=== PATIENT | male | born 1955 | race Caucasian/White ===

== ENCOUNTER 2020-12-01 10:51 | Outpatient (CLI) | payer MEDICARE, SELFPAY ==
--- NOTE | ~2020-12-01 | US_ITS ---
EXAMINATION: US soft tissue abdomen DATE: 12/01/2020 11:14 INDICATION: Ventral hernia without obstruction or gangrene TECHNIQUE: Multiple grayscale and Doppler ultrasound images of the abdominal wall were obtained. COMPARISON: None FINDINGS: Fat-containing 5.5 x 3.2 x 3.0 cm umbilical hernia extending through a 3.0 x 2.4 cm mouth. No evident herniated bowel. IMPRESSION: 1. 5.5 x 3.2 x 3.0 cm fat-containing umbilical hernia. Reviewed, dictated and finalized at location A.
== END 2020-12-01 10:52 | disposition home or self-care (01) ==
PROVIDERS: PCP Family Medicine; Visit Provider Family Medicine
DX: K43.9 Ventral hernia without obstruction or gangrene (principal); K42.9 Umbilical hernia without obstruction or gangrene
CPT/HCPCS: 76705

== ENCOUNTER 2021-01-04 09:18 | Outpatient (CLI) | payer MEDICARE, SELFPAY ==
--- NOTE | 2021-01-04 09:30 | ECG_ITS ---
Measurements Intervals [place] Rate: 80 P: 31 MS: 193 QRS: -40 QRSD: 136 T: 40 QT: 393 QTc: 454 Interpretive Statements SINUS RHYTHM LEFT AXIS DEVIATION INTRAVENTRICULAR CONDUCTION DELAY POOR R WAVE PROGRESSION, ANTERIOR LEADS BASELINE ARTIFACT- II, III, AVF BORDERLINE ECG Electronically Signed On 01-04-2021 9:44:46 CDT by Melvin Valdovinos D.O.
[2021-01-04 09:59] LABS: Anion Gap 10 mmol/L (8-16); Blood Urea Nitrogen 24 mg/dL (9-20); Calcium 9.3 mg/dL (8.4-10.2); Carbon Dioxide 24 mmol/L (22-30); Chloride 104 mmol/L (98-107); Estimated Glomerular Filt Rate > 60; Glucose 134 mg/dL (65-110); Potassium 3.8 mmol/L (3.4-5.0); Sodium 138 mmol/L (137-145)
== END 2021-01-04 09:19 | disposition home or self-care (01) ==
LOC: ANHSURGERY 09:22
PROVIDERS: Anesthesiology; PCP Family Medicine; Visit Provider Surgery
DX: K42.0 Umbilical hernia with obstruction, without gangrene (principal); I10 Essential (primary) hypertension; Z01.818 Encounter for other preprocedural examination; I45.9 Conduction disorder, unspecified
CPT/HCPCS: 36415; 80048; 86850; 86900; 86901; 93005

== ENCOUNTER 2021-01-09 02:12 | Day surgery (SDC) | payer MEDICARE, SELFPAY ==
[2021-01-03 11:13] VITALS: BMI 41.4
[2021-01-09] VITALS (11 sets, daily range): BP systolic 98–153; BP diastolic 49–77; PULSE 61–94; RESP 15–20; TEMP 36.1–36.6; O2SAT 94–97
[2021-01-09] MEDS: ACETAMINOPHEN 500 MG TABLET 1000 MG PO (06:25)
[2021-01-09] MEDS: LACTATED RINGERS 1,000 ML 30 ML IV CONT ×2 (06:28→09:07)
[2021-01-09] MEDS: KETOROLAC 15 MG/ML VIAL (*BKC) IV PUSH (06:31)
--- NOTE | 2021-01-09 06:40 | WPDANESEPPF ---
Anes - Initial Pre Proc Eval Procedure: Operation Date: 01/09/21 07:30 Proposed Procedures p Robotic Assisted Incarcerated Umbilical Hernia Repair with Mesh - Brielle Tobar MD Date/Time: 01/09/21 06:40 Surgeon: Brielle Tobar MD Pre Op Diagnosis: incarcerated umbilical hernia Patient Data Age: 65 Gender: M Height: 1.8 m Weight: 134.72 kg Allergies Allergy/AdvReac Type Severity Reaction Status Date / Time No Known Allergies Allergy Mild Verified 01/09/21 06:41 Home Medications Medication Instructions Recorded Confirmed Type losartan 100 mg tablet 100 mg PO DAILY #90 tablet 01/19/20 01/03/21 Rx rosuvastatin 20 mg tablet 20 mg PO DAILY #90 tablet 01/19/20 01/03/21 Rx chlorthalidone 25 mg tablet 25 mg PO DAILY #90 tablet 09/25/20 01/03/21 Rx aspirin 81 mg chewable tablet 81 mg PO DAILY 12/09/20 01/03/21 History glucosamine HCl 500 mg tablet 500 mg PO DAILY 12/09/20 01/03/21 History multivitamin 1 tablet PO DAILY 12/09/20 01/03/21 History tumeric 100 mg-yoni 150 mg-olive 1 cap PO DAILY 12/09/20 01/03/21 History 50 mg-oreg 150 mg-caprylate capsule allopurinol 300 mg tablet 300 mg PO DAILY #90 tablet 12/20/20 01/03/21 Rx amlodipine 10 mg tablet 10 mg PO DAILY #90 tablet 12/20/20 01/03/21 Rx levothyroxine 112 mcg tablet 112 mcg PO DAILY #112 tablet 01/04/21 Rx Patient hx anesthesia problems: none Family hx anesthesia problems: none PMFSH Past Medical History Medical History Benign reactive hypertension Gout Hypothyroidism (acquired) Mixed hyperlipidemia Obesity (BMI 30-39.9) Surgical History Surgical History H/O knee surgery Family History Family History Father Family history of lung cancer Family history of primary malignant neoplasm of liver Patient's father is Mother Family history of malignant neoplasm of breast in first degree relative Patient's mother is in good health Sibling Patient's sister is in good health Patient's brother is in good health Social History Social History Social History: Smoking status: Never smoker Second hand tobacco smoke exposure: No Alcohol intake: never Substance use: never Substance use type: does not use Living arrangements: with family Gender identity (if verbalized by the patient): Male Spiritual care concerns: No Anes - Eval Final PreProcedure Day of Procedure 01/09/21 06:40 Patient weight: morbidly obese Heart: regular rate and rhythm Lungs: clear to auscultation and normal air movement Airway: Mallampati scale class II Neurological: alert and oriented Last oral intake: >/= 8 hours ASA classification: III Emergent: no Anesthetic plan: proceed Anesthesia type and monitoring: general ETT and standard monitoring Informed Consent: The patient's anesthetic plan and its attendant risks and benefits were discussed with the patient/family/POA. Questions were solicited and answers provided to the satisfaction of the patient/family/POA.
--- NOTE | 2021-01-09 07:23 | WPDHPUPDATE1 ---
History and Physical Update Update Date/Time: 01/09/21 07:23 History and Physical has been reviewed, including an updated exam of the patient. There are NO changes in the patient's condition. Risks, benefits, and alternatives have been discussed and questions answered. Patient agrees to proceed with procedure.
--- NOTE | 2021-01-09 07:24 | WPDHPUPDATE1 ---
History and Physical Update Update Date/Time: 01/09/21 07:24 History and Physical has been reviewed, including an updated exam of the patient. There are NO changes in the patient's condition. Risks, benefits, and alternatives have been discussed and questions answered. Patient agrees to proceed with procedure.
[2021-01-09] MEDS: ceFAZolin 3 GM/D5W 100 ML 100 ML IVPB (07:29)
[2021-01-09] MEDS: BUPIVACAINE/EPINEPHRINE 0.5% 30 ML VIAL INFILTRATE (08:15)
--- NOTE | 2021-01-09 08:57 | W.PM.PROC2 ---
Procedure Note - Detailed Date of Procedure 01/09/21 Pre-op Diagnosis incarcerated umbilical hernia Post-op Diagnosis same Procedure Performed robotic assisted repair incarcerated umbilical hernia with mesh Surgeon Brielle Tobar MD Anesthesia general Indications 65 y/o F c incarcerated umbilical hernia Description of Procedure The patient was taken the operating room placed in the supine position. After adequate induction of general anesthesia, the patient was prepped and draped in normal sterile fashion. A time-out was then done to verify the patient's identity as well as the procedure being performed. I began by making a 5 mm incision in the left upper quadrant. Through this, a Veress needle was placed into the peritoneal cavity and CO2 gas was insufflated. After adequate pneumoperitoneum was achieved, a 5 mm trocar was placed through this incision. I then placed the laparoscope through this trocar site and under direct visualization I placed a 8 mm port in the left mid abdomen as well as an additional 8 mm port in the left lower abdomen. I then moved the camera to the lower port and replaced the 5 mm port with a 12 mm airport. The robot was then docked to the 3 port sites. I then went to the robotic console. I began by identifying the hernia. A moderate-sized incarcerated hernia was noted in the periumbilical region. Using graspers, I was able to reduce this hernia. The hernia was noted to contain a large amount of preperitoneal fat and omentum. Once reduced, I also reduced and dissected out the hernia sac. I then closed the approximately 2 cm defect with 0 strata fix suture. I then placed a 15 x 10 cm symbotex mesh into the abdominal cavity. The Vicryl stitch was placed in the middle of the mesh and brought up centering the mesh over the defect. Once this was done, I used 2 0 V lock suture x 2 to circumferentially suture the mesh to the abdominal. Once the mesh was completely sutured in, I was happy with our tension-free repair. The mesh was noted to have good overlap of the defect. At this point, the robot was undocked and all ports were removed. I then closed the 12 mm port site with an 0 Vicryl [id number] suture at the fascial level. All port sites were then closed with 4 O Monocryl subcuticular suture. The patient tolerated the procedure well, is extubated in the operating room postoperative, OB transferred to the recovery room in stable condition. Implants 15x10 cm Symbotex mesh Estimated Blood Loss 10 Drains No Packing No Pathology none sent Complications No immediate complications Condition stable Disposition PACU
--- NOTE | 2021-01-09 11:33 | SUR.PHASEII ---
Patient meets Anesthesia requirements for discharge. Patient is dressed, in chair, waiting for ride.
== END 2021-01-09 11:45 | disposition home or self-care (01) ==
PROVIDERS: PCP Family Medicine; Visit Provider Surgery
PROC: (CPT 49653; principal; 2021-01-09 07:30)
DX: K42.0 Umbilical hernia with obstruction, without gangrene (principal); E78.2 Mixed hyperlipidemia; E03.9 Hypothyroidism, unspecified; I10 Essential (primary) hypertension; M10.9 Gout, unspecified; E66.01 Morbid (severe) obesity due to excess calories; Z68.41 Body mass index [BMI] 40.0-44.9, adult
CPT/HCPCS: 49653; S2900; 36415; 80048; 86850; 86900; 86901; 93005; A9270; C1781; J0690; J1885; J2250; J2270; J2405; J2704; J7030; J7120

== ENCOUNTER 2022-03-15 09:22 | Outpatient (CLI) | payer MEDICARE, SELFPAY ==
--- NOTE | 2022-03-15 09:30 | ECG_ITS ---
Measurements Intervals [place] Rate: 98 P: 56 OR: 191 QRS: -42 QRSD: 140 T: 63 QT: 372 QTc: 476 Interpretive Statements SINUS RHYTHM FREQUENT VENTRICULAR PREMATURE COMPLEXES LEFT AXIS DEVIATION POOR R WAVE PROGRESSION, ANTERIOR LEADS ABNORMAL ECG COMPARED TO ECG 01/04/2021 09:37:35 FREQUENT VENTRICULAR PREMATURE COMPLEXES NOW PRESENT Electronically Signed On 03-15-2022 10:15:38 CDT by Melvin Valdovinos D.O.
== END 2022-03-15 09:23 | disposition home or self-care (01) ==
PROVIDERS: PCP Family Medicine; Visit Provider Surgery
DX: K40.90 Unilateral inguinal hernia, without obstruction or gangrene, not specified as recurrent (principal); I10 Essential (primary) hypertension; Z01.818 Encounter for other preprocedural examination; R94.31 Abnormal electrocardiogram [ECG] [EKG]
CPT/HCPCS: 36415; 86850; 86900; 86901; 93005

== ENCOUNTER 2022-03-19 02:35 | Day surgery (SDC) | payer MEDICARE, SELFPAY ==
[2022-03-14 10:02] VITALS: BMI 40.8
--- NOTE | 2022-03-14 10:15 | PC.NURSE ---
Pre Radiology instructions Report to the Outpatient Waiting Room, entrance under the green pavilion located off [facility], at time on date . Procedure Time: . YOU MAY BE MONITORED AT HOSPITAL FOR UP TO 4 HOURS AFTER YOUR PROCEDURE. One visitor will be allowed to accompany the patient into the hospital. The visitor will be instructed to remain with patient at all times or leave the building due to restrictions. We will allow the visitor to come back to the postoperative area when patient is ready. NO children visitors allowed at this time. You and your visitor will be asked to self-screen and do not enter if you have any COVID symptoms. A mask is required within the hospital. Patients are to have no food or drink 6 hours prior to procedure time Driving will be restricted after the procedure, you must have a person to drive you home. Labs will be drawn in preop area and once reviewed, you will be taken to radiology area for procedure. When the procedure is completed, you will be taken to outpatient where you will be monitored for several hours. You may have one visitor in this area. Other than holding anti-coagulants, patient may take other medication(s) as scheduled. Prior to your appointment date patients are instructed to hold anti-coagulants after discussing with ordering provider to stop. If unable to discontinue anti-coagulants please notify radiologist. No aspirin or warfarin (Coumadin) for 7 days prior to the procedure. No clopidogrel (Plavix), ticagrelor (Brilinta), prasugrel (Effient) or dabigatran (Pradaxa) for 5 days prior to the procedure. No rivaroxaban (Xarelto), apixaban (Eliquis), dipyridamole (Aggrenox or Persantine) or cilostazol (Pletal) for 2 days prior to the procedure. Medications to discontinue per physician: Date to take last dose: Please leave all valuables, including medications, at home the day of procedure. The hospital will not accept responsibility for valuables. Wear comfortable, loose fitting clothing. Follow any additional instructions given to you from ordering provider. Telephone instructions given to and asked if any additional questions and then verbalized understanding. Patient advised to call scheduling provider office or registration scheduling [phone] if any additional questions.
--- NOTE | 2022-03-14 10:15 | PC.NURSE ---
PRE-OP INSTRUCTIONS, PLEASE READ CAREFULLY Report to the Outpatient Waiting Room, entrance under the green pavilion located off [facility], at time _1000_ on date _03/19/22_. OR Time: _1200_. Time changes happen often and if your time is changed the preop area will call you the afternoon before. - You and your visitor will be asked to self-screen and do not enter if you have any COVID symptoms. - Only one visitor and NO children visitors are allowed at this time. - The patient visitor is requested to leave or wait in car when not with patient due to restrictions. - A mask is required within the hospital. Patients may have clear liquids (water, carbonated beverages, clear teas, apple juice) until 3 hours prior to surgery (0900 AM) with a maximum of 20 ounces. - No food from midnight until time of surgery Take the following medications with a SIP of water the morning of surgery: _NONE_ Medications to discontinue per ANESTHESIA - _MULTIVITAMIN, CANDICIDAL 3 DAYS PRIOR TO SURGERY, Date to take last dose 03/15/22_ Please no deodorant, or body powder the day of surgery. No jewelry (including any body piercings) or valuables the day of surgery, leave them at home. Please take a shower or bath the night before, or the morning of, surgery with an antibacterial soap. Wear comfortable, loose fitting clothing. - Jewelry must be removed prior to entering the operating room. Rings and piercings that are not removed may be cut off. - The hospital will not accept responsibility for valuables. - Please leave all valuables, including medications, at home the day of surgery. If you are going home after surgery, a licensed tour bus driver must drive you home. - NO public transportation without another adult. - We recommend that an adult stay with you for 24 hours following discharge. - We also recommend that you do not drive, make important decision, drink alcoholic beverages, or take any drugs that were not prescribed by your health care provider for at least 24 hours after your discharge time. Follow any additional instructions given to you from your surgeon. HIBICLENS SHOWER AM OF SURGERY If you or anyone in your household have experienced Covid symptoms in the past week, please notify your surgeon or the nurse liaison at the phone number below for possible testing. Telephone instructions given to PT and asked if any additional questions and then verbalized understanding. Patient advised to call surgeon office or pre surgery nurse liaison [phone] if any additional questions.
--- NOTE | 2022-03-16 15:16 | WPDANESEPPF ---
Anes - Initial Pre Proc Eval Procedure: Operation Date: 03/19/22 12:00 Proposed Procedures p Robotic Assisted Left Inguinal Hernia Repair with Mesh - Brielle Tobar MD Date/Time: 03/16/22 15:16 Surgeon: Brielle Tobar MD Pre Op Diagnosis: Lt Ing Hernia Patient Data Age: 66 Gender: M Height: 1.82 m Weight: 135.45 kg Allergies Allergy/AdvReac Type Severity Reaction Status Date / Time No Known Allergies Allergy Mild Verified 03/14/22 09:58 Home Medications Medication Instructions Recorded Confirmed Type glucosamine HCl 500 mg tablet 500 mg PO DAILY 12/09/20 03/14/22 History multivitamin 1 tablet PO DAILY 12/09/20 03/14/22 History tumeric 100 mg-yoni 150 mg-olive 1 cap PO DAILY 12/09/20 03/14/22 History 50 mg-oreg 150 mg-caprylate capsule (Candicidal) amlodipine 10 mg tablet 10 mg PO DAILY #90 tabs 06/22/21 03/14/22 Rx aspirin 81 mg chewable tablet 81 mg PO DAILY #90 tabs 06/22/21 03/14/22 Rx levothyroxine 112 mcg tablet 112 mcg PO DAILY #112 tabs 06/22/21 03/14/22 Rx losartan 50 mg tablet 100 mg PO DAILY #180 tabs 10/06/21 03/14/22 Rx allopurinol 300 mg tablet See Rx Instructions .Route 12/19/21 03/14/22 Rx .COMPLEX #90 tabs rosuvastatin 20 mg tablet See Rx Instructions .Route 01/09/22 03/14/22 Rx .COMPLEX #90 tabs metformin 500 mg tablet See Rx Instructions .Route 01/30/22 03/14/22 Rx .COMPLEX #60 tabs chlorthalidone 25 mg tablet See Rx Instructions .Route 03/02/22 03/14/22 Rx .COMPLEX #90 tabs ECG: Date of Service: 03/15/22 Procedure(s): CA 12 lead EKG Accession Number(s): [id number] cc: ~ ? Measurements Intervals? [place]? Rate: ? 98 ? P:? 56 IA: ? 191? QRS:? -42 QRSD: ? 140? T:? 63 QT: ? 372? QTc:? 476? Interpretive Statements SINUS RHYTHM FREQUENT VENTRICULAR PREMATURE COMPLEXES LEFT AXIS DEVIATION POOR R WAVE PROGRESSION, ANTERIOR LEADS ABNORMAL ECG COMPARED TO ECG 01/04/2021 09:37:35 FREQUENT VENTRICULAR PREMATURE COMPLEXES NOW PRESENT Electronically Signed On 03-15-2022 10:15:38 CDT by Melvin Valdovinos D.O. Patient hx anesthesia problems: none Family hx anesthesia problems: none Results Review: All pre-operative results and documents have been reviewed as part of the pre-operative evaluation. [facility] Past Medical History Medical History (Updated 03/16/22 @ 15:17 by Israel Raines MD) Benign reactive hypertension Diabetes Gout Hypothyroidism (acquired) Mixed hyperlipidemia Obesity (BMI 30-39.9) Severe obesity (BMI >= 40) Surgical History Surgical History H/O knee surgery H/O umbilical hernia repair 01/09/21 Family History Family History Father Family history of lung cancer Family history of primary malignant neoplasm of liver Patient's father is Mother Family history of malignant neoplasm of breast in first degree relative Patient's mother is in good health Sibling Patient's sister is in good health Patient's brother is in good health Social History Social History Social History: Smoking status: Never smoker Second hand tobacco smoke exposure: No Alcohol intake: never Substance use: never Substance use type: does not use Living arrangements: with family Gender identity (if verbalized by the patient): Male Sexual Orientation (if Verbalized by the Patient): Straight or Heterosexual Spiritual care concerns: No Anes - Eval Final PreProcedure Day of Procedure 03/16/22 15:16 Patient weight: morbidly obese Heart: regular rate and rhythm Lungs: tenzin
[2022-03-19] VITALS (7 sets, daily range): BP systolic 132–165; BP diastolic 66–91; PULSE 44–91; RESP 16–22; TEMP 36.6–36.8; O2SAT 91–97
[2022-03-19] MEDS: ACETAMINOPHEN 500 MG TABLET 1000 MG PO (11:08)
[2022-03-19] MEDS: LACTATED RINGERS 1,000 ML 30 ML IV CONT ×2 (11:20→15:31)
[2022-03-19] MEDS: KETOROLAC 15 MG/ML VIAL (*BKC) IV PUSH (11:20)
[2022-03-19 11:22] LABS: Glucose Point of Care 137 mg/dl (65-105)
--- NOTE | 2022-03-19 11:39 | PM.IMHP ---
H&P: HPI History of Present Illness Date/Time: 03/19/22 11:39 Pt here for evaluation of L groin pain. Patient states about 2 months ago he started noticing tightness/discomfort in his left groin. He denies any bulge. He is eating normally and having normal BM's. Patient does have a history of robotic assisted repair incarcerated umbilical hernia with mesh on 01/09/21. Chief Complaint: Left groin pain Review of Systems Review of Systems: All systems reviewed & are unremarkable except as noted in HPI and below PMFSH Past Medical History Medical History Benign reactive hypertension Diabetes Gout Hypothyroidism (acquired) Mixed hyperlipidemia Obesity (BMI 30-39.9) Severe obesity (BMI >= 40) Surgical History Surgical History H/O knee surgery H/O umbilical hernia repair 01/09/21 Family History Family History Father Family history of lung cancer Family history of primary malignant neoplasm of liver Patient's father is Mother Family history of malignant neoplasm of breast in first degree relative Patient's mother is in good health Sibling Patient's sister is in good health Patient's brother is in good health Social History Social History Social History: Smoking status: Never smoker Second hand tobacco smoke exposure: No Alcohol intake: never Substance use: never Substance use type: does not use Living arrangements: with family Gender identity (if verbalized by the patient): Male Sexual Orientation (if Verbalized by the Patient): Straight or Heterosexual Spiritual care concerns: No Meds Home Medications and Allergies Home Medications Medication Instructions Recorded Confirmed Type glucosamine HCl 500 mg tablet 500 mg PO DAILY 12/09/20 03/19/22 History multivitamin 1 tablet PO DAILY 12/09/20 03/19/22 History tumeric 100 mg-yoni 150 mg-olive 1 cap PO DAILY 12/09/20 03/19/22 History 50 mg-oreg 150 mg-caprylate capsule (Candicidal) amlodipine 10 mg tablet 10 mg PO DAILY #90 tabs 06/22/21 03/19/22 Rx aspirin 81 mg chewable tablet 81 mg PO DAILY #90 tabs 06/22/21 03/19/22 Rx levothyroxine 112 mcg tablet 112 mcg PO DAILY #112 tabs 06/22/21 03/19/22 Rx losartan 50 mg tablet 100 mg PO DAILY #180 tabs 10/06/21 03/19/22 Rx allopurinol 300 mg tablet See Rx Instructions .Route 12/19/21 03/19/22 Rx .COMPLEX #90 tabs rosuvastatin 20 mg tablet See Rx Instructions .Route 01/09/22 03/19/22 Rx .COMPLEX #90 tabs metformin 500 mg tablet See Rx Instructions .Route 01/30/22 03/19/22 Rx .COMPLEX #60 tabs chlorthalidone 25 mg tablet See Rx Instructions .Route 03/02/22 03/19/22 Rx .COMPLEX #90 tabs Allergies Allergy/AdvReac Type Severity Reaction Status Date / Time No Known Allergies Allergy Mild Verified 03/19/22 11:03 Vital Signs Vital Signs - 24 hr 03/19/22 10:20 Temperature 36.8 C Pulse Rate 52 L Respiratory Rate 16 Blood Pressure 165/91 H Pulse Oximetry 97 Oxygen Delivery Room Air Exam Const: General: cooperative, comfortable, no acute distress and obese Resp: Auscultation: clear to auscultation bilaterally Cardio: Rate: regular rate Rhythm: regular rhythm GI: Inspection: normal to inspection and non-distended GI Palp: Yes abdominal tenderness, Yes Soft to palpation, Yes Tenderness to palpation present (GI), No Guarding due to palpation present (GI), No Rigid due to palpation and Yes Hernia present Assessment and Plan Assessment and plan (1) Left inguinal hernia: Code(s): K40.90 - Unilateral inguinal hernia, without obstruction or gangrene, not specified as recurrent Status: Acute Assessment and Plan: will setup for robotic assisted repair c mesh
--- NOTE | 2022-03-19 11:42 | WPDHPUPDATE1 ---
History and Physical Update Update Date/Time: 03/19/22 11:42 History and Physical has been reviewed, including an updated exam of the patient. There are NO changes in the patient's condition. Risks, benefits, and alternatives have been discussed and questions answered. Patient agrees to proceed with procedure.
[2022-03-19] MEDS: ceFAZolin 3 GM/D5W 100 ML 100 ML IVPB (13:47)
[2022-03-19] MEDS: BUPIVACAINE/EPINEPHRINE 0.25% 50 ML VIAL 30 ML INFILTRATE (14:21)
--- NOTE | 2022-03-19 15:33 | W.PM.PROC2 ---
Procedure Note - Detailed Date of Procedure 03/19/22 Pre-op Diagnosis Left inguinal hernia Post-op Diagnosis Same Procedure Performed robotic assisted left inguinal hernia repair with mesh, lysis of adhesions of approximately 30 minutes Surgeon Brielle Tobar MD Anesthesia General Indications 66 y/o M c LIH and worsening groin pain over last few months Findings indirect left inguinal hernia, extensive periumbilical adhesions to previous mesh Description of Procedure Patient was brought into the operating room and placed in the supine position. After adequate induction of general anesthesia, the patient was prepped and draped in normal sterile fashion. A time-out was then done to verify the patient's identity, as well as the procedure being performed. I began by making a 8 mm incision in the left mid abdominal region, given his previous periumbilical hernia repair. A Veress needle was then placed into the peritoneal cavity. CO2 gas was then insufflated and after adequate pneumoperitoneum was achieved, the Veress needle was removed. I then placed an 8 mm trocar through this incision. I then placed the endoscope through this trocar site. A dense amount of adhesions was noted in the periumbilical area to the previously placed mesh. Given this, I placed a 5 mm RLQ port in a clear area under direct visualization. I then used sharp dissection with cautery to take down these adhesions. This lysis of adhesions took approximately 30 minutes. Once these adhesions were taken down, went ahead and placed 2 further 8 mm ports in the midline supraumbilical region and the right mid abdomen. The [employer] robot was then docked to the 3 trocar sites. I then scrubbed out and went to the robotic console. Upon examining the pelvis, it was noted that the patient had a moderate left inguinal hernia. The right side was examined and no hernia defect was noted. I began by making a preperitoneal flap approximately 6 cm superior to the defect. This flap was carried medially past the umbilical ligaments and laterally to the transversalis. It then began dissection of my medial compartment taking this down to the pubic tubercle. I then began the lateral dissection taking this down to the transversalis fascia. Once these compartments were achieved, I began dissection around the cord structures. A moderate sized indirect hernia was noted at this point. Using careful dissection, was able to reduce indirect hernia sac off the cord structures. I also reduced a sizable lipoma of the cord. Once this was adequately done, I went ahead and placed a large piece of 3D Max mesh into the abdominal cavity. The mesh was carefully positioned, centering the center of the mesh over the indirect defect. Once this was done, was very satisfied with our repair. Using 3-0 Vicryl sutures, I tacked the mesh medially to Miguel's ligament. Two lateral sutures were placed from the mesh to the transversalis fascia. I then closed the peritoneal flap with a running 2.0 V Lock suture. The abdomen was then desufflated, and all ports were removed. All incisions were then closed with the 4.0 monocryl suture. Dermabond was placed on each wound. The patient tolerated the procedure well, was extubated in the operating room postoperatively, and will now be transferred to the recovery room in stable condition. Implants large 3DMax mesh Estimated Blood Loss 10 Drains No Packing No Pathology None sent Complications No immediate complications Condition Stable Disposition PACU [facility] Billing Surgery - Charge Forward: Surgery Billing
[2022-03-19 15:44] LABS: Glucose Point of Care 159 mg/dl (65-105)
== END 2022-03-19 17:25 | disposition home or self-care (01) ==
PROVIDERS: PCP Family Medicine; Visit Provider Surgery
PROC: 8E0Y4CZ Robotic Assisted Procedure of Lower Extremity, Percutaneous Endoscopic Approach (ICD-10-PCS; CPT 49650; principal; 2022-03-19 12:00)
DX: K40.90 Unilateral inguinal hernia, without obstruction or gangrene, not specified as recurrent (principal); K66.0 Peritoneal adhesions (postprocedural) (postinfection); I10 Essential (primary) hypertension; E11.9 Type 2 diabetes mellitus without complications; E78.2 Mixed hyperlipidemia; E03.9 Hypothyroidism, unspecified; M10.9 Gout, unspecified; E66.01 Morbid (severe) obesity due to excess calories; Z68.41 Body mass index [BMI] 40.0-44.9, adult; Z79.84 Long term (current) use of oral hypoglycemic drugs; Z79.82 Long term (current) use of aspirin
CPT/HCPCS: 49650; S2900; 36415; 82948; 86850; 86900; 86901; 93005; A9270; C1781; J0330; J0690; J1100; J1885; J2250; J2405; J2704; J2710; J3010; J7030; J7120

== ENCOUNTER 2022-10-18 08:13 | Outpatient (CLI) | payer MEDICARE, SELFPAY ==
--- NOTE | ~2022-10-18 | XR_ITS ---
Clinical Indication: Cough PA and lateral views of the chest: Comparison: None Findings: The lungs are clear, without evidence of focal consolidation or pleural effusion. Cardiome diastinal silhouette is within normal limits. Bones and soft tissues are unremarkable. Impression: Normal chest. Reviewed, dictated and finalized at location . Impression: Normal chest.
== END 2022-10-18 08:14 | disposition home or self-care (01) ==
PROVIDERS: PCP Family Medicine; Visit Provider Family Medicine
DX: R05.9 Cough, unspecified (principal)
CPT/HCPCS: 71046

== ENCOUNTER 2023-03-19 12:39 | Outpatient (RCR) | payer MEDICARE, SELFPAY ==
--- NOTE | 2023-03-19 14:39 | OPREHPOC ---
Outpatient Therapy Plan of Care This is a Multidisciplinary Plan of Care that may contain components documented by all disciplines (PT, OT, and ST.) ST Problem 1 ST Problem #[address] Goal 1 Goal Patient will participate in education and home exercise program to improve vocal hygiene, breath support, and efficiency of vocal folds during phonation. Target Visit [address] Problem #[address] Goal 1 Goal Patient will complete vocal function exercises ( sustained phonation, pitch glides, etc.) as trained at least twice daily, 5 days a week per self-report to improve voice quality. Target Visit 4 ST Goal 2 Goal Patient will complete sustained phonation tasks ( SOVT, sustained /a/ phoneme, etc) for at least 15 seconds while maintaining perceptually good quality and volume in 8/10 attempts to improve muscular endurance required for sustained phonation. Target Visit [address] Problem #[address] Goal 1 Goal Patient will use diaphragmatic breathing and prolong phonation of a vowel sound for 15 seconds to improve breath support required for sustained phonation. Target Visit 4
--- NOTE | 2023-03-19 14:43 | STOPEVAL1 ---
Assessment and note entered by Soumya Guerrero TENDER COORDINATOR Evaluation Information Assessment Status Evaluation Diagnosis Dysphonia; vocal nodules Onset July 2022 Subjective Information Patient reports ongoing cough since approximately July 2022. ENT discovered the start of unilateral vocal nodule, per patient report. Reported Pain Level Pain Score 0: Self Report Assessment ST Clinical Summary Kamron Patel is a 67 year old male with a past medical history significant for acute bronchitis and chronic cough. Kamron was referred to complete a voice evaluation with a speech language pathologist due to consistent dysphonia since July of 2022. Kamron reports that his ENT found the beginning of a unilateral vocal nodule and inflammation of his vocal folds. He reports that he has always been a loud and boisterous person, especially while entertaining his grandchildren. It was noted that Kamron uses mostly clavicular breathing and frequently runs out of breath in the middle of sentences. He demonstrates audible breathing and also reports frequent wheezing. Kamron frequently coughed and cleared his throat throughout the session and said he has been getting over bronchitis with an antibiotic and steroid inhaler. Kamron's prolonged vowel lasted 5.13 seconds and time counting on one breath lasted 7.93 seconds, indicating decreased breath support required for proper phonation. Kamron's /s/ to /z/ ratio was 1.32, indicating difficulty producing easy motion of the vocal folds. The Voice Handicap Index was completed with a score of 37, placing him in the moderate severity rating often seen in patients with vocal nodules. Throughout reading passage, Kamron was unable to naturally end exhalation with ends of sentences, frequently having to take breaths skilled nursing through the sentence. However, Kamron's loudness and pitch remained within normal limits. Kamron was provided education on vocal abuse to avoid and was recommended to continue exploring possible GERD as a contributor to dysphonia. Kamron was also provided the start of a home exercise program
--- NOTE | 2023-04-30 11:54 | STOPDC ---
Assessment and note entered by Soumya Guerrero, LAYDOWN MACHINE OPERATOR Evaluation Information Assessment Status Discharge - Pt Not Present Assessment ST Clinical Summary Kamron Patel received a ST evaluation on 03/19/23 to address chronic dysphonia. During the evaluation, Kamron received education to decrease vocal fold abuse as well as a home exercise program to improve breath support required for phonation and vocal fold strength. Kamron will d/c from skilled services because he was unable to attend follow up ST treatment sessions. Thank you for this referral. Plan of Care ST Services Indicated No
== END 2023-04-30 14:50 | disposition home or self-care (01) ==
LOC: ANHST 12:39
PROVIDERS: PCP Family Medicine; Visit Provider Family Medicine
DX: J38.2 Nodules of vocal cords (principal); J38.3 Other diseases of vocal cords
CPT/HCPCS: 92507; 92524

== ENCOUNTER 2023-03-21 14:29 | Inpatient (IN) | payer MEDICARE, SELFPAY ==
[2023-03-21] VITALS (39 sets, daily range): BP systolic 101–137; BP diastolic 78–106; PULSE 87–107; RESP 14–26; TEMP 36.1–36.8; O2SAT 92–100
--- NOTE | ~2023-03-21 | XR_ITS ---
EXAMINATION: XR chest 2V DATE: 03/21/2023 15:29 INDICATION: Cough and dyspnea TECHNIQUE: PA and lateral views of the chest were obtained. COMPARISON: Chest radiograph dated 10/18/2022 FINDINGS: The lungs remain clear with no focal airspace opacities, pulmonary edema, pleural effusion or pneumot horax. Cardiomegaly. Mild thoracic spondylosis. IMPRESSION: 1. Cardiomegaly. No other acute cardiopulmonary disease. Reviewed, dictated and finalized at location A.
--- NOTE | ~2023-03-21 | CT_ITS ---
EXAMINATION: CTA chest PE protocol DATE: 03/21/2023 20:29 INDICATION: Shortness of breath. TECHNIQUE: Computed tomography angiography (CTA) of the chest was performed with 100 mL Omnipaque-350 intravenous contrast timed to evaluate the pulmonary arteries. Coronal maximum intensity projection 3D-reconstructions were created by the technologist. Automated exposure control and iterative reconst ruction technique were employed. The dose-length product was 930.45 mGy-cm. COMPARISON: Chest 2 views 03/21/2023 FINDINGS: The lungs demonstrate mild atelectasis. There is smooth septal thickening bilaterally, cons istent mild pulmonary edema. No pleural effusion. Cardiomegaly is noted. No pericardial effusion. The re is no pulmonary embolus. There is mild mediastinal lymphadenopathy, likely reactive. There is mild thoracic spondylosis. IMPRESSION: 1. No pulmonary embolus. 2. Mild pulmonary edema. 3. Cardiomegaly. Reviewed, dictated and finalized at location E.
--- NOTE | 2023-03-21 14:31 | ECG_ITS ---
Measurements Intervals [place] Rate: 102 P: [place]: 0 QRS: -52 QRSD: 141 T: 89 QT: 395 QTc: 516 Interpretive Statements ATRIAL FIBRILLATION LEFT AXIS DEVIATION [QRS AXIS < -30] LEFT BUNDLE BRANCH BLOCK [120+ ms QRS DURATION, 80+ ms Q/S IN V1/V2, 85+ ms R IN I/aVL/V5/V6] COMPARED TO ECG 03/15/2022 09:58:41 ATRIAL FIBRILLATION NOW PRESENT Electronically Signed On 03-22-2023 14:09:58 CDT by Angelina Escobar M.D.
[2023-03-21 14:50] LABS: Basophils Absolute Auto 0.1 K/mm3 (0.0-0.1); Basophils Percent Auto 0.6 % (0.2-1.2); Eosinophils Absolute Auto 0.1 K/mm3 (0-0.3); Eosinophils Percent Auto 0.9 % (0-4.4); Hematocrit 41.7 % (42.0-52.0); Hemoglobin 13.8 g/dL (14.0-18.0); Immature Granulocyte Absolute 0.04 K/mm3 (0.00-0.031); Immature Granulocyte Percent A 0.4 % (0-0.5); Lymphocytes Absolute Auto 2.14 K/mm3 (0.9-3.2); Lymphocytes Percent Auto 22.4 % (18.3-44.2); Mean Corpuscular HGB Conc 33.1 g/dl (32-36); Mean Corpuscular Hemoglobin 30.3 pg (26-34); Mean Corpuscular Volume 91.6 fl (80-100); Mean Platelet Volume 10.7 fl (7.4-10.4); Monocytes Absolute Auto 0.7 K/mm3 (0.1-0.6); Monocytes Percent Auto 7.3 % (2.6-8.5); Neutrophils Absolute Auto 6.5 K/mm3 (1.3-6.7); Neutrophils Percent Auto 68.4 % (45.5-73.1); Platelet Count Result 278 k/mm3 (150-375); Red Blood Count 4.55 M/mm3 (4.6-6.20); Red Cell Distribution Width 15.5 % (11.5-14.5); White Blood Count 9.6 K/mm3 (4.5-10.0)
[2023-03-21 15:00] LABS: Alanine Aminotransferase 58 U/L (6-50); Albumin Level 4.4 g/dL (3.5-5.1); Alkaline Phosphatase 42 U/L (38-126); Anion Gap 12 mmol/L (8-16); Aspartate Amino Transferase 59 U/L (17-59); Blood Urea Nitrogen 22 mg/dL (9-20); Calcium 8.8 mg/dL (8.4-10.2); Carbon Dioxide 20 mmol/L (22-30); Chloride 95 mmol/L (98-107); Estimated CRCL calculation 74 ml/min; Estimated Glomerular Filt Rate 60; Glucose 143 mg/dL (65-110); Potassium 3.6 mmol/L (3.4-5.0); Sodium 127 mmol/L (137-145)
[2023-03-21 15:01] LABS: INR 1.2; Prothrombin Time 15.7 Seconds (11.1-14.7)
[2023-03-21 15:02] LABS: Partial Thromboplastin Time 27.3 SECONDS (22.3-36.8)
[2023-03-21 15:12] LABS: NT Pro B Type Natriuretic Pept 11000 pg/mL (19.9-100); Troponin I 0.034 ng/mL (0.000-0.034)
[2023-03-21 15:27] LABS: Influenza A QL RT-PCR Negative (Negative); Influenza B QL RT-PCR Negative (Negative); SARS-CoV-2 RNA PCR Negative (Negative)
--- NOTE | 2023-03-21 18:59 | ED.SOB ---
HPI - SOB/Dyspnea General Chief Complaint: Shortness of Breath/Dyspnea <Ann Hoover PA-C - Last Filed: 03/22/23 00:45> Stated Complaint: SOB <EVERTON Arango Last Filed: 03/22/23 00:45> Time Seen by Provider: 03/21/23 18:37 <EVERTON Arango Last Filed: 03/22/23 00:45> Source: patient <EVERTON Arango Last Filed: 03/22/23 00:45> Mode of arrival: ambulatory <EVERTON Arango Last Filed: 03/22/23 00:45> Limitations: no limitations <EVERTON Arango Last Filed: 03/22/23 00:45> History of Present Illness HPI Narrative: This is a 67 year old male that presents to the ER for progressive dyspnea over the last week. Reports worse with lying flat. Reports he has had a chronic productive cough since the beginning of this year. He has seen multiple specialists for this without certain cause found. Reports lower extremity edema. Denies fever or chest pain. <Ann Hoover PA-C - Last Filed: 03/22/23 00:45> Related Data Home Medications: Home Medications Medication Instructions Recorded Confirmed glucosamine HCl 500 mg tablet 500 mg PO DAILY 12/09/20 03/22/23 multivitamin 1 tablet PO DAILY 12/09/20 03/22/23 omega 5-wpn-sfc-fish oil 60 mg-90 1 cap PO DAILY 10/29/22 03/22/23 mg-500 mg capsule (Fish Oil) allopurinol 300 mg tablet 1 mg PO DAILY 03/22/23 03/21/23 amlodipine 10 mg tablet 1 mg HS 03/22/23 03/22/23 bisacodyl 5 mg tablet,delayed 15 mg PO HS 03/22/23 03/22/23 release (Dulcolax (bisacodyl)) chlorthalidone 25 mg tablet 1 mg HS 03/22/23 03/22/23 losartan 50 mg tablet 2 mg PO DAILY 03/22/23 03/22/23 metformin 500 mg tablet 1 mg BIDAC 03/22/23 03/22/23 omeprazole 40 mg capsule,delayed 40 mg PO HS 03/22/23 03/22/23 release rosuvastatin 20 mg tablet 1 mg PO HS 03/22/23 03/22/23 <EVERTON Arango Last Filed: 03/22/23 00:45> Allergies/Adverse Reactions: Allergies Allergy/AdvReac Type Severity Reaction Status Date / Time No Known Allergies Allergy Mild Verified 03/21/23 14:29 <Ann Hoover PA-C - Last Filed: 03/22/23 00:45> Review of Systems Review of Systems: CONSTITUTIONAL: Denies fever CARDIOVASCULAR: Reports edema. Denies chest pain RESPIRATORY: Reports cough and dyspnea. <EVERTON Arango Last Filed: 03/22/23 00:45> All systems reviewed & are unremarkable except as noted in HPI and below <EVERTON Arango Last Filed: 03/22/23 00:45> [facility] Past Medical History Medical History: Medical History Acute bronchitis Acute non-recurrent maxillary sinusitis Arthritis of knee Benign reactive hypertension BMI 40.0-44.9, adult Body mass index [BMI] 37.0-37.9, adult (01/11/17) Cellulitis of perianal area Colon cancer screening Diabetes Dietary counseling and surveillance (04/07/19) Dyslipidemia Elevated fasting blood sugar Essential hypertension Gout Hyperglycemia Hypothyroidism (acquired) Lichen planus follicularis Mixed hyperlipidemia Mixed hyperlipidemia New onset type 2 diabetes mellitus New onset type 2 diabetes mellitus Obesity (BMI 30-39.9) Obesity hypoventilation syndrome Other obesity due to excess calories Pain in left knee Patella, chondromalacia Perianal irritation Prediabetes Ringworm Screening PSA (prostate specific antigen) Severe obesity (BMI >= 40) Weight gain Wheezing <EVERTON Arango Last Filed: 03/22/23 00:45> Surgical History Surgical History: Surgical History H/O knee surgery H/O umbilical hernia repair 01/09/21 History of inguinal hernia repair 03/19/2022 - robotic assisted left inguinal hernia repair with mesh, lysis of adhesions <EVERTON Arango Last Filed: 03/22/23 00:45> Family History Family History: Family History Father Family history of lung cancer Fam
[2023-03-21 19:21] LABS: D Dimer 4.58 ug/mL (<0.48)
[2023-03-21] MEDS: FUROSEMIDE INJ 40 MG/4 ML VIAL IV PUSH (20:55)
--- NOTE | 2023-03-21 23:22 | ADMGEN ---
This patient, Kamron Patel, was admitted to [facility] Surg Room 313-01. Patient/family oriented to hospital policies and general routines including ID bracelet, bed and alarms, visiting hours, pain management, procedures, bathroom and other care routines, personal items, smoking policy, room service/diet, and visiting hours. Information on how to activate the Rapid Response Team has been discussed. Patient/Family are encouraged to report perceived risks to care and to ask questions if they do not understand what they are told or what they should do.
[2023-03-21 23:34] LABS: Troponin I 0.043 ng/mL (0.000-0.034)
[2023-03-22] VITALS (9 sets, daily range): BP systolic 106–117; BP diastolic 72–80; PULSE 78–111; RESP 13–22; TEMP 36.1–36.7; O2SAT 90–99
--- NOTE | 2023-03-22 | ECHO_ITS ---
Patient Info Name: Kamron Patel Age: 67 years : 1955 Gender: Male Ht: 71 in Wt: 290 lbs BSA: 2.62 m2 HR: 82 bpm BP: 106 / 77 mmHg Heart Rhythm: Sinus Rhythm Technical Quality: Fair Exam Date: 03/22/2023 10:22 AM Exam Location: [facility] Pulmonary Patient Status: Outpatient Admit Date: 03/21/2023 Staff Ordering Physician: Abdulaziz Ramos APRN Cytotechnologist Supervisor: Willow Castillo RDCS Attending Provider: Kia Anthony DO Referring Physician: Richard DOYLE; Exam Type: CA echo dop color flow w con Study Info Indications - NEW ONSET CHF Complete two-dimensional, color flow and Doppler transthoracic echocardiogram is performed with contrast to opacify the left ventricle and to improve the deliniation of the left ventricle endocardial borders. Contrast/Agitated Saline Contrast/Ag. Saline: Definity Amount: 3.00 ml Administered By: Willow Castillo RDCS Existing IV Access: Yes IV Access Condition: patent with no signs of infiltration Summary 1. Left ventricular chamber dimension is moderately enlarged. 2. Left ventricular systolic function is severely reduced, estimated at 15-20%. 3. Left ventricular septal wall motion is abnormal with septal motion related to bundle branch block. 4. Right ventricular systolic function is normal. 5. Left atrial chamber dimension is moderately enlarged. 6. Right atrial chamber dimension is moderately enlarged. 7. There is mild to moderate mitral valve regurgitation. 8. There is mild tricuspid valve regurgitation. Left Ventricle Left ventricular chamber dimension is moderately enlarged. Left ventricular systolic function is severely reduced, estimated at 15-20%. Left ventricular septal wall motion is abnormal with septal motion related to bundle branch block. The left ventricular diastolic function is indeterminate. Right Ventricle Right ventricular chamber dimension is normal. Right ventricular systolic function is normal. Left Atria Left atrial chamber dimension is moderately enlarged. Right Atria Right atrial chamber dimension is moderately enlarged. Atrial Septum Intact interatrial septum visualized by color flow imaging. Aortic Valve The aortic valve is probable trileaflet. There is no aortic valve stenosis. There is no aortic valve regurgitation. Pulmonic Valve The pulmonic valve is not well visualized. Mitral Valve There is mild to moderate mitral valve regurgitation. Tricuspid Valve There is mild tricuspid valve regurgitation. Pericardium/Pleural The pericardium appears epicardial fat pad. There is no pericardial effusion. Inferior Vena Cava Inferior vena cava is not well visualized. Aorta The aortic root size at the sinus of Valsalva is normal. Left Ventricular Outflow Tract Name Value Normal LVOT 2D LVOT Diameter 2.20 cm LVOT Doppler LVOT Peak Gradient 1 mmHg LVOT Mean Gradient 1 mmHg LVOT VTI 9.51 cm LVOT VTI/AV VTI Ratio 0.52 LVOT Stroke Volume 36.19 ml LVOT CO 3.05 l/min LVOT
[2023-03-22 03:52] LABS: Troponin I 0.042 ng/mL (0.000-0.034)
[2023-03-22 07:47] LABS: Glucose Point of Care 97 mg/dl (65-105)
[2023-03-22] MEDS: FUROSEMIDE INJ 40 MG/4 ML VIAL IV PUSH (08:19)
[2023-03-22] MEDS: LEVOTHYROXINE SODIUM 112 MCG TABLET PO (08:20)
--- NOTE | 2023-03-22 08:33 | PM.IMHP ---
H&P: HPI History of Present Illness Date/Time: 03/22/23 08:33 Chief Complaint: Dyspnea, worse with exertion Narrative: This is a 67-year-old male patient with past history of hypertension, hypothyroidism, type 2 diabetes with good glycemic control, elevated cholesterol and gout who is admitted to the hospital for progressive dyspnea on exertion. Patient reports that he has been dealing with a chronic cough for about 7 months and has seen ENT and pulmonology as well as other providers regarding this cough. About 4 weeks ago patient started to have dyspnea on exertion that has progressed to now where he is unable to do simple activity without becoming severely out of breath. Prior to 4 weeks ago he had no difficulty breathing only the chronic cough. Now he has rust colored sputum and essentially no activity tolerance. Patient has not been able to sleep because of the dyspnea. Patient denies any chest pain denies any cardiac history. Patient is a nonsmoker. No history of drug or alcohol abuse. He has not undergone sleep study. Patient notes some chronic mild edema around his ankles and he is noted to be on amlodipine for blood pressure. He reports that he has been taking Trulicity for weight loss as well as diabetes control. He has intentionally lost weight the last several months but noted that for the last couple of days he has gained weight despite poor appetite. [facility] Past Medical History Medical History (Updated 03/22/23 @ 12:07 by Abdulaziz Ramos APRN) Acute bronchitis Acute non-recurrent maxillary sinusitis Arthritis of knee Benign reactive hypertension BMI 40.0-44.9, adult Body mass index [BMI] 37.0-37.9, adult (01/11/17) Cellulitis of perianal area Colon cancer screening Diabetes Dietary counseling and surveillance (04/07/19) Dyslipidemia Elevated fasting blood sugar Essential hypertension Gout Hyperglycemia Hypothyroidism (acquired) Lichen planus follicularis Mixed hyperlipidemia Mixed hyperlipidemia New onset type 2 diabetes mellitus New onset type 2 diabetes mellitus Obesity (BMI 30-39.9) Obesity hypoventilation syndrome Other obesity due to excess calories Pain in left knee Patella, chondromalacia Perianal irritation Prediabetes Ringworm Screening PSA (prostate specific antigen) Severe obesity (BMI >= 40) Weight gain Wheezing Surgical History Surgical History H/O knee surgery H/O umbilical hernia repair 01/09/21 History of inguinal hernia repair 03/19/2022 - robotic assisted left inguinal hernia repair with mesh, lysis of adhesions Family History Family History Father Family history of lung cancer Family history of primary malignant neoplasm of liver Patient's father is Mother Family history of malignant neoplasm of breast in first degree relative Patient's mother is in good health Sibling Patient's sister is in good health Patient's brother is in good health Social History Social History Social History: Smoking status: Never smoker Second hand tobacco smoke exposure: No Alcohol intake: never Substance use: never Substance use type: does not use Lack of Transportation: No Lack of Food: Never True Current Housing: I Have Housing Concerned About Future Housing: No Difficulty Paying Gas/Electric Bills: No Difficulty Paying for Meds: No Currently Unemployed: No Education: Bachelor's Degree Difficulty w/ Childcare or Family Care: No Living arrangements: with family Additional living arrangements comments: Occupation/Education: retired Gender identity (if verbalized by the patient): Male Sexual Orientation (if Verbalized by the Patient): Straight or Heterosexual Spiritual care concerns: No Meds Home Medications and Allergies Home Medications
--- NOTE | 2023-03-22 10:25 | PM.CNCAR ---
Assessment and Plan Assessment and plan (1) Heart failure: Qualifiers: Heart failure chronicity: acute Heart failure type: unspecified Qualified Code(s): I50.9 - Heart failure, unspecified Code(s): I50.9 - Heart failure, unspecified Status: Acute Assessment and Plan: Presents with progressive shortness of breath, dyspnea with exertion, edema, and weight gain. Improved with IV furosemide Continue with furosemide 40mg IV push daily for now, monitoring sodium closely. Since he is hyponatremic so would not resume his home chlorthalidone Echo is pending Daily weights Strict I&O CHF counseling Further recommendations to follow review of echo (2) Prolonged QT interval: Code(s): R94.31 - Abnormal electrocardiogram [ECG] [EKG] Status: Acute Assessment and Plan: QTc 516ms, when corrected for left bundle branch block, QTc ~455, which is acceptable. (3) Elevated troponin: Code(s): R79.89 - Other specified abnormal findings of blood chemistry Status: Acute Assessment and Plan: Mildly elevated and flat, not consistent with ACS/plaque rupture. No further workup recommended at this point. History of Present Illness History of Present Illness Consult date/time: 03/22/23 10:25 Requesting physician: Abdulaziz Ramos APRN Consult reason: congestive heart failure Reason For Visit: CHF Exacerbation Narrative: Kamron Patel is a 67 year old male with a medical history of hypertension, diabetes mellitus type 2, and dyslipidemia. He comes to the hospital with a chief complaint of shortness of breath. He has had a persistent cough for about 9 months, and more recently noticed shortness of breath. He has also been experiencing lower extremity edema, abdominal distension, dyspnea with exertion, and orthopnea. He became significantly short of breath yesterday after ascending the stairs in his home, so he came to the emergency department for evaluation. He is feeling better after being given IV lasix. He denies any chest pain, palpitations, syncope, pre-syncope. He is lying comfortably in bed with no complaints during my visit with him. Review of Systems Review of Systems: All systems reviewed & are unremarkable except as noted in HPI and below PMFSH Past Medical History Medical History (Updated 03/22/23 @ 12:34 by Hodan Norwood, [employer]) Acute bronchitis Acute non-recurrent maxillary sinusitis Arthritis of knee Benign reactive hypertension BMI 40.0-44.9, adult Body mass index [BMI] 37.0-37.9, adult (01/11/17) Cellulitis of perianal area Colon cancer screening Diabetes Dietary counseling and surveillance (04/07/19) Dyslipidemia Elevated fasting blood sugar Essential hypertension Gout Hyperglycemia Hypothyroidism (acquired) Lichen planus follicularis Mixed hyperlipidemia Mixed hyperlipidemia New onset type 2 diabetes mellitus New onset type 2 diabetes mellitus Obesity (BMI 30-39.9) Obesity hypoventilation syndrome Other obesity due to excess calories Pain in left knee Patella, chondromalacia Perianal irritation Prediabetes Ringworm Screening PSA (prostate specific antigen) Severe obesity (BMI >= 40) Weight gain Wheezing Surgical History Surgical History H/O knee surgery H/O umbilical hernia repair 01/09/21 History of inguinal hernia repair 03/19/2022 - robotic assisted left inguinal hernia repair with mesh, lysis of adhesions Family History Family History Father Family history of lung cancer Family history of primary malignant neoplasm of liver Patient's father is Mother Family history of malignant neoplasm of breast in first degree relative Patient's mother is in good health Sibling Patient's sister is in good health Patient's brother is in good health Social History Social History (Reviewed 03/22/23 @ 13:38 by Mo
[2023-03-22] MEDS: PERFLUTREN LIPID MICROSPHERES 1.5 ML VIAL DILUTED TO 10 ML TOTAL VOLUME IV PUSH (11:15)
[2023-03-22 11:25] LABS: Glucose Point of Care 142 mg/dl (65-105)
--- NOTE | 2023-03-22 12:36 | ECG_ITS ---
Measurements Intervals [place] Rate: 111 P: 241 [place]: 180 QRS: -45 QRSD: 143 T: 94 QT: 374 QTc: 509 Interpretive Statements ATRIAL FIBRILLATION MARKED LEFT AXIS DEVIATION [QRS AXIS < -30] LEFT BUNDLE BRANCH BLOCK [120+ ms QRS DURATION, 80+ ms Q/S IN V1/V2, 85+ ms R IN I/aVL/V5/V6] COMPARED TO ECG 03/21/2023 14:49:12 NO SIGNIFICANT CHANGES Electronically Signed On 03-22-2023 14:36:05 CDT by Angelina Escobar M.D.
--- NOTE | 2023-03-22 13:11 | IVDEFINITY ---
Prior to administration of IV Definity the patient was educated on the risks and benefits of the imaging enhancing agent including potential adverse side effects. The patient verbalized understanding. Allergies were verified. No exclusion criteria were identified and at least one of the following inclusion criteria were met: 1) physician request, 2) patient technically difficult to image (per the [place] [employer] guidelines of two or more segments not discernable within the apical view), or 3) questionable left ventricular function. ?
[2023-03-22 13:32] LABS: Anion Gap 10 mmol/L (8-16); Blood Urea Nitrogen 22 mg/dL (9-20); Calcium 8.8 mg/dL (8.4-10.2); Carbon Dioxide 28 mmol/L (22-30); Chloride 91 mmol/L (98-107); Estimated CRCL calculation 74 ml/min; Estimated Glomerular Filt Rate 60; Glucose 149 mg/dL (65-110); Potassium 3.1 mmol/L (3.4-5.0); Sodium 129 mmol/L (137-145)
[2023-03-22 16:17] LABS: Glucose Point of Care 170 mg/dl (65-105)
[2023-03-22] MEDS: metFORMIN HCL 500 MG TABLET PO (17:22)
[2023-03-22] MEDS: PANTOPRAZOLE 40 MG TABLET PO (17:22)
[2023-03-22 20:21] LABS: Glucose Point of Care 108 mg/dl (65-105)
[2023-03-22] MEDS: ASPIRIN 81 MG CHEWABLE TABLET PO (22:01)
[2023-03-22] MEDS: ROSUVASTATIN 10 MG TABLET 20 MG PO (22:02)
[2023-03-22] MEDS: SACUBITRIL/VALSARTAN 24-26 MG TABLET 1 TAB PO (22:02)
[2023-03-22] MEDS: BISACODYL 5 MG TABLET EC PO (22:02)
[2023-03-22] MEDS: MULTIVITAMINS THERAPEUTIC TAB (*BKC) 1 TABLET PO (22:03)
[2023-03-23] VITALS (10 sets, daily range): BP systolic 103–117; BP diastolic 68–80; PULSE 79–102; RESP 12–20; TEMP 36.4–36.7; O2SAT 94–100
[2023-03-23 06:52] LABS: Glucose Point of Care 98 mg/dl (65-105)
[2023-03-23] MEDS: LEVOTHYROXINE SODIUM 112 MCG TABLET 224 MCG PO (06:55)
[2023-03-23] MEDS: metFORMIN HCL 500 MG TABLET PO (06:56)
[2023-03-23 07:28] LABS: Hematocrit 41.1 % (42.0-52.0); Hemoglobin 13.7 g/dL (14.0-18.0); Mean Corpuscular HGB Conc 33.3 g/dl (32-36); Mean Corpuscular Hemoglobin 30.9 pg (26-34); Mean Corpuscular Volume 92.8 fl (80-100); Mean Platelet Volume 10.7 fl (7.4-10.4); Platelet Count Result 252 k/mm3 (150-375); Red Blood Count 4.43 M/mm3 (4.6-6.20); Red Cell Distribution Width 15.2 % (11.5-14.5); White Blood Count 7.5 K/mm3 (4.5-10.0)
[2023-03-23 07:38] LABS: Alanine Aminotransferase 95 U/L (6-50); Albumin Level 4.3 g/dL (3.5-5.1); Alkaline Phosphatase 43 U/L (38-126); Anion Gap 9 mmol/L (8-16); Aspartate Amino Transferase 68 U/L (17-59); Bilirubin,Total 1.1 mg/dL (0.2-1.3); Blood Urea Nitrogen 19 mg/dL (9-20); Carbon Dioxide 32 mmol/L (22-30); Chloride 91 mmol/L (98-107); Estimated CRCL calculation 80 ml/min; Estimated Glomerular Filt Rate > 60; Glucose 99 mg/dL (65-110); Potassium 3.5 mmol/L (3.4-5.0); Sodium 132 mmol/L (137-145)
[2023-03-23 07:46] LABS: Glucose Point of Care 112 mg/dl (65-105)
[2023-03-23] MEDS: METOPROLOL SUCCINATE EXT REL 25 MG TABCR PO (08:37)
[2023-03-23] MEDS: OMEGA 3 POLYUNSAT FATTY ACIDS 1 GM CAP PO (08:37)
[2023-03-23] MEDS: SPIRONOLACTONE 25 MG TABLET PO (08:38)
[2023-03-23] MEDS: PANTOPRAZOLE 40 MG TABLET PO ×2 (08:38→21:58)
[2023-03-23] MEDS: allopurinoL 300 MG TABLET PO (08:38)
[2023-03-23] MEDS: SACUBITRIL/VALSARTAN 24-26 MG TABLET 1 TAB PO ×2 (08:38→21:59)
[2023-03-23] MEDS: FUROSEMIDE INJ 40 MG/4 ML VIAL IV PUSH (08:38)
[2023-03-23] MEDS: ENOXAPARIN 40 MG/0.4 ML SYRINGE SUB-Q (08:41)
--- NOTE | 2023-03-23 08:54 | PM.IMPN ---
Progress Note: A&P Assessment and Plan (1) Heart failure: Qualifiers: Heart failure chronicity: acute Heart failure type: unspecified Qualified Code(s): I50.9 - Heart failure, unspecified Code(s): I50.9 - Heart failure, unspecified Status: Acute Assessment and Plan: New onset, progressive symptoms over the past month with acute worsening in the past week. Cardiology consulted Echocardiogram ordered IV diuresis (monitor for worsening hyponatremia) Echo shows EF 15-20%, mild to moderate MR and mild TR. Cardiology has started Entresto, spironolactone, and metoprolol. Can add Jardiance if needed. Plan for heart cath Saturday Cards discussed concept of a lifevest. He would like to discuss with his first. Daily weights Strict I&Os (2) Prolonged QT interval: Code(s): R94.31 - Abnormal electrocardiogram [ECG] [EKG] Status: Acute Assessment and Plan: On telemetry (3) Bifascicular block: Code(s): I45.2 - Bifascicular block Status: Acute Assessment and Plan: On telemetry (4) Hyponatremia: Code(s): E87.1 - Hypo-osmolality and hyponatremia Status: Acute Assessment and Plan: Current 127, baseline 137. If continues to drop will consult nephrology. BMP ordered for 1400 and Daily AM labs. Na correcting with diuresis. Today is 132 (5) Chronic cough: Code(s): R05.3 - Chronic cough Status: Acute Assessment and Plan: Persistent for about 7 months, new dyspnea about 3-4 weeks. Imaging shows Cardiomegaly and pulmonary edema. New CHF diagnosis (6) Diabetes: Qualifiers: Diabetes mellitus complication status: without complication Diabetes mellitus terminal worker insulin use: without correction use Diabetes mellitus type: type 2 Qualified Code(s): E11.9 - Type 2 diabetes mellitus without complications Code(s): E11.9 - Type 2 diabetes mellitus without complications Status: Acute Assessment and Plan: Reports well controlled on metformin and Trulicity. Hypoglycemia protocol ordered. Track only with AM labs at this time. Can consider adding ACHS if indications of hyperglycemia become apparent. Last A1c 5.8 01/17/2023 Holding metformin during hospitalization (7) Hypothyroidism (acquired): Code(s): E03.9 - Hypothyroidism, unspecified Status: Acute Assessment and Plan: Continue levothyroxine (8) Essential hypertension: Code(s): I10 - Essential (primary) hypertension Status: Acute Assessment and Plan: Chronic hypertension on chlorthalidone and amlodipine at home on hold at this time. Blood pressure reviewed on 03/23 Plan Feeding:Heart Healthy Diet Analgesia:Acetaminophen Thromboembolic prophylaxis: Lovenox Ulcer prophylaxis: Protonix Glycemic control: SSI if needed will add, follow labs on daily BMP Bowel regimen: ducolax Lines: PIV Antibiotics: Na Cardiac cath on Saturday Subjective Date/time seen: 03/23/23 08:54 Interval history: HPI obtained from the chart, This is a 67-year-old male patient with past history of hypertension, hypothyroidism, type 2 diabetes with good glycemic control, elevated cholesterol and gout who is admitted to the hospital for progressive dyspnea on exertion.? Patient reports that he has been dealing with a chronic cough for about 7 months and has seen ENT and pulmonology as well as other providers regarding this cough.? About 4 weeks ago patient started to have dyspnea on exertion that has progressed to now where he is unable to do simple activity without becoming severely out of breath.? Prior to 4 weeks ago he had no difficulty breathing only the chronic cough.? Now he has rust colored sputum and essentially no activity tolerance.? Patient has not been able to sleep because of the dyspnea.? Patient denies any chest pain denies any cardiac history.? Patient is a nonsmoker.? No history of
--- NOTE | 2023-03-23 09:41 | PM.PNCARD ---
Progress Note: A&P Assessment and Plan (1) Heart failure: Qualifiers: Heart failure chronicity: acute Heart failure type: unspecified Qualified Code(s): I50.9 - Heart failure, unspecified Code(s): I50.9 - Heart failure, unspecified Status: Acute Assessment and Plan: Presents with progressive shortness of breath, dyspnea with exertion, edema, and weight gain. Improved with IV furosemide Acute systolic congestive heart failure. EF 15-20%. Will need ischemic evaluation. Still short of breath with doing minor activity such as moving on the bed. Continue IV furosemide. Will increase metoprolol succinate to 50 mg daily. Continue Entresto and spironolactone. Agreeable to a LifeVest Daily weights Strict I&O CHF counseling (2) Prolonged QT interval: Code(s): R94.31 - Abnormal electrocardiogram [ECG] [EKG] Status: Acute Assessment and Plan: QTc 516ms, when corrected for left bundle branch block, QTc ~455, which is acceptable. (3) Elevated troponin: Code(s): R79.89 - Other specified abnormal findings of blood chemistry Status: Acute Assessment and Plan: Mildly elevated and flat, not consistent with ACS/plaque rupture. No further workup recommended at this point. Subjective Date/time seen: 03/23/23 09:41 Interval history: HPI obtained from the chart, This is a 67-year-old male patient with past history of hypertension, hypothyroidism, type 2 diabetes with good glycemic control, elevated cholesterol and gout who is admitted to the hospital for progressive dyspnea on exertion Date of service 03/23/2023: He feels better and less short of breath subjectively. Objectively he is still dyspneic by Raines in his bed. His no edema. No chest pain. Review of Systems Review of Systems: All systems reviewed & are unremarkable except as noted in HPI and below Constitutional: Constitutional: Denies body ache(s) Eyes: Eyes: Denies blurry vision ENT: Denies dysphagia Cardiovascular: Cardiovascular: Denies chest pain Respiratory: Respiratory: Reports dyspnea Gastrointestinal: Gastrointestinal: Denies no additional gastrointestinal complaints Genitourinary: Genitourinary: Denies hematuria Musculoskeletal: Musculoskeletal: Denies back pain Integumentary/Breasts: Skin/Breast: Denies erythema Neurologic: Denies confusion Psychiatric: Psychiatric: Denies anxiety Endocrine: Endocrine: Denies palpitations Hematologic/Lymphatic: Hematologic/Lymphatic: Denies easy bleeding Allergic/Immunologic: Allergic/Immunologic: Denies GI upset with certain foods Exam Const: General: comfortable, no acute distress, alert and awake Orientation/consciousness: patient oriented x3 HENMT: Head: normal to inspection Eyes: General: appearance normal, both eyes and all related structures Pupils: Equal, round and reactive pupils present Neck: Neck: normal visual inspection, supple and no JVD Carotids: normal carotid upstroke Resp: Effort & Inspection: normal respiratory effort Auscultation: clear to auscultation bilaterally Cardio: Rate: regular rate Rhythm: regular rhythm and abnormal rhythm with ectopic beats Heart sounds: S1 normal heart sound present, S2 normal heart sound present and no murmurs GI: Auscultation: normal bowel sounds Skin: General skin exam: normal color Neuro: General: patient oriented x3 Cranial nerves: Yes Equal, round and reactive pupils present Extrem: General: normal to inspection Other: trace pedal edema Psych: Appearance: grossly normal Mental Status: mental status grossly normal Objective Data Vital Signs Vital Signs: Vital Signs - 24 hr 03/22/23 14:00 03/22/23 12:00 03/22/23 16:00 Temperature 36.1 C L Pulse Rate 109 H 107 H 111 H Respiratory Rate 22 H Blood Pressure 111/80 Pulse Oximetry 94 Oxygen Delivery 03/22/23 21:32 03/22/23 20:00 03/22/23 20:00 Temperature 36.7 C P
[2023-03-23 11:59] LABS: Glucose Point of Care 114 mg/dl (65-105)
[2023-03-23] MEDS: POTASSIUM CHLORIDE 20 MEQ ER TABLET 40 MEQ PO (16:29)
[2023-03-23 17:48] LABS: Glucose Point of Care 154 mg/dl (65-105)
[2023-03-23 20:18] LABS: Glucose Point of Care 139 mg/dl (65-105)
[2023-03-23] MEDS: LEVOTHYROXINE SODIUM 112 MCG TABLET PO (20:59)
[2023-03-23] MEDS: ROSUVASTATIN 10 MG TABLET 20 MG PO (21:57)
[2023-03-23] MEDS: ASPIRIN 81 MG CHEWABLE TABLET PO (21:58)
[2023-03-23] MEDS: MULTIVITAMINS THERAPEUTIC TAB (*BKC) 1 TABLET PO (21:58)
[2023-03-23] MEDS: BISACODYL 5 MG TABLET EC PO (21:59)
[2023-03-24] VITALS (10 sets, daily range): BP systolic 94–102; BP diastolic 54–70; PULSE 76–91; RESP 14–28; TEMP 36.3–36.6; O2SAT 93–96
[2023-03-24] MEDS: LEVOTHYROXINE SODIUM 112 MCG TABLET 224 MCG PO (06:17)
[2023-03-24 06:32] LABS: Hematocrit 38.7 % (42.0-52.0); Hemoglobin 12.9 g/dL (14.0-18.0); Mean Corpuscular HGB Conc 33.3 g/dl (32-36); Mean Corpuscular Hemoglobin 30.8 pg (26-34); Mean Corpuscular Volume 92.4 fl (80-100); Mean Platelet Volume 10.9 fl (7.4-10.4); Platelet Count Result 252 k/mm3 (150-375); Red Blood Count 4.19 M/mm3 (4.6-6.20); Red Cell Distribution Width 15.3 % (11.5-14.5); White Blood Count 8.7 K/mm3 (4.5-10.0)
[2023-03-24 06:45] LABS: Alanine Aminotransferase 84 U/L (6-50); Alkaline Phosphatase 41 U/L (38-126); Anion Gap 7 mmol/L (8-16); Aspartate Amino Transferase 59 U/L (17-59); Blood Urea Nitrogen 25 mg/dL (9-20); Calcium 8.5 mg/dL (8.4-10.2); Carbon Dioxide 29 mmol/L (22-30); Chloride 90 mmol/L (98-107); Estimated CRCL calculation 68 ml/min; Estimated Glomerular Filt Rate 55; Glucose 114 mg/dL (65-110); Sodium 126 mmol/L (137-145)
[2023-03-24 07:40] LABS: Glucose Point of Care 109 mg/dl (65-105)
--- NOTE | 2023-03-24 08:13 | PM.PNCARD ---
Progress Note: A&P Assessment and Plan (1) Heart failure: Qualifiers: Heart failure chronicity: acute Heart failure type: unspecified Qualified Code(s): I50.9 - Heart failure, unspecified Code(s): I50.9 - Heart failure, unspecified Status: Acute Assessment and Plan: Presents with progressive shortness of breath, dyspnea with exertion, edema, and weight gain. Acute systolic congestive heart failure. EF 15-20%. Will need ischemic evaluation. Still short of breath with doing minor activity such as moving on the bed.. Continue metoprolol succinate to 50 mg daily. Continue Entresto and spironolactone. Agreeable to a LifeVest Will order the LifeVest today for anticipated discharge tomorrow after catheterization NPO after midnight for catheterization. Cardiac catheterization tomorrow. His creatinine is increasing. Will discontinue IV Lasix and start him on furosemide 40 mg p.o. daily. Potassium is also low and will replace with 40 mEq KCL x1 Daily weights Strict I&O CHF counseling (2) Prolonged QT interval: Code(s): R94.31 - Abnormal electrocardiogram [ECG] [EKG] Status: Acute Assessment and Plan: QTc 516ms, when corrected for left bundle branch block, QTc ~455, which is acceptable. (3) Elevated troponin: Code(s): R79.89 - Other specified abnormal findings of blood chemistry Status: Acute Assessment and Plan: Mildly elevated and flat, not consistent with ACS/plaque rupture. No further workup recommended at this point. Subjective Date/time seen: 03/24/23 08:13 Interval history: HPI obtained from the chart, This is a 67-year-old male patient with past history of hypertension, hypothyroidism, type 2 diabetes with good glycemic control, elevated cholesterol and gout who is admitted to the hospital for progressive dyspnea on exertion Date of service 03/23/2023: He feels better and less short of breath subjectively. Objectively he is still dyspneic by Raines in his bed. His no edema. No chest pain. Date of service 03/24/23: He continues to feel okay. No chest pain or shortness breath at rest. Review of Systems Review of Systems: All systems reviewed & are unremarkable except as noted in HPI and below Constitutional: Constitutional: Denies body ache(s) Eyes: Eyes: Denies blurry vision ENT: Denies dysphagia Cardiovascular: Cardiovascular: Denies chest pain, Denies palpitations and Reports dyspnea Respiratory: Respiratory: Reports dyspnea Gastrointestinal: Gastrointestinal: Denies no additional gastrointestinal complaints and Denies dysphagia Genitourinary: Genitourinary: Denies hematuria Musculoskeletal: Musculoskeletal: Denies back pain Integumentary/Breasts: Skin/Breast: Denies erythema Neurologic: Denies confusion Psychiatric: Psychiatric: Denies anxiety and Denies confusion Endocrine: Endocrine: Denies palpitations Hematologic/Lymphatic: Hematologic/Lymphatic: Denies easy bleeding Allergic/Immunologic: Allergic/Immunologic: Denies GI upset with certain foods Exam Const: General: comfortable, no acute distress, alert and awake; No confusion Orientation/consciousness: patient oriented x3 and No confusion HENMT: Head: normal to inspection Eyes: General: appearance normal, both eyes and all related structures Pupils: Equal, round and reactive pupils present Neck: Neck: normal visual inspection, supple and no JVD Carotids: normal carotid upstroke Resp: Effort & Inspection: normal respiratory effort Auscultation: clear to auscultation bilaterally Cardio: Rate: regular rate Rhythm: regular rhythm and abnormal rhythm with ectopic beats Heart sounds: S1 normal heart sound present, S2 normal heart sound present and no murmurs GI: Auscultation: normal bowel sounds Skin: General skin exam: normal color Neuro: General: patient oriented x3 and No confusion Cranial nerves: Yes Equal, round and reactive pupil
--- NOTE | 2023-03-24 08:42 | PM.IMPN ---
Progress Note: A&P Assessment and Plan (1) Heart failure: Qualifiers: Heart failure chronicity: acute Heart failure type: unspecified Qualified Code(s): I50.9 - Heart failure, unspecified Code(s): I50.9 - Heart failure, unspecified Status: Acute Assessment and Plan: New onset, progressive symptoms over the past month with acute worsening in the past week. Cardiology consulted Echocardiogram ordered IV diuresis (monitor for worsening hyponatremia) Echo shows EF 15-20%, mild to moderate MR and mild TR. Cardiology has started Entresto, spironolactone, and metoprolol. Can add Jardiance if needed. Plan for heart cath Saturday Cards discussed concept of a lifevest, he is agreeable. Dr Jacob to order today so patent can have available should he d/c after cardiac cath. Daily weights Strict I&Os Na with a 6 point drop from 132 to 126 Instituted 1 L fluid restriction. Repeat Na this evening Cr 1.10 to 1.30 today. Cardiology is switching from IV lasix to PO. (2) Prolonged QT interval: Code(s): R94.31 - Abnormal electrocardiogram [ECG] [EKG] Status: Acute Assessment and Plan: On telemetry (3) Bifascicular block: Code(s): I45.2 - Bifascicular block Status: Acute Assessment and Plan: On telemetry (4) Hyponatremia: Code(s): E87.1 - Hypo-osmolality and hyponatremia Status: Acute Assessment and Plan: Current 127, baseline 137. If continues to drop will consult nephrology. BMP ordered for 1400 and Daily AM labs. Na was correcting with diuresis Now Na 126, down from 132 yesterday Fluid restriction of 1 L (5) Chronic cough: Code(s): R05.3 - Chronic cough Status: Acute Assessment and Plan: Persistent for about 7 months, new dyspnea about 3-4 weeks. Imaging shows Cardiomegaly and pulmonary edema. New CHF diagnosis (6) Diabetes: Qualifiers: Diabetes mellitus complication status: without complication Diabetes mellitus terminal make up operator insulin use: without terminal make up operator use Diabetes mellitus type: type 2 Qualified Code(s): E11.9 - Type 2 diabetes mellitus without complications Code(s): E11.9 - Type 2 diabetes mellitus without complications Status: Acute Assessment and Plan: Reports well controlled on metformin and Trulicity. Hypoglycemia protocol ordered. Track only with AM labs at this time. Can consider adding ACHS if indications of hyperglycemia become apparent. Last A1c 5.8 01/17/2023 Holding metformin during hospitalization (7) Hypothyroidism (acquired): Code(s): E03.9 - Hypothyroidism, unspecified Status: Acute Assessment and Plan: Continue levothyroxine (8) Essential hypertension: Code(s): I10 - Essential (primary) hypertension Status: Acute Assessment and Plan: Chronic hypertension on chlorthalidone and amlodipine at home on hold at this time. Blood pressure reviewed on 03/23 Plan Feeding:Heart Healthy Diet Analgesia:Acetaminophen Thromboembolic prophylaxis: Lovenox Ulcer prophylaxis: Protonix Glycemic control: SSI if needed will add, follow labs on daily BMP Bowel regimen: ducolax Lines: PIV Antibiotics: Na Cardiac cath on Saturday Likely d/c after cardiac cath if Na is improved Subjective Date/time seen: 03/24/23 08:42 Interval history: HPI obtained from the chart, This is a 67-year-old male patient with past history of hypertension, hypothyroidism, type 2 diabetes with good glycemic control, elevated cholesterol and gout who is admitted to the hospital for progressive dyspnea on exertion.? Patient reports that he has been dealing with a chronic cough for about 7 months and has seen ENT and pulmonology as well as other providers regarding this cough.? About 4 weeks ago patient started to have dyspnea on exertion that has progressed to now where he is unable to do simple activity without becom
[2023-03-24] MEDS: OMEGA 3 POLYUNSAT FATTY ACIDS 1 GM CAP PO (09:14)
[2023-03-24] MEDS: SACUBITRIL/VALSARTAN 24-26 MG TABLET 1 TAB PO ×2 (09:14→20:28)
[2023-03-24] MEDS: METOPROLOL SUCCINATE EXT REL 50 MG TABCR PO (09:14)
[2023-03-24] MEDS: allopurinoL 300 MG TABLET PO (09:14)
[2023-03-24] MEDS: POTASSIUM CHLORIDE 20 MEQ ER TABLET 40 MEQ PO (09:16)
[2023-03-24] MEDS: SPIRONOLACTONE 25 MG TABLET PO (09:16)
[2023-03-24] MEDS: FUROSEMIDE 40 MG TABLET PO (09:16)
[2023-03-24] MEDS: PANTOPRAZOLE 40 MG TABLET PO ×2 (09:16→20:28)
[2023-03-24] MEDS: ENOXAPARIN 40 MG/0.4 ML SYRINGE SUB-Q (09:17)
[2023-03-24 11:39] LABS: Glucose Point of Care 192 mg/dl (65-105)
[2023-03-24 16:26] LABS: Glucose Point of Care 153 mg/dl (65-105)
[2023-03-24] MEDS: BENZOCAINE/MENTHOL (*BKC) 18 EA LOZENGE 1 LOZENGE PO (17:53)
[2023-03-24 18:21] LABS: Sodium 120 mmol/L (137-145)
[2023-03-24] MEDS: SODIUM CHLORIDE 500 MG TABLET PO (19:22)
[2023-03-24] MEDS: ASPIRIN 81 MG CHEWABLE TABLET PO (20:28)
[2023-03-24] MEDS: MULTIVITAMINS THERAPEUTIC TAB (*BKC) 1 TABLET PO (20:28)
[2023-03-24] MEDS: BISACODYL 5 MG TABLET EC PO (20:28)
[2023-03-24] MEDS: ROSUVASTATIN 10 MG TABLET 20 MG PO (20:28)
[2023-03-24 20:29] LABS: Glucose Point of Care 153 mg/dl (65-105)
[2023-03-25] VITALS (25 sets, daily range): BP systolic 90–122; BP diastolic 59–81; PULSE 71–86; RESP 16–23; TEMP 35.8–36.4; O2SAT 90–97
[2023-03-25 01:03] LABS: Sodium 126 mmol/L (137-145)
--- NOTE | 2023-03-25 02:39 | PC.NURSE ---
SODIUM TRENDING UP FROM 120 TO NOW 126
[2023-03-25] MEDS: LEVOTHYROXINE SODIUM 112 MCG TABLET PO (05:31)
[2023-03-25 06:32] LABS: Appearance Urine Clear (Clear); Bilirubin Urine 1+ (Negative); Blood Urine Negative (Negative); Color Urine Yellow (Yellow); Glucose Urine UA Negative (Negative); Ketones Urine Negative (Negative); Leukocyte Esterase Ur Negative LEU/UL (Negative); Nitrate Urine Negative (Negative); Protein Urine Trace mg/dL (Negative); Specific Grav Ur 1.025 (1.001-1.035); Urobilinogen Urine 0.2 mg/dL (<2.0); pH Urine 5.5 (5.0-9.0)
[2023-03-25 06:37] LABS: Sodium Urine Random < 5 meq/L
[2023-03-25 06:39] LABS: Creatinine Urine 254.9 mg/dL; Total Protein Urine Random 13 mg/dL; Ur Ttl Prot Creatinine Ratio 0.05 mg/mg (0-0.20); Urea Random Urine 1045 MG/DL
[2023-03-25 06:40] LABS: Creatinine Urine 251.8 mg/dL
[2023-03-25 06:42] LABS: Bacteria Urine None Seen /hpf; Hyaline Casts Urine Present /lpf; Non Pathogenic Casts >20; RBC Urine 0-2 /hpf (0-2); Squamous Epithelial Cell Urine None seen /hpf (Few); WBC Urine 0-5 /hpf
--- NOTE | 2023-03-25 06:55 | PC.NURSE ---
all urine labs sent to lab for analysis
[2023-03-25 07:02] LABS: Hematocrit 39.5 % (42.0-52.0); Hemoglobin 13.5 g/dL (14.0-18.0); Mean Corpuscular HGB Conc 34.2 g/dl (32-36); Mean Corpuscular Hemoglobin 31.1 pg (26-34); Mean Platelet Volume 10.8 fl (7.4-10.4); Platelet Count Result 277 k/mm3 (150-375); Red Blood Count 4.34 M/mm3 (4.6-6.20); Red Cell Distribution Width 15.4 % (11.5-14.5); White Blood Count 8.3 K/mm3 (4.5-10.0)
[2023-03-25 07:16] LABS: Alanine Aminotransferase 88 U/L (6-50); Albumin Level 4.2 g/dL (3.5-5.1); Alkaline Phosphatase 42 U/L (38-126); Anion Gap 9 mmol/L (8-16); Aspartate Amino Transferase 68 U/L (17-59); Bilirubin,Total 0.9 mg/dL (0.2-1.3); Blood Urea Nitrogen 30 mg/dL (9-20); Calcium 8.6 mg/dL (8.4-10.2); Carbon Dioxide 26 mmol/L (22-30); Chloride 91 mmol/L (98-107); Estimated CRCL calculation 60 ml/min; Estimated Glomerular Filt Rate 47; Glucose 125 mg/dL (65-110); Potassium 3.6 mmol/L (3.4-5.0); Sodium 126 mmol/L (137-145)
[2023-03-25 07:42] LABS: Glucose Point of Care 116 mg/dl (65-105)
[2023-03-25 07:57] LABS: Add Urine Microscopic? YES
[2023-03-25] MEDS: allopurinoL 300 MG TABLET PO (08:10)
[2023-03-25] MEDS: PANTOPRAZOLE 40 MG TABLET PO ×2 (08:10→20:11)
[2023-03-25] MEDS: METOPROLOL SUCCINATE EXT REL 50 MG TABCR PO (08:10)
[2023-03-25] MEDS: SACUBITRIL/VALSARTAN 24-26 MG TABLET 1 TAB PO ×2 (08:10→20:11)
[2023-03-25] MEDS: OMEGA 3 POLYUNSAT FATTY ACIDS 1 GM CAP PO (08:10)
--- NOTE | 2023-03-25 08:53 | WPDMODSED ---
Moderate Sedation Note-Pt Data Patient Data Diagnosis: Congestive heart failure with new diagnosis of cardiomyopathy Present Complaint: dyspnea Procedure to be performed/Plan: coronary angiography Allergies Allergy/AdvReac Type Severity Reaction Status Date / Time No Known Allergies Allergy Mild Verified 03/21/23 14:29 Home Medications Medication Instructions Recorded Confirmed Type glucosamine HCl 500 mg tablet 500 mg PO DAILY 12/09/20 03/22/23 History multivitamin 1 tablet PO DAILY 12/09/20 03/22/23 History aspirin 81 mg chewable tablet 81 mg PO DAILY #90 tabs 06/22/21 03/22/23 Rx levothyroxine 112 mcg tablet 112 mcg PO DAILY #112 tabs 06/26/22 03/22/23 Rx omega 6-mus-ugr-fish oil 60 mg-90 1 cap PO DAILY 10/29/22 03/22/23 History mg-500 mg capsule (Fish Oil) codeine 10 mg-guaifenesin 100 mg/5 5 ml PO Q6H PRN cough #473 mL 03/15/23 03/22/23 Rx mL oral liquid allopurinol 300 mg tablet 300 mg PO DAILY 03/22/23 03/22/23 History amlodipine 10 mg tablet 10 mg PO HS 03/22/23 03/22/23 History bisacodyl 5 mg tablet,delayed 5 mg PO HS 03/22/23 03/22/23 History release (Dulcolax (bisacodyl)) chlorthalidone 25 mg tablet 25 mg PO HS 03/22/23 03/22/23 History levothyroxine 112 mcg tablet 112 mcg PO WEEKLY 03/22/23 03/22/23 History losartan 50 mg tablet 100 mg PO HS 03/22/23 03/22/23 History metformin 500 mg tablet 500 mg PO BIDAC 03/22/23 03/22/23 History omeprazole 40 mg capsule,delayed 40 mg PO HS 03/22/23 03/22/23 History release rosuvastatin 20 mg tablet 20 mg PO HS 03/22/23 03/22/23 History Current Medications: Active Medications Acetaminophen (Acetaminophen 325 Mg Tablet) 650 mg PO Q4H PRN PRN Reason: Mild Pain (1-3) or Fever Allopurinol (Allopurinol 300 Mg Tablet) 300 mg PO DAILY LUCÍA Last Admin: 03/25/23 08:10 Dose: 300 mg Aspirin (Aspirin 81 Mg Chewable Tablet) 81 mg PO HS [facility] Last Admin: 03/24/23 20:28 Dose: 81 mg Benzocaine (Benzocaine/Menthol (*Bkc) 18 Ea Lozenge) 1 lozenge PO PRN PRN PRN Reason: Sore Throat Last Admin: 03/24/23 17:53 Dose: 1 lozenge Benzonatate (Benzonatate 100 Mg Capsule) 200 mg PO TID PRN PRN Reason: cough Bisacodyl (Bisacodyl 5 Mg Tablet Ec) 5 mg PO HS [facility] Last Admin: 03/24/23 20:28 Dose: 5 mg Dextrose (Dextrose 50% 25 Gm/50 Ml Syringe) 12.5 gm IV PUSH PRN PRN; Protocol PRN Reason: Hypoglycemia Enoxaparin Sodium (Enoxaparin 40 Mg/0.4 Ml Syringe) 40 mg SUB-Q DAILY [facility] Last Admin: 03/24/23 09:17 Dose: 40 mg Fish Oil ([place] 3 Polyunsat Fatty Acids 1 Gm Cap) 1 gm PO DAILY [facility] Last Admin: 03/25/23 08:10 Dose: 1 gm Furosemide (Furosemide 40 Mg Tablet) 40 mg PO DAILY [facility] Last Admin: 03/24/23 09:16 Dose: 40 mg Glucagon (Glucagon For Inj 1 Mg Vial) 1 mg IM PRN PRN; Protocol PRN Reason: Hypoglycemia Glucose (Glucose Oral Gel 15 Gm Of Glucse In 37.5 Gm Tube) 15 gm PO PRN PRN; Protocol PRN Reason: Hypoglycemia Guaifenesin/Codeine Phosphate (Guaifenesin/Codeine (*Crx) 200/20 Mg 10 Ml Syrup) 5 ml PO Q6H PRN PRN Reason: cough Dextrose (Dextrose 5% 1,000 Ml) 1,000 mls @ 100 mls/hr IVPB PRN PRN; Protocol PRN Reason: Hypoglycemia Levothyroxine Sodium (Levothyroxine Sodium 112 Mcg Tablet) 112 mcg PO [id number]@0630 [facility] Last Admin: 03/23/23 20:59 Dose: 112 mcg Levothyroxine Sodium (Levothyroxine Sodium 112 Mcg Tablet) 224 mcg PO [id number]@0630 [facility] Last Admin: 03/24/23 06:17 Dose: 224 mcg Metformin HCl (Metformin Hcl 500 Mg Tablet) 500 mg PO BIDAC [facility] Last Admin: 03/23/23 06:56 Dose: 500 mg Metoprolol Succinate (Metoprolol Succinate Ext Rel 50 Mg Tabcr) [facility] Last Admin: 03/25/23 08:10 Dose: 50 mg Multivitamins Therapeutic (Multivitamins Therapeutic Tab (*Bkc)) 1 tablet PO [facility] Last Admin: 03/24/23 20:28 Dose: 1 tablet Pantoprazole Sodium (Pantoprazole 40 Mg Tablet) 40 mg PO Q12HR [facility] Last Admin: 03/25/23 08:10 Dose: 40 mg Rosuvastatin Calcium (Rosuvastatin 10 Mg Tablet) 20 mg PO [facility] Last Admin: 03/24/23 20
--- NOTE | 2023-03-25 09:13 | WPDCARDPROC ---
Cardiac Cath Procedure Note Date of procedure:: 03/25/23 Performing physician:: Jeffery Rivera MD Indication:: newly diagnosed cardiomyopathy with systolic heart failure Brief clinical history:: this is a 67-year-old patient who presented with decompensated CHF. Echocardiogram demonstrates LV systolic dysfunction. This procedure has been recommended to rule out ischemic component of the cardiomyopathy Procedure Procedure performed:: left ventriculogram coronary angiogram Sedation/Medication given:: fentanyl 50 mg Versed 2 mGy case start 854 case end time 9:08 a.m. sedation provided by Radha Hodges RN, trained observer Access site:: right femoral artery Estimated blood loss:: 20 cc Procedure note:: patient was brought to the cardiac catheterization lab in the postabsorptive state right femoral triangle was prepared and draped in the normal fashion. Anesthesia was provided with 1% lidocaine infiltrated locally. Using the modified Seldinger technique the femoral artery was punctured and a 5 [place]ian vascular sheath was placed. I then used a 5 [place] angled pigtail catheter to measure left-sided hemodynamics and to inject left ventriculogram in the 30 degree MAYBERRY projection. Following this the pigtail catheter was removed. A 5 [place] FL4 catheter was used to engage and inject the left coronary artery and then a 5 [place] JR4 catheter was used to engage inject the right coronary artery. Following this the cineangiograms were reviewed and the case was terminated. The patient was taken to the holding area for direct manual sheath removal. 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 Findings:: hemodynamics: Central aortic pressure is 108 over 60 left ventricle 108/8 end-diastolic pressure 32, no gradient on pullback across the aortic valve. Left ventricle: The LV is dilated. There is severe global hypocontractility identified with an ejection fraction of visually estimated to be 10%. The left main coronary artery is nicely patent the left anterior descending is a moderate caliber artery extending down to the apex the LAD and its branches are smooth and angiographically unremarkable the circumflex is a moderate caliber artery giving rise to the marginal branches the circumflex system it and its branches are smooth and angiographically unremarkable in appearance the right coronary artery is moderate to large caliber dominant to the posterior circulation the right coronary artery is also smooth and angiographically free of disease. Conclusion:: 1. Right coronary dominant circulation with no angiographic abnormalities 2. profound left ventricular systolic dysfunction which appears to be chronic as LV is markedly dilated and profoundly hypodynamic with elevated LVEDP Jeffery Rivera MD FACC
--- NOTE | 2023-03-25 10:38 | PM.IMPN ---
Progress Note: A&P Assessment and Plan (1) Heart failure: Qualifiers: Heart failure chronicity: acute Heart failure type: unspecified Qualified Code(s): I50.9 - Heart failure, unspecified Code(s): I50.9 - Heart failure, unspecified Status: Acute Assessment and Plan: New onset, progressive symptoms over the past month with acute worsening in the past week. Cardiology consulted Echocardiogram ordered IV diuresis (monitor for worsening hyponatremia) Echo shows EF 15-20%, mild to moderate MR and mild TR. Cardiology has started Entresto, spironolactone, and metoprolol. Can add Jardiance if needed. Plan for heart cath Saturday Cards discussed concept of a lifevest, he is agreeable. Dr Jacob to order today so patent can have available should he d/c after cardiac cath. Daily weights Strict I&Os Na with a 6 point drop from 132 to 126 Instituted 1 L fluid restriction. Repeat Na this evening Cr 1.10 to 1.30 today. Cardiology is switching from IV lasix to PO. Heart catheterization planned for today (2) Prolonged QT interval: Code(s): R94.31 - Abnormal electrocardiogram [ECG] [EKG] Status: Acute Assessment and Plan: On telemetry (3) Bifascicular block: Code(s): I45.2 - Bifascicular block Status: Acute Assessment and Plan: On telemetry (4) Hyponatremia: Code(s): E87.1 - Hypo-osmolality and hyponatremia Status: Acute Assessment and Plan: Current 127, baseline 137. If continues to drop will consult nephrology. BMP ordered for 1400 and Daily AM labs. Na was correcting with diuresis Now Na 126, down from 132 yesterday Fluid restriction of 1 L (5) Chronic cough: Code(s): R05.3 - Chronic cough Status: Acute Assessment and Plan: Persistent for about 7 months, new dyspnea about 3-4 weeks. Imaging shows Cardiomegaly and pulmonary edema. New CHF diagnosis (6) Diabetes: Qualifiers: Diabetes mellitus type: type 2 Diabetes mellitus custodial insulin use: without custodial use Diabetes mellitus complication status: without complication Qualified Code(s): E11.9 - Type 2 diabetes mellitus without complications Code(s): E11.9 - Type 2 diabetes mellitus without complications Status: Acute Assessment and Plan: Reports well controlled on metformin and Trulicity. Hypoglycemia protocol ordered. Track only with AM labs at this time. Can consider adding ACHS if indications of hyperglycemia become apparent. Last A1c 5.8 01/17/2023 Holding metformin during hospitalization (7) Hypothyroidism (acquired): Code(s): E03.9 - Hypothyroidism, unspecified Status: Acute Assessment and Plan: Continue levothyroxine (8) Essential hypertension: Code(s): I10 - Essential (primary) hypertension Status: Acute Assessment and Plan: Chronic hypertension on chlorthalidone and amlodipine at home on hold at this time. Blood pressure reviewed on 03/23 Plan Feeding:Heart Healthy Diet Analgesia:Acetaminophen Thromboembolic prophylaxis: Lovenox Ulcer prophylaxis: Protonix Glycemic control: SSI if needed will add, follow labs on daily BMP Bowel regimen: ducolax Lines: PIV Antibiotics: Na Cardiac cath on Saturday Likely d/c after cardiac cath if Na is improved Subjective Date/time seen: 03/25/23 10:38 Interval history: No complaints currently. Exam Narrative: General: well appearing, appears easily tired, well developed, well nourished, appears stated age. HEENT: normocephalic, atraumatic. Mucous membranes moist. EOMI, PERRLA, bilateral sclera anicteric, no conjunctival injection. Neck supple without JVD, lymphadenopathy, or bruit. Respiratory: clear to auscultation bilaterally. No rales/rhonic/wheezes. Cardiovascular: Regular rate and rhythm, normal S1-S2 upon auscultation. No murmurs, rubs, or clicks. PMI displaced left, lat
--- NOTE | 2023-03-25 11:41 | PC.NURSE ---
1130 patient lying in bed, entrance site/dressing clean, dry and intact and soft. denies pain
[2023-03-25 11:44] LABS: Glucose Point of Care 132 mg/dl (65-105)
[2023-03-25] MEDS: SODIUM CHLORIDE 500 MG TABLET PO ×2 (12:35→17:25)
[2023-03-25] MEDS: SODIUM CHLORIDE 0.9% IV 500 ML 75 ML IV CONT (16:06)
[2023-03-25 16:34] LABS: Glucose Point of Care 165 mg/dl (65-105)
[2023-03-25] MEDS: BISACODYL 5 MG TABLET EC PO (20:11)
[2023-03-25] MEDS: ROSUVASTATIN 10 MG TABLET 20 MG PO (20:11)
[2023-03-25] MEDS: ASPIRIN 81 MG CHEWABLE TABLET PO (20:11)
[2023-03-25] MEDS: MULTIVITAMINS THERAPEUTIC TAB (*BKC) 1 TABLET PO (20:11)
[2023-03-25 21:32] LABS: Glucose Point of Care 145 mg/dl (65-105)
[2023-03-26] VITALS (9 sets, daily range): BP systolic 92–120; BP diastolic 61–75; PULSE 67–87; RESP 18–20; TEMP 36–36.5; O2SAT 95–99
[2023-03-26] MEDS: LEVOTHYROXINE SODIUM 112 MCG TABLET PO (05:49)
[2023-03-26 06:26] LABS: Hemoglobin 13.2 g/dL (14.0-18.0); Mean Corpuscular Hemoglobin 30.7 pg (26-34); Mean Platelet Volume 10.6 fl (7.4-10.4); Platelet Count Result 271 k/mm3 (150-375); Red Cell Distribution Width 15.6 % (11.5-14.5); White Blood Count 8.4 K/mm3 (4.5-10.0)
[2023-03-26 06:40] LABS: Alanine Aminotransferase 130 U/L (6-50); Albumin Level 4.1 g/dL (3.5-5.1); Alkaline Phosphatase 42 U/L (38-126); Anion Gap 9 mmol/L (8-16); Aspartate Amino Transferase 112 U/L (17-59); Bilirubin,Total 0.7 mg/dL (0.2-1.3); Blood Urea Nitrogen 34 mg/dL (9-20); Calcium 8.7 mg/dL (8.4-10.2); Carbon Dioxide 30 mmol/L (22-30); Chloride 92 mmol/L (98-107); Estimated CRCL calculation 56 ml/min; Estimated Glomerular Filt Rate 43; Glucose 106 mg/dL (65-110); Potassium 3.8 mmol/L (3.4-5.0); Sodium 131 mmol/L (137-145)
[2023-03-26 08:06] LABS: Glucose Point of Care 116 mg/dl (65-105)
[2023-03-26] MEDS: METOPROLOL SUCCINATE EXT REL 50 MG TABCR PO (08:21)
[2023-03-26] MEDS: allopurinoL 300 MG TABLET PO (08:21)
[2023-03-26] MEDS: SODIUM CHLORIDE 500 MG TABLET PO ×2 (08:21→17:02)
[2023-03-26] MEDS: SACUBITRIL/VALSARTAN 24-26 MG TABLET 1 TAB PO ×2 (08:22→21:28)
[2023-03-26] MEDS: PANTOPRAZOLE 40 MG TABLET PO ×2 (08:22→21:28)
[2023-03-26] MEDS: FUROSEMIDE 40 MG TABLET PO (08:22)
[2023-03-26] MEDS: OMEGA 3 POLYUNSAT FATTY ACIDS 1 GM CAP PO (08:22)
[2023-03-26] MEDS: SPIRONOLACTONE 25 MG TABLET PO (08:22)
[2023-03-26] MEDS: ENOXAPARIN 40 MG/0.4 ML SYRINGE SUB-Q (08:25)
--- NOTE | 2023-03-26 10:15 | P.CONNP_ITS ---
Assessment and Plan Assessment and plan (1) Hyponatremia: Code(s): E87.1 - Hypo-osmolality and hyponatremia Status: Acute Assessment and Plan: * admitted with sodium of 127 * improved to 132 but then dropped down to 120 * low dose salt tabs added with improvement * suspect multifactorial: * previous chlorthalidone use (thiazide diuretic) * new cardiomyopathy/CHF * PPI use (omeprazole) * history of thyroid use * continue fluid restriction and diuretics * follow trend of repeat sodiums (2) JOVANNI (acute kidney injury): Code(s): N17.9 - Acute kidney failure, unspecified Status: Acute Assessment and Plan: * suspect due to several issues: * need for IV diuretics on admission and continued need for diuretic therapy * component of cardiorenal syndrome (depressed EF) * need for Entresto use * contrast exposure (CTA done on 03/21/23; cardiac cath on 03/25/23) * relative hypotension * urine electrolytes prerenal (more indicative of cardiomyopathy) * consider checking renal ultrasound if creatinine worsens * follow repeat labs and UOP (3) Heart failure: Qualifiers: Heart failure chronicity: acute Heart failure type: unspecified Qualified Code(s): I50.9 - Heart failure, unspecified Code(s): I50.9 - Heart failure, unspecified Status: Acute Assessment and Plan: * Cardiology following * acute systolic congestive heart failure EF 15-20% (non-ischemic) * on lasix, spironolactone, entresto * follow daily weights, I/Os, and respiratory status * Lifevest (4) Essential hypertension: Code(s): I10 - Essential (primary) hypertension Status: Chronic Assessment and Plan: * not an issues currently * follow trend of hemodynamics (5) Diabetes: Qualifiers: Diabetes mellitus type: type 2 Diabetes mellitus shelter insulin use: without intermediate frame tender use Diabetes mellitus complication status: without complication Qualified Code(s): E11.9 - Type 2 diabetes mellitus without complications Code(s): E11.9 - Type 2 diabetes mellitus without complications Status: Acute Assessment and Plan: Reports well controlled on metformin and Trulicity. Hypoglycemia protocol ordered. Track only with AM labs at this time. Can consider adding ACHS if indications of hyperglycemia become apparent. Last A1c 5.8 01/17/2023 Plan * follow accu-cheks * glycemic control per hospitalists I will continue follow patient with you while he she remains hospitalized and make further recommendations as needed. Thank you for allowing me to participate in care this patient. History of Present Illness Reason for Consult Consult date: 03/26/23 Reason for consult: acute renal failure and hyponatremia Chief Complaint Chief complaint: CHF Exacerbation History of Present Illness Narrative: The patient is a 67-year-old male with a past medical history as outlined below who presented to [facility] Emergency Room with complaints of shortness of breath. The patient reports that over the last several months he has noticed increasing/progressive shortness of breath both with exertional activity as well as at rest. It would seem that his shortness of breath has acutely worsened in the last several weeks to the point where he is unable to do any simple activities of daily living. Prior to 4 weeks ago, his major issue was a chronic cough that he been seen both ENT as well as pulmonology for in terms of evaluation. Do the worsening shortness of breath, he is unable to sle
--- NOTE | 2023-03-26 10:15 | PM.CNNEP ---
Assessment and Plan Assessment and plan (1) Hyponatremia: Code(s): E87.1 - Hypo-osmolality and hyponatremia Status: Acute Assessment and Plan: admitted with sodium of 127 improved to 132 but then dropped down to 120 low dose salt tabs added with improvement suspect multifactorial: previous chlorthalidone use (thiazide diuretic) new cardiomyopathy/CHF PPI use (omeprazole) history of thyroid use continue fluid restriction and diuretics follow trend of repeat sodiums (2) JOVANNI (acute kidney injury): Code(s): N17.9 - Acute kidney failure, unspecified Status: Acute Assessment and Plan: suspect due to several issues: need for IV diuretics on admission and continued need for diuretic therapy component of cardiorenal syndrome (depressed EF) need for Entresto use contrast exposure (CTA done on 03/21/23; cardiac cath on 03/25/23) relative hypotension urine electrolytes prerenal (more indicative of cardiomyopathy) consider checking renal ultrasound if creatinine worsens follow repeat labs and UOP (3) Heart failure: Qualifiers: Heart failure chronicity: acute Heart failure type: unspecified Qualified Code(s): I50.9 - Heart failure, unspecified Code(s): I50.9 - Heart failure, unspecified Status: Acute Assessment and Plan: Cardiology following acute systolic congestive heart failure EF 15-20% (non-ischemic) on lasix, spironolactone, entresto follow daily weights, I/Os, and respiratory status Lifevest (4) Essential hypertension: Code(s): I10 - Essential (primary) hypertension Status: Chronic Assessment and Plan: not an issues currently follow trend of hemodynamics (5) Diabetes: Qualifiers: Diabetes mellitus type: type 2 Diabetes mellitus chcf insulin use: without computer terminal operator use Diabetes mellitus complication status: without complication Qualified Code(s): E11.9 - Type 2 diabetes mellitus without complications Code(s): E11.9 - Type 2 diabetes mellitus without complications Status: Acute Assessment and Plan: Reports well controlled on metformin and Trulicity. Hypoglycemia protocol ordered. Track only with AM labs at this time. Can consider adding ACHS if indications of hyperglycemia become apparent. Last A1c 5.8 01/17/2023 Plan follow accu-cheks glycemic control per hospitalists I will continue follow patient with you while he she remains hospitalized and make further recommendations as needed. Thank you for allowing me to participate in care this patient. History of Present Illness Reason for Consult Consult date: 03/26/23 Reason for consult: acute renal failure and hyponatremia Chief Complaint Chief complaint: CHF Exacerbation History of Present Illness Narrative: The patient is a 67-year-old male with a past medical history as outlined below who presented to [facility] Emergency Room with complaints of shortness of breath. The patient reports that over the last several months he has noticed increasing/progressive shortness of breath both with exertional activity as well as at rest. It would seem that his shortness of breath has acutely worsened in the last several weeks to the point where he is unable to do any simple activities of daily living. Prior to 4 weeks ago, his major issue was a chronic cough that he been seen both ENT as well as pulmonology for in terms of evaluation. Do the worsening shortness of breath, he is unable to sleep at night and cannot breathe comfortably during the day. Given the ongoing worsening of his symptoms, he presented to the emergency room for further assessment. Workup and evaluation emergency room demonstrated the patient be in mild distress secondary to shortness of breath. His chest x-ray showed evidence of cardiomegaly as well as pulmonary edema/pulmonary vascular congestion and was felt that he was sufferin
--- NOTE | 2023-03-26 10:53 | PM.IMPN ---
Progress Note: A&P Assessment and Plan (1) Heart failure: Qualifiers: Heart failure chronicity: acute Heart failure type: unspecified Qualified Code(s): I50.9 - Heart failure, unspecified Code(s): I50.9 - Heart failure, unspecified Status: Acute Assessment and Plan: New onset, progressive symptoms over the past month with acute worsening in the past week. Cardiology consulted Echocardiogram noted diuretics Echo shows EF 15-20%, mild to moderate MR and mild TR. Continue cardiac regimen per cardiology [facility] noted Lifevest (2) Prolonged QT interval: Code(s): R94.31 - Abnormal electrocardiogram [ECG] [EKG] Status: Acute Assessment and Plan: On telemetry (3) Bifascicular block: Code(s): I45.2 - Bifascicular block Status: Acute Assessment and Plan: On telemetry (4) Hyponatremia: Code(s): E87.1 - Hypo-osmolality and hyponatremia Status: Acute Assessment and Plan: Na level improving, monitor likely dc tomorrow if sodium stable (5) Chronic cough: Code(s): R05.3 - Chronic cough Status: Acute Assessment and Plan: Persistent for about 7 months, new dyspnea about 3-4 weeks. Imaging shows Cardiomegaly and pulmonary edema. New CHF diagnosis (6) Diabetes: Qualifiers: Diabetes mellitus type: type 2 Diabetes mellitus supervisor intermediates insulin use: without supervisor intermediates use Diabetes mellitus complication status: without complication Qualified Code(s): E11.9 - Type 2 diabetes mellitus without complications Code(s): E11.9 - Type 2 diabetes mellitus without complications Status: Acute Assessment and Plan: Reports well controlled on metformin and Trulicity. Hypoglycemia protocol ordered. Track only with AM labs at this time. Can consider adding ACHS if indications of hyperglycemia become apparent. Last A1c 5.8 01/17/2023 Holding metformin (7) Hypothyroidism (acquired): Code(s): E03.9 - Hypothyroidism, unspecified Status: Acute Assessment and Plan: Continue levothyroxine (8) Essential hypertension: Code(s): I10 - Essential (primary) hypertension Status: Acute Assessment and Plan: Chronic hypertension on chlorthalidone and amlodipine at home on hold at this time. Blood pressure reviewed on 03/23 Subjective Date/time seen: 03/26/23 10:53 Interval history: no complaints no cp, no sob Exam Narrative: General: well appearing, appears easily tired, well developed, well nourished, appears stated age. HEENT: normocephalic, atraumatic. Mucous membranes moist. EOMI, PERRLA, bilateral sclera anicteric, no conjunctival injection. Neck supple without JVD, lymphadenopathy, or bruit. Respiratory: clear to auscultation bilaterally. No rales/rhonic/wheezes. Cardiovascular: Regular rate and rhythm, normal S1-S2 upon auscultation. No murmurs, rubs, or clicks. PMI displaced left, laterally. capillary re-fill less than 3 second. Abdomen: Soft, round, obese, no pulsatile masses, non-distended and non-tender. No rebound, no guarding. No CVA tenderness, no hepatosplenomegaly. Bowel sounds present to all four quadrants. No high pitch or tinkling sounds, resonant to percussion. Extremities: No cyanosis, clubbing, or edema present. Pulses are palpable 2/2. Active ROM to all four extremities. Neuro: Alert and orientated x 4. PERRLA. Cranial nerves 2-12 intact without focal deficit. Skin: Warm, dry, and intact, without rash, erythema, or lesion. Lines: Incisions: Psych: pleasant, cooperative, normal speech, normal affect, no hallucinations, no dysarthria Objective Data Vital Signs Vital Signs: Vital Signs - 24 hr 03/25/23 11:00 03/25/23 11:30 03/25/23 12:00 Temperature 96.5 F L 96.4 F L Pulse Rate 79 73 76 Respiratory Rate 20 Blood Pressure 113/72 109/68 105/65 Pulse Oximetry 96 94 96 Oxygen Delivery Room Air 03/25/23 1
--- NOTE | 2023-03-26 10:54 | PM.PNCARD ---
Progress Note: A&P Assessment and Plan (1) Heart failure: Qualifiers: Heart failure chronicity: acute Heart failure type: unspecified Qualified Code(s): I50.9 - Heart failure, unspecified Code(s): I50.9 - Heart failure, unspecified Status: Acute Assessment and Plan: Presents with progressive shortness of breath, dyspnea with exertion, edema, and weight gain. Acute systolic congestive heart failure. EF 15-20%. C negative for CAD Has been started on standard GDMT. Continue Toprol XL 50mg daily Continue Entresto Continue spironolactone. Will add jardiance Furosemide decreased to 40mg p.o. daily because of increasing SCr Daily weights Strict I&O CHF counseling BMP in one week as outpatient Anticipate discharge home tomorrow (2) Prolonged QT interval: Code(s): R94.31 - Abnormal electrocardiogram [ECG] [EKG] Status: Acute Assessment and Plan: QTc 516ms, when corrected for left bundle branch block, QTc ~455, which is acceptable. (3) Elevated troponin: Code(s): R79.89 - Other specified abnormal findings of blood chemistry Status: Acute Assessment and Plan: Mildly elevated and flat, not consistent with ACS/plaque rupture. No further workup recommended at this point. Subjective Date/time seen: 03/26/23 10:54 Interval history: HPI obtained from the chart, This is a 67-year-old male patient with past history of hypertension, hypothyroidism, type 2 diabetes with good glycemic control, elevated cholesterol and gout who is admitted to the hospital for progressive dyspnea on exertion Date of service 03/23/2023: He feels better and less short of breath subjectively. Objectively he is still dyspneic by Raines in his bed. His no edema. No chest pain. Date of service 03/24/23: He continues to feel okay. No chest pain or shortness breath at rest. Date of service 03/26/2023: Feels the best he's been since hospital admission. No shortness of breath. is at the bedside with lots of questions, all answered to her satisfaction. Review of Systems Review of Systems: All systems reviewed & are unremarkable except as noted in HPI and below Constitutional: Constitutional: Denies body ache(s) Eyes: Eyes: Denies blurry vision ENT: Denies dysphagia Cardiovascular: Cardiovascular: Denies chest pain, Denies palpitations and Reports dyspnea Respiratory: Respiratory: Reports dyspnea Gastrointestinal: Gastrointestinal: Denies no additional gastrointestinal complaints and Denies dysphagia Genitourinary: Genitourinary: Denies hematuria Musculoskeletal: Musculoskeletal: Denies back pain Integumentary/Breasts: Skin/Breast: Denies erythema Neurologic: Denies confusion Psychiatric: Psychiatric: Denies anxiety and Denies confusion Endocrine: Endocrine: Denies palpitations Hematologic/Lymphatic: Hematologic/Lymphatic: Denies easy bleeding Allergic/Immunologic: Allergic/Immunologic: Denies GI upset with certain foods Exam Const: General: comfortable, no acute distress, alert and awake; No confusion Orientation/consciousness: patient oriented x3 and No confusion HENMT: Head: normal to inspection Eyes: General: appearance normal, both eyes and all related structures Pupils: Equal, round and reactive pupils present Neck: Neck: normal visual inspection, supple and no JVD Carotids: normal carotid upstroke Resp: Effort & Inspection: normal respiratory effort Auscultation: clear to auscultation bilaterally Cardio: Rate: regular rate Rhythm: regular rhythm and abnormal rhythm with ectopic beats Heart sounds: S1 normal heart sound present, S2 normal heart sound present and no murmurs GI: Auscultation: normal bowel sounds Skin: General skin exam: normal color Neuro: General: patient oriented x3 and No confusion Cranial nerves: Yes Equal, round and reactive pupils present Extrem: General: normal to inspection Other:
[2023-03-26 12:07] LABS: Glucose Point of Care 140 mg/dl (65-105)
[2023-03-26] MEDS: EMPAGLIFLOZIN 10 MG TABLET PO (12:53)
[2023-03-26 16:40] LABS: Glucose Point of Care 123 mg/dl (65-105)
[2023-03-26 20:39] LABS: Glucose Point of Care 122 mg/dl (65-105)
[2023-03-26] MEDS: MULTIVITAMINS THERAPEUTIC TAB (*BKC) 1 TABLET PO (21:27)
[2023-03-26] MEDS: ROSUVASTATIN 10 MG TABLET 20 MG PO (21:27)
[2023-03-26] MEDS: ASPIRIN 81 MG CHEWABLE TABLET PO (21:28)
[2023-03-27] VITALS: BP 120/39; PULSE 65; PULSE 72; RESP 16; TEMP 36.6; O2SAT 90
[2023-03-27 04:00] VITALS: BP 109/65; PULSE 65; PULSE 70; RESP 16; TEMP 35.8; O2SAT 92
[2023-03-27] MEDS: LEVOTHYROXINE SODIUM 112 MCG TABLET PO (05:05)
[2023-03-27 06:51] LABS: Hematocrit 40.4 % (42.0-52.0); Hemoglobin 13.3 g/dL (14.0-18.0); Mean Corpuscular HGB Conc 32.9 g/dl (32-36); Mean Corpuscular Hemoglobin 30.9 pg (26-34); Mean Platelet Volume 10.9 fl (7.4-10.4); Platelet Count Result 265 k/mm3 (150-375); Red Cell Distribution Width 16.1 % (11.5-14.5)
[2023-03-27 07:01] LABS: Alanine Aminotransferase 152 U/L (6-50); Albumin Level 4.1 g/dL (3.5-5.1); Alkaline Phosphatase 45 U/L (38-126); Anion Gap 10 mmol/L (8-16); Aspartate Amino Transferase 113 U/L (17-59); Bilirubin,Total 0.8 mg/dL (0.2-1.3); Blood Urea Nitrogen 37 mg/dL (9-20); Calcium 8.8 mg/dL (8.4-10.2); Carbon Dioxide 28 mmol/L (22-30); Chloride 94 mmol/L (98-107); Estimated CRCL calculation 53 ml/min; Estimated Glomerular Filt Rate 40; Glucose 99 mg/dL (65-110); Potassium 3.4 mmol/L (3.4-5.0); Sodium 132 mmol/L (137-145)
[2023-03-27 08:00] VITALS: BP 119/73; PULSE 75; RESP 16; TEMP 36.1; O2SAT 97
[2023-03-27 08:12] LABS: Glucose Point of Care 100 mg/dl (65-105)
[2023-03-27] MEDS: SACUBITRIL/VALSARTAN 24-26 MG TABLET 1 TAB PO (09:15)
[2023-03-27] MEDS: OMEGA 3 POLYUNSAT FATTY ACIDS 1 GM CAP PO (09:15)
[2023-03-27] MEDS: EMPAGLIFLOZIN 10 MG TABLET PO (09:15)
[2023-03-27 09:16] VITALS: PULSE 78
[2023-03-27] MEDS: METOPROLOL SUCCINATE EXT REL 50 MG TABCR PO (09:16)
[2023-03-27] MEDS: SODIUM CHLORIDE 500 MG TABLET PO (09:16)
[2023-03-27] MEDS: allopurinoL 300 MG TABLET PO (09:16)
[2023-03-27] MEDS: ENOXAPARIN 40 MG/0.4 ML SYRINGE SUB-Q (09:16)
[2023-03-27] MEDS: PANTOPRAZOLE 40 MG TABLET PO (09:16)
[2023-03-27] MEDS: FUROSEMIDE 40 MG TABLET PO (09:16)
[2023-03-27] MEDS: SPIRONOLACTONE 25 MG TABLET PO (09:16)
[2023-03-27 11:34] LABS: Glucose Point of Care 132 mg/dl (65-105)
[2023-03-27 12:00] VITALS: BP 108/67; PULSE 71; PULSE 76; RESP 16; TEMP 36.1; O2SAT 99
--- NOTE | 2023-03-27 12:54 | PM.PNCARD ---
Progress Note: A&P Assessment and Plan (1) Heart failure: Qualifiers: Heart failure chronicity: acute Heart failure type: unspecified Qualified Code(s): I50.9 - Heart failure, unspecified Code(s): I50.9 - Heart failure, unspecified Status: Acute Assessment and Plan: Presents with progressive shortness of breath, dyspnea with exertion, edema, and weight gain. Acute systolic congestive heart failure. EF 15-20%. [facility] negative for CAD Has been started on standard GDMT. Continue Toprol XL 50mg daily Continue Entresto Continue spironolactone. Continue furosemide. KCL 20 mg p.o. x1 now as she does not have anemia and on continue diuretics. Otherwise okay to go home Daily weights Strict I&O CHF counseling BMP in one week as outpatient (2) Prolonged QT interval: Code(s): R94.31 - Abnormal electrocardiogram [ECG] [EKG] Status: Acute Assessment and Plan: QTc 516ms, when corrected for left bundle branch block, QTc ~455, which is acceptable. (3) Elevated troponin: Code(s): R79.89 - Other specified abnormal findings of blood chemistry Status: Acute Assessment and Plan: Mildly elevated and flat, not consistent with ACS/plaque rupture. No further workup recommended at this point. Subjective Date/time seen: 03/27/23 12:54 Interval history: HPI obtained from the chart, This is a 67-year-old male patient with past history of hypertension, hypothyroidism, type 2 diabetes with good glycemic control, elevated cholesterol and gout who is admitted to the hospital for progressive dyspnea on exertion Date of service 03/23/2023: He feels better and less short of breath subjectively. Objectively he is still dyspneic by Raines in his bed. His no edema. No chest pain. Date of service 03/24/23: He continues to feel okay. No chest pain or shortness breath at rest. Date of service 03/26/2023: Feels the best he's been since hospital admission. No shortness of breath. is at the bedside with lots of questions, all answered to her satisfaction. Date of service 03/27/2023: Anxious to go home. No chest pain. No shortness of breath. No swelling Review of Systems Review of Systems: All systems reviewed & are unremarkable except as noted in HPI and below Constitutional: Constitutional: Denies body ache(s) Eyes: Eyes: Denies blurry vision ENT: Denies dysphagia Cardiovascular: Cardiovascular: Denies chest pain, Denies palpitations and Reports dyspnea Respiratory: Respiratory: Reports dyspnea Gastrointestinal: Gastrointestinal: Denies no additional gastrointestinal complaints and Denies dysphagia Genitourinary: Genitourinary: Denies hematuria Musculoskeletal: Musculoskeletal: Denies back pain Integumentary/Breasts: Skin/Breast: Denies erythema Neurologic: Denies confusion Psychiatric: Psychiatric: Denies anxiety and Denies confusion Endocrine: Endocrine: Denies palpitations Hematologic/Lymphatic: Hematologic/Lymphatic: Denies easy bleeding Allergic/Immunologic: Allergic/Immunologic: Denies GI upset with certain foods Exam Const: General: comfortable, no acute distress, alert and awake; No confusion Orientation/consciousness: patient oriented x3 and No confusion HENMT: Head: normal to inspection Eyes: General: appearance normal, both eyes and all related structures Pupils: Equal, round and reactive pupils present Neck: Neck: normal visual inspection, supple and no JVD Carotids: normal carotid upstroke Resp: Effort & Inspection: normal respiratory effort Auscultation: clear to auscultation bilaterally Cardio: Rate: regular rate Rhythm: regular rhythm and abnormal rhythm with ectopic beats Heart sounds: S1 normal heart sound present, S2 normal heart sound present and no murmurs GI: Auscultation: normal bowel sounds Skin: General skin exam: normal color Neuro: General: patient oriented x3 and No confusion 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
--- NOTE | 2023-03-27 13:46 | PM.DS ---
DS: Admitting Diagnosis Discharge Date 03/27/23 Admitting Diagnosis dyspnea on exertion DS: Discharge Diagnosis Discharge Diagnosis (1) Essential hypertension: Code(s): I10 - Essential (primary) hypertension Status: Acute (2) Bifascicular block: Code(s): I45.2 - Bifascicular block Status: Acute (3) Hyponatremia: Code(s): E87.1 - Hypo-osmolality and hyponatremia Status: Acute (4) Heart failure: Qualifiers: Heart failure chronicity: acute Heart failure type: unspecified Qualified Code(s): I50.9 - Heart failure, unspecified Code(s): I50.9 - Heart failure, unspecified Status: Acute DS: Summary Hospital Course Hospital Course: 67M w/ PMH HTN, hypothyroidism, NIDDM, HLD, gout who presented with dyspnea on exertion. Pt was found to be in acutely decompensated heart failure, dx with HFrEF, underwent LHC w/o evidence of CAD. His EF was 15-20% and was given a lifevest then started on GDMT with toprol XL 50mg qday, entresto, spironolactone, jardiance, and lasix. pt to have BMP in one week, f/u with PCP and cardiology. stable on day of discharge to home. back to baseline, asymptomatic Status at Discharge Functional status at discharge: independent ambulation Time Spent with Patient Time attestation: Total time spent providing and/or coordinating discharge services: Time spent: Greater than 30 minutes Exam Const: General: cooperative and no acute distress Resp: Effort & Inspection: normal respiratory effort Auscultation: clear to auscultation bilaterally Cardio: Rate: regular rate Rhythm: regular rhythm Heart sounds: S1 normal heart sound present and S2 normal heart sound present GI: GI Palp: No abdominal tenderness Auscultation: normal bowel sounds DS: Data Data Completed and Pending Labs on day of discharge: Labs from last 24 hours 03/27/23 03/27/23 03/27/23 11:32 08:10 06:18 WBC 7.0 RBC 4.30 L Hgb 13.3 L Hct 40.4 L MCV 94.0 MCH 30.9 MCHC 32.9 RDW 16.1 H Plt Count 265 MPV 10.9 H Sodium 132 L Potassium 3.4 Chloride 94 L Carbon Dioxide 28 Anion Gap 10 BUN 37 H Creatinine 1.70 H Estim Creat Clear Calc 53 Estimated GFR 40 L Glucose 99 POC Capillary Glucose 132 H 100 Calcium 8.8 Total Bilirubin 0.8 AST 113 H ALT 152 H Alkaline Phosphatase 45 Total Protein 7.0 Albumin 4.1 03/26/23 03/26/23 20:36 16:12 WBC RBC Hgb Hct MCV MCH MCHC RDW Plt Count MPV Sodium Potassium Chloride Carbon Dioxide Anion Gap BUN Creatinine Estim Creat Clear Calc Estimated GFR Glucose POC Capillary Glucose 122 H 123 H Calcium Total Bilirubin AST ALT Alkaline Phosphatase Total Protein Albumin Discharge Plan Discharge Attending physician on discharge: Radha Gilbert Consulting providers: Ann Hoover; Angelina Escobar; Frances Nguyễn Discharging Clinician: Radha Gilbert Patient Disposition: Home, Self-Care Activity: no preference Diet: heart healthy Discharge Instructions: [facility] [address] [place] [address] DISCHARGE INSTRUCTIONS - POST CARDIAC CATH Activity Restriction 1. No Driving for 24 hours 2. No lifting, pushing or pulling more than 10 LBS for 1 week 3. No strenuous activity or exercising for
[2023-03-27] MEDS: POTASSIUM CHLORIDE 20 MEQ ER TABLET PO (14:56)
[2023-03-27 16:00] VITALS: PULSE 72
[2023-03-27 20:38] LABS: Kappa\\Lambda Light Chains 1.11 (0.26-1.65); Lambda Light Chain 18.4 mg/L (5.7-26.3)
[2023-03-28 16:21] LABS: Albumin 3.6 g/dL (3.8-4.8); Alpha 1 Globulin 0.3 g/dL (0.2-0.3); Alpha 2 Globulin 0.8 g/dL (0.5-0.9); Beta 1 Globulin 0.4 g/dL (0.4-0.6); Gamma Globulin 0.8 g/dL (0.8-1.7); Protein, Total 6.3 g/dL (6.1-8.1)
[2023-03-28 22:49] LABS: Osmolality, Urine 611 mOsm/kg (50-1200)
[2023-03-30 00:49] LABS: Creatinine, Random Urine 210 mg/dL (20-320); Total Protein/Creatinine Ratio 95 mg/g creat (25-148)
== END 2023-03-27 17:05 | disposition home or self-care (01) | DRG 286 ==
LOC: ANHED 18:41 → ANH3MEDSUR 23:00
PROVIDERS: Internal Medicine; Internal Medicine Nephrology; Nurse Practitioner; Nurse Practitioner Acute Care; Preventive Medicine Aerospace Medicine; Specialist; Admitting Provider Internal Medicine; Emergency Provider Physician Assistant; PCP Family Medicine; Visit Provider General Practice
PROC: 4A023N7 Measurement of Cardiac Sampling and Pressure, Left Heart, Percutaneous Approach (ICD-10-PCS; CPT 93452; principal; 2023-03-25 08:30)
DX: I11.0 Hypertensive heart disease with heart failure (principal); I50.21 Acute systolic (congestive) heart failure; E66.2 Morbid (severe) obesity with alveolar hypoventilation; I45.2 Bifascicular block; E87.1 Hypo-osmolality and hyponatremia; N17.9 Acute kidney failure, unspecified; I42.9 Cardiomyopathy, unspecified; E11.9 Type 2 diabetes mellitus without complications; E78.5 Hyperlipidemia, unspecified; E03.9 Hypothyroidism, unspecified; M10.9 Gout, unspecified; R05.3 Chronic cough; R79.89 Other specified abnormal findings of blood chemistry; R94.31 Abnormal electrocardiogram [ECG] [EKG]; Z20.822 Contact with and (suspected) exposure to COVID-19; Z79.82 Long term (current) use of aspirin
CPT/HCPCS: 36415; 71046; 71275; 80048; 80053; 81001; 81050; 82533; 82570; 82948; 83880; 83883; 83930; 83935; 84155; 84156; 84165; 84166; 84295; 84300; 84443; 84484; 84540; 85025; 85027; 85380; 85610; 85730; 87636; 93005; 93458; 94762; 96374; 96375; 96376; 99285; A9270; C1887; C1894; C8929; G0378; J0461; J1644; J1650; J1940; J2250; J3010; J7040; Q9957; Q9967

== ENCOUNTER 2023-04-03 09:22 | Outpatient (CLI) | payer MEDICARE, SELFPAY ==
[2023-04-03 10:36] LABS: Anion Gap 9 mmol/L (8-16); Blood Urea Nitrogen 20 mg/dL (9-20); Calcium 9.5 mg/dL (8.4-10.2); Carbon Dioxide 27 mmol/L (22-30); Chloride 101 mmol/L (98-107); Estimated Glomerular Filt Rate 51; Glucose 105 mg/dL (65-110); Potassium 4.4 mmol/L (3.4-5.0); Sodium 137 mmol/L (137-145)
== END 2023-04-03 09:23 | disposition home or self-care (01) ==
PROVIDERS: PCP Family Medicine; Visit Provider General Practice
DX: I50.9 Heart failure, unspecified (principal)
CPT/HCPCS: 36415; 80048

== ENCOUNTER 2023-04-12 09:53 | Outpatient (CLI) | payer MEDICARE, SELFPAY ==
--- NOTE | ~2023-04-12 | US_ITS ---
EXAMINATION:US venous doppler LE BI INDICATION:Localized edema TECHNIQUE: Multiple grayscale, color flow and Doppler images of the right and left lower extremity de ep venous systems were obtained and reviewed. COMPARISON:No prior studies for comparison. FINDINGS: The common femoral, superficial femoral and popliteal veins demonstrate normal respiratory variation, augmentation and compressibility. Color flow is also seen within the posterior tibial, pe roneal, greater saphenous and profunda veins. IMPRESSION: 1: No lower extremity deep venous thrombosis. Reviewed, dictated and finalized at location B.
[2023-04-12 12:05] LABS: Alanine Aminotransferase 32 U/L (6-50); Albumin Level 4.8 g/dL (3.5-5.1); Alkaline Phosphatase 41 U/L (38-126); Anion Gap 13 mmol/L (8-16); Aspartate Amino Transferase 31 U/L (17-59); Bilirubin,Total 0.9 mg/dL (0.2-1.3); Blood Urea Nitrogen 27 mg/dL (9-20); Calcium 9.6 mg/dL (8.4-10.2); Carbon Dioxide 22 mmol/L (22-30); Chloride 101 mmol/L (98-107); Estimated Glomerular Filt Rate 55; Glucose 134 mg/dL (65-110); Potassium 4.4 mmol/L (3.4-5.0); Sodium 136 mmol/L (137-145)
== END 2023-04-12 09:54 | disposition home or self-care (01) ==
LOC: ANHIMG 10:01
PROVIDERS: PCP Family Medicine; Visit Provider Family Medicine
DX: R74.01 Elevation of levels of liver transaminase levels (principal); I42.9 Cardiomyopathy, unspecified; R60.0 Localized edema
CPT/HCPCS: 36415; 80053; 93970

== ENCOUNTER 2023-05-13 08:24 | Outpatient (CLI) | payer MEDICARE, SELFPAY ==
[2023-05-13 09:10] LABS: Hematocrit 46.5 % (42.0-52.0); Hemoglobin 15.4 g/dL (14.0-18.0)
[2023-05-13 09:24] LABS: Hemoglobin A1C 6.4 % (<5.7)
[2023-05-13 09:26] LABS: Alanine Aminotransferase 20 U/L (6-50); Albumin Level 4.5 g/dL (3.5-5.1); Alkaline Phosphatase 39 U/L (38-126); Anion Gap 14 mmol/L (8-16); Aspartate Amino Transferase 27 U/L (17-59); Bilirubin,Total 0.6 mg/dL (0.2-1.3); Blood Urea Nitrogen 19 mg/dL (9-20); Calcium 9.4 mg/dL (8.4-10.2); Carbon Dioxide 23 mmol/L (22-30); Chloride 100 mmol/L (98-107); Estimated Glomerular Filt Rate 60; Glucose 125 mg/dL (65-110); Potassium 4.2 mmol/L (3.4-5.0); Sodium 137 mmol/L (137-145)
[2023-05-13 09:34] LABS: NT Pro B Type Natriuretic Pept 6690 pg/mL (19.9-100)
== END 2023-05-13 08:25 | disposition home or self-care (01) ==
LOC: ANHLAB 08:26
PROVIDERS: PCP Family Medicine; Visit Provider Family Medicine
DX: E11.9 Type 2 diabetes mellitus without complications (principal); I10 Essential (primary) hypertension; D64.9 Anemia, unspecified; I50.21 Acute systolic (congestive) heart failure
CPT/HCPCS: 36415; 80053; 83036; 83880; 85014; 85018

== ENCOUNTER 2023-07-17 08:26 | Outpatient (CLI) | payer MEDICARE, SELFPAY ==
--- NOTE | 2023-08-05 18:19 | WPDSLEEPSTUD ---
Sleep Study Date of Study: 07/17/23 Ordering Provider: Rosales Gamble MD Interpreting Physician: Josiane Romo DO Sleep Study Type: Split Polysomnogram Height: 1.8 m Weight: 128.82 kg Body Mass Index: 39.6 Neck Circumference (inches): 16.75 [place]: 3 Reason for Sleep Study Hospitalized in March 2023 for CHF. ApneaLink on room air showed overall AHI of 24. Sleep History The patient is a 68-year-old male with heart failure with severe systolic heart failure (EF between 10-20%), obesity, hypertension, diabetes, dyslipidemia, gout and hypothyroidism that had a sleep study ordered by his submersible pilot for evaluation of sleep apnea. The patient denies awakening from sleep short of breath. He denies awakening at night with heartburn, belching or cough. He occasionally snores but is rarely loud enough that others complain. He denies trouble sleeping when he has a cold. He denies waking up gasping for air throughout the night. He denies having breathing problems at night observed by himself or others. He denies sweating excessively at night. He denies having heart palpitations or irregular heartbeats during the night. He occasionally falls asleep during the day but never while driving. He denies sleep paralysis, cataplexy and hypnagogic / hypnopompic hallucinations. He denies having trouble at school or work due to sleepiness. He denies feeling afraid of going to sleep. He denies having nightmares. He occasionally remembers his dreams. He rarely has thoughts racing through his mind. He denies feeling sad, depressed or anxious. He denies having muscular tension. He denies noticing parts of his body jerk. He denies kicking during the night. He denies having crawling and aching feelings in his legs and denies having leg pain during night. He denies grinding his teeth during sleep denies awakening with morning jaw pain. He denies being bothered by pain during the day and denies being awakened by pain during the night. He denies waking up feeling stiff in the morning. He denies waking up with sore or achy muscles. He denies waking up with pain in the neck, spine and other joints. He goes to bed at 11:30 p.m. on both weekdays and weekends. It takes him 15-30 minutes to fall asleep. He wakes up twice throughout the night to urinate and get a drink and is able to fall back asleep within 10 minutes. He wakes up between 5:30-6 a.m. on both weekdays and weekends. He typically gets 5-7 hours of sleep per night. He will stay in bed for 10 minutes after waking up in the morning. He currently lives with his . He denies consuming any caffeinated beverages within 2 hours of bedtime. He denies engaging in physical exercise before bedtime. He will read watch television before falling asleep. He denies taking naps in the afternoon or the evening. He consumes 4-5 caffeinated beverages per day. He denies tobacco, alcohol and recreational drug use. [facility] Past Medical History Medical History Acute bronchitis Acute non-recurrent maxillary sinusitis Arthritis of knee Benign reactive hypertension BMI 40.0-44.9, adult Body mass index [BMI] 37.0-37.9, adult (01/11/17) Cellulitis of perianal area Colon cancer screening Diabetes Dietary counseling and surveillance (04/07/19) Dyslipidemia Elevated fasting blood sugar Essential hypertension Gout Hyperglycemia Hypothyroidism (acquired) Lichen planus follicularis Mixed hyperlipidemia Mixed hyperlipidemia New onset type 2 diabetes mellitus New onset type 2 diabetes mellitus Obesity (BMI 30-39.9) Obesity hypoventilation syndrome Other obesity due to excess calories Pain in left knee Patella, chondromalacia Perianal irritation Prediabetes Ringworm Screening PSA (prostate specific antigen) Severe obesity (BMI >= 40) Weight gain Wheezing Surgical History Surgical History (Reviewed 08/05/23 @ 18:35 by Josiane Carrillo
[2023-08-05 18:21] VITALS: BMI 39.6
== END 2023-07-18 06:54 | disposition home or self-care (01) ==
LOC: ANHCSM 08:27
PROVIDERS: PCP Family Medicine; Visit Provider Internal Medicine Pulmonary Disease
DX: G47.30 Sleep apnea, unspecified (principal); G47.33 Obstructive sleep apnea (adult) (pediatric)
CPT/HCPCS: 95811

== ENCOUNTER 2023-08-08 07:15 | Outpatient (RCR) | payer MEDICARE, SELFPAY | END 2023-08-08 16:04 | disposition home or self-care (01) | LOC: ANHCPREHAB 07:15 | PROVIDERS: PCP Family Medicine; Visit Provider Internal Medicine Cardiovascular Disease | DX: I50.89 Other heart failure (principal) | CPT/HCPCS: 93798 ==

== ENCOUNTER 2023-09-16 09:12 | Outpatient (CLI) | payer MEDICARE, SELFPAY ==
[2023-09-16 10:41] LABS: Anion Gap 6 mmol/L (4-12); Blood Urea Nitrogen 23 mg/dL (9-20); Carbon Dioxide 26 mmol/L (22-30); Chloride 106 mmol/L (98-107); Estimated Glomerular Filt Rate 60; Glucose 113 mg/dL (65-110); Potassium 3.8 mmol/L (3.4-5.0); Sodium 138 mmol/L (137-145)
== END 2023-09-16 09:13 | disposition home or self-care (01) ==
LOC: ANHLAB 09:14
PROVIDERS: PCP Family Medicine; Visit Provider Internal Medicine Cardiovascular Disease
DX: E11.59 Type 2 diabetes mellitus with other circulatory complications (principal); I15.2 Hypertension secondary to endocrine disorders; I50.22 Chronic systolic (congestive) heart failure
CPT/HCPCS: 36415; 80048

== ENCOUNTER 2024-01-06 09:06 | Outpatient (CLI) | payer MEDICARE, SELFPAY ==
--- NOTE | ~2024-01-06 | XR_ITS ---
XR abdomen obstructive series Ordering provider: Carolin Gandhi MD History: . R14.0 - Abdominal distension (gaseous) . Comparison: None. FINDINGS: BOWEL: Nonobstructive bowel gas pattern. ORGANOMEGALY: None. SIGNIFICANT PATHOLOGIC CALCIFICATIONS: None. OTHER: Degenerative spine No free air is seen under the diaphragm. IMPRESSION: NO ACUTE ABDOMINAL FINDINGS. Reviewed, dictated and finalized at location A.
== END 2024-01-06 09:07 | disposition home or self-care (01) ==
LOC: ANHIMG 09:09
PROVIDERS: PCP Family Medicine; Visit Provider Family Medicine
DX: R14.0 Abdominal distension (gaseous) (principal)
CPT/HCPCS: 74019

== ENCOUNTER 2024-02-14 14:28 | Outpatient (CLI) | payer MEDICARE, SELFPAY ==
--- NOTE | ~2024-02-14 | CT_ITS ---
EXAMINATION: CT abdomen pelvis wo con DATE: 02/14/2024 14:47 INDICATION: Abdominal distention. TECHNIQUE: Computed tomography (CT) of the abdomen and pelvis was performed without intravenous contr ast. Automated exposure control and iterative reconstruction technique were employed. The dose-length product was 1713.22 mGy-cm. COMPARISON: Chest CT 03/21/2023 FINDINGS: The visualized portions of the lung bases are clear without pneumonia or pleural effusion. The heart size is normal. There are coronary artery calcifications. No pericardial effusion. There is a pacer in right atrium. There are 2 pacer wires in right ventricle. The liver, gallbladder, spleen, pancreas, adrenal glands, and kidneys are normal. There are no dilated loops of bowel. There is dive rticulosis of the colon without evidence of diverticulitis. The appendix is normal. There are bilater al inguinal hernias containing fat. There is an umbilical hernia containing fat. There is fat strandi ng at the root of the small bowel mesentery. There is a small sliding hiatal hernia. There is mild me senteric lymphadenopathy. There is no ascites. There is severe lumbar spondylosis and moderate thorac ic spondylosis. IMPRESSION: 1. 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 2. Mild mesenteric lymphadenopathy, likely reactive. 3. Umbilical hernia and bilateral inguinal hernias containing fat. 4. Small sliding hiatal hernia. Reviewed, dictated and finalized at location A. IMPRESSION: 1. Fat stranding at the root of the small bowel mesentery, consistent with yelena a versus inflammation (mesenteric panniculitis). 2. Mild mesenteric lymphadenopathy, likely reactive. 3. Umbilical hernia and bilateral inguinal hernias containing fat. 4. Small sliding hiatal hernia.
== END 2024-02-14 14:29 | disposition home or self-care (01) ==
PROVIDERS: PCP Family Medicine; Visit Provider Family Medicine
DX: R14.0 Abdominal distension (gaseous) (principal); R59.0 Localized enlarged lymph nodes; K42.9 Umbilical hernia without obstruction or gangrene; K40.20 Bilateral inguinal hernia, without obstruction or gangrene, not specified as recurrent; K44.9 Diaphragmatic hernia without obstruction or gangrene
CPT/HCPCS: 74176

== ENCOUNTER 2024-06-09 05:02 | Emergency (ER) | payer MEDICARE, SELFPAY ==
[2024-06-09 05:35] VITALS: BP 107/72; PULSE 106; RESP 19; TEMP 37; O2SAT 96
--- NOTE | 2024-06-09 07:28 | ED.SKABFB ---
HPI - Skin/Abscess/Foreign Bdy General Chief complaint: Skin/Abscess/Foreign Body Stated complaint: I think I have perianal abscess Time Seen by Provider: 06/09/24 06:54 History of Present Illness HPI narrative: 68-year-old male with a past medical history including CHF, cardiomyopathy, hypertension, diabetes, anticoagulation with Eliquis. Today presents to the emergency room with chief complaint of left-sided buttock pain he thinks has a recurrence of his perineal abscess. Patient states he had a previous perianal abscess that required drainage and IV antibiotics about 7 years prior but no recurrence. Has not had to have surgery on it or any cyst removal from the initial insult. He states for last day to day and a half he has been having pain in his left buttock region and thinks it could be a very similar recurrence. Denies any fever, chills, abdominal pain. Was otherwise in his normal state of health. Related Data Home Medications ?Medication ?Instructions ?Recorded ?Confirmed ?Last Taken ?Type multivitamin 1 tablet PO DAILY 12/09/20 06/05/24 03/15/22 History omega 2-bix-maw-fish oil 60 mg-90 1 cap PO DAILY 10/29/22 06/05/24 Unknown History mg-500 mg capsule (Fish Oil) sacubitril 49 mg-valsartan 51 mg 1 tablet PO BID 09/20/23 06/05/24 Unknown History tablet (Entresto) Allergies Allergy/AdvReac Type Severity Reaction Status Date / Time No Known Allergies Allergy Mild Verified 06/05/24 08:25 Review of Systems Review of Systems: As reviewed above in HPI [facility] Past Medical History Medical History [place] respiration Sleep apnea Chronic anemia Transaminitis Edema leg JOVANNI (acute kidney injury) Elevated troponin Hyponatremia Vocal cord dysfunction Pulmonary asbestosis Chronic cough Vocal cord nodules Dysphonia Cough Screening PSA (prostate specific antigen) Mixed hyperlipidemia Wheezing Weight gain Ringworm Prediabetes Perianal irritation Patella, chondromalacia Pain in left knee Other obesity due to excess calories Obesity hypoventilation syndrome Lichen planus follicularis Essential hypertension Elevated fasting blood sugar Dyslipidemia Dietary counseling and surveillance (04/07/19) Colon cancer screening Cellulitis of perianal area Body mass index [BMI] 37.0-37.9, adult (01/11/17) Arthritis of knee Acute non-recurrent maxillary sinusitis Acute bronchitis Diabetes Left inguinal hernia New onset type 2 diabetes mellitus BMI 40.0-44.9, adult New onset type 2 diabetes mellitus Hyperglycemia Gout Hypothyroidism (acquired) Severe obesity (BMI >= 40) Obesity (BMI 30-39.9) Mixed hyperlipidemia Benign reactive hypertension Screening PSA (prostate specific antigen) Surgical History Surgical History History of inguinal hernia repair 03/19/2022 - robotic assisted left inguinal hernia repair with mesh, lysis of adhesions H/O umbilical hernia repair 01/09/21 H/O knee surgery Family History Family History Father Family history of primary malignant neoplasm of liver Family history of lung cancer Patient's father is Family history of malignant neoplasm of breast in first degree relative Mother Patient's mother is in good health Family history of malignant neoplasm of breast in first degree relative Cerebrovascular accident Sibling Patient's brother is in good health Patient's sister is in good health Social History Social History Social History: Smoking status: Never smoker Second hand tobacco smoke exposure: Yes (as a child) Alcohol intake: never Substance use: never Substance use type: does not use Do You Feel Safe in your Home?: Yes Lack of Transportation: No Lack of Food: Never True Current Housing: I Have Housing Concerned About Future Housing: No Difficulty Paying Gas/Electric Bills: No Difficulty Paying for Meds: No Currently Unemployed: No Education: Bachelor's Degree Difficulty w/ Childcare or Family Care: No Living arrangements: with family Additional living arrangements comments: Occupation/Education: retired Gender identity (if verbalized by the patient): Male Sexual Orientation (if Verbalized by the Patient): Straight or Heterosexual Spiritual care concerns: No Exam Narrative: GENERAL: [Well-appearing, well-nourished, and in no acute distress.] HEAD: [Normocephalic, atraumatic.] EYES: [PERRLA and EOMI.] ENT: Nares clear, no rhinorrhea or epistaxis. Mucous membranes moist. NECK: Supple. CHEST: [Clear to auscultation. No respiratory distress.] HEART: [Regular rate and rhythm]. No murmur heard. [Normal peripheral pulses.] ABDOMEN: [Soft, nondistended], [nontender], [No rigidity or guarding] GENITOURINARY: The left intergluteal fold does have some small area of redness and tenderness with palpation without any induration. No fluctuance or palpable abscess formation. No pustule formation or any carbuncle/furuncle. No other obvious abscess formation or cellulitis. EXTREMITIES: Normal range of motion. [No edema.] SKIN: Warm, dry, no rash. NEURO: [No focal deficits]. Alert and oriented [x3.] PSYCH: [Normal mood and affect.] Course Vital Signs Vital signs: Vital Signs Temperature 37.0 C 06/09/24 05:35 Pulse Rate 106 H 06/09/24 05:35 Respiratory Rate 19 06/09/24 05:35 Blood Pressure 107/72 06/09/24 05:35 Pulse Oximetry 96 06/09/24 05:35 Temperature 37.0 C 06/09/24 05:35 Pulse Rate 106 H 06/09/24 05:35 Respiratory Rate 19 06/09/24 05:35 Blood Pressure 107/72 06/09/24 05:35 Pulse Oximetry 96 06/09/24 05:35 MDM - Skin/Abscess/Foreign Bdy MDM Narrative Medical decision making narrative: 68-year-old male with a history of perirectal abscess presenting to the emergency department for evaluation of concern for recurrence. Last episode was 7 years prior and treated with incision and drainage and IV antibiotics. His left intergluteal fold does have an area of pain and tenderness with palpation without any induration or definitive abscess formation. No carbuncle or furuncle in the area. He otherwise appears well not any acute distress. No definitive abscess formation that is are overtly drainable but will assess with the ultrasound probe to see if there is any depth of our definitive fluid pockets. Patient would require antibiotics at this time plus-minus incision and drainage. Bedside ultrasound was conducted by myself and I do identify cobblestoning over the top layer of the subcutaneous tissue and fat but no perirectal abscess formation, no definitive drainable pocket of fluid, rectal muscles appear with good tray shins without any involvement or fluid collections. At this time will treat him for a perianal cellulitis with oral Bactrim and sent home with a prescription. I discussed return precautions including worsening pain, difficulty with defecation, developing fever, rectal pain, abdominal pain or any other concerns and return to the emergency department otherwise follow-up with primary care provider outpatient. Medical Records Attestation: I reviewed the patient's medical records. Discharge Plan Discharge Clinical Impression: Cellulitis of buttock, left Patient Disposition: Home, Self-Care Condition: Stable Instructions: Antibiotic Form, Cellulitis (ED) Additional Instructions: We will treat with oral antibiotics for your perianal cellulitis. Return to the ER with any new or worsening concerns such as developing fevers, worsening rectal pain, abscess formation or any other concerns otherwise follow-up with regular doctor outpatient basis incomplete antibiotics and analgesics medications such as [id number] Tylenol, ibuprofen or any topical therapy. Patient Language: Chinese Prescriptions: New sulfamethoxazole-trimethoprim [Bactrim DS] 800-160 mg tablet 1 tablet PO Q12H Qty: 14 0RF No Action multivitamin Tablet 1 tablet PO DAILY Patient Comments: HS omega 4-joa-xej-fish oil [Fish Oil] 60-90-500 mg capsule 1 cap PO DAILY Entresto 49-51 mg tablet 1 tablet PO BID rosuvastatin 20 mg tablet See Rx Instructions .ROUTE .COMPLEX Qty: 90 1RF Dose Instruction: Take 1 tablet by mouth once daily Rx Instructions: Take 1 tablet by mouth once daily testosterone cypionate [Depo-Testosterone] 200 mg/mL oil 200 mg IM WEEKLY 30 Days Qty: 5 2RF Rx Instructions: as a single dose aspirin 81 mg tablet,chewable 81 mg PO DAILY Qty: 90 1RF Patient Comments: HS furosemide 40 mg Tablet 40 mg PO DAILY Qty: 90 0RF metoprolol succinate 50 mg Tablet Extended Release 24 Hr 50 mg PO QAM Qty: 90 0RF spironolactone 25 mg Tablet 25 mg PO QAM Qty: 90 0RF Jardiance 10 mg tablet 10 mg PO DAILY Qty: 90 0RF fluticasone propionate 50 mcg/actuation spray,suspension 1 spray intranasal Q12H Qty: 16 0RF Rx Instructions: administer into each nostril levothyroxine 112 mcg tablet See Rx Instructions .ROUTE .COMPLEX Qty: 112 1RF Dose Instruction: TAKE TWO TABLETS BY MOUTH ON SUNDAYS AND ONE TABLET ALL OTHER DAYS OF THE WEEK Rx Instructions: TAKE TWO TABLETS BY MOUTH ON SUNDAYS AND ONE TABLET ALL OTHER DAYS OF THE WEEK rosuvastatin 20 mg tablet See Rx Instructions .ROUTE .COMPLEX Qty: 90 1RF Dose Instruction: Take 1 tablet by mouth once daily Rx Instructions: Take 1 tablet by mouth once daily allopurinol 300 mg tablet See Rx Instructions .ROUTE .COMPLEX Qty: 100 2RF Dose Instruction: Take 1 tablet by mouth once daily Rx Instructions: Take 1 tablet by mouth once daily metformin 500 mg tablet See Rx Instructions .ROUTE .COMPLEX Qty: 200 2RF Dose Instruction: Take 1 tablet by mouth twice daily Rx Instructions: Take 1 tablet by mouth twice daily torsemide 20 mg tablet 20 mg PO QAM Qty: 90 0RF Follow-up/Referrals: Blake Ott MD [Primary Care Provider] - Time of Disposition: 07:45
[2024-06-09] MEDS: SULFAMETHOXAZOLE/TRIMETHOPRIM 800/160 MG DS TABLET 1 TAB PO (07:52)
== END 2024-06-09 07:55 | disposition home or self-care (01) ==
PROVIDERS: Emergency Provider Student in an Organized Health Care Education/Training Program; PCP Family Medicine
DX: L03.317 Cellulitis of buttock (principal); I50.9 Heart failure, unspecified; I11.0 Hypertensive heart disease with heart failure; E11.9 Type 2 diabetes mellitus without complications; E78.2 Mixed hyperlipidemia; E03.9 Hypothyroidism, unspecified; D64.9 Anemia, unspecified; E66.2 Morbid (severe) obesity with alveolar hypoventilation; Z68.41 Body mass index [BMI] 40.0-44.9, adult; J61 Pneumoconiosis due to asbestos and other mineral fibers; M17.9 Osteoarthritis of knee, unspecified; M10.9 Gout, unspecified; Z77.22 Contact with and (suspected) exposure to environmental tobacco smoke (acute) (chronic); Z79.899 Other long term (current) drug therapy; Z79.82 Long term (current) use of aspirin; Z79.84 Long term (current) use of oral hypoglycemic drugs; Z79.01 Long term (current) use of anticoagulants
CPT/HCPCS: 99283; A9270

== ENCOUNTER 2024-07-25 10:10 | Emergency (ER) | payer MEDICARE, SELFPAY ==
[2024-07-25 10:34] VITALS: BP 148/94; PULSE 59; RESP 16; TEMP 36.3; O2SAT 99
--- NOTE | 2024-07-25 10:55 | ED_ITS ---
HPI - Skin/Abscess/Foreign Bdy General Chief complaint: Skin/Abscess/Foreign Body Stated complaint: ABSCESS Time Seen by Provider: 07/25/24 10:45 Source: patient Mode of arrival: ambulatory Limitations: no limitations History of Present Illness HPI narrative: Kamron is a 69-year-old male patient presenting to the clinic today with complaints of possible abscess to the rectum. He reports he 1st noticed this a few days ago. It had been draining some bloody discharge. He denies any fevers, chills, body aches. Has been having normal bowel movements. Has been treated for a rectal abscess in the past with Bactrim and states that this helped. said he had this back on Akermin and they placed him on Bactrim at that time. They did ultrasound and stated that it was not tunneling. Related Data Home Medications ?Medication ?Instructions ?Recorded ?Confirmed ?Last Taken ?Type multivitamin 1 tablet PO DAILY 12/09/20 06/05/24 03/15/22 History omega 1-fau-xjm-fish oil 60 mg-90 1 cap PO DAILY 10/29/22 06/05/24 Unknown History mg-500 mg capsule (Fish Oil) sacubitril 49 mg-valsartan 51 mg 1 tablet PO BID 09/20/23 06/05/24 Unknown History tablet (Entresto) Allergies Allergy/AdvReac Type Severity Reaction Status Date / Time No Known Allergies Allergy Mild Verified 07/25/24 10:38 Review of Systems Review of Systems: Pertinent positives per HPI. Patient denies any fever, chills, rash, headache, visual changes, dizziness, cough, runny nose, sore throat, shortness of breath, chest pain, palpitations, nausea, vomiting, diarrhea, constipation, abdominal pain, or any urinary issues. [facility] Past Medical History Medical History Gunner-Polanco respiration Sleep apnea Chronic anemia Transaminitis Edema leg JOVANNI (acute kidney injury) Elevated troponin Hyponatremia Vocal cord dysfunction Pulmonary asbestosis Chronic cough Vocal cord nodules Dysphonia Cough Screening PSA (prostate specific antigen) Mixed hyperlipidemia Wheezing Weight gain Ringworm Prediabetes Perianal irritation Patella, chondromalacia Pain in left knee Other obesity due to excess calories Obesity hypoventilation syndrome Lichen planus follicularis Essential hypertension Elevated fasting blood sugar Dyslipidemia Dietary counseling and surveillance (10/22/19) Colon cancer screening Cellulitis of perianal area Body mass index [BMI] 37.0-37.9, adult (01/11/17) Arthritis of knee Acute non-recurrent maxillary sinusitis Acute bronchitis Diabetes Left inguinal hernia New onset type 2 diabetes mellitus BMI 40.0-44.9, adult New onset type 2 diabetes mellitus Hyperglycemia Gout Hypothyroidism (acquired) Severe obesity (BMI >= 40) Obesity (BMI 30-39.9) Mixed hyperlipidemia Benign reactive hypertension Screening PSA (prostate specific antigen) Surgical History Surgical History History of inguinal hernia repair 03/19/2022 - robotic assisted left inguinal hernia repair with mesh, lysis of adhesions H/O umbilical hernia repair 01/09/21 H/O knee surgery Family History Family History Father Family history of primary malignant neoplasm of liver Family history of lung cancer Patient's father is Family history of malignant neoplasm of breast in first degree relative Mother Patient's mother is in good health Family history of malignant neoplasm of breast in first degree relative Cerebrovascular accident Sibling Patient's brother is in good health Patient's sister is in good health Social History Social History Social History: Smoking status: Never smoker Second hand tobacco smoke exposure: Yes (as a child) Alcohol intake: never Substance use: never Substance use type: does not use Do You Feel Safe in your Home?: Yes Lack of Transportation: No Lack of Food: Never True Current Housing: I Have Housing Concerned About Future Housing: No Difficulty Paying Gas/Electric Bills: No Difficulty Paying for Meds: No Currently Unemployed: No Education: Bachelor's Degree Difficulty w/ Childcare or Family Care: No Living arrangements: with family Additional living arrangements comments: Occupation/Education: retired Gender identity (if verbalized by the patient): Male Sexual Orientation (if Verbalized by the Patient): Straight or Heterosexual Spiritual care concerns: No Comments At the time of my signature, I reviewed and agree with the nursing past medical, surgical, social, and family history. There is no relevant family history pertinent to the patient complaint. Exam Narrative: General: Well-developed, well nourished, in no apparent distress. Head: Normocephalic, atraumatic. Cardio: Regular rate and rhythm, s1 and s2 normal, no murmur appreciated. Resp: Clear to auscultation bilaterally, no rhonchi, rales, wheezing or rubs. Abdomen: Soft, pliable, bowel sounds present in all quadrants, non-tender to palpation, no organomegly, no CVAT tenderness. Rectum: Small hole in the rectal wall noted at 6 o'clock without erythema or tenderness, mild induration noted, no active obvious discharge Course Course Emergency Course: Portions of this record may have been created with voice recognition software. Level of Care: Express Care Visit Vital Signs Vital signs: Vital Signs Temperature 36.3 C L 07/25/24 10:34 Pulse Rate 59 L 07/25/24 10:34 Respiratory Rate 16 07/25/24 10:34 Blood Pressure 148/94 H 07/25/24 10:34 Pulse Oximetry 99 07/25/24 10:34 Temperature 36.3 C L 07/25/24 10:34 Pulse Rate 59 L 07/25/24 10:34 Respiratory Rate 16 07/25/24 10:34 Blood Pressure 148/94 H 07/25/24 10:34 Pulse Oximetry 99 07/25/24 10:34 Vital signs reviewed MDM - Skin/Abscess/Foreign Bdy MDM Narrative Medical decision making narrative: At the time of visit patient is resting comfortably on the exam table. Patient appears to be nontoxic. Plan: I suspect patient has a rectal abscess versus a cyst. Will prescribe Bactrim and have patient follow-up with general surgeon. Dr. Simpson's info given to the patient. Supportive measures were discussed with the patient and they voiced understanding discharge instructions and agrees to treatment plan. Return precautions reviewed Differential Diagnosis Differential diagnosis: Likely abscess of skin or subcutaneous tissue and other (Rectal/perineal abscess versus cyst) Discharge Plan Discharge Clinical Impression: Rectal abscess Patient Disposition: Home, Self-Care Condition: Stable Instructions: Antibiotic Form, Abscess (ED), Cyst (ED) Additional Instructions: I suspect you either have a rectal abscess verses a rectal cyst Recommend following up with general surgeon Take Bactrim as prescribed Perform Sitz baths 3-4 times daily with Epson salt and warm water Follow-up with your primary care doctor next week Patient Language: Croatian Prescriptions: New sulfamethoxazole-trimethoprim [Bactrim DS] 800-160 mg tablet 1 tablet PO Q12H 7 Days Qty: 14 0RF No Action multivitamin Tablet 1 tablet PO DAILY Patient Comments: HS omega 6-yao-ejq-fish oil [Fish Oil] 60-90-500 mg capsule 1 cap PO DAILY Entresto 49-51 mg tablet 1 tablet PO BID rosuvastatin 20 mg tablet See Rx Instructions .ROUTE .COMPLEX Qty: 90 1RF Dose Instruction: Take 1 tablet by mouth once daily Rx Instructions: Take 1 tablet by mouth once daily testosterone cypionate [Depo-Testosterone] 200 mg/mL oil 200 mg IM WEEKLY 30 Days Qty: 5 2RF Rx Instructions: as a single dose aspirin 81 mg tablet,chewable 81 mg PO DAILY Qty: 90 1RF Patient Comments: HS sulfamethoxazole-trimethoprim [Bactrim DS] 800-160 mg tablet 1 tablet PO Q12H Qty: 14 0RF furosemide 40 mg Tablet 40 mg PO DAILY Qty: 90 0RF metoprolol succinate 50 mg Tablet Extended Release 24 Hr 50 mg PO QAM Qty: 90 0RF spironolactone 25 mg Tablet 25 mg PO QAM Qty: 90 0RF Jardiance 10 mg tablet 10 mg PO DAILY Qty: 90 0RF fluticasone propionate 50 mcg/actuation spray,suspension 1 spray intranasal Q12H Qty: 16 0RF Rx Instructions: administer into each nostril levothyroxine 112 mcg tablet See Rx Instructions .ROUTE .COMPLEX Qty: 112 1RF Dose Instruction: TAKE TWO TABLETS BY MOUTH ON SUNDAYS AND ONE TABLET ALL OTHER DAYS OF THE WEEK Rx Instructions: TAKE TWO TABLETS BY MOUTH ON SUNDAYS AND ONE TABLET ALL OTHER DAYS OF THE WEEK rosuvastatin 20 mg tablet See Rx Instructions .ROUTE .COMPLEX Qty: 90 1RF Dose Instruction: Take 1 tablet by mouth once daily Rx Instructions: Take 1 tablet by mouth once daily allopurinol 300 mg tablet See Rx Instructions .ROUTE .COMPLEX Qty: 100 2RF Dose Instruction: Take 1 tablet by mouth once daily Rx Instructions: Take 1 tablet by mouth once daily metformin 500 mg tablet See Rx Instructions .ROUTE .COMPLEX Qty: 200 2RF Dose Instruction: Take 1 tablet by mouth twice daily Rx Instructions: Take 1 tablet by mouth twice daily torsemide 20 mg tablet 20 mg PO QAM Qty: 90 0RF Follow-up/Referrals: Blake Ott MD [Primary Care Provider] - Les Simpson MD [Physician] - (Rectal abscess verses rectal cyst) Time of Disposition: 11:01 Quality NIHSS Nursing Documentation ED NIHSS nursing documentation: reviewed/agree
== END 2024-07-25 11:03 | disposition home or self-care (01) ==
PROVIDERS: Emergency Provider Nurse Practitioner Family; PCP Family Medicine
DX: K61.1 Rectal abscess (principal); E78.2 Mixed hyperlipidemia; I10 Essential (primary) hypertension; E11.9 Type 2 diabetes mellitus without complications; E03.9 Hypothyroidism, unspecified; J61 Pneumoconiosis due to asbestos and other mineral fibers; M10.9 Gout, unspecified; E66.01 Morbid (severe) obesity due to excess calories; Z68.41 Body mass index [BMI] 40.0-44.9, adult
CPT/HCPCS: 99213; G0463

== ENCOUNTER 2025-04-20 10:56 | Outpatient (CLI) | payer MEDICARE, SELFPAY ==
--- NOTE | ~2025-04-20 | XR_ITS ---
EXAMINATION: XR chest 2V, 04/20/2025 11:20 GEOLOGICAL MANAGER HISTORY: R06.02 - Shortness of breath COUGH HX AFIB COMPARISON: No comparisons available. Technique: 2 views obtained. Findings: Moderate pulmonary venous congestion. No pneumothorax. Moderate cardiomegaly. Mediastinal and hilar contours are within normal limits. Bony thorax no acute abnormality. Left pacemaker. Impression: CHF Reviewed, dictated and finalized at location P. OGICAL MANAGER Impression: CHF
--- OUTSIDE RECORDS SUMMARY | 2025-04-20 13:03 | XMS_ITS | Encounter Summary ---
Author Organization [facility] Address [address] [place] [address] Phone Care Team Providers Care Publication Manager Name Role Phone Carolin Gandhi MD Unavailable [phone] Blake Ott MD Primary Care Provider Encounter Details Date Type Department Care Team (Late st Contact Info) Description 04/14/2025 Telephone [facility] Cardiology [address] [place] [address] Manoj Blackman MD [address] [facility] [address] [place] [id number] Social History Tobacco Use Types Packs/Day Years Used Date Smoking Tobacco: Never Smokeless Tobacco: Never Alcohol Use Standard Drinks/Week Comments Never 0 (1 standard drink = 0.6 oz pur e alcohol) AUDIT-C Answer Date Recorded Q1: How often do you have a drink containing alcohol? Never 03/12/2025 Q2: How many drinks containi ng alcohol do you have on a typical day when you are drinking? Patient does not drink Q3: How often do you have si x or more drinks on one occasion? Never 03/12/2025 Personal Safety Answer Date Recorded Have you ever been in or are you currently in a harmful physical or emotional relationship or is someone making you feel afraid or unsafe? 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 Blackman as provider, not device nurse. NSTONE POLISHER OPERATOR * Telephone Encounter - Zina Gonzales RN - 04/19/2025 11:45 AM CST Kamron Patel,:1955, is scheduled for sotalol drug load procedure on 04/23/[address] Blackman patient The pt will be called by the [facility] with the arrival time 1-3 days prior to procedure. Office visit note or progress note in chart with the plan: Yes The patient : Will be admitted for drug loading. Please all [facility] Admitting to reserve a bed. The patient will need No TPAP/CPAP Testing: No testing required Please include the following medication instructions: It is ok to take meds as per routine PRE-CERT: Please notify Pre-Cert of drug load admission Please schedule the following follow up appointments: Post drug load follow up 4-6 weeks after hospitalization The Patient case has been placed on the calendar. Please mail Patient information letter to patient. Thanks NSTONE POLISHER OPERATOR * Telephone Encounter - Zina Gonzales RN - 04/19/2025 11:40 AM CST Talked to Ms Patel -we have decided to move forward with this Saturday . She is aware that he willbe staying for 3 days- wear comfortable clothes- will not be allowed to leave floor/shower. Sometimes starting the meds will convert if not cardioversion on the last day. I did explain that there might be a delay if the census is high. NSTONE POLISHER OPERATOR * Telephone Encounter - Pati Girard - 04/16/2025 2:16 PM CDT Pt's spouse returning call from the nurse. * Telephone Encounter - Zina Gonzales RN - 04/16/2025 1:51 PM CDT Patient called and voicemail message left * Telephone Encounter - Zina Gonzales RN - 04/14/2025 3:27 PM CDT Theresa bentley NP P [facility]; Manoj Blackman MD Please set up for sotalol drug load. Eliquis no missed doses documented in this encounter Plan of Treatment Upcoming Encounters Date Type Department Care Team (Late st Contact Info) Description 04/23/2025 Hospital Encounter [facility] ADMIT [address] [place] [address] Deisy Diaz MD [address] [address] documented as of this encounter Visit Diagnoses Not on filedocumented in this encounter Care Teams Publication Manager Relationship Specialty Start Date End Date Blake Ott MD [address] [facility] [address] [place] [address] PCP - General Family Medicine 07/20/24 Carolin Gandhi MD [address] [facility] [address] [place] [address] Family Medicine 04/10/23 documented as of this encounter
--- OUTSIDE RECORDS SUMMARY | 2025-04-20 13:03 | XMS_ITS | Clinical Summary ---
Author Organization [facility] Address [address] [place] [address] Phone Care Team Providers Care Latent Print Examiner Name Role Phone Carolin Gandhi MD Primary Care Provider [phone] Sidney Webb MD Unavailable Allergies No known active allergies Medications allopurinol (ZYLOPRIM) 300 MG Tablet Take 300 mg by mouth daily. 3 Active amLODIPine (NORVASC) 10 MG Tablet Take 10 mg by mouth daily. 3 Active chlorthalidone (HYGROTON) 25 MG Tablet Take 25 mg by mouth daily. 3 Active Trulicity 1.5 MG/0.5ML Solution Pen-injector INJECT 1.5MG SUBCUTANEOUSLY ONCE WEEKLY 3 Active levothyroxine (SYNTHROID) 112 MCG Tablet TAKE 1 TABLET BY MOUTH ONCE DAILY AND 2 TABLETS EVERY Saturday 3 Active losartan (COZAAR) 50 MG Tablet TAKE 2 TABLETS BY MOUTH ONCE DAILY 3 Active metFORMIN (GLUCOPHAGE) 500 MG Tablet Take 500 mg by mouth 2 times daily. 3 Active rosuvastatin (CRESTOR) 20 MG Tablet Take 20 mg by mouth daily. 3 Active Multiple Vitamin (MULTIVITAMIN PO) Take by mouth. Activ e Loratadine (CLARITIN PO) Take by mouth. A ctive Active Problems Problem Noted Date Diagnosed Date Chronic cough 11/01/2022 Non morbid obesity 11/01/2022 Essential (primary) hypertension 11/01/2022 Other specified hypothyroidism 11/01/2022 Social History Tobacco Use Types Packs/Day Years Used Date Smoking Tobacco: Never Smokeless Tobacco: Never Alcohol Use Standard Drinks/Week Comments Never 0 (1 standard drink = 0.6 oz pur e alcohol) Sexually Active Control Partners Comments Not Currently Sex and Gender Information Value Date Recorded Sex Assigned at Not on file Legal Sex Male 1:06 PM CDT Gender Identity Not on file Sexual Orientation Not on file Last Filed Vital Signs Vital Sign Reading Time Taken Comments Blood Pressure 116/70 11/01/2022 9:47 AM CDT Pulse 93 11/01/2022 9:47 AM CDT Temperature 36.2 C (97.2 F) 11/01/2022 9:47 AM CDT Respiratory Rate 16 11/01/2022 9:47 AM CDT Oxygen Saturation 93% 11/01/2022 9:47 AM CDT Inhaled Oxygen Concentration - - Weight 129.9 kg (286 lb 6.4 oz) 11/01/2022 9:47 AM CDT Height 182.2 cm (5' 11.75) 11/01/2022 9:47 AM C DT Body Mass Index 39.11 11/01/2022 9:47 AM CDT Plan of Treatment Health Maintenance Due Date Last Done Comments Hepatitis C Virus (HCV) Screening 1955 Cologuard 2000 Colonoscopy 2000 Colorectal Cancer Screening 2000 Immunochemical Fecal Occult Blood 2000 Pneumococcal Immunization (5 0+ years) (1 of 1 - PCV) 2005 Zoster Immunization (1 of 2) 2005 Medicare Initial AWV [id number] 02/14/2010 Influenza Immunization (#1) 2025 03/16/2018 SARS-COV-2 Immunization ( - season) 2025 04/14/2021, 08/30/2020, 07/27/2020 Respiratory Syncytial Virus (RSV) Immunization (Adult) (1 - 1-dose 75+ series) 2030 DTaP/Tdap/Td Immunization Discontinued 2015, 11/06/2013 TdaP Immunization Completed 07/14/2015 Hepatitis B Immunization Aged Out No longer eligible based on patient's age to complete this topic Human Papillomavirus (HPV) Immunization Aged Out No longer eligible based on patient's age to complete this topic Meningococcal Immunization (ACWY) Aged Out No longer eligible based on patient's age to complete this topic Rotavirus Immunization Aged Out No lo nger eligible based on patient's age to complete this [place] [address] MEDICARE C [employer]NA MEDICARE C A[employer] Care Teams Latent Print Examiner Relationship Specialty Start Date End Date Carolin Gandhi MD [address] [facility] [address] [place] [address] PCP - General Family Medicine 11/01/22 Sidney Webb MD [address] [place] [address] Consulting Physician Pulmonary Disease 11/01/22
--- OUTSIDE RECORDS SUMMARY | 2025-04-20 13:03 | XMS_ITS | Clinical Summary ---
Author Organization [facility] Address [address] [place] [address] Care Team Providers Care Nougat Cutter Machine Name Role Phone Unavailable Primary Care Provider Unavailabl e Source Comments [facility],non-owned Affiliates and Associated Physician Practices is amultiple site organization consisting of ambulatory clinics and hospital sitesin [place], [place], [place] and [place]. This disclosure is being madepursuant to the Care Everywhere program and may not contain all informatio navailable regarding this patient. 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 Gender Identity Not on file Sexual Orientation Not on file Plan of Treatment Health Maintenance Due Date Last Done Comments COLOGUARD (AGES 45-75) - COL ON CA SCREENING 1955 COLON MONITORING 1955 COLONOSCOPY - COLON CA SCREENING 1955 CT COLONOGRAPHY - COLON CA SCREENING 1955 Colorectal Cancer Screening 1955 FIT - COLON CA SCREENING 1955 FLEX SIG - COLON CA SCREENING 1955 LIPID TESTING 1955 HEPATITIS C SCREENING 06/11/1973 DTAP/TDAP/TD VACCINES (1 - Tdap) 1974 PNEUMOCOCCAL VACCINE 50+ (1 of 1 - PCV) 2005 ZOSTER VACCINE (1 of 2) 2005 DEPRESSION SCREENING 06/17/2024 COVID-19 VACCINE (1 - 2023-2 5 season) 2025 INFLUENZA VACCINE (#1) 2025 Respiratory Syncytial Virus (RSV) Vaccine Pt: or over 60 yrs (1 - 1-dose 75+ series) 2030 HEPATITIS B VACCINE Aged Out No longe r eligible based on patient's age to complete this topic HIB VACCINE Aged Out No longer eligi ble based on patient's age to complete this topic HPV VACCINE Aged Out No longer eligi ble based on patient's age to complete this topic MENINGOCOCCAL (Group B) VACC INE SHARED DECISION-MAKING Aged Out No longer eligibl e based on patient's age to complete this topic MENINGOCOCCAL GROUPS A/C/Y/W VACCINE Aged Out No longer eligible b ased on patient's age to complete this topic
--- OUTSIDE RECORDS SUMMARY | 2025-04-20 13:03 | XMS_ITS | Clinical Summary ---
Author Organization [facility] [address] Address [address] [place] [address] Care Team Providers Care Gas Main And Line Fitter Name Role Phone Carolin Gandhi MD Unavailable [phone] Blake Ott MD Primary Care Provider Allergies No known active allergies Medications allopurinoL (ZYLOPRIM) 300 mg tablet Take 1 tablet (300 mg total) by mouth daily Active levothyroxine (SYNTHROID) 112 mcg tablet TAKE 1 TABLET BY MOUTH ONCE DAILY AND 2 TABLETS EVERY Saturday09/03/19 23 Active multivitamin tablet Take 1 tablet by mouth daily Active omega-3 fatty acids-fish oil 300-1,000 mg capsule Take 1 capsule (1 g total) by mouth daily Active turmeric root extract 500 mg capsule Take 1 tablet/capsule by mouth daily Active glucosamine-chond roitin 250-200 mg tablet Take 1 capsule by mouth daily Active rosuvastatin (CRESTOR) 20 mg tablet Take 1 tablet (20 mg total) by mouth daily 09/07/19 24 Active testosterone cypionate (DEPO-TESTOTERONE ) 200 mg/mL injection INJECT 1 ML INTRAMUSCULARLY ONCE A WEEK A ONE TIME DOSE 06/05/20 24 Active metoprolol XL (TOPROL-XL) 50 mg extended release tabletIndications :Dilated cardiomyopathy (HCC) Take 1 tablet by mouth once daily 90 tablet 3 08/28/19 25 Active spironolactone (ALDACTONE) 25 mg tabletIndications :Dilated cardiomyopathy (HCC) TAKE 1 TABLET BY MOUTH ONCE DAILY IN THE MORNING 90 tablet 3 08/28/19 25 Active furosemide (LASIX) 40 mg tabletIndications :Dilated cardiomyopathy (HCC) Take 1 tablet by mouth once daily 90 tablet 3 09/01/19 25 Active sacubitriL-valsar guillen (Entresto) 49-51 mg tabletIndications :Nonischemic cardiomyopathy (HCC),Chronic systolic CHF (congestive heart failure) (HCC) Take 1 tablet by mouth twice daily 180 tablet 2 10/17/19 25 Active Eliquis 5 mg tabletIndications :Paroxysmal atrial fibrillation (HCC) Take 1 tablet by mouth twice daily 180 tablet 03/16/20 25 Active Active Problems Problem Noted Date Diagnosed Date Paroxysmal atrial fibrillation 06/03/2024 Body mass index 40.0-44.9, adult (CMS/HCC) 01/06 NICM (nonischemic cardiomyopathy) 08/19/2023 Biventricular implantable ca rdioverter-defibrillator in situ 07/22/2023 Overview (06/11/2024): [employer] BIV ICD. Dx; NICM, CHF, LBBB. DOI 08/28/2023-Kahanda. Feliciano. [place] remote. 06/11/24-Transferred remote, device followed @ [place] Morbid (severe) obesity due to excess calories 1 08/14/2022 Chronic systolic CHF (congestive heart failure) 06/13/2023 Hypothyroidism 06/13/2023 LBBB (left bundle branch block) 06/13/2023 PASCALE (obstructive sleep apnea) 06/13/2023 Lipid screening 04/10/2023 Dilated cardiomyopathy 04/10/2023 Hyperlipidemia associated with type 2 diabetes m ellitus 04/10/2023 Hypertension associated with diabetes 04/10/2023 Resolved Problems Problem Noted Date Diagnosed Date Resolved Date Nonischemic cardiomyopathy 07/19/2023 0 07/20/2024 Encounters Date Type Department Care Team Description 04/14/2025 2:45 PM CDT Office Visit [facility] Medicine Cardiology [address] [facility] Advanced Medicine 8th [place] [address] [place] [address] Theresa Theodore NP Paroxysmal atrial fibrillation (HCC) (Primary Dx); NICM (nonischemic cardiomyopathy) (HCC); LBBB (left bundle branch block); Dilated cardiomyopathy (HCC); Biventricular implantable cardioverter-defibril lator in situ 04/14/2025 2:15 PM CDT Ancillary Procedure [facility] [address] [facility] 8th [place] [address] [place] [address] NICM (nonischemic cardiomyopathy) (HCC) (Primary Dx); Biventricular implantable cardioverter-defibril lator in situ; Chronic systolic CHF (congestive heart failure) (HCC); LBBB (left bundle branch block); Encounter for fitting or adjustment of implantable cardioverter-defibril lator (ICD) 04/14/2025 Telephone [facility] [address] [facility] [address] [place] [address] Manoj Blackman MD 04/05/2025 Orders Only [facility] [address] [facility] 8th [place] [address] [place] [address] Manoj Blackman MD Biventricular implantable cardioverter-defibril lator in situ (Primary Dx) 03/31/2025 Remote Device Check [facility] [address] [place] [address] Manoj Blackman MD 03/29/2025 Remote Device Check [facility] [address] [facility] [address] [place] [address] Manoj Blackman MD 03/16/2025 Telephone [facility] Formerly [facility] [facility] 8th [place] [address] [place] [address] Manoj Blackman MD Atrial Fibrillation 03/12/2025 8:10 AM CDT - 03/12/2025 8:37 AM CDT Surgery [facility] Vascular [address] [address] Isia Shetty MD PhD CARDIOVERSION 03/12/2025 7:50 AM CDT Anesthesia Event [facility] [address] [address] Wayne Zamora MD PhD Karla Hanson CRNA 03/12/2025 5:43 AM CDT - 03/12/2025 9:00 AM CDT Hospital Encounter [facility] [address] [facility] [place] [address] Tegan, Bunghole Borer, Isai June MD PhD Paroxysmal atrial fibrillation (HCC) Discharge Disposition: Discharge to home or self care 03/10/2025 Telephone [facility] [address] [facility] 8th [place] [address] [place] [address] Manoj Blackman MD 02/25/2025 Telephone [facility] [address] [facility] 8th [place] [address] [place] [address] Manoj Blackman MD 02/10/2025 Orders Only [facility] Cardiology [address] [facility] 8th [place] [address] [place] [address] Manoj Blackman MD 02/10/2025 Telephone [facility] [address] [facility] 8th [place] [address] [place] [address] Manoj Blackman MD ICD Check; Atrial Fibrillation 01/28/2025 8:15 AM CDT Office Visit [facility] at [address] [place] [phone] Fabio Jacob MD Hyperlipidemia associated with type 2 diabetes mellitus (HCC) (Primary Dx); Chronic systolic CHF (congestive heart failure) (HCC); Hypertension associated with diabetes (HCC); NICM (nonischemic cardiomyopathy) (HCC) 01/28/2025 Orders Only [facility] at [address] [place] [phone] Coco Schilling MD from Last 3 Months Surgical History Surgery Date Site/Laterality Comments KNEE SURGERY Right meniscus repair - arthroscopic ABDOMINAL HERNIA REPAIR INGUINAL HERNIA REPAIR Left CARDIAC CATHETERIZATION CARDIAC ELECTROPHYSIOLOGY PROCEDURE 03/12/2025 N/A Procedure: CARDIOVERSION; Surgeon: Isai Shetty MD PhD; Location: [facility] CARDIAC FLAME ANNEALING MACHINE OPERATOR; Service: Cardiovascular; Laterality: N/A; arrival 0600- needs a ride to and from the procedure Medical History Medical History Date Comments Hypertension Thyroid disease Diabetes mellitus Sleep apnea CHF (congestive heart failure) (HCC) Nonischemic cardiomyopathy (HCC) left bundle branch block Type 2 diabetes mellitus Hypothyroidism Arthritis Family History Medical History Relation Name Comments Cancer Father Cancer Mother Stroke Mother Relation Name Status Comments Brother Father Mother Social History Tobacco Use Types Packs/Day Years Used Date Smoking Tobacco: Never Smokeless Tobacco: Never Tobacco Cessation:Counseling Given: Not Answered Alcohol Use Standard Drinks/Week Comments Never 0 [...] on file Legal Sex Male 7:32 PM WELL PULLER HEAD Gender Identity Not on file Sexual Orientation Not on file Last Filed Vital Signs Vital Sign Reading Time Taken Comments Blood Pressure 144/85 04/14/2025 2:28 PM CDT Pulse 116 04/14/2025 2:28 PM CDT Temperature 36.6 C (97.8 F) 03/12/2025 6:25 AM CDT Respiratory Rate 16 03/12/2025 8:40 AM CDT Oxygen Saturation 98% 04/14/2025 2:28 PM CDT Inhaled Oxygen Concentration - - Weight 131.5 kg (290 lb) 04/14/2025 2:28 PM CDT Height 180.3 cm (5' 11) 04/14/2025 2:28 PM CDT Body Mass Index 40.45 04/14/2025 2:28 PM CDT Plan of Treatment Upcoming Encounters Date Type Department Care Team (Late st Contact Info) Description 04/23/2025 Hospital Encounter [facility] ADMIT [address] [place] [address] Deisy Diaz MD [address] [address] Health Maintenance Due Date Last Done Comments Albumin Creatinine Ratio, Urine 1955 Colon Cancer Screening-Colonoscopy 1955 Depression Screening 1955 Hemoglobin A1C 1955 Hepatitis C Screening 1955 Prostate Cancer Screening-PSA 1955 Dilated Eye Exam 1955 Foot Exam 1955 Hepatitis B Screening 1973 Pneumococcal vaccine 65+ (2 of 2 - PPSV23, PCV20, or PCV21) 08/12/2017 06/17/2017 Well Visit 65+ 2020 Zoster Vaccine (2 of 2) 04/22/2023 02/25/2023 eGFR 09/15/2024 09/16/2023, 08/16/2023 Influenza Vaccine (#1) 2025 , 03/16/2018, 03/17/2014 DTaP/Tdap/Td Vaccine (3 - Td or Tdap) 07/14/2025 07/14/2015, 11/06/2013, 06/17/2010 Lipid Panel 08/20/2025 08/20/2024, 07/2 08/2023, 04/10/2023 Fall Risk Assessment 03/12/2026 03/12/2025 Medical Devices Implanted Type Area Liquified Natural Gas Specialist Device Identifier Shelf Expiration Date Model / Serial / Lot [employer] V[employer] Defib Cardiac [id number] [place] [employer] Df4 Is-4 Is-1 Cnctr [id number] - [id number] - [id number] Implanted:Qty: 1 on 08/28/2023 by Anish Linton MD at [facility] ICD Left: Infraclavicular Anterior Chest Wall [employer] 05/16/2025 [id number] / [id number] / [employer] Durata 6.8fr 65cm True Bipolar Active Fixation Extendable 1 Coil 7122q/65 - [id number] - [id number] Implanted:Qty: 1 on 08/28/2023 by Anish Linton MD at [facility] Lead [employer] 05/16/2026 7122Q/65 / [id number] / [employer] Tendril Sts 6fr 52cm Is-1 Connector Active Fixation Bipolar Soft 8tc/52 - Seel!$)767 - [id number] Implanted:Qty: 1 on 08/28/2023 by Anish Linton MD at [facility] Lead Right: Atrial Appendage [employer] 07/17/2026 2088TC/5 2 / EEL!$)[id number] 7 / [employer] Quartet 4.7fr 86cm Quadripolar Is-4 Llll Connector 8 Curve Low 1456q/86 - [id number] - [id number] Implanted:Qty: 1 on 08/28/2023 by Anish Linton MD at [facility] Lead Right: Coronary Sinus [employer] 04/16/2026 1456Q/86 / [id number] / Procedures Procedure Name Priority Date/Time Associated Diagnosis Comments DEVICE CHECK - REMOTE Routine 03/31/2025 DEVICE CHECK - REMOTE Routine 03/29/2025 CARDIOVERSION Routine 03/12/2025 7:58 AM CDT Paroxysmal atrial fibrillation (HCC) POC BLOOD GAS AND CHEMISTRIES, ARTERIAL Routine 03/12/2025 6:36 AM CDT ECG 12-LEAD Routine 03/12/2025 6:03 AM CDT DEVICE CHECK - REMOTE Routine 02/10/2025 4:01 AM CDT LIPID PANEL Routine 08/20/2024 12:40 PM WELL PULLER HEAD BASIC METABOLIC PANEL Routine 09/16/2023 Hypertension associated with diabetes (HCC) Chronic systolic CHF (congestive heart failure) (HCC) from Last 3 Months or Most Recently Relevant to Health Maintenance Results * DEVICE CHECK - REMOTE (03/31/2025) Anatomical Region Laterality Modality Other 03/31/2025 03/31/2025 Narrative 04/03/2025 6:29 PM CDT Device Summary 69 y/o male pt with a hx of NICM, PAF Remote interrogation of [employer] ([employer]) SALES PROJECT COORDINATOR-D with alert for AT/AF exceeded burden Date of Implant: Aug 28, 2023 Programmed Mode: DDD Lower Rate: 60 bpm Device Functionality Presenting rhythm: /BIVP (AF) Device: Normal function Estimated Battery Longevity: 5 years. Leads: Appear stable Atrial Pacin.0 % SALES PROJECT COORDINATOR Pacin.0 % Episodes Since 03/12/25 2 NST detections with one available EGM that reveals AF with RVR 34 AT/AF episodes noted with overall AF burden of 20% noted. Pt is s/p Cardioversion on 03/12/25 and appears to have returned to AF but not sure when the AF returned, presenting reveals AF but no other AF EGMS for review. I will make Dr. Blackman team aware and pt has f/u with TRANSPORTER DRIVER on 04/14/25. Continue to monitor, pt is listed on Eliquis, no AAD noted. Robert Graham RN, BSN Procedure Note Manoj Blackman MD - 04/03/2025 Device Summary 69 y/o male pt with a hx of NICM, PAF Remote interrogation of [employer] ([employer] SALES PROJECT COORDINATOR-D with alert for AT/AFexceeded burden Date of Implant: Aug 28, 2023 Programmed Mode: DDD Lower Rate: 60 bpm Device Functionality Presenting rhythm: /BIVP (AF) Device: Normal function Estimated Battery Longevity: 5 years. Leads: Appear stable Atrial Pacin.0 % SALES PROJECT COORDINATOR Pacin.0 % Episodes Since 03/12/25 2 NST detections with one available EGM that reveals AF with RVR 34 AT/AF episodes noted with overall AF burden of 20% noted. Pt is s/pCardioversion on 03/12/25 and appears to have returned to AF but not surewhen the AF returned, presenting reveals AF but no other AF EGMS forreview. I will make Dr. Blackman team aware and pt has f/u with TRANSPORTER DRIVER on04/14/25. Continue to monitor, pt is listed on Eliquis, no AAD noted. Robert Graham RN, BSN Manoj Blackman MD [facility] CARDIAC SERVICES PROCEDURES Final Result * DEVICE CHECK - REMOTE (03/29/2025) Anatomical Region Laterality Modality Other 03/29/2025 03/29/2025 Narrative 03/31/2025 10:40 AM CDT Device Summary Remote interrogation of [employer] ([employer] SALES PROJECT COORDINATOR-D Date of Implant: Aug 28, 2023 Programmed Mode: DDD Lower Rate: 60 bpm Device Functionality Presenting rhythm: AF/BiVP Device: Normal function Estimated Battery Longevity: 4 years 11 months. Leads: Appear stable Atrial Pacin.0 % SALES PROJECT COORDINATOR Pacin.0 % Episodes No episodes since 03/14/25. Sun Hyatt RN, BSN Procedure Note Manoj Blackman MD - 03/31/2025 Device Summary Remote interrogation of [employer] SALES PROJECT COORDINATOR-D Date of Implant: Aug 28, 2023 Programmed Mode: DDD Lower Rate: 60 bpm Device Functionality Presenting rhythm: AF/BiVP Device: Normal function Estimated Battery Longevity: 4 years 11 months. Leads: Appear stable Atrial Pacin.0 % SALES PROJECT COORDINATOR Pacin.0 % Episodes No episodes since 03/14/25. Sun Hyatt RN, BSN Manoj Blackman MD [facility] CARDIAC SERVICES PROCEDURES Final Result * CARDIOVERSION (03/12/2025 7:58 AM CDT) Anatomical Region Laterality Modality X-Ray Angiograph y Impressions 03/12/2025 8:03 AM CDT Successful DC cardioversion to sinus rhythm. The referring physician () was notified. Isai Shetty MD PhD was present to personally supervise or perform the entire procedure. Narrative 03/12/2025 8:03 AM CDT CARDIOVERSION [id number] PRE-OP DIAGNOSIS: Atrial fibrillation JUICE BAR TEAM MEMBER: Isai Shetty MD PhD. REFERRING MD: Brandi Blackman MD; Rosa Jacob MD; Blake Ott MD HISTORY: 69 yo WM with atrial fibrillation. Anticoagulation with apixaban. PROCEDURE: Biphasic, synchronized DC cardioversion. The nature of the procedure, risks and alternatives were discussed with the patient who gave informed consent. The patient was sedated with propofol per the anesthesia team. 200J DC-CV using R2 Pads placed AP position. Resulting rhythm was sinus rhythm. The patient was then monitored until fully alert. COMPLICATIONS: None. Manoj Blackman MD CV ELECTROPHYSIOLOGY PROCS Final Result * POC Blood Gas and Chemistries, Arterial - (03/12/2025 6:36 AM CDT) Pathologist [facility] K POC 4.4 3.3 - 4.9 mmol/L Comment: Interpretive Data Not all point of care methods assess for hemolysis. Confirm with instrument and retest K+ if not consistent with clinical signs and symptoms. Current Interpretive Data was last revised on 2023. Glucose, POC 157 70 - 199 mg/dL [facility] Blood 03/12/2025 6:36 AM CDT 03/12/2025 6:36 AM CDT Blake Ott MD LAB POCT ORDERABLES - D EVICE Final Result [facility] [place] [address] * ECG 12 lead (03/12/2025 6:03 AM CDT) [facility] Ventricular Rate EKG/Min 98 BPM [facility] Atrial Rate 375 BPM [facility] QRS-Interval (MSEC) 138 ms [facility] QT-Interval (MSEC) 382 ms [facility] QTc 487 ms [facility] R Omega -65 degrees [facility] T Omega 78 degrees [facility] Diagnosis Atrial flutter with variable A-V block with occasional ventricular-pa jada complexes and with premature ventricular or aberrantly conducted complexes Left axis deviation Non-specific intra-ventricu lar conduction block Minimal voltage criteria for LVH, may be normal variant ( Sumeet product ) Abnormal ECG No previous ECGs available Confirmed by Abdi Addison MD ([id number]) on 03/13/2025 4:17:31 PM [facility] 03/12/2025 6:03 AM CDT 03/13/2025 4:17 PM CDT us Isai Shetty MD PhD ECG ORDERABLES Final R esult [facility] * DEVICE CHECK - REMOTE (02/10/2025 4:01 AM CDT) Anatomical Region Laterality Modality Other 02/10/2025 4:01 AM CDT Narrative 02/12/2025 12:06 PM CDT Interpretation Summary: Battery and Leads (BL) Normal parameters noted on battery and lead(s) --- 5 years remaining (this is an estimate based on prior usage) Presenting Rhythm (OK) Atrial Fibrillation or Flutter BiVentricular Pacing (BiVP) Arrhythmic events (AE) Paroxysmal atrial fibrillation and/or flutter Anticoagulation (AC) Patient on anticoagulant therapy Patient prescribed Apixaban (Eliquis) Transmission Information (TI) Clinical Alert Report Procedure Note Manoj Blackman MD - 02/12/2025 Interpretation Summary: Battery and Leads (BL) Normal parameters noted on battery and lead(s) --- 5 years remaining(this is an estimate based on prior usage) Presenting Rhythm (OK) Atrial Fibrillation or Flutter BiVentricular Pacing (BiVP) Arrhythmic events (AE) Paroxysmal atrial fibrillation and/or flutter Anticoagulation (AC) Patient on anticoagulant therapy Patient prescribed Apixaban (Eliquis) Transmission Information (TI) Clinical Alert Report us Manoj Blackman MD [facility] CARDIAC SERVICES PROCEDURES Final Result * (ABNORMAL) Lipid panel (08/20/2024 12:40 PM WELL PULLER HEAD) SCRIBED Cholesterol, Total 176 30 - 199 mg/dL [facility] SCRIBED Triglycerides 155(A) <=149 mg/dL [facility] SCRIB[facility] HDL 34(A) >=40 mg/dL [facility] SCRIBED LDL 115 <=129 mg/dL [facility] Scribed Non-HDL Cholesterol 142 NONE mg/dL [facility] SCRIBED Total Cholesterol/HDL Ratio 176 NONE [facility] Blood Historical Provider LAB BLOOD ORDERABLES Edit ed Result - Final [facility] * (ABNORMAL) Basic metabolic panel (09/16/2023) SCRIBED Sodium 138 137 - 145 mmol/L EXTERNAL LAB SCRIBED Potassium 3.8 3.4 - 5.0 mmol/L EX[facility] SCRIBED Chloride 106 98 - 107 mmol/L EXTER[facility] SCRIBED Carbon Dioxide 26 22 - 30 mmol/L EXTER[facility] LAB SCRIBED Anion Gap 6 4 - 12 mmol/L EXTERNAL LAB SCRIBED Urea Nitrogen (BUN) 23(A) 9 - 20 mg/dl EXTERNAL LAB SCRIBED Creatinine 1.20 0.7 - 1.3 mg/dl EXTER[facility] SCRIBED Glucose 113(A) 65 - 110 mg/dl EXTERNAL LAB SCRIBED Calcium 9.0 8.4 - 10.2 mg/dl EXTERNAL LAB SCRIBED eGFR N/A N/A EXTERNAL LAB SCRIBED eGFR 60 > or = 60 EXTERNAL LAB Blood 09/16/2023 Fabio Jacob MD LAB BLOOD ORDERABLES Mendy l Result EXTERNAL LAB from Last 3 Months or Most Recently Relevant to Health Maintenance Insurance [employer] MEDICARE GOLD AET MEDICARE [facility] MEDICARE [facility] Advance Directives For more information, please contact: [phone] * Full Code (Latest Code Status on File) Date Activated Date Inactivated Comments 08/28/2023 3:46 PM 08/29/2023 3:59 PM Care Teams Gas Main And Line Fitter Relationship Specialty Start Date End Date Blake Ott MD [address] [place] [address] PCP - General Family Medicine 07/20/24 Carolin Gandhi MD [address] [place] [address] Family Medicine 04/10/23
== END 2025-04-20 10:57 | disposition home or self-care (01) ==
PROVIDERS: PCP Family Medicine
DX: R06.02 Shortness of breath (principal); R05.9 Cough, unspecified; I50.9 Heart failure, unspecified
CPT/HCPCS: 71046

== ENCOUNTER 2025-05-11 02:13 | Emergency (ER) | payer MEDICARE, SELFPAY ==
--- OUTSIDE RECORDS SUMMARY | 2025-05-04 08:48 | XMS_ITS | Encounter Summary ---
Author Organization [facility] Healthcare Address [address] [place] [address] Care Team Providers Care Hog Handler Name Role Phone Carolin Gandhi MD Unavailable [phone] Blake Ott MD Primary Care Provider Reason for Visit * Reason Comments Shortness of Breath * Auth/Cert Specialty Diagnoses / Procedures Referred By Contac t Referred To Contact Diagnoses Pulmonary edema cardiac cause (HCC) Procedures na Referral ID Status Reason Start Date Expiration Date Visits Re quested Visits Authorized [id number] 1 1 Encounter Details Date Type Department Care Team (Latest Contact Info) Description 05/04/2025 8:48 AM BOILER COVERER HELPER - 05/10/2025 4:17 PM BOILER COVERER HELPER Hospital Encounter [facility] [address] [place] [address] Renuka Haider MD [address] [place] [address] Benito Hendrickson MD [address] [address] Amaris Camargo MD [address] [place] [address] Олег Guevara MD [address] [place] [address] Shortness of breath (Primary Dx); Paroxysmal atrial fibrillation (HCC); Longstanding persistent atrial fibrillation (HCC) [I48.11] Discharge Disposition: Discharge to home or self care Social History Tobacco Use Types Packs/Day Years Used Date Smoking Tobacco: Never Smokeless Tobacco: Never Alcohol Use Standard Drinks/Week Comments Never 0 (1 standard drink = 0.6 oz pur e alcohol) PHQ-2 Answer Date Recorded PHQ-2 Total Score (If total score is 3 or more points, staff should administer the PHQ-9) 0 05/05/2025 Social Connection and Isolation Panel Answer Date Recorded In a typical week, how many times do you talk on the phone with family, friends, or neighbors? More than three times a week 05/05/2025 How often do you get togethe r with friends or relatives? More than three times a week 05/05/2025 How often do you attend chur ch or catholic services? Never 05/05/2025 Do you belong to any clubs o r organizations such as protestant groups, unions, fraternal or athletic groups, or school groups? No 05/05/2025 How often do you attend meet ings of the clubs or organizations you belong to? Never 05/05/2025 Are you , , di vorced, , never , or living with a partner? 05/05/2025 AUDIT-C Answer Date Recorded Q1: How often do you have a drink containing alcohol? Never 05/03/2025 Q2: How many drinks containi ng alcohol do you have on a typical day when you are drinking? Patient does not drink Q3: How often do you have si x or more drinks on one occasion? Never 05/03/2025 Overall Financial Resource Strain (CARDIA) Answe r Date Recorded How hard is it for you to pa y for the very basics like food, housing, medical care, and heating? Not hard at all 05/05/2025 Hunger Vital Sign Answer Date Recorded Within the past 12 months, y ou worried that your food would run out before you got the money to buy more. Never true 05/05/20 25 Within the past 12 months, t he food you bought just didn't last and you didn't have money to get more. Never true 05/05/2025 PRAPARE - Transportation Answer Date Re corded In the past 12 months, has l ack of transportation kept you from medical appointments or from getting medications? No 04/17 In the past 12 months, has l ack of transportation kept you from meetings, work, or from getting things needed for daily living? No 05/05/2025 Housing Stability Vital Sign Answer Uriel e Recorded In the last 12 months, was t here a time when you were not able to pay the mortgage or rent on time? No 05/05/2025 In the past 12 months, how m any times have you moved where you were living? 0 05/05/2025 At any time in the past 12 m [facility], were you homeless or living in a senior living (including now)? No 05/05/2025 [facility] Utilities Answer Date Recorded In the past 12 months has th e electric, gas, oil, or water company threatened to shut off services in your home? No 05/05/2025 Personal Safety Answer Date Recorded Have you ever been in or are you currently in a harmful physical or emotional relationship or is someone making you feel afraid or unsafe? Denies 05/04/2025 Sex and Gender Information Value Date Recorded Sex Assigned at Not on file Legal Sex Male 7:32 PM BOILER COVERER HELPER Gender Identity Not on file Sexual Orientation Not on file documented as of this encounter Last Filed Vital Signs Vital Sign Reading Time Taken Comments Blood Pressure 113/88 05/10/2025 10:56 AM BOILER COVERER HELPER Pulse 74 05/10/2025 10:56 AM BOILER COVERER HELPER Temperature 36.3 C (97.4 F) 05/10/2025 10:56 AM BOILER COVERER HELPER Respiratory Rate 17 05/10/2025 10:56 AM BOILER COVERER HELPER Oxygen Saturation 96% 05/10/2025 10:56 AM BOILER COVERER HELPER Inhaled Oxygen Concentration - - Weight 129.7 kg (286 lb) 05/10/2025 5:56 AM BOILER COVERER HELPER Height 180.3 cm (5' 11) 05/04/2025 7:30 PM BOILER COVERER HELPER Body Mass Index 39.89 05/04/2025 7:30 PM BOILER COVERER HELPER documented in this encounter Functional Status * C.A.G.E. Question Answer Date of Assessment Author Have you ever felt the need to Cut down on your drinking? 0 05/04/2025 10:27 PM BOILER COVERER HELPER Sun De Souza, LENO Have people ever Annoyed yo u by criticizing your drinking? 0 05/04/2025 10:27 PM Sun Cohen RN Have you ever felt bad or Guilty about your drinking? 0 05/04/2025 10:27 PM Sun Goss RN Have you ever had a drink fi rst thing in the morning to steady your nerves or get rid of a hangover? Eye plumber helper? 0 05/04/2025 10:27 PM Lucie Cohen RN CAGE SCORE: 2 or Greater = Positive 0 05/04/2025 10:27 PM Camron Cohen RN * Difference in Last Two Eloy Scores Answer Date of Assessment Author -1 05/10/2025 11:00 AM Jeffery Hernández RN * Question Answer Date of Assessment Author MAP (mmHg) 96 05/10/2025 10:56 AM Jeffery Adams RN * Lange Fall Risk Question Answer Date of Assessment Author History of Falling 0 05/10/2025 11:00 AM Jeffery De Paz RN Secondary Diagnosis 15 05/10/2025 11:00 AM Jeffery Hatfield RN Ambulatory Aids 0 05/10/2025 11:00 AM Jeffery Talavera RN Intravenous Therapy/Heparin/Saline Lock 20 05/10/2025 11:00 AM Jeffery Hernández RN Gait/Transferring 0 05/10/2025 11:00 AM Jeffery Hernández RN Mental Status 0 05/10/2025 11:00 AM Jeffery Saeed RN Lange Fall Risk Score (Score >= 45 places fall precaution order) 35 05/10/2025 11:00 AM Jeffery Hernández RN Prior Fall Event (Autopopulated from EMR) None found 05/10/2025 11:00 AM Stevo Hernández RN * Eloy Scale Question Answer Date of Assessment Author Sensory Perceptions 4 05/10/2025 11:00 AM Jeffery Hatfield RN Moisture 4 05/10/2025 11:00 AM Jeffery Adams RN Activity 3 05/10/2025 11:00 AM Jeffery Adams RN Mobility 4 05/10/2025 11:00 AM Jeffery Adams RN Nutrition 4 05/10/2025 11:00 AM Jeffery Adams RN Friction and Shear 3 05/10/2025 11:00 AM Jeffery De Paz RN Eloy Scale Score 22 05/10/2025 11:00 AM Jeffery De Paz RN * Question Answer Date of Assessment Author BP Location Right arm 05/10/2025 3:13 PM Cici Arndt BP Method Automatic 05/10/2025 3:13 PM Cici Arndt * Fall Risk Interventions Question Answer Date of Assessment Author All Low Fall Interventions Applied Yes 05/10/2025 11:00 AM Jeffery Hernández RN All Moderate Fall Interventions Applied No 05/10/2025 11:00 AM Jeffery Hernández RN All Moderate Fall Risk Interventions EXCEPT: Remain with patient while toileting 05/10/2025 11:00 AM Jeffery Hernández RN All High Fall Risk Interventions Applied No 05/10/2025 11:00 AM Jeffery Hernández RN All High Risk Interventions EXCEPT: Bed alarm;Chair alarm 05/10/2025 11:00 AM Jeffery Hernández RN Additional Interventions Applied Over-bed table on non-exit side 05/10/2025 11:00 AM Jeffery Hernández RN Reason For Exception(s) BMAT Green 05/10/20 25 11:00 AM Jeffery Hernández RN Reason For Exception(s) Uses call shen appropriately 05/10/2025 11:00 AM Jeffery Hernández RN * B.M.A.T. - Bedside Mobility Assessment Tool for Nurses Question Answer Date of Assessment Author Is patient able to participate in the BMAT? Yes 05/10/2025 11:00 AM Stevo Hernández RN BMAT Level Level 4 - Green 05/10/2025 11:00 AM Jeffery Talavera RN * Question Answer Date of Assessment Author 1. Has the patient self-reported, presented with clinical signs of, or have a documented history of any of the following within the past 30 days? No 05/04/2025 10:27 PM Camron Cohen RN * Question Answer Date of Assessment Author Is the patient being treated today because it is known or suspected that they prepared, started, or tried to end their life? No 05/04/2025 10:27 PM Camron Cohen RN * Question Answer Date of Assessment Author 1. In the past month, have y ou wished you were or that you could go to sleep and not wake up? No 05/04/2025 10:27 PM Camron Cohen RN 2. In the past month, have y ou actually had any thoughts of killing yourself? No 05/04/2025 10:27 PM Camron Cohen RN 6. Have you ever done anythi ng, started to do anything, or prepared to do anything to end your life? No 05/04/2025 10:27 PM Camron Cohen RN * Suicide Risk Level Answer Date of Assessment Author No risk level 05/04/2025 10:27 PM Sun Cohen RN * Self-Injurious Risk Level Answer Date of Assessment Author No risk level 05/04/2025 10:27 PM Sun Cohen RN * Question Answer Date of Assessment Author 2 Nurse Skin Assessment Huang Jensen 05/10/2025 7:00 A M Jeffery Hernández RN * Pressure Injury Prevention Question Answer Date of Assessment Author Pressure Ulcer Prevention Interventions Keep skin clean and dry (Sensory Perception/Moistur e) 05/10/2025 11:00 AM Jeffery Hernández RN Special Mattress Low air loss 05/10/2025 11:0 0 AM Jeffery Hernández RN * Transdermal Patch Assessment on Admission Answer Date of Assessment Author Not Present 05/04/2025 10:27 PM Sun Cohen RN * Fall Risk Assessment Tool - MEDFRAT Question Answer Date of Assessment Author Prior Fall Event (Autopopulated from EMR) None found 05/04/2025 4:34 AM Aren Arias RN Pt needs supervision/assistance with ambulation? (makes patient High risk) No 05/04/2025 4:34 AM Brenda Arias RN History of falling in last 3 months, including since admission 0 05/04/2025 4:34 AM Brenda Arias RN Confusion or disorientation 0 05/04/2025 4: 34 AM Brenda Arias RN Intoxicated or sedated 0 05/04/2025 4:34 AM Brenda Arias RN Impaired gait 0 05/04/2025 4:34 AM Brenda Finch RN Mobility assist device used 0 05/04/2025 4: 34 AM Brenda Arias RN Altered elimination 0 05/04/2025 4:34 AM CS Brenda Palomino RN Fall risk score: (1-2 low risk), (3-4 moderate risk), (5 or more high risk) 0 05/04/2025 4:34 AM Brenda Arias RN * Integumentary Question Answer Date of Assessment Author Integumentary (WDL) WDL 05/10/2025 11:00 AM Jeffery Hatfield RN * Question Answer Date of Assessment Author RLE Edema No pitting 05/10/2025 11:00 AM Jeffery Adams RN LLE Edema No pitting 05/10/2025 11:00 AM Jeffery Adams RN Edema Right upper extremit y;Left upper extremity 05/10/2025 11:00 AM Jeffery Hernández RN * Question Answer Date of Assessment Author Percent Meal Eaten (%) 100 05/10/2025 1:35 PM Jeffery Hernández RN Feeding Level of Assistance Able to feed self 05/10/2025 1:35 PM Jeffery Hernández RN Appetite Good 05/10/2025 1:35 PM Jeffery Trinidad RN * Question Answer Date of Assessment Author BP Location Right arm 05/10/2025 3:13 PM Cici Arndt BP Method Automatic 05/10/2025 3:13 PM Cici Arndt * Fall Risk Interventions Question Answer Date of Assessment Author All Low Fall Interventions Applied Yes 05/10/2025 11:00 AM Jeffery Hernández RN All Moderate Fall Interventions Applied No 05/10/2025 11:00 AM Jeffery Hernández RN All Moderate Fall Risk Interventions EXCEPT: Remain with patient while toileting 05/10/2025 11:00 AM Jeffery Hernández RN All High Fall Risk Interventions Applied No 05/10/2025 11:00 AM Jeffery Hernández RN All High Risk Interventions EXCEPT: Bed alarm;Chair alarm 05/10/2025 11:00 AM Jeffery Hernández RN Additional Interventions Applied Over-bed table on non-exit side 05/10/2025 11:00 AM Jeffery Hernández RN Reason For Exception(s) BMAT Green 05/10/20 11:00 AM Jeffery Hernández RN Reason For Exception(s) Uses call shen appropriately 05/10/2025 11:00 AM Jeffery Hernández RN * ADL Screening Question Answer Date of Assessment Author Patient's Vision Adequate to Safely Complete Daily Activities Yes 05/04/2025 10:27 PM Camron Cohen RN Patient's Judgement Adequate to Safely Complete Daily Activities Yes 05/04/2025 10:27 PM Camron Cohen RN Patient's Memory Adequate to Safely Complete Daily Activities Yes 05/04/2025 10:27 PM Camron Cohen RN Patient Able to Express Needs/Desires Yes 05/04/2025 10:27 PM Camron Cohen RN Dressing Independent 05/04/2025 10:27 PM Sun Dior RN Grooming Independent 05/04/2025 10:27 PM Sun Dior RN Feeding Independent 05/04/2025 10:27 PM Sun Dior RN Bathing Independent 05/04/2025 10:27 PM Sun Dior RN Toileting Independent 05/04/2025 10:27 PM Sun Dior RN In/Out Bed Independent 05/04/2025 10:27 PM Sun Dior RN Walks in Home Independent 05/04/2025 10:27 PM Sun Archer RN Weakness of Legs None 05/04/2025 10:27 PM Sun Cohen RN Weakness of Arms/Hands None 05/04/2025 10:27 P M Sun Cohen RN Hearing - Right Ear Functional 05/04/2025 10:[address] Sun De Souza RN Hearing - Left Ear Functional 05/04/2025 10:27 PM CS T Sun De Souza RN Dominant hand? Right 05/04/2025 10:27 PM Sun Escalona RN Decline in ADLs in last 2 weeks? No 05/04/2025 10:27 PM Camron Cohen RN * Therapy Consults Question Answer Date of Assessment Author PT Evaluation Needed 2 05/04/2025 10:27 PM Sun Cohen RN OT Evaluation Needed 2 05/04/2025 10:27 PM Sun Cohen RN AURIST Evaluation Needed 2 05/04/2025 10:27 PM Sun Cohen RN * Assistive Devices Question Answer Date of Assessment Author Assistive Devices/DME None 05/04/2025 10:27 PM Sun Cohen RN * Question Answer Date of Assessment Author Self Harm/Suicidal Ideation Plan No 05/05/20 10:25 AM Manju Montes De Oca LCSW Previous Self Harm/Suicidal Attempts No 05/05/2025 10:25 AM Manju Montes De Oca LCSW Current Plans to Harm Another No 05/05/2025 10:25 AM Manju Montes De Oca LCSW * Speech/Swallow Screening Question Answer Date of Assessment Author Currently, does patient have difficulty swallowing; coughing/choking while swallowing, or feels like food is sticking No 05/04/2025 10:27 PM Sun Cohen, LENO In the past two weeks has the patient had changes in speaking or ability to comprehend conversation No 05/04/2025 10:27 PM Sun Cohen RN Currently, does patient require thickened liquids or dysphagia diet No 05/04/2025 10:27 PM Sun Cohen RN Patient is in need of AURIST Order: No AURIST order needed from this assessment 05/04/2025 10:27 PM BOILER COVERER HELPER Sun De Souza RN * Question Answer Date of Assessment Author Bed In Lowest Position Yes 05/10/2025 5:35 AM Harlan Ndiaye RN Bed Wheels Locked Yes 05/10/2025 5:35 AM Harlan Ndiaye RN * Hygiene Question Answer Date of Assessment Author Hygiene Skin cleanser 05/07/2025 9:00 AM BOILER COVERER HELPER Marlys Kenney Hygiene Level of Assistance Independent 05/09/2025 1:13 PM BOILER COVERER HELPER Daya Henderson Toileting: Assistance with Up to bathroom toilet 05/07/2025 8:00 PM Vasu Garcia RN Toileting: Level of assistance Independent 05/07/2025 8:00 PM Vasu Garcia RN Reason not bathed/showered Bath already completed at home or other setting 05/04/2025 10:00 PM Sun Cohen RN Linens Complete linen change 05/06/2025 10:49 AM BOILER COVERER HELPER [place] Bath Bathed/showered non-chg (CHG not indicated OR not required here) 05/10/2025 11:00 AM Jeffery Hernández RN documented as of this encounter Mental Status * Question Answer Entry Date Author Level of Consciousness Alert;Awake 05/10/2025 11:00 A M Jeffery Hernández RN Neuro (WDL) WDL 05/10/2025 11:00 AM Jeffery Adams RN Other Neuro Symptoms Fatigue 05/07/2025 8:00 PM Vasu Sewell RN documented in this encounter Discharge Summaries * John Mejia MD - 05/10/2025 2:39 PM CST Inpatient Discharge Summary BRIEF OVERVIEW Admitting Provider: Renuka Haider MD Discharge Provider: Олег Guevara MD Primary Care Physician at Discharge: Blake Ott MD [phone] Admission Date: 05/04/2025 Discharge Date: 05/10/2025 Admission Location: [facility] Problems/Diagnoses: Principal Problem: Acute decompensated heart failure (HCC) Active Problems: Hyperlipidemia, unspecified Pulmonary edema cardiac cause (HCC) Afib (HCC) Gout Hypothyroidism, unspecified c/f pneumonia Resolved Problems: Paroxysmal atrial fibrillation (HCC) DETAILS OF HOSPITAL STAY Presenting Problem/History of Present Illness: As per Dr. Mcarthur's H&P Chikis Elder is a 69 y.o. male with a history of hypertension, hypothyroidism, T2DM, HLD, gout, HFrEF (EF 29% 12/2023) s/p primary prevention Bi-V ICD 08/2023, paroxysmal AFib s/p sotalol load and cardioversion 05/03 who presents with acutely worsening shortness of breath 1 day after discharge. He reports feeling fine after his cardioversion right upon going home slowly needed more time to recover after walking up stairs, ultimately not being able to walk all the way up stairs to his bedroom. He denies chest pain, only endorses difficulty catching his breath. He endorses a cough which he feels in his throat. Upon arrival to the ED, he required 2 L oxygen to keep saturations above 90%. Vitals otherwise unremarkable, EKG demonstrates paced rhythm. Labs notable for sodium 132, creatinine 1.61 (baseline 1.2), NT proBNP 8200 (337 in August 2024), WBC 10.39. CXR demonstrates mild pulmonary edema, patchy airspace opacities in the right > left lower lobe suggestive of pneumonia vs atelectasis. While in the ED, given azithromycin, ceftriaxone, and 40 mg lasix IV. Hospital Course: While admitted, he was treated for volume overload and community acquired pneumonia. He was diuresed with IV lasix and initially treated with ceftriaxone + azithromycin which was transitioned to ceftriaxone + doxycycline. His QT interval began to prolong while admitted, and his sotalol dose was decreased from 120 mg BID to 80 mg BID. He made significant improvements throughout the hospitalizationand was anticipated to discharge 05/08, the morning of which he converted from sinus rhythm to atrial fibrillation with rates in the 100s. It was decided he would remain admitted to undergo repeat cardioversion 05/10. Afterwards, patient returned to the floor for continued monitoring after cardioversion, and was discharged in medically stable condition. Acute decompensated heart failure (HCC) c/f pneumonia Patient presented with increasingly worsening shortness of breath and cough after discharge 05/03. On arrival in the ED, denies fever/chills but reports some mild night sweats preceding night. New oxygen requirement of 2 L to keep saturations above 90%. New leukocytosis and JOVANNI on labs, afebrile. CXR with mild pulmonary edema and bibasilar opacities left > right concerning for pneumonia vs atelectasis. Home GDMT: entresto 49-51 mg BID, metoprolol XL 50 mg daily, spironolactone 25 mg daily. Formal TTE demonstrated EF of 34%, previous EF 29% - Diuresis with IV lasix 40 mg - Continue antibiotics for CAP for 5 days (05/04 - 05/08) - Ceftriaxone 2 g daily + doxycyline 100 mg BID Afib (HCC) Underwent sotalol load and cardioversion on 05/03 after cardioversion 03/12 failed to maintain NSR. On Eliquis 5 mg BID, no missed doses last 4 weeks. Currently in NSR. - Sotalol 80 mg q12h (EKG 2 hours after every dose) - Eliquis 5 mg BID - Continuous telemetry - Continue home metoprolol XL 50 mg daily Gout - Hold home allopurinol 300 mg qHS in the setting of JOVANNI Hyperlipidemia, unspecified - Continue home rosuvastatin 20 mg qHS Hypothyroidism, unspecified - Continue home Synthroid 112 mcg qAM but 224 mcg each Saturday Active Issues Requiring Follow-up: AFib on sotalol and and metoprolol Test Results Pending at Discharge: NA Operative Procedures Performed: Procedure(s): CARDIOVERSION [id number] Other Procedures: Pertinent Test Results: EKG 05/10/2025 QTc <550 Discharge Details Physical Exam at Discharge: Discharge Condition: stable Pulse: 74 Resp: 17 BP: 113/88 Temp: 36.3 ??C (97.4 ??F) Weight: 129.7 kg (286 lb) Pertinent Exam Findings at Discharge: Discharge Disposition: Patient will be discharged to:home Code Status at Discharge: Full code Discharge Instructions: Dear Mr. Chikis Elder, You were admitted to [facility] from 05/04/2025 to 05/10/2025 for acute decompensated heart failure and possible pneumonia. During your admission you were treated with diuretics (fluid removal medications) and antibiotics. Additionally, we changed your home dose of sotalol to 80mg twicea day. It will be important to follow up with your rolled ham lacer at your appointment on 05/10. We also performed a cardioversion because you went back into AFib (abnormal heart rhythm) and monitored you until deemed safe to discharge medically. Please present to medical attention (by calling your PCP, calling 911, or going to an emergency department) if you experience worsening chest pain or shortness of breath. If you have any increase in weight increased weight of 3 pounds in 1 day or >5lbs over 1 week orincreased shortness of breath, please notify your provider immediately. You have the following appointments scheduled: Future Appointments Date Time Provider Department Center 05/10/2025 8:15 AM Fabio Jacob MD [facility] CAR MRVL Specialty 07/07/2025 11:15 AM CARD DEVICE CHECK-CAM 8B CAR CAM 8B Cardiology 07/07/2025 11:45 AM Manoj Blackman MD CAR CAM 8B Cardiology 08/05/2025 8:30 AM Fabio Jacob MD [facility] CAR 130 MG Decent Your primary care provider is Blake Ott MD and can be reached at [phone] We wish you the very best, [facility] [phone] Discharge Medications: Current Medications TAKE these medications allopurinoL 300 mg tablet Take 1 tablet (300 mg total) by mouth daily Commonly known as: ZYLOPRIM Notes to patient: For Gout Eliquis 5 mg tablet Take 1 tablet by mouth twice daily Generic drug: apixaban Notes to patient: Blood thinner Entresto 49-51 mg tablet Take 1 tablet by mouth twice daily Generic drug: sacubitriL-valsartan Notes to patient: For blood pressure and CHF furosemide 20 mg tablet Take 3 tablets (60 mg total) by mouth daily Commonly known as: LASIX Start taking on: May 11, 2025 Notes to patient: Water Pill glucosamine-chondroitin 250-200 mg tablet Take 1 capsule by mouth daily Notes to patient: For joint health levothyroxine 112 mcg tablet TAKE 1 TABLET BY MOUTH ONCE DAILY AND 2 TABLETS EVERY SATURDAY Commonly known as: SYNTHROID Notes to patient: For low thyroid metoprolol XL 50 mg extended release tablet Take 1 tablet by mouth once daily Commonly known as: TOPROL-XL Notes to patient: For High Blood Pressure/ Fast Heart Rate multivitamin tablet Take 1 tablet by mouth daily omega-3 fatty acids-fish oil 300-1,000 mg capsule Take 1 capsule (1 g total) by mouth daily rosuvastatin 20 mg tablet Take 1 tablet (20 mg total) by mouth daily Commonly known as: CRESTOR Notes to patient: For high cholesterol sotaloL 80 mg tablet Take 1 tablet (80 mg total) by mouth 2 (two) times a day Commonly known as: BETAPACE Notes to patient: For high blood pressure/ fast heart rate. spironolactone 25 mg tablet TAKE 1 TABLET BY MOUTH ONCE DAILY IN THE MORNING Commonly known as: ALDACTONE Notes to patient: Water Pill testosterone cypionate 200 mg/mL injection INJECT 1 ML INTRAMUSCULARLY ONCE A WEEK A ONE TIME DOSE Commonly known as: DEPO-TESTOTERONE Notes to patient: For Low Testosterone turmeric root extract 500 mg capsule Take 1 tablet/capsule by mouth daily Outpatient Follow-Up: Future Appointments Date Time Provider Department Center 05/11/2025 2:15 PM Fabio Jacob MD [facility] CAR 130 MG Decent 07/07/2025 11:15 AM CARD DEVICE CHECK-CAM 8B CAR CAM 8B Cardiology 07/07/2025 11:45 AM Manoj Blackman MD CAR CAM 8B Cardiology 08/05/2025 8:30 AM Fabio Jacob MD [facility] CAR 130 MG Decent Cosigned by Олег Guevara MD at 05/10/2025 3:55 PM BOILER COVERER HELPER ER COVERER HELPER ER COVERER HELPER documented in this encounter Discharge Instructions * Discharge Instructions* Marlyn Stevens MD - 05/07/2025 4:24 PM BOILER COVERER HELPER Dear Mr. Chikis Elder, You were admitted to [facility] from 05/04/2025 to 05/10/2025 for acute decompensated heart failure and possible pneumonia. During your admission you were treated with diuretics (fluid removal medications) and antibiotics. Additionally, we changed your home dose of sotalol to 80mg twicea day. It will be important to follow up with your rolled ham lacer at your appointment on 05/10. We also performed a cardioversion because you went back into AFib (abnormal heart rhythm) and monitored you until deemed safe to discharge medically. Please present to medical attention (by calling your PCP, calling 911, or going to an emergency department) if you experience worsening chest pain or shortness of breath. If you have any increase in weight increased weight of 3 pounds in 1 day or >5lbs over 1 week orincreased shortness of breath, please notify your provider immediately. You have the following appointments scheduled: Future Appointments Date Time Provider Department Center 05/10/2025 8:15 AM Fabio Jacob MD [facility] CAR MRVL Specialty 07/07/2025 11:15 AM CARD DEVICE CHECK-CAM 8B CAR CAM 8B Cardiology 07/07/2025 11:45 AM Manoj Blackman MD CAR CAM 8B Cardiology 08/05/2025 8:30 AM Fabio Jacob MD [facility] CAR 130 MG Decent Your primary care provider is Blake Ott MD and can be reached at [phone] We wish you the very best, [facility] [phone] ER COVERER HELPER ER COVERER HELPER ER COVERER HELPER ER COVERER HELPER ER COVERER HELPER * Attachments The following attachments cannot be sent through Care Everywhere. * Cardioversion (AfterCare(R) Instructions(ER/ED)) (Nepali) documented in this encounter Medications at Time of Discharge allopurinoL (ZYLOPRIM) 300 mg tablet Take 1 tablet (300 mg total) by mouth daily Eliquis 5 mg tabletIndications:P aroxysmal atrial fibrillation (HCC) Take 1 tablet by mouth twice daily 180 tablet 5 furosemide (LASIX) 20 mg tablet Take 3 tablets (60 mg total) by mouth daily 90 tablet 1 5 05/11/20 26 glucosamine-chondro itin 250-200 mg tablet Take 1 capsule by mouth daily levothyroxine (SYNTHROID) 112 mcg tablet TAKE 1 TABLET BY MOUTH ONCE DAILY AND 2 TABLETS EVERY Saturday 3 metoprolol XL (TOPROL-XL) 50 mg extended release tabletIndications:D ilated cardiomyopathy (HCC) Take 1 tablet by mouth once daily 90 tablet 3 5 multivitamin tablet Take 1 tablet by mouth daily omega-3 fatty acids-fish oil 300-1,000 mg capsule Take 1 capsule (1 g total) by mouth daily rosuvastatin (CRESTOR) 20 mg tablet Take 1 tablet (20 mg total) by mouth daily 4 sacubitriL-valsarta n (Entresto) 49-51 mg tabletIndications:N onischemic cardiomyopathy (HCC),Chronic systolic CHF (congestive heart failure) (HCC) Take 1 tablet by mouth twice daily 180 tablet 2 5 sotaloL (BETAPACE) 80 mg tablet Take 1 tablet (80 mg total) by mouth 2 (two) times a day 60 tablet 11 5 05/10/20 26 spironolactone (ALDACTONE) 25 mg tabletIndications:D ilated cardiomyopathy (HCC) TAKE 1 TABLET BY MOUTH ONCE DAILY IN THE MORNING 90 tablet 3 5 testosterone cypionate (DEPO-TESTOTERONE) 200 mg/mL injection INJECT 1 ML INTRAMUSCULARLY ONCE A WEEK A ONE TIME DOSE 4 turmeric root extract 500 mg capsule Take 1 tablet/capsule by mouth daily documented as of this encounter Ordered Prescriptions Prescription Sig Dispense Quantity Refills Last Filled Start Date End Date furosemide (LASIX) 20 mg tablet Take 3 tablets (60 mg total) by mouth daily 90 tablet 1 05/11/2025 6 sotaloL (BETAPACE) 80 mg tablet Take 1 tablet (80 mg total) by mouth 2 (two) times a day 60 tablet 05/10/2025 6 furosemide (LASIX) 20 mg tablet Take 3 tablets (60 mg total) by mouth daily 90 tablet 05/11/2025 5 furosemide (LASIX) 40 mg tablet Take 1.5 tablets (60 mg total) by mouth daily 90 tablet 05/10/2025 5 documented in this encounter Discharge Disposition Disposition Code Departure Means Destination Comment s Discharge to home or self care documented in this encounter Progress Notes * John Mejia MD - 05/10/2025 9:10 AM CST Daily Progress Note Firm Service Name: Chikis Elder : 1955 Today's Date: May 10, 2025 Age: 69 y.o. male Admit Date: 05/04/2025 Bed: [id number] LOS: 6 days Subjective Interval History Chikis Elder is a 69 y.o. male with a history of hypertension, hypothyroidism, T2DM, HLD, gout, HFrEF (EF 29% 12/2023) s/p primary prevention Bi-V ICD 08/2023, paroxysmal AFib s/p sotalol load and cardioversion 05/03 who presents with acutely worsening shortness of breath 1 day after discharge. Interval events: - s/p DCCV, in NSR and resting comfortably - On metoprolol XL 50 mg daily and sotalol 80 mg BID - Completed 5 day antibiotic course for CAP 2 days ago. Interval Plan: - Continue diuresis with lasix 60 mg PO daily as OP regimen - EP signed off - plan to continue sotalol 80 BID as OP regimen - Glenn PRN - Plan D/C home, Dr. Jacob tomorrow 05/11 at 14:15 Update Discharge Readiness Information Objective Vitals Most Recent Vitals: T (uto), HR 74, BP 113/88, RR 17, SpO2 96 %. 24hr Min/Max: Temp Min: 36.3 ??C (97.4 ??F) Max: 36.5 ??C (97.7 ??F) Pulse Min: 60 Max: 104 BP Min: 101/65 Max: 117/80 Resp Min: 17 Max: 29 SpO2 Min: 90 % Max: 97 % Intake/Output Summary (Last 24 hours) at 05/10/2025 1524 Last data filed at 05/10/2025 1335 Gross per 24 hour Intake 510 ml Output 800 ml Net -290 ml Net IO Since Admission: -3,964.84 mL [05/10/25 1524] Last Weight: 129.7 kg (286 lb) (05/10/25 0556). Admit Weight: 131.1 kg (289 lb). Last BM: Stool Occurrence Amount: Medium (05/07/25 1125) Physical Exam Constitutional: General: He is not in acute distress. Appearance: He is not ill-appearing or diaphoretic. Cardiovascular: Rate and Rhythm: Normal rate and regular rhythm. Pulmonary: Effort: Pulmonary effort is normal. No respiratory distress. Chest: Chest wall: No tenderness. Abdominal: Palpations: Abdomen is soft. Tenderness: There is no abdominal tenderness. There is no guarding or rebound. Musculoskeletal: General: Normal range of motion. Cervical back: Normal range of motion. Neurological: General: No focal deficit present. Mental Status: He is alert and oriented to person, place, and time. Psychiatric: Mood and Affect: Mood normal. Behavior: Behavior normal. Lines, Drains, Airways Peripheral IV 05/04/25 20 G Right Forearm (Active) Labs/Diagnostic Review Na 136 (137) Cl 100 BUN 17 (17) K 4.1 (4.5) CO2 25 (26) Cr 1.32 (1.38) Mg 2.1 (2), G (138) AST - ( ) ALT - ( ) Alk Phos - ( ) Ca 8.6 (8.5) TP - Alb - Total Bili: - ( ) Direct Bili: - ( ) \ Hgb 16.3 (16) / WBC 7.77 (8.83) -------- Plt 235 (243) / MCV 98.1 (99.6)\ INR - (Labs above are the most recent result obtained in the last 24 hours, followed by the 2nd to last lab in the past 3 days, if applicable. For additional labs/trends, see Epic.) Imaging Review Electrophysiology (EP) Study Result Date: 05/10/2025 Successful DC cardioversion to sinus rhythm. The referring physician was notified. Sebas Coffman MD was present to personally supervise or perform the entire procedure. Scheduled Meds PRN Meds Infusions allopurinoL, 300 mg, oral, Daily apixaban, 5 mg, oral, BID furosemide, 60 mg, oral, Daily levothyroxine, 112 mcg, oral, Daily - 0600 metoprolol XL, 50 mg, oral, Daily multivitamin with minerals, 1 tablet, oral, Daily rosuvastatin, 20 mg, oral, Nightly sacubitriL-valsartan, 1 tablet, oral, BID sodium chloride 0.9%, 0.5-20 mL, intra-catheter, Q8H LUCÍA (ALT) sotaloL, 80 mg, oral, BID spironolactone, 25 mg, oral, Daily albuterol, 2.5 mg, nebulization, Q6H PRN (RT) benzonatate, 100 mg, oral, TID PRN sodium chloride 0.9%, 0-999 mL, intravenous, PRN sodium chloride 0.9%, 0.5-20 mL, intra-catheter, PRN Assessment Assessment & Plan Acute decompensated heart failure (HCC) c/f pneumonia Patient presented with increasingly worsening shortness of breath and cough after discharge 05/03. On arrival in the ED, denies fever/chills but reports some mild night sweats preceding night. New oxygen requirement of 2 L to keep saturations above 90%. New leukocytosis and JOVANNI on labs, afebrile. CXR with mild pulmonary edema and bibasilar opacities left > right concerning for pneumonia vs atelectasis. Home GDMT: entresto 49-51 mg BID, metoprolol XL 50 mg daily, spironolactone 25 mg daily. Formal TTE demonstrated EF of 34%, previous EF 29% - Diuresis with IV lasix 40 mg - Continue antibiotics for CAP for 5 days (05/04 - 05/08) - Ceftriaxone 2 g daily + doxycyline 100 mg BID Afib (HCC) Underwent sotalol load and cardioversion on 05/03 after cardioversion 03/12 failed to maintain NSR. On Eliquis 5 mg BID, no missed doses last 4 weeks. Currently in NSR. - Sotalol 80 mg q12h (EKG 2 hours after every dose) - Eliquis 5 mg BID - s/p DCCV 05/10 - Continuous telemetry - Continue home metoprolol XL 50 mg daily Gout - Hold home allopurinol 300 mg qHS in the setting of JOVANNI Hyperlipidemia, unspecified - Continue home rosuvastatin 20 mg qHS Hypothyroidism, unspecified - Continue home Synthroid 112 mcg qAM but 224 mcg each Saturday Obesity, class 2. Would likely benefit from outpatient weight loss. Code status : Full Code Diet : Adult Diet Restricted; Low Fat, Low Cholesterol, Low Sodium FirmBundle: DVT ppx : eliquis PT/OT recs : John Mejia MD Cosigned by Олег Guevara MD at 05/10/2025 3:55 PM BOILER COVERER HELPER ER COVERER HELPER ER COVERER HELPER ER COVERER HELPER Associated attestation - Олег Guevara MD - 05/10/2025 3:55 PM BOILER COVERER HELPER I have seen and examined the patient on 05/10/25. I agree with the findings and plan of care as discussed with the resident/fellow.. * Harlan Mcarthur MD - 05/09/2025 1:06 PM CST Daily Progress Note Firm Service Name: Chikis Elder : 1955 Today's Date: May 09, 2025 Age: 69 y.o. male Admit Date: 05/04/2025 Bed: [id number] LOS: 5 days Subjective Interval History Chikis Elder is a 69 y.o. male with a history of hypertension, hypothyroidism, T2DM, HLD, gout, HFrEF (EF 29% 12/2023) s/p primary prevention Bi-V ICD 08/2023, paroxysmal AFib s/p sotalol load and cardioversion 05/03 who presents with acutely worsening shortness of breath 1 day after discharge. Interval events: Patient slept well with NPPV. Patient still in afib with rates approx 105. Continue metoprolol XL 50 mg daily and sotalol 80 mg BID. Completed 5 day antibiotic course for CAP yesterday. Interval Plan: - Repeat cardioversion Saturday - Continue diuresis with lasix 60 mg PO daily - EP signed off - plan to continue sotalol 80 BID - DuoNebs PRN Update Discharge Readiness Information Objective Vitals Most Recent Vitals: T 36.5 ??C (97.7 ??F), HR 89, BP 118/82, RR 18, SpO2 90 %. 24hr Min/Max: Temp Min: 36.4 ??C (97.5 ??F) Max: 36.6 ??C (97.9 ??F) Pulse Min: 82 Max: 108 BP Min: 103/80 Max: 118/82 Resp Min: 16 Max: 24 SpO2 Min: 90 % Max: 95 % Intake/Output Summary (Last 24 hours) at 05/09/2025 1307 Last data filed at 05/09/2025 0855 Gross per 24 hour Intake 195 ml Output -- Net 195 ml Net IO Since Admission: -3,174.84 mL [05/09/25 1307] Last Weight: 129.5 kg (285 lb 6.4 oz) (05/09/25 0524). Admit Weight: 131.1 kg (289 lb). Last BM: Stool Occurrence Amount: Medium (05/07/25 1125) Physical Exam Constitutional: General: He is not in acute distress. Appearance: He is not ill-appearing or diaphoretic. Cardiovascular: Rate and Rhythm: Normal rate and regular rhythm. Pulmonary: Effort: Pulmonary effort is normal. No respiratory distress. Chest: Chest wall: No tenderness. Abdominal: Palpations: Abdomen is soft. Tenderness: There is no abdominal tenderness. There is no guarding or rebound. Musculoskeletal: General: Normal range of motion. Cervical back: Normal range of motion. Neurological: General: No focal deficit present. Mental Status: He is alert and oriented to person, place, and time. Psychiatric: Mood and Affect: Mood normal. Behavior: Behavior normal. Lines, Drains, Airways Peripheral IV 05/04/25 20 G Right Forearm (Active) Labs/Diagnostic Review Na 137 (136) Cl 99 BUN 17 (17) K 4.5 (4.5) CO2 26 (22) Cr 1.38 (1.31) Mg 2.0 (2.1), G (124) AST - ( ) ALT - ( ) Alk Phos - ( ) Ca 8.5 (8.2) TP - Alb - Total Bili: - ( ) Direct Bili: - ( ) \ Hgb 16.0 (17) / WBC 8.83 (9.15) -------- Plt 243 (268) / MCV 99.6 (97.4)\ INR - (Labs above are the most recent result obtained in the last 24 hours, followed by the 2nd to last lab in the past 3 days, if applicable. For additional labs/trends, see Epic.) Imaging Review No results found. Scheduled Meds PRN Meds Infusions [Held by Provider] allopurinoL, 300 mg, oral, Daily apixaban, 5 mg, oral, BID furosemide, 60 mg, oral, Daily levothyroxine, 112 mcg, oral, Daily - 0600 metoprolol XL, 50 mg, oral, Daily multivitamin with minerals, 1 tablet, oral, Daily rosuvastatin, 20 mg, oral, Nightly sacubitriL-valsartan, 1 tablet, oral, BID sodium chloride 0.9%, 0.5-20 mL, intra-catheter, Q8H LUCÍA (ALT) sotaloL, 80 mg, oral, BID spironolactone, 25 mg, oral, Daily albuterol, 2.5 mg, nebulization, Q6H PRN (RT) benzonatate, 100 mg, oral, TID PRN sodium chloride 0.9%, 0-999 mL, intravenous, PRN sodium chloride 0.9%, 0.5-20 mL, intra-catheter, PRN Assessment Assessment & Plan Acute decompensated heart failure (HCC) c/f pneumonia Patient presented with increasingly worsening shortness of breath and cough after discharge 05/03. On arrival in the ED, denies fever/chills but reports some mild night sweats preceding night. New oxygen requirement of 2 L to keep saturations above 90%. New leukocytosis and JOVANNI on labs, afebrile. CXR with mild pulmonary edema and bibasilar opacities left > right concerning for pneumonia vs atelectasis. Home GDMT: entresto 49-51 mg BID, metoprolol XL 50 mg daily, spironolactone 25 mg daily. Formal TTE demonstrated EF of 34%, previous EF 29% - Diuresis with IV lasix 40 mg - Continue antibiotics for CAP for 5 days (05/04 - 05/08) - Ceftriaxone 2 g daily + doxycyline 100 mg BID Afib (HCC) Underwent sotalol load and cardioversion on 05/03 after cardioversion 03/12 failed to maintain NSR. On Eliquis 5 mg BID, no missed doses last 4 weeks. Currently in NSR. - Sotalol 80 mg q12h (EKG 2 hours after every dose) - Eliquis 5 mg BID - Continuous telemetry - Continue home metoprolol XL 50 mg daily Gout - Hold home allopurinol 300 mg qHS in the setting of JOVANNI Hyperlipidemia, unspecified - Continue home rosuvastatin 20 mg qHS Hypothyroidism, unspecified - Continue home Synthroid 112 mcg qAM but 224 mcg each Saturday Obesity, class 2. Would likely benefit from outpatient weight loss. Code status : Full Code Diet : Adult Diet Restricted; Low Fat, Low Cholesterol, Low Sodium FirmBundle: DVT ppx : eliquis PT/OT recs : Harlan Mcarthur MD Cosigned by Amaris Camargo MD at 05/09/2025 1:48 PM BOILER COVERER HELPER ER COVERER HELPER ER COVERER HELPER Associated attestation - Amaris Camargo MD - 05/09/2025 1:48 PM BOILER COVERER HELPER Attending Documentation I have seen and examined the patient on 05/08/25. I agree with the findings and plan of care as documented in the resident's/fellow's note. Supplementary Attestation Today, I am treating the patient for HFrEF and AF which is in severe exacerbation, progression, or experiencing treatment side effects as evidenced by need for diuresis and repeat DCCV, as described in the note. I reviewed tests including BMP resulting in changes to medications. The patient is being intensively monitored for drug toxicity from diuretics by checking BMP. Amaris Camargo MD MSc Procurement Assistantair export coordinator, [facility] in [facility] * Harlan Mcarthur MD - 05/08/2025 11:00 AM CST Daily Progress Note Firm Service Name: Chikis Elder : 1955 Today's Date: May 08, 2025 Age: 69 y.o. male Admit Date: 05/04/2025 Bed: [id number] LOS: 4 days Subjective Interval History Chikis Elder is a 69 y.o. male with a history of hypertension, hypothyroidism, T2DM, HLD, gout, HFrEF (EF 29% 12/2023) s/p primary prevention Bi-V ICD 08/2023, paroxysmal AFib s/p sotalol load and cardioversion 05/03 who presents with acutely worsening shortness of breath 1 day after discharge. Interval events: Patient slept well with NPPV. This morning, patient reverted to Afib with rates inthe 100s-110s. Asymptomatic. Given recent sotalol load and cardioversion, EP recommends repeat cardioversion Saturday. Interval Plan: - Repeat cardioversion Saturday - Continue diuresis with lasix 60 mg PO daily - Continue ceftriaxone 2 g daily + doxycycline 100 mg BID for 5 day course for CAP - EP following and providing recs for sotalol - plan to continue sotalol 80 BID - start albuterol inhaler Update Discharge Readiness Information Objective Vitals Most Recent Vitals: T 36.7 ??C (98.1 ??F), HR 104, BP 104/84, RR 27, SpO2 90 %. 24hr Min/Max: Temp Min: 36.6 ??C (97.9 ??F) Max: 36.7 ??C (98.1 ??F) Pulse Min: 65 Max: 109 BP Min: 100/67 Max: 117/81 Resp Min: 20 Max: 27 SpO2 Min: 90 % Max: 97 % Intake/Output Summary (Last 24 hours) at 05/08/2025 1100 Last data filed at 05/08/2025 0615 Gross per 24 hour Intake 520 ml Output 1650 ml Net -1130 ml Net IO Since Admission: -2,859.84 mL [05/08/25 1100] Last Weight: 129.8 kg (286 lb 1.6 oz) (05/08/25 0615). Admit Weight: 131.1 kg (289 lb). Last BM: Stool Occurrence Amount: Medium (05/07/25 1125) Physical Exam Constitutional: General: He is not in acute distress. Appearance: He is not ill-appearing or diaphoretic. Cardiovascular: Rate and Rhythm: Normal rate and regular rhythm. Pulmonary: Effort: Pulmonary effort is normal. No respiratory distress. Chest: Chest wall: No tenderness. Abdominal: Palpations: Abdomen is soft. Tenderness: There is no abdominal tenderness. There is no guarding or rebound. Musculoskeletal: General: Normal range of motion. Cervical back: Normal range of motion. Neurological: General: No focal deficit present. Mental Status: He is alert and oriented to person, place, and time. Psychiatric: Mood and Affect: Mood normal. Behavior: Behavior normal. Lines, Drains, Airways Peripheral IV 05/04/25 20 G Right Forearm (Active) Labs/Diagnostic Review Na 136 (137) Cl 101 BUN 17 (17) K 4.5 (3.7) CO2 22 (25) Cr 1.31 (1.34) Mg 2.1 (1.9), G (122) AST - ( ) ALT - ( ) Alk Phos - ( ) Ca 8.2 (8.3) TP - Alb - Total Bili: - ( ) Direct Bili: - ( ) \ Hgb 17.0 (16.5) / WBC 9.15 (7.64) -------- Plt 268 (225) / MCV 97.4 (98.1)\ INR - (Labs above are the most recent result obtained in the last 24 hours, followed by the 2nd to last lab in the past 3 days, if applicable. For additional labs/trends, see Epic.) Imaging Review No results found. Scheduled Meds PRN Meds Infusions [Held by Provider] allopurinoL, 300 mg, oral, Daily apixaban, 5 mg, oral, BID cefTRIAXone, 2,000 mg, intravenous, Q24H LUCÍA doxycycline, 100 mg, oral, BID - special [START ON 05/09/2025] furosemide, 60 mg, oral, Daily levothyroxine, 112 mcg, oral, Daily - 0600 metoprolol XL, 50 mg, oral, Daily multivitamin with minerals, 1 tablet, oral, Daily rosuvastatin, 20 mg, oral, Nightly sacubitriL-valsartan, 1 tablet, oral, BID sodium chloride 0.9%, 0.5-20 mL, intra-catheter, Q8H LUCÍA (ALT) sotaloL, 80 mg, oral, BID spironolactone, 25 mg, oral, Daily albuterol, 2.5 mg, nebulization, Q6H PRN (RT) benzonatate, 100 mg, oral, TID PRN sodium chloride 0.9%, 0-999 mL, intravenous, PRN sodium chloride 0.9%, 0.5-20 mL, intra-catheter, PRN Assessment Assessment & Plan Acute decompensated heart failure (HCC) c/f pneumonia Patient presented with increasingly worsening shortness of breath and cough after discharge 05/03. On arrival in the ED, denies fever/chills but reports some mild night sweats preceding night. New oxygen requirement of 2 L to keep saturations above 90%. New leukocytosis and JOVANNI on labs, afebrile. CXR with mild pulmonary edema and bibasilar opacities left > right concerning for pneumonia vs atelectasis. Home GDMT: entresto 49-51 mg BID, metoprolol XL 50 mg daily, spironolactone 25 mg daily. Formal TTE demonstrated EF of 34%, previous EF 29% - Diuresis with IV lasix 40 mg - Continue antibiotics for CAP for 5 days (05/04 - 05/08) - Ceftriaxone 2 g daily + doxycyline 100 mg BID Afib (HCC) Underwent sotalol load and cardioversion on 05/03 after cardioversion 03/12 failed to maintain NSR. On Eliquis 5 mg BID, no missed doses last 4 weeks. Currently in NSR. - Sotalol 80 mg q12h (EKG 2 hours after every dose) - Eliquis 5 mg BID - Continuous telemetry - Continue home metoprolol XL 50 mg daily Gout - Hold home allopurinol 300 mg qHS in the setting of JOVANNI Hyperlipidemia, unspecified - Continue home rosuvastatin 20 mg qHS Hypothyroidism, unspecified - Continue home Synthroid 112 mcg qAM but 224 mcg each Saturday Obesity, class 2. Would likely benefit from outpatient weight loss. Code status : Full Code Diet : Adult Diet Restricted; Low Fat, Low Cholesterol, Low Sodium FirmBundle: DVT ppx : eliquis PT/OT recs : Harlan Mcarthur MD Cosigned by Amaris Camargo MD at 05/09/2025 1:47 PM BOILER COVERER HELPER ER COVERER HELPER ER COVERER HELPER Associated attestation - Amaris Camargo MD - 05/09/2025 1:47 PM BOILER COVERER HELPER Attending Documentation I have seen and examined the patient on 05/08/25. I agree with the findings and plan of care as documented in the resident's/fellow's note. Supplementary Attestation Today, I am treating the patient for HFrEF and CAP which is in severe exacerbation, progression, orexperiencing treatment side effects as evidenced by need for IV diuresis and antibiotics, as described in the note. I reviewed tests including BMP resulting in changes to medications. The patient is being intensively monitored for drug toxicity from IV diuretics by checking BMP. Amaris Camargo MD MSc Procurement Assistantair export coordinator, [facility] in [facility] * Harlan Mcarthur MD - 05/07/2025 1:36 PM CST Daily Progress Note Firm Service Name: Chikis Elder : 1955 Today's Date: May 07, 2025 Age: 69 y.o. male Admit Date: 05/04/2025 Bed: [id number] LOS: 3 days Subjective Interval History Chikis Elder is a 69 y.o. male with a history of hypertension, hypothyroidism, T2DM, HLD, gout, HFrEF (EF 29% 12/2023) s/p primary prevention Bi-V ICD 08/2023, paroxysmal AFib s/p sotalol load and cardioversion 05/03 who presents with acutely worsening shortness of breath 1 day after discharge. Interval events: NAEON. Slept well with NPPV last night. Walking desaturation study performed, ambulated 550 feet with 96% SpO2 on RA. Anticipate medical readiness for discharge 05/08 - 05/09 Interval Plan: - Continue diuresis with lasix 40 mg IV once daily - Continue ceftriaxone 2 g daily + doxycycline 100 mg BID for 5 day course for CAP - EP following and providing recs for sotalol - plan to continue sotalol 80 BID - start albuterol inhaler Update Discharge Readiness Information Objective Vitals Most Recent Vitals: T 36.4 ??C (97.5 ??F), HR 72, BP 114/75, RR 20, SpO2 93 %. 24hr Min/Max: Temp Min: 36.3 ??C (97.4 ??F) Max: 36.6 ??C (97.9 ??F) Pulse Min: 65 Max: 96 BP Min: 91/50 Max: 120/76 Resp Min: 14 Max: 26 SpO2 Min: 91 % Max: 94 % Intake/Output Summary (Last 24 hours) at 05/07/2025 1337 Last data filed at 05/07/2025 1125 Gross per 24 hour Intake 620 ml Output 1100 ml Net -480 ml Net IO Since Admission: -2,579.84 mL [05/07/25 1337] Last Weight: 129.9 kg (286 lb 6.4 oz) (05/07/25 0600). Admit Weight: 131.1 kg (289 lb). Last BM: Stool Occurrence Amount: Medium (05/07/25 1125) Physical Exam Constitutional: General: He is not in acute distress. Appearance: He is not ill-appearing or diaphoretic. Cardiovascular: Rate and Rhythm: Normal rate and regular rhythm. Pulmonary: Effort: Pulmonary effort is normal. No respiratory distress. Chest: Chest wall: No tenderness. Abdominal: Palpations: Abdomen is soft. Tenderness: There is no abdominal tenderness. There is no guarding or rebound. Musculoskeletal: General: Normal range of motion. Cervical back: Normal range of motion. Neurological: General: No focal deficit present. Mental Status: He is alert and oriented to person, place, and time. Psychiatric: Mood and Affect: Mood normal. Behavior: Behavior normal. Lines, Drains, Airways Peripheral IV 05/04/25 20 G Right Forearm (Active) Labs/Diagnostic Review Na 137 (136) Cl 100 BUN 17 (20) K 3.7 (4.6) CO2 25 (26) Cr 1.34 (1.39) Mg 1.9 (2), G (130) AST - ( ) ALT - ( ) Alk Phos - ( ) Ca 8.3 (8.4) TP - Alb - Total Bili: - ( ) Direct Bili: - ( ) \ Hgb 16.5 (15.1) / WBC 7.64 (8.19) -------- Plt 225 (226) / MCV 98.1 (100)\ INR - (Labs above are the most recent result obtained in the last 24 hours, followed by the 2nd to last lab in the past 3 days, if applicable. For additional labs/trends, see Epic.) Imaging Review XR Chest 1 View Result Date: 05/07/2025 The current study is compared with the prior radiograph dated 05/04/2025. Left chest wall pacemakerdefibrillator with leads overlying the right ventricle and right atrium. Mild bibasilar atelectasiswith trace bilateral pleural effusions. Mild overlying pulmonary edema. No pneumothorax. Stable cardiomediastinal silhouette. Dictated by: Jere Jang M.D. The radiology attending physician has personally reviewed this study, and had reviewed and/or edited this written report and agrees with it. Electronically signed by: Wenceslao Kessler M.D. XR Chest PA Lateral 2 Views Result Date: 05/06/2025 The current study is compared with the prior radiograph dated 05/06/2025. Left chest wall pacemakerdefibrillator with leads overlying the right atrium and right ventricle. Mild bibasilar atelectasis. No pleural effusion or pneumothorax. Stable cardiomediastinal silhouette. Dictated by: Jere Jang M.D. The radiology attending physician has personally reviewed this study, and had reviewed and/or edited this written report and agrees with it. Electronically signed by: Dave Vega M.D. Scheduled Meds PRN Meds Infusions [Held by Provider] allopurinoL, 300 mg, oral, Daily apixaban, 5 mg, oral, BID cefTRIAXone, 2,000 mg, intravenous, Q24H LUCÍA doxycycline, 100 mg, oral, BID - special furosemide, 40 mg, intravenous, Daily ipratropium-albuteroL, 3 mL, nebulization, Once (RT) levothyroxine, 112 mcg, oral, Daily - 0600 metoprolol XL, 50 mg, oral, Daily multivitamin with minerals, 1 tablet, oral, Daily rosuvastatin, 20 mg, oral, Nightly sacubitriL-valsartan, 1 tablet, oral, BID sodium chloride 0.9%, 0.5-20 mL, intra-catheter, Q8H LUCÍA (ALT) sotaloL, 80 mg, oral, BID spironolactone, 25 mg, oral, Daily albuterol, 2.5 mg, nebulization, Q6H PRN (RT) benzonatate, 100 mg, oral, TID PRN sodium chloride 0.9%, 0-999 mL, intravenous, PRN sodium chloride 0.9%, 0.5-20 mL, intra-catheter, PRN Assessment Assessment & Plan Acute decompensated heart failure (HCC) c/f pneumonia Patient presented with increasingly worsening shortness of breath and cough after discharge 05/03. On arrival in the ED, denies fever/chills but reports some mild night sweats preceding night. New oxygen requirement of 2 L to keep saturations above 90%. New leukocytosis and JOVANNI on labs, afebrile. CXR with mild pulmonary edema and bibasilar opacities left > right concerning for pneumonia vs atelectasis. Home GDMT: entresto 49-51 mg BID, metoprolol XL 50 mg daily, spironolactone 25 mg daily. Formal TTE demonstrated EF of 34%, previous EF 29% - Diuresis with IV lasix 40 mg - Continue antibiotics for CAP for 5 days (05/04 - 05/08) - Ceftriaxone 2 g daily + doxycyline 100 mg BID Afib (HCC) Underwent sotalol load and cardioversion on 05/03 after cardioversion 03/12 failed to maintain NSR. On Eliquis 5 mg BID, no missed doses last 4 weeks. Currently in NSR. - Sotalol 80 mg q12h (EKG 2 hours after every dose) - Eliquis 5 mg BID - Continuous telemetry - Continue home metoprolol XL 50 mg daily Gout - Hold home allopurinol 300 mg qHS in the setting of JOVANNI Hyperlipidemia, unspecified - Continue home rosuvastatin 20 mg qHS Hypothyroidism, unspecified - Continue home Synthroid 112 mcg qAM but 224 mcg each Saturday Obesity, class 2. Would likely benefit from outpatient weight loss. Code status : Full Code Diet : Adult Diet Restricted; Low Fat, Low Cholesterol, Low Sodium FirmBundle: DVT ppx : eliquis PT/OT recs : Harlan Mcarthur MD Cosigned by Amaris Camargo MD at 05/07/2025 3:00 PM BOILER COVERER HELPER ER COVERER HELPER ER COVERER HELPER Associated attestation - Amaris Camargo MD - 05/07/2025 3:00 PM BOILER COVERER HELPER Attending Documentation I have seen and examined the patient on 05/07/25. I agree with the findings and plan of care as documented in the resident's/fellow's note. Supplementary Attestation Today, I am treating the patient for HFrEF and CAP which is in severe exacerbation, progression, orexperiencing treatment side effects as evidenced by need for IV diuresis and antibiotics, as described in the note. I reviewed tests including BMP resulting in changes to medications. The patient is being intensively monitored for drug toxicity from IV diuretics by checking BMP. Amaris Camargo MD MSc Procurement Assistantair export coordinator, [facility] in [facility] * AshNatacha Doreen, ROUTE SPECIALIST - 05/07/2025 1:29 PM CST 05/07/25 1324 Resting Information Resting HR. 72 bpm Resting SPO2 93 % Oxygen Setting room air Ambulation Trials to Assess Desaturation to 88% Activity 1: Ambulated (feet) 550 feet Oxygen Setting #1 room air SPO2 (%) #1 96 % Post Ambulation Assessment HR Post Assessment 100 bpm RR Post Assessment 24 breaths/m Post Assessment Recommendation room air $ Home O2 Assessment Yes SpO2 of 88% on room air must be documented. Then titrate FiO2 to keep SpO2 above 90%. Rest SpO2 93% Resting on Room Air Exertion Patient ambulated 550 feet SpO2 96% ambulating on room air Recommendations 0 LNC at rest 0 LNC with exertion ER COVERER HELPER * Marlyn Stevens MD - 05/06/2025 6:26 AM CST Daily Progress Note Firm Service Name: Chikis Elder : 1955 Today's Date: May 06, 2025 Age: 69 y.o. male Admit Date: 05/04/2025 Bed: [id number] LOS: 2 days Subjective Interval History Chikis Elder is a 69 y.o. male with a history of hypertension, hypothyroidism, T2DM, HLD, gout, HFrEF (EF 29% 12/2023) s/p primary prevention Bi-V ICD 08/2023, paroxysmal AFib s/p sotalol load and cardioversion 05/03 who presents with acutely worsening shortness of breath 1 day after discharge. Interval events: 629 - Telemetry noting a atrial paced rhythm, that was flagged on telemetry as VT. Patient was asymptomatic, HDS. Denies chest pain. Feels like breathing has been better. Interval Plan: - Continue diuresis with lasix 40 mg IV once daily - Continue ceftriaxone 2 g daily + doxycycline 100 mg BID for 5 day course for CAP - EP following and providing recs for sotalol - plan tocontinue sotalol 80 BID - start albuterol inhaler Update Discharge Readiness Information Objective Vitals Most Recent Vitals: T 36.4 ??C (97.6 ??F), HR 71, BP 122/78, RR 27, SpO2 93 %. 24hr Min/Max: Temp Min: 36.3 ??C (97.4 ??F) Max: 36.4 ??C (97.6 ??F) Pulse Min: 67 Max: 77 BP Min: 90/60 Max: 122/78 Resp Min: 16 Max: 27 SpO2 Min: 91 % Max: 94 % Intake/Output Summary (Last 24 hours) at 05/06/2025 0626 Last data filed at 05/06/2025 0615 Gross per 24 hour Intake 675.1 ml Output 1800 ml Net -1124.9 ml Net IO Since Admission: -869.84 mL [05/06/25 0626] Last Weight: 131.6 kg (290 lb 1.6 oz) (05/06/25 0600). Admit Weight: 131.1 kg (289 lb). Last BM: Physical Exam Constitutional: General: He is not in acute distress. Appearance: He is not diaphoretic. Cardiovascular: Rate and Rhythm: Normal rate and regular rhythm. Pulmonary: Effort: Pulmonary effort is normal. No respiratory distress. Chest: Chest wall: No tenderness. Abdominal: Palpations: Abdomen is soft. Tenderness: There is no abdominal tenderness. There is no guarding or rebound. Musculoskeletal: General: Normal range of motion. Cervical back: Normal range of motion. Neurological: General: No focal deficit present. Mental Status: He is alert and oriented to person, place, and time. Lines, Drains, Airways Peripheral IV 05/04/25 20 G Right Forearm (Active) Labs/Diagnostic Review Na 136 (135) Cl 106 BUN 20 (22) K 4.6 (4.4) CO2 26 (24) Cr 1.39 (1.48) Mg 2.0 (2), G (116) AST - ( ) ALT - ( ) Alk Phos - ( ) Ca 8.4 (8.6) TP - Alb - Total Bili: - ( ) Direct Bili: - ( ) \ Hgb 15.1 (15.8) / WBC 8.19 (9.64) -------- Plt 226 (258) / MCV 100.0 (98.1)\ INR - (Labs above are the most recent result obtained in the last 24 hours, followed by the 2nd to last lab in the past 3 days, if applicable. For additional labs/trends, see Epic.) Imaging Review No results found. Scheduled Meds PRN Meds Infusions [Held by Provider] allopurinoL, 300 mg, oral, Daily apixaban, 5 mg, oral, BID cefTRIAXone, 2,000 mg, intravenous, Q24H LUCÍA doxycycline, 100 mg, oral, BID - special furosemide, 40 mg, intravenous, Daily levothyroxine, 112 mcg, oral, Daily - 0600 metoprolol XL, 50 mg, oral, Daily multivitamin with minerals, 1 tablet, oral, Daily rosuvastatin, 20 mg, oral, Nightly sacubitriL-valsartan, 1 tablet, oral, BID sodium chloride 0.9%, 0.5-20 mL, intra-catheter, Q8H LUCÍA (ALT) sotaloL, 80 mg, oral, BID spironolactone, 25 mg, oral, Daily sodium chloride 0.9%, 0-999 mL, intravenous, PRN sodium chloride 0.9%, 0.5-20 mL, intra-catheter, PRN Assessment Assessment & Plan Acute decompensated heart failure (HCC) c/f pneumonia Patient presented with increasingly worsening shortness of breath and cough after discharge 05/03. On arrival in the ED, denies fever/chills but reports some mild night sweats preceding night. New oxygen requirement of 2 L to keep saturations above 90%. New leukocytosis and JOVANNI on labs, afebrile. CXR with mild pulmonary edema and bibasilar opacities left > right concerning for pneumonia vs atelectasis. Home GDMT: entresto 49-51 mg BID, metoprolol XL 50 mg daily, spironolactone 25 mg daily. Formal TTE demonstrated EF of 34%, previous EF 29% - Diuresis with IV lasix 40 mg - Continue antibiotics for CAP for 5 days (05/04 - 05/08) - Ceftriaxone 2 g daily + doxycyline 100 mg BID Afib (HCC) Underwent sotalol load and cardioversion on 05/03 after cardioversion 03/12 failed to maintain NSR. On Eliquis 5 mg BID, no missed doses last 4 weeks. Currently in NSR. - Sotalol 80 mg q12h (EKG 2 hours after every dose) - Eliquis 5 mg BID - Continuous telemetry - Continue home metoprolol XL 50 mg daily Gout - Hold home allopurinol 300 mg qHS in the setting of JOVANNI Hyperlipidemia, unspecified - Continue home rosuvastatin 20 mg qHS Hypothyroidism, unspecified - Continue home Synthroid 112 mcg qAM but 224 mcg each Saturday Class 3 obesity. Would likely benefit from outpatient weight loss. Code status : Full Code Diet : Adult Diet Restricted; Low Fat, Low Cholesterol, Low Sodium FirmBundle: DVT ppx : eliquis 5 mg BID PT/OT recs : Marlyn Stevens MD Cosigned by Amaris Camargo MD at 05/07/2025 2:59 PM BOILER COVERER HELPER ER COVERER HELPER ER COVERER HELPER Associated attestation - Amaris Camargo MD - 05/07/2025 2:59 PM BOILER COVERER HELPER Attending Documentation I have seen and examined the patient on 05/06/25. I agree with the findings and plan of care as documented in the resident's/fellow's note. Supplementary Attestation Today, I am treating the patient for HFrEF and CAP which is in severe exacerbation, progression, orexperiencing treatment side effects as evidenced by need for IV diuresis and antibiotics, as described in the note. I reviewed tests including BMP resulting in changes to medications. The patient is being intensively monitored for drug toxicity from IV diuretics by checking BMP. Amaris Camargo MD MSc Procurement Assistantair export coordinator, [facility] in [facility] * Jamie Grier RRT - 05/06/2025 5:39 AM CST NPPV - PATIENT WORE Situation: The patient was ordered on NPPV for nocturnal use due to a history of Obstructive Sleep Apnea (PASCALE). Patient was placed on their hospital provided NPPV machine. Settings: NPPV Mode: CPAP EPAP Pressure: 5 cm H20 FIO2: 21 % Skin Breakdown Check: No signs of skin breakdown have been detected. The patient's skin is intact with no irritation, redness, or abrasions to report. Protective Skin Barrier in Place: No. Tolerance: The patient tolerated the NPPV without issue. Plan: Proceed as ordered and continue to monitor the patient. ER COVERER HELPER * Harlan Mcarthur MD - 05/05/2025 4:32 PM CST Daily Progress Note Firm Service Name: Chikis Elder : 1955 Today's Date: May 05, 2025 Age: 69 y.o. male Admit Date: 05/04/2025 Bed: [id number] LOS: 1 days Subjective Interval History Chikis Elder is a 69 y.o. male with a history of hypertension, hypothyroidism, T2DM, HLD, gout, HFrEF (EF 29% 12/2023) s/p primary prevention Bi-V ICD 08/2023, paroxysmal AFib s/p sotalol load and cardioversion 05/03 who presents with acutely worsening shortness of breath 1 day after discharge. Interval events: NAEON. Significant subjective improvement in respiratory status after diuresis andinitiation of antibiotics. Transition from azithromycin to doxycycline due to QT-prolonging effectsof the former, plan for treatment duration of 5 days for CAP. Interval Plan: - Continue diuresis with lasix 40 mg IV BID - Continue ceftriaxone 2 g daily - Discontinue azithromycin, start doxycycline 100 mg BID Update Discharge Readiness Information Objective Vitals Most Recent Vitals: T 36.4 ??C (97.6 ??F), HR 70, BP 90/60, RR 24, SpO2 91 %. 24hr Min/Max: Temp Min: 36.3 ??C (97.3 ??F) Max: 36.4 ??C (97.6 ??F) Pulse Min: 68 Max: 88 BP Min: 90/60 Max: 110/66 Resp Min: 16 Max: 24 SpO2 Min: 91 % Max: 94 % Intake/Output Summary (Last 24 hours) at 05/05/2025 1632 Last data filed at 05/05/2025 1630 Gross per 24 hour Intake 495.1 ml Output 950 ml Net -454.9 ml Net IO Since Admission: -199.84 mL [05/05/25 1632] Last Weight: 131.9 kg (290 lb 12.6 oz) (05/05/25 0600). Admit Weight: 131.1 kg (289 lb). Last BM: Physical Exam Constitutional: General: He is not in acute distress. Appearance: He is not diaphoretic. Cardiovascular: Rate and Rhythm: Normal rate and regular rhythm. Pulmonary: Effort: Pulmonary effort is normal. No respiratory distress. Breath sounds: No wheezing. Chest: Chest wall: No tenderness. Abdominal: Palpations: Abdomen is soft. Tenderness: There is no abdominal tenderness. There is no guarding or rebound. Musculoskeletal: General: Normal range of motion. Cervical back: Normal range of motion. Neurological: General: No focal deficit present. Mental Status: He is alert and oriented to person, place, and time. Lines, Drains, Airways Peripheral IV 05/04/25 20 G Right Forearm (Active) Labs/Diagnostic Review Na 135 (132) Cl 100 BUN 22 (24) K 4.4 (4.1) CO2 24 (22) Cr 1.48 (1.61) Mg 2.0 (2.2), G (142) AST 38 ( ) ALT 43 ( ) Alk Phos 34 ( ) Ca 8.6 (8.6) TP 7.1 Alb 4.2 Total Bili: 1.0 ( ) Direct Bili: - ( ) \ Hgb 15.8 (15.9) / WBC 9.64 (10.39) -------- Plt 258 (259) / MCV 98.1 (98.3)\ INR - (Labs above are the most recent result obtained in the last 24 hours, followed by the 2nd to last lab in the past 3 days, if applicable. For additional labs/trends, see Epic.) Imaging Review XR Chest PA Lateral 2 Views (If patient hemodynamically stable and ambulatory) Result Date: 05/04/2025 FINDINGS/IMPRESSION: Left subclavian approach pacemaker defibrillator with leads overlying the right atrium right ventricle and coronary vein. Patchy airspace opacities in the right greater the left lower lobe may reflect atelectasis versus pneumonia in the correct clinical setting. There is mild pulmonary edema. No pleural effusion or pneumothorax. Cardiomediastinal silhouette is enlarged, similar to prior exam. Dictated by: Jung Willingham MD The radiology attending physician has personally reviewed this study, and had reviewed and/or edited this written report and agrees with it. Electronically signed by: Amanda Hurd M.D. Scheduled Meds PRN Meds Infusions [Held by Provider] allopurinoL, 300 mg, oral, Daily apixaban, 5 mg, oral, BID [Held by Provider] azithromycin, 500 mg, intravenous, Q24H LUCÍA cefTRIAXone, 2,000 mg, intravenous, Q24H LUCÍA furosemide, 40 mg, intravenous, Daily levothyroxine, 112 mcg, oral, Daily - 0600 metoprolol XL, 50 mg, oral, Daily multivitamin with minerals, 1 tablet, oral, Daily rosuvastatin, 20 mg, oral, Nightly sacubitriL-valsartan, 1 tablet, oral, BID sodium chloride 0.9%, 0.5-20 mL, intra-catheter, Q8H LUCÍA (ALT) sotaloL, 120 mg, oral, BID spironolactone, 25 mg, oral, Daily sodium chloride 0.9%, 0-999 mL, intravenous, PRN sodium chloride 0.9%, 0.5-20 mL, intra-catheter, PRN Assessment Assessment & Plan Acute decompensated heart failure (HCC) c/f pneumonia Patient presented with increasingly worsening shortness of breath and cough after discharge 05/03. On arrival in the ED, denies fever/chills but reports some mild night sweats preceding night. New oxygen requirement of 2 L to keep saturations above 90%. New leukocytosis and JOVANNI on labs, afebrile. CXR with mild pulmonary edema and bibasilar opacities left > right concerning for pneumonia vs atelectasis. Home GDMT: entresto 49-51 mg BID, metoprolol XL 50 mg daily, spironolactone 25 mg daily. - Diuresis with IV lasix 40 mg BID - Continue antibiotics for CAP for 5 days (05/04 - ) - Ceftriaxone 2 g daily - Discontinue azithromycin due to qt-prolonging effects, transition to doxycycline 100 mg BID - Formal TTE demonstrated EF of 34%, previous EF 29% Afib (HCC) Underwent sotalol load and cardioversion on 05/03 after cardioversion 03/12 failed to maintain NSR. On Eliquis 5 mg BID, no missed doses last 4 weeks. Currently in NSR. - Sotalol 120 mg q12h - Eliquis 5 mg BID - Continuous telemetry - Continue home metoprolol XL 50 mg daily Gout - Hold home allopurinol 300 mg qHS in the setting of JOVANNI Hyperlipidemia, unspecified - Continue home rosuvastatin 20 mg qHS Hypothyroidism, unspecified - Continue home Synthroid 112 mcg qAM but 224 mcg each Saturday Class 3 obesity. Would likely benefit from outpatient weight loss. Code status : Full Code Diet : Adult Diet Restricted; Low Fat, Low Cholesterol, Low Sodium FirmBundle: DVT ppx : eliquis 5 mg BID PT/OT recs : Harlan Mcarthur MD Cosigned by Amaris Camargo MD at 05/07/2025 2:59 PM BOILER COVERER HELPER ER COVERER HELPER ER COVERER HELPER Associated attestation - Amaris Camargo MD - 05/07/2025 2:59 PM BOILER COVERER HELPER Attending Documentation I have seen and examined the patient on 05/05/25. I agree with the findings and plan of care as documented in the resident's/fellow's note. Assessment & Plan: Mr. Elder is a 69 yo M with HFrEF (EF 30-35%, s/p ICD), paroxysmal AF (recently admitted for sotalol load and DCCV to [facility]), who re-presents with shortness of breath due to possible CAP and HF. Symptoms improved overnight. Labs notable for Cr 1.48, NT-proBNP ~8100, and ECG ASVP. Continue azithromy rachid/ceftriaxone for possible CAP, IV diuresis, continue GDMT for HFrEF (metoprolol XL 50, entresto 49-51, spironolactone 25), and sotalol 120 mg BID and apixaban 5 mg BID for pAF. Repeat TTE pending and gil-check SGLT2i (and update outpatient rolled ham lacer). Supplementary Attestation Today, I am treating the patient for HFrEF and CAP which is in severe exacerbation, progression, orexperiencing treatment side effects as evidenced by need for IV diuresis and antibiotics, as described in the note. I reviewed tests including BMP resulting in changes to medications. The patient is being intensively monitored for drug toxicity from IV diuretics by checking BMP. Amaris Camargo MD MSc Procurement Assistantair export coordinator, [facility] in [employer] documented in this encounter H&P Notes * Sebas Coffman MD - 05/10/2025 9:18 AM CST I have reviewed the H&P, examined the patient, and endorse the findings as written. Plan of Care : Based on the above findings, I consider Chikis Elder to be an acceptable risk for : Procedure(s): CARDIOVERSION [id number] ER COVERER HELPER Source Note - Augustus Munoz MD - 05/06/2025 6:24 PM BOILER COVERER HELPER Cardiology Consult Note - Electrophysiology Patient Name: Chikis Elder : 1955 Date of Service: 05/06/25 Requesting Attending: Amaris Camargo MD Reason for Consult: Chief Complaint: SOB HPI Chikis Elder is a 69 y.o. male with a history of BMI 40 Hypertension Dyslipidemia (LDL 115 08/20/24) HFrEF (30-35% 01/10/24) Intraventricular conduction delay s/p Salguero [employer] C[employer]IED ORTHOTIST-D with coronary sinus lead 08/28/23 Persistent atrial fibrillation on apixaban Cardioversion 03/12/25 Cardioversion 05/03/25 Initiated on sotalol on 05/01 Obstructive sleep apnea on CPAP Electrophysiology has been consulted for management of antiarrhythmic drugs. Admitted on 05/04 for acute SOB after recent discharge the day before. Notably, was previously admitted last week for elective AAD load (sotalol) and was successfully electrically cardioverted duringadmission to NSR. Hospital course was uncomplicated and he was discharged on sotalol 120mg BID to which he has been compliant. Admission EKG still in NSR. Reports he felt rather acutely SOB at home after discharge and was unable to lay flat to sleep at night. His , who provides history at bedside, reports she noticed he was much more winded than usual with climbing stair in home. BNP in ED 8200 (prior 337 in August). CXR w/ pulmonary edema vs. Consolidation. Given azithromycin, CTX, and IV lasix in ED. Review of Systems: Review of systems as per HPI and, otherwise all other systems are negative. PMHX: has a past medical history of Arthritis, CHF (congestive heart failure) (HCC), Diabetes mellitus, Hypertension, Hypothyroidism, Nonischemic cardiomyopathy (HCC), Sleep apnea, Thyroid disease, and Type 2 diabetes mellitus. PSHX: has a past surgical history that includes Knee surgery (Right); Abdominal hernia repair; Inguinal Hernia Repair (Left); Cardiac catheterization; Cardiac electrophysiology procedure (N/A, 03/12/2025); and Cardiac electrophysiology procedure (N/A, 05/03/2025). Family Hx: family history includes Cancer in his father and mother; Stroke in his mother. Social Hx: As in HPI. Allergies: No Known Allergies Home Medications: HOME MEDICATIONS: allopurinoL (ZYLOPRIM) 300 mg tablet Eliquis 5 mg tablet furosemide (LASIX) 40 mg tablet glucosamine-chondroitin 250-200 mg tablet levothyroxine (SYNTHROID) 112 mcg tablet metoprolol XL (TOPROL-XL) 50 mg extended release tablet multivitamin tablet omega-3 fatty acids-fish oil 300-1,000 mg capsule rosuvastatin (CRESTOR) 20 mg tablet sacubitriL-valsartan (Entresto) 49-51 mg tablet sotaloL (BETAPACE) 120 mg tablet spironolactone (ALDACTONE) 25 mg tablet testosterone cypionate (DEPO-TESTOTERONE) 200 mg/mL injection turmeric root extract 500 mg capsule Current Medications: [Held by Provider] allopurinoL, 300 mg, oral, Daily apixaban, 5 mg, oral, BID cefTRIAXone, 2,000 mg, intravenous, Q24H LUCÍA doxycycline, 100 mg, oral, BID - special furosemide, 40 mg, intravenous, Daily levothyroxine, 112 mcg, oral, Daily - 0600 metoprolol XL, 50 mg, oral, Daily multivitamin with minerals, 1 tablet, oral, Daily rosuvastatin, 20 mg, oral, Nightly sacubitriL-valsartan, 1 tablet, oral, BID sodium chloride 0.9%, 0.5-20 mL, intra-catheter, Q8H LUCÍA (ALT) sotaloL, 80 mg, oral, BID spironolactone, 25 mg, oral, Daily Objective Vital Signs: 24hr Min/Max: Temp Min: 36.2 ??C (97.2 ??F) Max: 36.6 ??C (97.9 ??F) Pulse Min: 67 Max: 83 BP Min: 92/70 Max: 125/69 Resp Min: 15 Max: 27 SpO2 Min: 91 % Max: 95 % Most Recent: Vitals: 05/06/25 1547 BP: 104/71 Pulse: 67 Resp: 16 Temp: 36.6 ??C (97.9 ??F) SpO2: 91% Intake/Output: Intake/Output Summary (Last 24 hours) at 05/06/2025 1824 Last data filed at 05/06/2025 1805 Gross per 24 hour Intake 300 ml Output 2450 ml Net -2150 ml Physical Exam: General appearance: no acute distress HEENT: NCAT, MMM, anicteric Lungs: CTAB, no w/r/r, non-labored Heart: RRR, S1, S2 normal, no murmur, rub or gallop. JVP not elevated, no LE edema Abdomen: soft, NT/ND; bowel sounds normal Extremities: extremities normal, warm and well-perfused, equal pulses Skin: warm and dry Neurologic: No abnormal movements, non-focal exam Psych: Normal mood and affect Lab/Radiology/Diagnostic Review: Labs: Recent Labs Lab Units 05/05/[id number] HEMOGLOBIN g/dL 15.1 15.8 15.9 15.8 16.2 HEMATOCRIT % 45.9 46.8 47.6 46.6 48.8 WBC K/cumm 8.19 9.64 10.39* 8.77 8.13 PLATELETS K/cumm 226 258 259 250 254 Recent Labs Lab Units 05/05/25211905/04/25215105/04/2544805/02/25225205/01/25200904/30/251946 SODIUM mmol/L 136 135 < > 135 138 137 POTASSIUM PLASMA mmol/L 4.6 4.4 < > 4.4 4.6 4.1 CHLORIDE mmol/L 106 100 < > 99 104 103 CO2 mmol/L 26 24 < > 22 22 22 ANIONGAP mmol/L 4 11 < > 14 12 12 BUN SERUM mg/dL 20 22 < > 21 19 19 CREATININE mg/dL 1.39* 1.48* < > 1.25 1.17 1.24 CALCIUM mg/dL 8.4* 8.6 < > 8.8 9.0 9.0 MAGNESIUM mg/dL 2.0 2.0 -- 2.2 2.1 2.0 < > = values in this interval not displayed. Recent Labs Lab Units 05/04/25448 ALBUMIN g/dL 4.2 ALK PHOS Units/L 34* AST Units/L 38 ALT Units/L 43 BILIRUBIN TOTAL mg/dL 1.0 Cultures: No results found for: MICROBIOLOGY I personally reviewed the Telemetry images with the following findings: Notably for episode of V-paced rapid rhythm this morning around 9AM. I personally reviewed the ECG images with the following findings: A-sensed V-paced, HR 70s, QTc 542. TTE: CONCLUSIONS: 1. Severely dilated left ventricle based on volume index. Eccentric LV hypertrophy. Moderately depressed left ventricular systolic function. The Ejection Fraction (Zheng's) is measured at 34 %. Grade III diastolic dysfunction (elevated LA pressure, restrictive physiology). The average global longitudinal strain is abnormal. 2. Resting Segmental Wall Motion Analysis: Total wall motion score is 2.00. There is global left ventricular hypokinesis. 3. Right ventricular dilatation. Normal right ventricular systolic function. Wire noted in the right heart. 4. Severely dilated left atrium. 5. Right atrial dilatation. 6. Moderate mitral valve regurgitation. 7. Moderate tricuspid regurgitation. 8. IVC not visualized due to poor acoustic windows. 9. Estimated pulmonary artery systolic pressure is consistent with mild pulmonary hypertension (35-50mmHg). Cardiac catheterization: No prior to review. I personally reviewed the CXR images with the following findings: Mild pulmonary edema. Assessment/Plan Chikis Elder is a 69 y.o. male with a history of ,BMI 40 Hypertension, Dyslipidemia (LDL 115 08/20/24), HFrEF (30-35% 01/10/24), Intraventricular conduction delay s/p Salguero [employer] CERTIFIED ORTHOTIST-D with coronary sinus lead 08/28/23, Persistent atrial fibrillation on apixaban and sotalol, Cardioversion 03/12/25, Cardiove rsion 05/03/25, Initiated on sotalol on 05/01, and Obstructive sleep apnea on CPAP who presents forSOB. # Atrial Fibrillation # HFrEF (30-35%) Re-admitted for SOB after recent admission 05/03 for antiarrhythmic drug load (sotalol) + DCCV successfully to NSR. Previously with DCCV in February but did not maintain NSR. Currently being diuresed + treated for possible CAP. Has been maintained in NSR since discharge on sotalol 120mg BID. Re-engaged on this admit for management of sotalol w/ prolonged QTc interval. Notably was treated with azithromycin for CAP which is known to prolong QT. He has a [employer] CERTIFIED ORTHOTIST-D device and ventricular pacing is widening QRS and to some extent artificially prolonging the QTc. Nonetheless, with QTc on this admit (540) having prolonged since discharge (502) recommending dose reduction as below. Recommendations: - continue sotalol 80mg BID - please collect EKGs 2 hours after each dose and hold next dose if QTc > 550 - cont home eliquis 5mg BID We appreciate the ability to be involved in this patient's care. If after 5PM or on weekends, please page the mental health aide occupational health rn with any questions or concerns. Augustus Munoz MD Quality Officer 6:24 PM 05/06/25 Cosigned by Manoj Blackman MD at 05/08/2025 1:39 PM BOILER COVERER HELPER ER COVERER HELPER ER COVERER HELPER * Harlan Mcarthur MD - 05/04/2025 8:05 PM CST History and Physical Firm Service Name: Chikis Elder : 1955 Today's Date: May 04, 2025 Age: 69 y.o. male Admit Date: 05/04/2025 Bed: [id number] LOS: 0 days Subjective HPI Chikis Elder is a 69 y.o. male with a history of hypertension, hypothyroidism, T2DM, HLD, gout, HFrEF (EF 29% 12/2023) s/p primary prevention Bi-V ICD 08/2023, paroxysmal AFib s/p sotalol load and cardioversion 05/03 who presents with acutely worsening shortness of breath 1 day after discharge. He reports feeling fine after his cardioversion right upon going home slowly needed more time to recover after walking up stairs, ultimately not being able to walk all the way up stairs to his bedroom. He denies chest pain, only endorses difficulty catching his breath. He endorses a cough which he feels in his throat. Upon arrival to the ED, he required 2 L oxygen to keep saturations above 90%. Vitals otherwise unremarkable, EKG demonstrates paced rhythm. Labs notable for sodium 132, creatinine 1.61 (baseline 1.2), NT proBNP 8200 (337 in August 2024), WBC 10.39. CXR demonstrates mild pulmonary edema, patchy airspace opacities in the right > left lower lobe suggestive of pneumonia vs atelectasis. While in the ED, given azithromycin, ceftriaxone, and 40 mg lasix IV. Past Medical History Past Medical History: Diagnosis Date Arthritis CHF (congestive heart failure) (HCC) Diabetes mellitus Hypertension Hypothyroidism Nonischemic cardiomyopathy (HCC) left bundle branch block Sleep apnea Thyroid disease Type 2 diabetes mellitus Past Surgical History: Procedure Laterality Date ABDOMINAL HERNIA REPAIR CARDIAC CATHETERIZATION CARDIAC ELECTROPHYSIOLOGY PROCEDURE N/A 03/12/2025 Procedure: CARDIOVERSION; Surgeon: Isai Shetty MD PhD; Location: [facility]; Service: Cardiovascular; Laterality: N/A; arrival 0600- needs a ride to and from the procedure CARDIAC ELECTROPHYSIOLOGY PROCEDURE N/A 05/03/2025 Procedure: CARDIOVERSION [id number]; Surgeon: Isai Shetty MD PhD; Location: [facility]; Service: Cardiovascular; Laterality: N/A; INGUINAL HERNIA REPAIR Left KNEE SURGERY Right meniscus repair - arthroscopic No current facility-administered medications on file prior to encounter. Current Outpatient Medications on File Prior to Encounter Medication Sig Dispense Refill allopurinoL (ZYLOPRIM) 300 mg tablet Take 1 tablet (300 mg total) by mouth daily Eliquis 5 mg tablet Take 1 tablet by mouth twice daily 180 tablet 0 furosemide (LASIX) 40 mg tablet Take 1 tablet by mouth once daily 90 tablet 3 glucosamine-chondroitin 250-200 mg tablet Take 1 capsule by mouth daily levothyroxine (SYNTHROID) 112 mcg tablet TAKE 1 TABLET BY MOUTH ONCE DAILY AND 2 TABLETS EVERY SATURDAY metoprolol XL (TOPROL-XL) 50 mg extended release tablet Take 1 tablet by mouth once daily 90 tablet3 multivitamin tablet Take 1 tablet by mouth daily omega-3 fatty acids-fish oil 300-1,000 mg capsule Take 1 capsule (1 g total) by mouth daily rosuvastatin (CRESTOR) 20 mg tablet Take 1 tablet (20 mg total) by mouth daily sacubitriL-valsartan (Entresto) 49-51 mg tablet Take 1 tablet by mouth twice daily 180 tablet 2 sotaloL (BETAPACE) 120 mg tablet Take 1 tablet (120 mg total) by mouth 2 (two) times a day 60 tablet 2 spironolactone (ALDACTONE) 25 mg tablet TAKE 1 TABLET BY MOUTH ONCE DAILY IN THE MORNING 90 tablet 3 testosterone cypionate (DEPO-TESTOTERONE) 200 mg/mL injection INJECT 1 ML INTRAMUSCULARLY ONCE A WEEK A ONE TIME DOSE turmeric root extract 500 mg capsule Take 1 tablet/capsule by mouth daily No Known Allergies Social and Family History Social History Tobacco Use Smoking status: Never Smokeless tobacco: Never Substance and Sexual Activity Drug use: Never Sexual activity: Defer Alcohol Use: Not At Risk (05/03/2025) AUDIT-C Frequency of Alcohol Consumption: Never Average Number of Drinks: Patient does not drink Frequency of Binge Drinking: Never Family History Problem Relation Age of Onset Stroke Mother Cancer Mother Cancer Father Objective Vitals Most Recent Vitals: T 36.3 ??C (97.3 ??F), HR 88, BP 110/66, RR 20, SpO2 94 %. 24hr Min/Max: Temp Min: 36.3 ??C (97.3 ??F) Max: 36.8 ??C (98.2 ??F) Pulse Min: 71 Max: 88 BP Min: 95/58 Max: 129/69 Resp Min: 16 Max: 28 SpO2 Min: 87 % Max: 97 % Intake/Output Summary (Last 24 hours) at 05/04/20252004 Last data filed at 05/04/2025 1242 Gross per 24 hour Intake 255.06 ml Output -- Net 255.06 ml Net IO Since Admission: 255.06 mL [05/04/252004] Last Weight: 132 kg (291 lb 1.6 oz) (05/04/251929). Admit Weight: 131.1 kg (289 lb). Last BM: Physical Exam Constitutional: Appearance: He is normal weight. Cardiovascular: Rate and Rhythm: Normal rate and regular rhythm. Pulmonary: Comments: Increased WOB, no clearly-appreciable abnormal breath sounds Chest: Chest wall: No tenderness. Comments: Pacemaker Abdominal: Palpations: Abdomen is soft. Tenderness: There is no abdominal tenderness. There is no guarding or rebound. Musculoskeletal: General: Normal range of motion. Cervical back: Normal range of motion. Neurological: General: No focal deficit present. Mental Status: He is alert and oriented to person, place, and time. Psychiatric: Mood and Affect: Mood normal. Behavior: Behavior normal. Lines, Drains, Airways Peripheral IV 05/04/25 20 G Right Forearm (Active) Labs/Diagnostic Review Na 132 Cl 99 BUN 24 K 4.1 CO2 22 Cr 1.61 Mg 2.2, G AST 38 ALT 43 Alk Phos 34 Ca 8.6 TP - Alb 4.2 Total Bili: 1.0 Direct Bili: - \ Hgb 15.9 / WBC 10.39 -------- Plt 259 / MCV 98.3 \ INR - (Labs above are the most recent result obtained in the last 24 hours. For additional labs/trends, see Epic.) Imaging Review XR Chest PA Lateral 2 Views (If patient hemodynamically stable and ambulatory) Result Date: 05/04/2025 FINDINGS/IMPRESSION: Left subclavian approach pacemaker defibrillator with leads overlying the right atrium right ventricle and coronary vein. Patchy airspace opacities in the right greater the left lower lobe may reflect atelectasis versus pneumonia in the correct clinical setting. There is mild pulmonary edema. No pleural effusion or pneumothorax. Cardiomediastinal silhouette is enlarged, similar to prior exam. Dictated by: Jung Willingham MD The radiology attending physician has personally reviewed this study, and had reviewed and/or edited this written report and agrees with it. Electronically signed by: Amanda Hurd M.D. Electrophysiology (EP) Study Result Date: 05/03/2025 Successful DC cardioversion to AV oaced rhythm. The referring EP team was notified. Isai Shetty MD PhD was present to personally supervise or perform the entire procedure. Assessment Assessment & Plan Acute decompensated heart failure (HCC) c/f pneumonia Patient presented with increasingly worsening shortness of breath and cough after discharge 05/03. On arrival in the ED, denies fever/chills but reports some mild night sweats preceding night. New oxygen requirement of 2 L to keep saturations above 90%. New leukocytosis and JOVANNI on labs, afebrile. CXR with mild pulmonary edema and bibasilar opacities left > right concerning for pneumonia vs atelectasis. Home GDMT: entresto 49-51 mg BID, metoprolol XL 50 mg daily, spironolactone 25 mg daily. - Diuresis with IV lasix 40 mg BID - Continue azithromycin, ceftriaxone q12h - Formal TTE - RPP pending Afib (HCC) Underwent sotalol load and cardioversion on 05/03 after cardioversion 03/12 failed to maintain NSR. On Eliquis 5 mg BID, no missed doses last 4 weeks. Currently in NSR. - Sotalol 120 mg q12h - Eliquis 5 mg BID - Continuous telemetry - Continue home metoprolol XL 50 mg daily Gout - Hold home allopurinol 300 mg qHS in the setting of JOVANNI Hyperlipidemia, unspecified - Continue home rosuvastatin 20 mg qHS Hypothyroidism, unspecified - Continue home Synthroid 112 mcg qAM but 224 mcg each Saturday Class 3 obesity. Would likely benefit from outpatient weight loss. Update Discharge Readiness Information Code status : Full Code Diet : Adult Diet Restricted; Low Fat, Low Cholesterol, Low Sodium FirmBundle: DVT ppx : eliquis BID PT/OT recs : Harlan Mcarthur MD Cosigned by Amaris Camargo MD at 05/05/2025 1:37 PM BOILER COVERER HELPER ER COVERER HELPER ER COVERER HELPER Associated attestation - Amaris Camargo MD - 05/05/2025 1:37 PM BOILER COVERER HELPER Attending Documentation I have seen and examined the patient on 05/05/25. I agree with the findings and plan of care as documented in the resident's/fellow's note. Assessment & Plan: Mr. Elder is a 69 yo M with HFrEF (EF 30-35%, s/p ICD), paroxysmal AF (recently admitted for sotalol load and DCCV to R), who re-presents with shortness of breath due to possible CAP and HF. Symptoms improved overnight. Labs notable for Cr 1.48, NT-proBNP ~8100, and ECG ASVP. Continue azithromy rachid/ceftriaxone for possible CAP, IV diuresis, continue GDMT for HFrEF (metoprolol XL 50, entresto 49-51, spironolactone 25), and sotalol 120 mg BID and apixaban 5 mg BID for pAF. Repeat TTE pending and gil-check SGLT2i (and update outpatient rolled ham lacer). Supplementary Attestation Today, I am treating the patient for HFrEF and CAP which is in severe exacerbation, progression, orexperiencing treatment side effects as evidenced by need for IV diuresis and antibiotics, as described in the note. I reviewed tests including BMP resulting in changes to medications. The patient is being intensively monitored for drug toxicity from IV diuretics by checking BMP. Amaris Camargo MD MSc Procurement Assistantair export coordinator, [facility] in [facility] documented in this encounter Consult Notes * Augustus Munoz MD - 05/06/2025 6:24 PM CSTAssociated Order(s): IP CONSULT TO ELECTROPHYSIOLOGY Cardiology Consult Note - Electrophysiology Patient Name: Chikis Elder : 1955 Date of Service: 05/06/25 Requesting Attending: Amaris Camargo MD Reason for Consult: Chief Complaint: SOB HPI Chikis Elder is a 69 y.o. male with a history of BMI 40 Hypertension Dyslipidemia (LDL 115 08/20/24) HFrEF (30-35% 01/10/24) Intraventricular conduction delay s/p Salguero [employer] CERTIFIED ORTHOTIST-D with coronary sinus lead 08/28/23 Persistent atrial fibrillation on apixaban Cardioversion 03/12/25 Cardioversion 05/03/25 Initiated on sotalol on 05/01 Obstructive sleep apnea on CPAP Electrophysiology has been consulted for management of antiarrhythmic drugs. Admitted on 05/04 for acute SOB after recent discharge the day before. Notably, was previously admitted last week for elective AAD load (sotalol) and was successfully electrically cardioverted duringadmission to NSR. Hospital course was uncomplicated and he was discharged on sotalol 120mg BID to which he has been compliant. Admission EKG still in NSR. Reports he felt rather acutely SOB at home after discharge and was unable to lay flat to sleep at night. His , who provides history at bedside, reports she noticed he was much more winded than usual with climbing stair in home. BNP in ED 8200 (prior 337 in August). CXR w/ pulmonary edema vs. Consolidation. Given azithromycin, CTX, and IV lasix in ED. Review of Systems: Review of systems as per HPI and, otherwise all other systems are negative. PMHX: has a past medical history of Arthritis, CHF (congestive heart failure) (HCC), Diabetes mellitus, Hypertension, Hypothyroidism, Nonischemic cardiomyopathy (HCC), Sleep apnea, Thyroid disease, and Type 2 diabetes mellitus. PSHX: has a past surgical history that includes Knee surgery (Right); Abdominal hernia repair; Inguinal Hernia Repair (Left); Cardiac catheterization; Cardiac electrophysiology procedure (N/A, 03/12/2025); and Cardiac electrophysiology procedure (N/A, 05/03/2025). Family Hx: family history includes Cancer in his father and mother; Stroke in his mother. Social Hx: As in HPI. Allergies: No Known Allergies Home Medications: HOME MEDICATIONS: allopurinoL (ZYLOPRIM) 300 mg tablet Eliquis 5 mg tablet furosemide (LASIX) 40 mg tablet glucosamine-chondroitin 250-200 mg tablet levothyroxine (SYNTHROID) 112 mcg tablet metoprolol XL (TOPROL-XL) 50 mg extended release tablet multivitamin tablet omega-3 fatty acids-fish oil 300-1,000 mg capsule rosuvastatin (CRESTOR) 20 mg tablet sacubitriL-valsartan (Entresto) 49-51 mg tablet sotaloL (BETAPACE) 120 mg tablet spironolactone (ALDACTONE) 25 mg tablet testosterone cypionate (DEPO-TESTOTERONE) 200 mg/mL injection turmeric root extract 500 mg capsule Current Medications: [Held by Provider] allopurinoL, 300 mg, oral, Daily apixaban, 5 mg, oral, BID cefTRIAXone, 2,000 mg, intravenous, Q24H LUCÍA doxycycline, 100 mg, oral, BID - special furosemide, 40 mg, intravenous, Daily levothyroxine, 112 mcg, oral, Daily - 0600 metoprolol XL, 50 mg, oral, Daily multivitamin with minerals, 1 tablet, oral, Daily rosuvastatin, 20 mg, oral, Nightly sacubitriL-valsartan, 1 tablet, oral, BID sodium chloride 0.9%, 0.5-20 mL, intra-catheter, Q8H LUCÍA (ALT) sotaloL, 80 mg, oral, BID spironolactone, 25 mg, oral, Daily Objective Vital Signs: 24hr Min/Max: Temp Min: 36.2 ??C (97.2 ??F) Max: 36.6 ??C (97.9 ??F) Pulse Min: 67 Max: 83 BP Min: 92/70 Max: 125/69 Resp Min: 15 Max: 27 SpO2 Min: 91 % Max: 95 % Most Recent: Vitals: 05/06/25 1547 BP: 104/71 Pulse: 67 Resp: 16 Temp: 36.6 ??C (97.9 ??F) SpO2: 91% Intake/Output: Intake/Output Summary (Last 24 hours) at 05/06/20251823 Last data filed at 05/06/2025 1805 Gross per 24 hour Intake 300 ml Output 2450 ml Net -2150 ml Physical Exam: General appearance: no acute distress HEENT: NCAT, MMM, anicteric Lungs: CTAB, no w/r/r, non-labored Heart: RRR, S1, S2 normal, no murmur, rub or gallop. JVP not elevated, no LE edema Abdomen: soft, NT/ND; bowel sounds normal Extremities: extremities normal, warm and well-perfused, equal pulses Skin: warm and dry Neurologic: No abnormal movements, non-focal exam Psych: Normal mood and affect Lab/Radiology/Diagnostic Review: Labs: Recent Labs Lab Units 05/05/25211905/04/25215105/04/2544805/02/25225505/01/252009 HEMOGLOBIN g/dL 15.1 15.8 15.9 15.8 16.2 HEMATOCRIT % 45.9 46.8 47.6 46.6 48.8 WBC K/cumm 8.19 9.64 10.39* 8.77 8.13 PLATELETS K/cumm 226 258 259 250 254 Recent Labs Lab Units 05/05/25211905/04/25215105/04/2544805/02/25225205/01/25200904/30/25 194 SODIUM mmol/L 136 135 < > 135 138 137 POTASSIUM PLASMA mmol/L 4.6 4.4 < > 4.4 4.6 4.1 CHLORIDE mmol/L 106 100 < > 99 104 103 CO2 mmol/L 26 24 < > 22 22 22 ANIONGAP mmol/L 4 11 < > 14 12 12 BUN SERUM mg/dL 20 22 < > 21 19 19 CREATININE mg/dL 1.39* 1.48* < > 1.25 1.17 1.24 CALCIUM mg/dL 8.4* 8.6 < > 8.8 9.0 9.0 MAGNESIUM mg/dL 2.0 2.0 -- 2.2 2.1 2.0 < > = values in this interval not displayed. Recent Labs Lab Units 05/04/25 0449 ALBUMIN g/dL 4.2 ALK PHOS Units/L 34* AST Units/L 38 ALT Units/L 43 BILIRUBIN TOTAL mg/dL 1.0 Cultures: No results found for: MICROBIOLOGY I personally reviewed the Telemetry images with the following findings: Notably for episode of V-paced rapid rhythm this morning around 9AM. I personally reviewed the ECG images with the following findings: A-sensed V-paced, HR 70s, QTc 542. TTE: CONCLUSIONS: 1. Severely dilated left ventricle based on volume index. Eccentric LV hypertrophy. Moderately depressed left ventricular systolic function. The Ejection Fraction (Zheng's) is measured at 34 %. Grade III diastolic dysfunction (elevated LA pressure, restrictive physiology). The average global longitudinal strain is abnormal. 2. Resting Segmental Wall Motion Analysis: Total wall motion score is 2.00. There is global left ventricular hypokinesis. 3. Right ventricular dilatation. Normal right ventricular systolic function. Wire noted in the right heart. 4. Severely dilated left atrium. 5. Right atrial dilatation. 6. Moderate mitral valve regurgitation. 7. Moderate tricuspid regurgitation. 8. IVC not visualized due to poor acoustic windows. 9. Estimated pulmonary artery systolic pressure is consistent with mild pulmonary hypertension (35-50mmHg). Cardiac catheterization: No prior to review. I personally reviewed the CXR images with the following findings: Mild pulmonary edema. Assessment/Plan Chikis Elder is a 69 y.o. male with a history of ,BMI 40 Hypertension, Dyslipidemia (LDL 115 08/20/24), HFrEF (30-35% 01/10/24), Intraventricular conduction delay s/p Salguero [employer] CERTIFIED ORTHOTIST-D with coronary sinus lead 08/28/23, Persistent atrial fibrillation on apixaban and sotalol, Cardioversion 03/12/25, Cardiove rsion 05/03/25, Initiated on sotalol on 05/01, and Obstructive sleep apnea on CPAP who presents forSOB. # Atrial Fibrillation # HFrEF (30-35%) Re-admitted for SOB after recent admission 05/03 for antiarrhythmic drug load (sotalol) + DCCV successfully to NSR. Previously with DCCV in February but did not maintain NSR. Currently being diuresed + treated for possible CAP. Has been maintained in NSR since discharge on sotalol 120mg BID. Re-engaged on this admit for management of sotalol w/ prolonged QTc interval. Notably was treated with azithromycin for CAP which is known to prolong QT. He has a [employer] CERTIFIED ORTHOTIST-D device and ventricular pacing is widening QRS and to some extent artificially prolonging the QTc. Nonetheless, with QTc on this admit (540) having prolonged since discharge (502) recommending dose reduction as below. Recommendations: - continue sotalol 80mg BID - please collect EKGs 2 hours after each dose and hold next dose if QTc > 550 - cont home eliquis 5mg BID We appreciate the ability to be involved in this patient's care. If after 5PM or on weekends, please page the mental health aide occupational health rn with any questions or concerns. Augustus Munoz MD Quality Officer 6:24 PM 05/06/25 Cosigned by Manoj Blackman MD at 05/08/2025 1:39 PM BOILER COVERER HELPER ER COVERER HELPER ER COVERER HELPER Associated attestation - Manoj Blackman MD - 05/08/2025 1:39 PM BOILER COVERER HELPER The resident/fellow saw and examined the patient, we discussed their findings, and I am in agreement with the plan based on the discussion with the resident/fellow. I did not personally examine the patient. Recent sotalol load + cardioversion Re-presented with dyspnea. Thought to be either/or CHF (elevated BNP) or community acquired pneumonia. Given QT-prolonging antibiotics (azithromycin). Asked to eval for newly prolonged QT interval. For now, please decrease sotalol from 120mg PO BID to 80mg PO BID. I've personally reviewed the ECGs. Please avoid QT-prolonging antibiotics, if they are even needed. I think he seems to have more CHF-type symptoms (dyspnea) than pneumonia-type symptoms (no fever, no cough). Follow up [facility] (and with his outpatient rolled ham lacer). documented in this encounter ED Notes * Angela Saravia RN - 05/04/2025 12:39 PM CST Bed: T-04 Expected date: Expected time: Means of arrival: Comments: 08-09 Angela Saravia RN 05/04/25 1239 ER COVERER HELPER * Stephania Chaudhari MD - 05/04/2025 8:49 AM CST HPI: 69 y.o. male with PMH afib (on eliquis), HFrEF (LVEF 29% per TTE 2023), HLD, ICD, hypothyroidism,, presents to the ED with shortness of breath on background of recent hospitalization and s/p 1 day cardioversion. Pt reports increasingly worsening shortness of breath since being discharged from the hospital yesterday for sotalol loading for atrial fibrillation and undergoing cardioversion yesterday. He stated he felt fine after the cardioversion and was not short of breath prior to discharge from the hospital. Denies fevers, chills, but reports mild night sweats last night. Denies headache, abdominal pain, body aches/joint pain, sick contacts at home. Reports some abdominal distention. He stated that his shortness of breath worsened overnight. He denies chest pain, heart palpitations, sore throat, rhinorrhea. He has a dry cough at baseline since being diagnosed with HFrEF in 2022. Pt requiring 2L O2 to keep sats above 90%, does not wear oxygen at home. History Information obtained from: patient and family member () Chart note(s) reviewed to augment HPI: most recent discharge summary note which revealed/confirmed past history above Social history: denies tobacco, ETOH or drug use Exam: VS reviewed CONSTITUTIONAL: acutely ill appearing, obese, mild distress HEAD: Normocephalic; atraumatic EYES: conjunctiva and sclera are clear bilaterally, PERRLA HEENT: No rhinorrhea; normal voice, no lymphadenopathy CARD: Normal S1, S2; no murmurs, rubs, or gallops. Regular rate and rhythm. no chest wall tenderness, JVP visible RESP: slightly increased respiratory effort, rales noted bilaterally lower lobes ABD: Normal bowel sounds, mild distention, soft abdomen, no tenderness to palpation EXT: Trace peripheral edema NEURO: A&Ox3, sensory motor exam intact bilaterally, normal speech PSYCH: normal mood and affect, cooperative Assessment: 69 y.o. male with PMH afib (on eliquis), HFrEF (LVEF 29% per TTE 2023), HLD, ICD, hypothyroidism, presents to the ED with shortness of breath on background of recent hospitalization and s/p 1 day cardioversion. Social Determinants of Health affecting my care of patient: None Differential diagnoses: Acute heart failure exacerbation, pneumonia, PE, CAD Plan: 1) Labs: CMP, CBC, BNP, trop 2) Imaging/ECG: ECG, CXR, TTE 3) Therapeutics: lasix, azithromycin, rocephin 4) reassess after labs and treatment 5) admission ED Course as of 05/04/25 1231 Time: 05/04 851 Comment: I independently reviewed CXR, pulmonary edema noted. By: Renuka Haider MD Time: 05/04 852 Value: WBC(!): 10.39 Comment: Increased from yesterday, all other cell lines stable so less likely hypovolemia. CXR withconcern for pneumonia. Will empirically start abx. By: Renuka Haider MD Time: 05/04 913 Value: XR Chest PA Lateral 2 Views (If patient hemodynamically stable and ambulatory) Comment: (Reviewed) By: Stephania Chaudhari MD Time: 05/04 914 Comment: Attending note: 69 yo M AF on eliquis, HFrEF last EF 29% in 2023, ICD in place, HLD, hypothroidism p/w SOB. Recent hospitalization for AF, d/c 1 day ago after cardioversion. Was loaded on sotalol. Never converted back to normal sinus, but was cardioverted yesterday. [place] fine in hospital. Last night, started feeling increased SOB. Wears CPAP at home, did not help. Denies palpitations, CP. Denies URI symptoms butdoes have chronic dry cough related to HFrEF. No sore throat. Denies abdominal pain. Abdomen more distended per . No fevers, chills. Night sweats overnight. On exam, JVP visible, crackles/rales in bases of both lungs, heart sounds normal. NSR. Trace edema in bilateral lower extremities. Ddx includes pneumonia, CHF exacerbation, less likely PE, ACS. Plan to check CBC, CMP, trop, BNP, ECG, CXR, anticipate admission due to new O2 requirements. By: Renuka Haider MD Time: 05/04 1000 Comment: POCUS showing worsening heart failure with global hypokinesia By: Stephania Chaudhari MD Final diagnoses: Shortness of breath tSephania Chaudhari MD Resident 05/04/25 1231 Cosigned by Renuka Haider MD at 05/04/2025 7:38 PM BOILER COVERER HELPER ER COVERER HELPER ER COVERER HELPER Associated attestation - Renuka Haider MD - 05/04/2025 7:38 PM BOILER COVERER HELPER I have seen and examined the patient. I agree with the findings and plan of care as documented by the resident except as noted. * Genie Rg RN - 05/04/2025 8:48 AM CST Bed: ED2-23 Expected date: Expected time: Means of arrival: Car Comments: Genie Rg RN 05/04/25 0848 ER COVERER HELPER * Brenda Flynn RN - 05/04/2025 4:35 AM CST Pt c/o worsening sob throughout the night. Reports was just discharged from here yesterday for a.fib and chf. Resp labored. 87% on RA. 94% on 2L NC. Denies chest pain. A&ox4. ER COVERER HELPER documented in this encounter Miscellaneous Notes * Plan of Care - Jeffery Juarez RN - 05/10/2025 11:40 AM CST Problem: Discharge Planning Goal: Understanding discharge needs will improve Outcome: Progressing Flowsheets (Taken 05/10/2025 1136) Understanding of discharge needs will improve: Discuss information regarding discharge instructions Collaborate with case management interdisciplinary team Identify discharge barriers Problem: Respiratory Goal: Achieves optimal ventilation and oxygenation Outcome: Progressing Flowsheets (Taken 05/10/2025 1136) Achieves optimal ventilation and oxygenation: Assess for changes in respiratory status Encourage broncho-pulmonary hygiene including cough, deep breathing, incentive spirometry Problem: Cardiovascular Goal: Maintains optimal cardiac output and hemodynamic stability Outcome: Progressing Flowsheets (Taken 05/10/2025 1136) Maintain optimal cardiac output and hemodynamic Stability: Monitor vital signs, rhythm, and trends Monitor for bleeding, hypotension and signs of decreased cardiac output Assess quality of pulses, skin color and temperature Assess for signs of decreased coronary artery perfusion - ex. angina Problem: Skin/Tissue Integrity Goal: Skin integrity remains intact Outcome: Progressing Flowsheets (Taken 05/10/2025 1136) Skin integrity remains intact: Assess and document risk factors for pressure injury development Assess and document skin integrity Goals: Clinical Goals for the Shift: Stable vs, Discharge planning Shelter Patient Centered Goal for Treatment: Possible d/c home today Summary: A&O x4, Stable VS, Cardioversion complete. V-paced at this time. Possible discharge later today. ER COVERER HELPER * Perioperative Nursing Note - Katiuska Sy RN - 05/10/2025 10:37 AM CST Pt s/p Cardioversion Pt is A&Ox4, VS stable. Pt is returning to [id number], report called to LENO Jensen. IVFs infusing as ordered. Pt transported via [employer] with transporter. ER COVERER HELPER * Assessment & Plan Note - John Mejia MD - 05/10/2025 9:13 AM BOILER COVERER HELPER Associated Problem(s): Acute decompensated heart failure (HCC) Patient presented with increasingly worsening shortness of breath and cough after discharge 05/03. On arrival in the ED, denies fever/chills but reports some mild night sweats preceding night. New oxygen requirement of 2 L to keep saturations above 90%. New leukocytosis and JOVANNI on labs, afebrile. CXR with mild pulmonary edema and bibasilar opacities left > right concerning for pneumonia vs atelectasis. Home GDMT: entresto 49-51 mg BID, metoprolol XL 50 mg daily, spironolactone 25 mg daily. Formal TTE demonstrated EF of 34%, previous EF 29% - Diuresis with IV lasix 40 mg - Continue antibiotics for CAP for 5 days (05/04 - 05/08) - Ceftriaxone 2 g daily + doxycyline 100 mg BID ER COVERER HELPER * Assessment & Plan Note - John Mejia MD - 05/10/2025 9:13 AM BOILER COVERER HELPER Associated Problem(s): c/f pneumonia Patient presented with increasingly worsening shortness of breath and cough after discharge 05/03. On arrival in the ED, denies fever/chills but reports some mild night sweats preceding night. New oxygen requirement of 2 L to keep saturations above 90%. New leukocytosis and JOVANNI on labs, afebrile. CXR with mild pulmonary edema and bibasilar opacities left > right concerning for pneumonia vs atelectasis. Home GDMT: entresto 49-51 mg BID, metoprolol XL 50 mg daily, spironolactone 25 mg daily. Formal TTE demonstrated EF of 34%, previous EF 29% - Diuresis with IV lasix 40 mg - Continue antibiotics for CAP for 5 days (05/04 - 05/08) - Ceftriaxone 2 g daily + doxycyline 100 mg BID ER COVERER HELPER * Assessment & Plan Note - John Mejia MD - 05/10/2025 9:13 AM BOILER COVERER HELPER Associated Problem(s): Afib (HCC) Underwent sotalol load and cardioversion on 05/03 after cardioversion 03/12 failed to maintain NSR. On Eliquis 5 mg BID, no missed doses last 4 weeks. Currently in NSR. - Sotalol 80 mg q12h (EKG 2 hours after every dose) - Eliquis 5 mg BID - s/p DCCV 05/10 - Continuous telemetry - Continue home metoprolol XL 50 mg daily ER COVERER HELPER * Assessment & Plan Note - John Mejia MD - 05/10/2025 9:13 AM BOILER COVERER HELPER Associated Problem(s): Gout - Hold home allopurinol 300 mg qHS in the setting of JOVANNI ER COVERER HELPER * Assessment & Plan Note - John Mejia MD - 05/10/2025 9:13 AM BOILER COVERER HELPER Associated Problem(s): Hyperlipidemia, unspecified - Continue home rosuvastatin 20 mg qHS ER COVERER HELPER * Assessment & Plan Note - John Mejia MD - 05/10/2025 9:13 AM BOILER COVERER HELPER Associated Problem(s): Hypothyroidism, unspecified - Continue home Synthroid 112 mcg qAM but 224 mcg each Saturday ER COVERER HELPER * Plan of Care - Harlan Conley RN - 05/10/2025 5:44 AM BOILER COVERER HELPER Problem: Discharge Planning Goal: Understanding discharge needs will improve Outcome: Ongoing Problem: Respiratory Goal: Achieves optimal ventilation and oxygenation Outcome: Ongoing Problem: Cardiovascular Goal: Maintains optimal cardiac output and hemodynamic stability Outcome: Ongoing Goal: Absence of cardiac dysrhythmias or at baseline Outcome: Ongoing Goal: Cardiovascular status will improve Outcome: Ongoing Problem: Skin/Tissue Integrity Goal: Skin integrity remains intact Outcome: Ongoing Goal: Oral mucous membranes remain intact Description: Outcome: Ongoing Problem: Gastrointestinal Goal: Minimal or absence of nausea and vomiting Outcome: Ongoing Goal: Maintains or returns to baseline bowel function Outcome: Ongoing Goal: Maintains adequate nutritional intake Outcome: Ongoing Problem: Genitourinary Goal: Absence of urinary retention Outcome: Ongoing Problem: Infection Goal: Absence of infection during hospitalization Outcome: Ongoing Problem: Metabolic/Fluid and Electrolytes Goal: Electrolytes maintained within normal limits Outcome: Ongoing Goal: Hemodynamic stability and optimal renal function maintained Outcome: Ongoing Goal: Glucose maintained within prescribed range Outcome: Ongoing Problem: Hematologic Goal: Maintains hematologic stability Outcome: Ongoing Problem: Lack of Knowledge Goal: Ability to describe self care measures that may prevent or decrease complications related to Type 1 Diabetes will improve Outcome: Ongoing Problem: Health Nutrition Goal: Nutritional intake and knowledge related to Diabetes will improve Outcome: Ongoing Goals: Clinical Goals for the Shift: hemodynamic stability, monitor hr, sleep hygiene Shelter Patient Centered Goal for Treatment: D/C Home Summary: patietn stable overnight, slept well, no pain, remains in AF ER COVERER HELPER * Hospital Course - John Mejia MD - 05/09/2025 6:03 PM BOILER COVERER HELPER While admitted, he was treated for volume overload and community acquired pneumonia. He was diuresed with IV lasix and initially treated with ceftriaxone + azithromycin which was transitioned to ceftriaxone + doxycycline. His QT interval began to prolong while admitted, and his sotalol dose was decreased from 120 mg BID to 80 mg BID. He made significant improvements throughout the hospitalizationand was anticipated to discharge 05/08, the morning of which he converted from sinus rhythm to atrial fibrillation with rates in the 100s. It was decided he would remain admitted to undergo repeat cardioversion 05/10. Afterwards, patient returned to the floor for continued monitoring after cardioversion, and was discharged in medically stable condition. Acute decompensated heart failure (HCC) c/f pneumonia Patient presented with increasingly worsening shortness of breath and cough after discharge 05/03. On arrival in the ED, denies fever/chills but reports some mild night sweats preceding night. New oxygen requirement of 2 L to keep saturations above 90%. New leukocytosis and JOVANNI on labs, afebrile. CXR with mild pulmonary edema and bibasilar opacities left > right concerning for pneumonia vs atelectasis. Home GDMT: entresto 49-51 mg BID, metoprolol XL 50 mg daily, spironolactone 25 mg daily. Formal TTE demonstrated EF of 34%, previous EF 29% - Diuresis with IV lasix 40 mg - Continue antibiotics for CAP for 5 days (05/04 - 05/08) - Ceftriaxone 2 g daily + doxycyline 100 mg BID Afib (HCC) Underwent sotalol load and cardioversion on 05/03 after cardioversion 03/12 failed to maintain NSR. On Eliquis 5 mg BID, no missed doses last 4 weeks. Currently in NSR. - Sotalol 80 mg q12h (EKG 2 hours after every dose) - Eliquis 5 mg BID - Continuous telemetry - Continue home metoprolol XL 50 mg daily Gout - Hold home allopurinol 300 mg qHS in the setting of JOVANNI Hyperlipidemia, unspecified - Continue home rosuvastatin 20 mg qHS Hypothyroidism, unspecified - Continue home Synthroid 112 mcg qA but 224 mcg each Saturday ER COVERER HELPER ER COVERER HELPER ER COVERER HELPER * Assessment & Plan Note - Harlan Mcarthur MD - 05/09/2025 1:10 PM BOILER COVERER HELPER Associated Problem(s): Acute decompensated heart failure (HCC) Patient presented with increasingly worsening shortness of breath and cough after discharge 05/03. On arrival in the ED, denies fever/chills but reports some mild night sweats preceding night. New oxygen requirement of 2 L to keep saturations above 90%. New leukocytosis and JOVANNI on labs, afebrile. CXR with mild pulmonary edema and bibasilar opacities left > right concerning for pneumonia vs atelectasis. Home GDMT: entresto 49-51 mg BID, metoprolol XL 50 mg daily, spironolactone 25 mg daily. Formal TTE demonstrated EF of 34%, previous EF 29% - Diuresis with IV lasix 40 mg - Continue antibiotics for CAP for 5 days (05/04 - 05/08) - Ceftriaxone 2 g daily + doxycyline 100 mg BID ER COVERER HELPER * Assessment & Plan Note - Harlan Mcarthur MD - 05/09/2025 1:10 PM BOILER COVERER HELPER Associated Problem(s): c/f pneumonia Patient presented with increasingly worsening shortness of breath and cough after discharge 05/03. On arrival in the ED, denies fever/chills but reports some mild night sweats preceding night. New oxygen requirement of 2 L to keep saturations above 90%. New leukocytosis and JOVANNI on labs, afebrile. CXR with mild pulmonary edema and bibasilar opacities left > right concerning for pneumonia vs atelectasis. Home GDMT: entresto 49-51 mg BID, metoprolol XL 50 mg daily, spironolactone 25 mg daily. Formal TTE demonstrated EF of 34%, previous EF 29% - Diuresis with IV lasix 40 mg - Continue antibiotics for CAP for 5 days (05/04 - 05/08) - Ceftriaxone 2 g daily + doxycyline 100 mg BID ER COVERER HELPER * Assessment & Plan Note - Harlan Mcarthur MD - 05/09/2025 1:10 PM BOILER COVERER HELPER Associated Problem(s): Afib (HCC) Underwent sotalol load and cardioversion on 05/03 after cardioversion 03/12 failed to maintain NSR. On Eliquis 5 mg BID, no missed doses last 4 weeks. Currently in NSR. - Sotalol 80 mg q12h (EKG 2 hours after every dose) - Eliquis 5 mg BID - Continuous telemetry - Continue home metoprolol XL 50 mg daily ER COVERER HELPER * Assessment & Plan Note - Harlan Mcarthur MD - 05/09/2025 1:10 PM BOILER COVERER HELPER Associated Problem(s): Gout - Hold home allopurinol 300 mg qHS in the setting of JOVANNI ER COVERER HELPER * Assessment & Plan Note - Harlan Mcarthur MD - 05/09/2025 1:10 PM BOILER COVERER HELPER Associated Problem(s): Hyperlipidemia, unspecified - Continue home rosuvastatin 20 mg qHS ER COVERER HELPER * Assessment & Plan Note - Harlan Mcarthur MD - 05/09/2025 1:10 PM BOILER COVERER HELPER Associated Problem(s): Hypothyroidism, unspecified - Continue home Synthroid 112 mcg qAM but 224 mcg each Saturday ER COVERER HELPER * Plan of Care - Desire Singer RN - 05/09/2025 7:39 AM CST Goals: Clinical Goals for the Shift: patient will remain HDS, monitor HR. Test Driller Patient Centered Goal for Treatment: D/C Home Problem: Discharge Planning Goal: Understanding discharge needs will improve Outcome: Progressing Problem: Respiratory Goal: Achieves optimal ventilation and oxygenation Outcome: Progressing Problem: Cardiovascular Goal: Maintains optimal cardiac output and hemodynamic stability Outcome: Progressing Goal: Absence of cardiac dysrhythmias or at baseline Outcome: Progressing Goal: Cardiovascular status will improve Outcome: Progressing Problem: Skin/Tissue Integrity Goal: Skin integrity remains intact Outcome: Progressing Goal: Oral mucous membranes remain intact Description: Outcome: Progressing Problem: Gastrointestinal Goal: Minimal or absence of nausea and vomiting Outcome: Progressing Goal: Maintains or returns to baseline bowel function Outcome: Progressing Goal: Maintains adequate nutritional intake Outcome: Progressing Problem: Genitourinary Goal: Absence of urinary retention Outcome: Progressing Problem: Infection Goal: Absence of infection during hospitalization Outcome: Progressing Problem: Metabolic/Fluid and Electrolytes Goal: Electrolytes maintained within normal limits Outcome: Progressing Goal: Hemodynamic stability and optimal renal function maintained Outcome: Progressing Goal: Glucose maintained within prescribed range Outcome: Progressing Problem: Hematologic Goal: Maintains hematologic stability Outcome: Progressing Problem: Lack of Knowledge Goal: Ability to describe self care measures that may prevent or decrease complications related to Type 1 Diabetes will improve Outcome: Progressing Problem: Health Nutrition Goal: Nutritional intake and knowledge related to Diabetes will improve Outcome: Progressing ER COVERER HELPER * Plan of Care - Berna Wills RRT - 05/09/2025 12:25 AM CST Images from the original note were not included. NPPV - PATIENT WORE Situation: The patient was ordered on NPPV for nocturnal use due to a history of Obstructive Sleep Apnea (PASCALE). Patient was placed on their hospital provided NPPV machine. Settings: NPPV Mode: CPAP EPAP Pressure: 5 cm H20 FIO2: 21 % Skin Breakdown Check: No signs of skin breakdown have been detected. The patient's skin is intact with no irritation, redness, or abrasions to report. Protective Skin Barrier in Place: No. Tolerance: The patient tolerated the NPPV without issue. Plan: Proceed as ordered and continue to monitor the patient. ER COVERER HELPER * Plan of Care - Sun Manley RN - 05/08/2025 11:40 PM CST Goals: Clinical Goals for the Shift: Patient will remain HDS overnight. Test Driller Patient Centered Goal for Treatment: D/C Home Summary: Problem: Discharge Planning Goal: Understanding discharge needs will improve Outcome: Progressing Problem: Respiratory Goal: Achieves optimal ventilation and oxygenation Outcome: Progressing Problem: Cardiovascular Goal: Maintains optimal cardiac output and hemodynamic stability Outcome: Progressing Goal: Absence of cardiac dysrhythmias or at baseline Outcome: Progressing Goal: Cardiovascular status will improve Outcome: Progressing Problem: Skin/Tissue Integrity Goal: Skin integrity remains intact Outcome: Progressing Goal: Oral mucous membranes remain intact Description: Outcome: Progressing Problem: Gastrointestinal Goal: Minimal or absence of nausea and vomiting Outcome: Progressing Goal: Maintains or returns to baseline bowel function Outcome: Progressing Goal: Maintains adequate nutritional intake Outcome: Progressing Problem: Genitourinary Goal: Absence of urinary retention Outcome: Progressing Problem: Infection Goal: Absence of infection during hospitalization Outcome: Progressing Problem: Metabolic/Fluid and Electrolytes Goal: Electrolytes maintained within normal limits Outcome: Progressing Goal: Hemodynamic stability and optimal renal function maintained Outcome: Progressing Goal: Glucose maintained within prescribed range Outcome: Progressing Problem: Hematologic Goal: Maintains hematologic stability Outcome: Progressing Problem: Lack of Knowledge Goal: Ability to describe self care measures that may prevent or decrease complications related to Type 1 Diabetes will improve Outcome: Progressing Problem: Health Nutrition Goal: Nutritional intake and knowledge related to Diabetes will improve Outcome: Progressing ER COVERER HELPER * Assessment & Plan Note - Harlan Mcarthur MD - 05/08/2025 2:26 PM BOILER COVERER HELPER Associated Problem(s): Acute decompensated heart failure (HCC) Patient presented with increasingly worsening shortness of breath and cough after discharge 05/03. On arrival in the ED, denies fever/chills but reports some mild night sweats preceding night. New oxygen requirement of 2 L to keep saturations above 90%. New leukocytosis and JOVANNI on labs, afebrile. CXR with mild pulmonary edema and bibasilar opacities left > right concerning for pneumonia vs atelectasis. Home GDMT: entresto 49-51 mg BID, metoprolol XL 50 mg daily, spironolactone 25 mg daily. Formal TTE demonstrated EF of 34%, previous EF 29% - Diuresis with IV lasix 40 mg - Continue antibiotics for CAP for 5 days (05/04 - 05/08) - Ceftriaxone 2 g daily + doxycyline 100 mg BID ER COVERER HELPER * Assessment & Plan Note - Harlan Mcarthur MD - 05/08/2025 2:26 PM BOILER COVERER HELPER Associated Problem(s): c/f pneumonia Patient presented with increasingly worsening shortness of breath and cough after discharge 05/03. On arrival in the ED, denies fever/chills but reports some mild night sweats preceding night. New oxygen requirement of 2 L to keep saturations above 90%. New leukocytosis and JOVANNI on labs, afebrile. CXR with mild pulmonary edema and bibasilar opacities left > right concerning for pneumonia vs atelectasis. Home GDMT: entresto 49-51 mg BID, metoprolol XL 50 mg daily, spironolactone 25 mg daily. Formal TTE demonstrated EF of 34%, previous EF 29% - Diuresis with IV lasix 40 mg - Continue antibiotics for CAP for 5 days (05/04 - 05/08) - Ceftriaxone 2 g daily + doxycyline 100 mg BID ER COVERER HELPER * Assessment & Plan Note - Harlan Mcarthur MD - 05/08/2025 2:26 PM BOILER COVERER HELPER Associated Problem(s): Afib (HCC) Underwent sotalol load and cardioversion on 05/03 after cardioversion 03/12 failed to maintain NSR. On Eliquis 5 mg BID, no missed doses last 4 weeks. Currently in NSR. - Sotalol 80 mg q12h (EKG 2 hours after every dose) - Eliquis 5 mg BID - Continuous telemetry - Continue home metoprolol XL 50 mg daily ER COVERER HELPER * Assessment & Plan Note - Harlan Mcarthur MD - 05/08/2025 2:26 PM BOILER COVERER HELPER Associated Problem(s): Gout - Hold home allopurinol 300 mg qHS in the setting of JOVANNI ER COVERER HELPER * Assessment & Plan Note - Harlan Mcarthur MD - 05/08/2025 2:26 PM BOILER COVERER HELPER Associated Problem(s): Hyperlipidemia, unspecified - Continue home rosuvastatin 20 mg qHS ER COVERER HELPER * Assessment & Plan Note - Harlan Mcarthur MD - 05/08/2025 2:26 PM BOILER COVERER HELPER Associated Problem(s): Hypothyroidism, unspecified - Continue home Synthroid 112 mcg qAM but 224 mcg each Saturday ER COVERER HELPER * Plan of Care - Desire Singer RN - 05/08/2025 7:58 AM CST Goals: Clinical Goals for the Shift: patient will remain HDS Test Driller Patient Centered Goal for Treatment: D/C Home Problem: Discharge Planning Goal: Understanding discharge needs will improve Outcome: Progressing Problem: Respiratory Goal: Achieves optimal ventilation and oxygenation Outcome: Progressing Problem: Cardiovascular Goal: Maintains optimal cardiac output and hemodynamic stability Outcome: Progressing Goal: Absence of cardiac dysrhythmias or at baseline Outcome: Progressing Goal: Cardiovascular status will improve Outcome: Progressing Problem: Skin/Tissue Integrity Goal: Skin integrity remains intact Outcome: Progressing Goal: Oral mucous membranes remain intact Description: Outcome: Progressing Problem: Gastrointestinal Goal: Minimal or absence of nausea and vomiting Outcome: Progressing Goal: Maintains or returns to baseline bowel function Outcome: Progressing Goal: Maintains adequate nutritional intake Outcome: Progressing Problem: Genitourinary Goal: Absence of urinary retention Outcome: Progressing Problem: Infection Goal: Absence of infection during hospitalization Outcome: Progressing Problem: Metabolic/Fluid and Electrolytes Goal: Electrolytes maintained within normal limits Outcome: Progressing Goal: Hemodynamic stability and optimal renal function maintained Outcome: Progressing Goal: Glucose maintained within prescribed range Outcome: Progressing Problem: Hematologic Goal: Maintains hematologic stability Outcome: Progressing Problem: Lack of Knowledge Goal: Ability to describe self care measures that may prevent or decrease complications related to Type 1 Diabetes will improve Outcome: Progressing Problem: Health Nutrition Goal: Nutritional intake and knowledge related to Diabetes will improve Outcome: Progressing ER COVERER HELPER * Plan of Care - Ann Marie Gooden RRT - 05/08/2025 2:05 AM CST NPPV - PATIENT WORE Situation: The patient was ordered on NPPV for nocturnal use due to a history of Obstructive Sleep Apnea (PASCALE). Patient was placed on their home NPPV machine. Settings: NPPV Mode: CPAP EPAP Pressure: 10 cm H20 Skin Breakdown Check: No signs of skin breakdown have been detected. The patient's skin is intact with no irritation, redness, or abrasions to report. Protective Skin Barrier in Place: No. Tolerance: The patient tolerated the NPPV without issue. Plan: Proceed as ordered and continue to monitor the patient. ER COVERER HELPER * Plan of Care - Vasu Sarmiento RN - 05/08/2025 1:58 AM CST Problem: Discharge Planning Goal: Understanding discharge needs will improve Outcome: Progressing Problem: Respiratory Goal: Achieves optimal ventilation and oxygenation Outcome: Progressing Problem: Cardiovascular Goal: Maintains optimal cardiac output and hemodynamic stability Outcome: Progressing Goal: Absence of cardiac dysrhythmias or at baseline Outcome: Progressing Goal: Cardiovascular status will improve Outcome: Progressing Problem: Skin/Tissue Integrity Goal: Skin integrity remains intact Outcome: Progressing Goal: Oral mucous membranes remain intact Description: Outcome: Progressing Problem: Gastrointestinal Goal: Minimal or absence of nausea and vomiting Outcome: Progressing Goal: Maintains or returns to baseline bowel function Outcome: Progressing Goal: Maintains adequate nutritional intake Outcome: Progressing Problem: Genitourinary Goal: Absence of urinary retention Outcome: Progressing Problem: Infection Goal: Absence of infection during hospitalization Outcome: Progressing Problem: Metabolic/Fluid and Electrolytes Goal: Electrolytes maintained within normal limits Outcome: Progressing Goal: Hemodynamic stability and optimal renal function maintained Outcome: Progressing Goal: Glucose maintained within prescribed range Outcome: Progressing Problem: Hematologic Goal: Maintains hematologic stability Outcome: Progressing Problem: Lack of Knowledge Goal: Ability to describe self care measures that may prevent or decrease complications related to Type 1 Diabetes will improve Outcome: Progressing Problem: Health Nutrition Goal: Nutritional intake and knowledge related to Diabetes will improve Outcome: Progressing Goals: Clinical Goals for the Shift: Stable VS, Assess breathing, Diuretics, Wean O2 Test Driller Patient Centered Goal for Treatment: D/C Home Summary: Patient resting with stable vital signs. TELE, LABS, I&O monitored. PT participates with the care plan. ER COVERER HELPER * Provider Query - Harlan Mcarthur MD - 05/07/2025 4:59 PM CST 69 y.o. male admitted 05/04/25 with a history of hypertension, hypothyroidism, T2DM, HLD, gout, HFrEF (EF 29% 12/2023) s/p primary prevention Bi-V ICD 08/2023, paroxysmal AFib s/p sotalol load and cardioversion 05/03 who presents with acutely worsening shortness of breath. Specify a diagnosis that accurately reflects the lab findings, and document in the medical record and on the form below. __x_ Hyponatremia was monitored, evaluated, or treated ___ Abnormal laboratory finding, incidental or clinically insignificant ___ Other explanation of clinical findings, specify below Additional Provider Response: Clinical Indicators/Treatments: Latest Reference Range & Units 05/04/25 04:49 Sodium 135 - 145 mmol/L 132 (L) Hospitalists note at 05/04/2025 13:43 Labs notable for Na 132, Treatment/Monitoring: As above References: From the ICD-10-CM Coding Guidelines, use of terms such as likely, suspected, possible, or probable(associated with a specific diagnosis that is being evaluated, monitored, or treated as if it exists) are acceptable and can be coded in the inpatient setting when documented at the time of discharge. This documentation will become part of the patient???s medical record. Thank you, Tatyana Winters RN, BSN Clinical Youth Development Specialist P: [phone] ER COVERER HELPER * Provider Query - Harlan Mcarthur MD - 05/07/2025 4:57 PM CST 69 y.o. male admitted 05/04/25 with a history of hypertension, hypothyroidism, T2DM, HLD, gout, HFrEF (EF 29% 12/2023) s/p primary prevention Bi-V ICD 08/2023, paroxysmal AFib s/p sotalol load and cardioversion 05/03 who presents with acutely worsening shortness of breath. Specify the respiratory status, and document in the medical record and on the form below. _x__Acute Hypoxic Respiratory Failure ___Acute Hypercapnic Respiratory Failure ___Hypoxia only ___Other explanation of clinical findings, specify below Additional Provider Response: Clinical Indicators/Treatments: Hospitalists note at 05/04/2025 13:43 In the ED, pt was hypoxic to 87% on RA and improved with 2L NC H&P by Harlan Mcarthur at 05/04/2025 20:05 Acute decompensated heart failure c/f pneumonia Patient presented with increasingly worsening shortness of breath and cough after discharge 05/03. On arrival in the ED, denies fever/chills but reports some mild night sweats preceding night. New oxygen requirement of 2 L to keep saturations above 90%. Treatment/Monitoring: As above References: Respiratory Failure Screening Criteria Acute Respiratory Failure Hypoxemic Respiratory Failure Defined as requirement for supplemental O2 and at least ONE of the following: Room Air pO2 < 60 Room air O2 sat < 91% P/F Ratio < 300* Requirement for supplemental O2 to maintain O2 saturation > 90% or to maintain adequate physiologic function. pO2 decrease, or pCO2 increase by 10mmHg from baseline Hypercapnic Respiratory Failure pCO2 greater than 50 and pH less than 7.35 *pO2/FiO2 or SpO2 value may be used to estimate pO2 less than 300 * Chronic Respiratory Failure Dependence on home O2 (at least 15 hours/day or O2 with activity/ambulation), or Use of home mechanical or non-invasive ventilation, or Chronic hypercapnia or hypercarbia due to a respiratory condition Acute on Chronic Respiratory Failure Exacerbation or decompensation of chronic respiratory failure recognized by any of the following: Worsening dyspnea requiring an increase in chronic supplemental O2 Increased mechanical or non-invasive ventilation requirements Greater hypoxemia (decreased pO2 or SpO2 from baseline, if known) Lab values may reflect: Increase in baseline pCO2 of >= 10mmHg pO2 < 60 mmHg or SpO2 < 91% on patient's baseline oxygen rate or higher If provider believes patient has respiratory failure in the absence of above clinical indicators, please document rationale and clinical impression in detail Respiratory Failure References [email or web address] The Physician Advisor's Corner: Documenting Acute and Chronic Respiratory Failure [facility] Clarifying criteria for acute respiratory failure ACP Hospitalist Arterial Blood Gas - [employer] - [employer] Bookshelf From the ICD-10-CM Coding Guidelines, use of terms such as likely, suspected, possible, or probable(associated with a specific diagnosis that is being evaluated, monitored, or treated as if it exists) are acceptable and can be coded in the inpatient setting when documented at the time of discharge. This documentation will become part of the patient's medical record. Thank you, Tatyana Winters RN, BSN Clinical Youth Development Specialist P: [phone] ER COVERER HELPER * Provider Query - Harlan Mcarthur MD - 05/07/2025 4:56 PM CST 69 y.o. male admitted 05/04/25 with a history of hypertension, hypothyroidism, T2DM, HLD, gout, HFrEF (EF 29% 12/2023) s/p primary prevention Bi-V ICD 08/2023, paroxysmal AFib s/p sotalol load and cardioversion 05/03 who presents with acutely worsening shortness of breath. According to the official inpatient coding guidelines, radiology report findings cannot be coded unless a clinical provider delivering patient care confirms the findings. Specify if the following diagnosis/diagnoses should be added to the patient???s medical record: _x__ Pulmonary Hypertension ___ Other explanation of clinical findings, specify below Additional Provider Response: Clinical Indicators/Treatments: TRANSTHORACIC ECHO (TTE) COMPLETE W DOPPLER/CF by Ana Hubbard at 05/05/2025 13:33 Estimated pulmonary artery systolic pressure is consistent with mild pulmonary hypertension (35-50mmHg). Treatment/Monitoring: As above References: From the ICD-10-CM Coding Guidelines, use of terms such as likely, suspected, possible, or probable(associated with a specific diagnosis that is being evaluated, monitored, or treated as if it exists) are acceptable and can be coded in the inpatient setting when documented at the time of discharge. This documentation will become part of the patient???s medical record. Thank you, Tatyana Winters RN, BSN Clinical Youth Development Specialist P: [phone] ER COVERER HELPER * Significant Event - Augustus Munoz MD - 05/07/2025 3:00 PM CST Brief EP Note: Please see below recommendations regarding antiarrhythmic drug dosing. EKGs during admission have been monitored and QTc within safe window to continue sotalol at now reduced dose as below. EP will sign off, please reach out with any further questions. Recommendations: - continue sotalol 80mg BID for discharge - cont home eliquis 5mg BID for discharge - should avoid QTc prolonging agents as an outpatient - has outpatient follow up scheduled with Dr. Blackman Cosigned by Manoj Blackman MD at 05/09/2025 9:00 PM BOILER COVERER HELPER ER COVERER HELPER ER COVERER HELPER * Plan of Care - Antonio Lehman RRT - 05/07/2025 1:53 PM CST Respiratory Medication Plan Situation: Patient is currently scheduled to receive Nebulized Duo-Neb (Albuterol/Ipratropium), once. Home Medications: Current Outpatient Medications Medication Instructions allopurinoL (ZYLOPRIM) 300 mg, Daily Eliquis 5 mg, oral, 2 times daily furosemide (LASIX) 40 mg, oral, Daily glucosamine-chondroitin 250-200 mg tablet 1 capsule, Daily levothyroxine (SYNTHROID) 112 mcg tablet TAKE 1 TABLET BY MOUTH ONCE DAILY AND 2 TABLETS EVERY SATURDAY metoprolol XL (TOPROL-XL) 50 mg, oral, Daily multivitamin tablet 1 tablet, Daily omega-3 fatty acids-fish oil 300-1,000 mg capsule 1 g, Daily rosuvastatin (CRESTOR) 20 mg, Daily sacubitriL-valsartan (Entresto) 49-51 mg tablet 1 tablet, oral, 2 times daily sotaloL (BETAPACE) 120 mg, oral, 2 times daily spironolactone (ALDACTONE) 25 mg, oral, Daily testosterone cypionate (DEPO-TESTOTERONE) 200 mg/mL injection INJECT 1 ML INTRAMUSCULARLY ONCE A WEEK A ONE TIME DOSE turmeric root extract 500 mg capsule 1 tablet/capsule, Daily Bronchodilator Assessment Score: 3 Pulmonary Status Negative History, FEV1 > 80% predicted Surgical Status No Surgery Chest X-Ray Chronic Radiographic Changes or Unavailable, Improving CXR Resp. Pattern Regular, Respiratory Rate less than or equal to 20 Mental Status Alert, Oriented, Cooperative Cough Strong, Non-Productive Breath Sounds Decreased Bilaterally/Coarse Level of Activity Ambulatory O2 Requirement No Oxygen Oxygen therapy: SpO2 97 % O2 Therapy None (Room air) Patient Vitals: Pulse 71 Resp. Rate 20 Respiratory Assessment: Resp. Effort Unlabored Depth & Rhythm Regular Chest Assessment Symmetrical BRONCHODILATOR EVALUATION /ASSESSMENT SCORE 0-6 Q4 PRN Therapy* or Home Regimen, Intermittent wheezing, or SOB 7-13 QID Therapy Wheezing or periodic SOB 14-19 Q6 Therapy Increased wheezing and/or SOB 20-26 Q4 Therapy Increased wheezing and/or SOB, Difficulty sleeping >26 Contact MD/ALANA Severe Wheezing, SOB, Difficulty sleeping Note: Score gives a general indication of pulmonary risk. Clinical judgement may yield a different recommended frequency. Toleration: Patient tolerated treatment well. Patient Plan: Patient currently has orders for Albuterol PRN. I have spoken with the patient, and we have agreed to keep the current orders, without change. RT will continue to monitor the patient's progress. ER COVERER HELPER * Assessment & Plan Note - Harlan Mcarthur MD - 05/07/2025 1:46 PM BOILER COVERER HELPER Associated Problem(s): Acute decompensated heart failure (HCC) Patient presented with increasingly worsening shortness of breath and cough after discharge 05/03. On arrival in the ED, denies fever/chills but reports some mild night sweats preceding night. New oxygen requirement of 2 L to keep saturations above 90%. New leukocytosis and JOVANNI on labs, afebrile. CXR with mild pulmonary edema and bibasilar opacities left > right concerning for pneumonia vs atelectasis. Home GDMT: entresto 49-51 mg BID, metoprolol XL 50 mg daily, spironolactone 25 mg daily. Formal TTE demonstrated EF of 34%, previous EF 29% - Diuresis with IV lasix 40 mg - Continue antibiotics for CAP for 5 days (05/04 - 05/08) - Ceftriaxone 2 g daily + doxycyline 100 mg BID ER COVERER HELPER * Assessment & Plan Note - Harlan Mcarthur MD - 05/07/2025 1:46 PM BOILER COVERER HELPER Associated Problem(s): c/f pneumonia Patient presented with increasingly worsening shortness of breath and cough after discharge 05/03.On arrival in the ED, denies fever/chills but reports some mild night sweats preceding night. New oxygen requirement of 2 L to keep saturations above 90%. New leukocytosis and JOVANNI on labs, afebrile. CXR with mild pulmonary edema and bibasilar opacities left > right concerning for pneumonia vs atelectasis. Home GDMT: entresto 49-51 mg BID, metoprolol XL 50 mg daily, spironolactone 25 mg daily. Formal TTE demonstrated EF of 34%, previous EF 29% - Diuresis with IV lasix 40 mg - Continue antibiotics for CAP for 5 days (05/04 - 11/22) - Ceftriaxone 2 g daily + doxycyline 100 mg BID ER COVERER HELPER * Assessment & Plan Note - Harlan Mcarthur MD - 05/07/2025 1:46 PM BOILER COVERER HELPER Associated Problem(s): Afib (HCC) Underwent sotalol load and cardioversion on 05/03 after cardioversion 03/12 failed to maintain NSR. On Eliquis 5 mg BID, no missed doses last 4 weeks. Currently in NSR. - Sotalol 80 mg q12h (EKG 2 hours after every dose) - Eliquis 5 mg BID - Continuous telemetry - Continue home metoprolol XL 50 mg daily ER COVERER HELPER * Assessment & Plan Note - Harlan Mcarthur MD - 05/07/2025 1:46 PM BOILER COVERER HELPER Associated Problem(s): Gout - Hold home allopurinol 300 mg qHS in the setting of JOVANNI ER COVERER HELPER * Assessment & Plan Note - Harlan Mcarthur MD - 05/07/2025 1:46 PM BOILER COVERER HELPER Associated Problem(s): Hyperlipidemia, unspecified - Continue home rosuvastatin 20 mg qHS ER COVERER HELPER * Assessment & Plan Note - Harlan Mcarthur MD - 05/07/2025 1:46 PM BOILER COVERER HELPER Associated Problem(s): Hypothyroidism, unspecified - Continue home Synthroid 112 mcg qAM but 224 mcg each Saturday ER COVERER HELPER * Plan of Care - Nidhi España RN - 05/07/2025 1:23 PM CST 05/07/25 1323 Communications Important Message from Medicare notice given to patient? Yes IM letter completed with patient at bedside. Patient were informed of the planned discharge date, the date the beneficiary's financial liability begins, the beneficiary's appeal rights, and how and when to initiate an appeal. Patient were provided a copy of the IM letter and IM letter was placed inunit???s designated medical record bin to be uploaded into the patient???s chart. ER COVERER HELPER * Provider Query - Marlyn Stevens MD - 05/07/2025 1:00 PM BOILER COVERER HELPER 69 y.o. male admitted 05/04/25 with a history of hypertension, hypothyroidism, T2DM, HLD, gout, HFrEF (EF 29% 12/2023) s/p primary prevention Bi-V ICD 08/2023, paroxysmal AFib s/p sotalol load and cardioversion 05/03 who presents with acutely worsening shortness of breath. Based on the clinical indicators and antibiotic choice, specify the most likely pneumonia being treated. Document in the medical record and on the form below. Select all conditions being treated: ____Aspiration pneumonia ____Gram negative pneumonia ____Gram positive pneumonia ____Staph pneumonia ____Strep pneumonia ____Bacterial pneumonia, unspecified ____Bacterial pneumonia superimposed on a viral pneumonia, specify organism if known ____Viral pneumonia ____Fungal pneumonia ____Pneumonia due to Influenza __X__Other, specify below ____Clinically unable to determine Additional Provider Response: Presumed community acquired PNA Clinical Indicators/Treatments: Cardiology note at 05/05/2025 17:59 He has a new oxygen requirement, leukocytosis, and chest x-ray with the findings concerning for pneumonia. He is currently being treated with antibiotics including ceftriaxone, and azithromycin. - would recommend stopping azithromycin due to QTc prolonging effects, considering alternative atypical pneumonia coverage such as doxycycline Treatment/Monitoring: As above References: NOTE: CAP and HCAP do not indicate the organism being treated. Organism Common Antibiotics Gram-Negative Organisms, such as: Achromobacter Acinetobacter Citrobacter Enterobacter E. coli Haemophilus Klebsiella Proteus mirabilis Pseudomonas Amikacin Amoxicillin/Clavulanic Acid Ampicillin Aztreonam Cefazolin Cefepime Cefiderocol Ceftazidiime Ceftolozane-Tazobactam Ceftriaxone Ciprofloxacin Ertapenem Fosfomycin Gentamicin Levofloxacin Meropenem Nitrofurantoin Piperacillin/Tazobactam Tetracycline Tobramycin Trimeth/Sulfa Gram-Positive Organisms, such as: MRSA MSSA Staphylococcus Enterococcus Streptococcus Corynebacterium Ampicillin Benzylpenicillin Cefazolin Ceftaroline Ceftriaxone Clindamycin Doxycycline Erythromycin Gentamycin (high-level) Linezolid Nitrofurantoin Oxacillin Penicillin Streptomycin (high-level) Tetracycline Trimeth/Sulfa Vancomycin References [facility] Antibiogram 2021 [facility] Antibiogram 2021 [facility] Antibiogram 2021 From the ICD-10-CM Coding Guidelines, use of terms such as likely, suspected, possible, or probable(associated with a specific diagnosis that is being evaluated, monitored, or treated as if it exists) are acceptable and can be coded in the inpatient setting when documented at the time of discharge. This documentation will become part of the patient???s medical record. Thank you, Tatyana Winters RN, BSN Clinical Youth Development Specialist P: [phone] ER COVERER HELPER * Plan of Care - Nidhi España RN - 05/07/2025 9:50 AM CST 05/07/25 0949 Discharge Planning Support System Spouse/Significant Other Anticipated discharge level of care Private residence Does the patient need discharge transport arranged? No (spouse) Post Acute Care Plan Post Acute Care Needs Identified Yes Home Care Services N/A OP Services N/A DME N/A Post Acute Care Facility N/A Is PASRR Needed NA CM Progression of Care Update Per Medical Chart/Rounds/IDR: Not medically ready for discharge. pneumonia vs atelectasis ADD: 05/08 Plan/Barriers: Walk study, order O2-new oxygen requirement, Abx , diuresis. Referrals: none Transportation: [email or web address] (Spouse) [phone] F/U Appointments: No answer at PCP. Left message to call back for appointment. Patient's Identified Problem/Goal Problem:?Ensure acute medical needs are met and that patient has a safe discharge plan. Goal:?Secure a discharge plan that patient/family are agreeable with?and ensure patient has continuum of care. Patient and/or family are agreeable with plan. corridor redevelopment manager will continue to follow and assist with discharge planning as needed. If any further discharge needs arise, please contact the covering keycase assembler. ER COVERER HELPER * Plan of Care - Jeffery Juarez RN - 05/07/2025 7:38 AM CST Problem: Discharge Planning Goal: Understanding discharge needs will improve Outcome: Progressing Flowsheets (Taken 05/07/2025736) Understanding of discharge needs will improve: Identify discharge barriers Identify discharge learning needs (meds, wound care, etc.) Problem: Respiratory Goal: Achieves optimal ventilation and oxygenation Outcome: Progressing Flowsheets (Taken 05/07/2025736) Achieves optimal ventilation and oxygenation: Assess for changes in respiratory status Assess for changes in mentation and behavior Oxygen supplementation based on oxygen saturation or arterial blood gases Manage oxygen therapy Problem: Cardiovascular Goal: Maintains optimal cardiac output and hemodynamic stability Outcome: Progressing Flowsheets (Taken 05/07/2025736) Maintain optimal cardiac output and hemodynamic Stability: Monitor vital signs, rhythm, and trends Monitor for bleeding, hypotension and signs of decreased cardiac output Assess quality of pulses, skin color and temperature Problem: Skin/Tissue Integrity Goal: Skin integrity remains intact Outcome: Progressing Flowsheets (Taken 05/07/2025736) Skin integrity remains intact: Assess and document risk factors for pressure injury development Assess and document skin integrity Problem: Infection Goal: Absence of infection during hospitalization Outcome: Progressing Flowsheets (Taken 05/07/2025736) Absence of infection during hospitalization: Assess and monitor for signs and symptoms of infection Monitor lab/diagnostic results Administer medications as ordered Goals: Clinical Goals for the Shift: Stable VS, Assess breathing, Diuretics, Wean O2 Test Driller Patient Centered Goal for Treatment: D/C Home Summary: A&O x4, Stable VSS, 2L/NC, V paced ER COVERER HELPER * Plan of Care - Sun De Souza RN - 05/07/2025 6:13 AM CST Goals: Clinical Goals for the Shift: Patient will remain hemodynamically stable. Summary: Problem: Discharge Planning Goal: Understanding discharge needs will improve Outcome: Ongoing Problem: Respiratory Goal: Achieves optimal ventilation and oxygenation Outcome: Ongoing Problem: Cardiovascular Goal: Maintains optimal cardiac output and hemodynamic stability Outcome: Ongoing Goal: Absence of cardiac dysrhythmias or at baseline Outcome: Ongoing Goal: Cardiovascular status will improve Outcome: Ongoing Problem: Skin/Tissue Integrity Goal: Skin integrity remains intact Outcome: Ongoing Goal: Oral mucous membranes remain intact Description: Outcome: Ongoing Problem: Gastrointestinal Goal: Minimal or absence of nausea and vomiting Outcome: Ongoing Goal: Maintains or returns to baseline bowel function Outcome: Ongoing Goal: Maintains adequate nutritional intake Outcome: Ongoing Problem: Genitourinary Goal: Absence of urinary retention Outcome: Ongoing Problem: Infection Goal: Absence of infection during hospitalization Outcome: Ongoing Problem: Metabolic/Fluid and Electrolytes Goal: Electrolytes maintained within normal limits Outcome: Ongoing Goal: Hemodynamic stability and optimal renal function maintained Outcome: Ongoing Goal: Glucose maintained within prescribed range Outcome: Ongoing Problem: Hematologic Goal: Maintains hematologic stability Outcome: Ongoing ER COVERER HELPER * Plan of Care - Hazel Landers RRT - 05/07/2025 4:26 AM CST NPPV - PATIENT WORE Situation: The patient was ordered on NPPV for nocturnal use due to a history of Obstructive Sleep Apnea (PASCALE). Patient was placed on their home NPPV machine. Tolerance: The patient tolerated the NPPV without issue. Plan: Proceed as ordered and continue to monitor the patient. ER COVERER HELPER * Assessment & Plan Note - Marlyn Stevens MD - 05/06/2025 5:55 PM BOILER COVERER HELPER Associated Problem(s): Acute decompensated heart failure (HCC) Patient presented with increasingly worsening shortness of breath and cough after discharge 05/03. On arrival in the ED, denies fever/chills but reports some mild night sweats preceding night. New oxygen requirement of 2 L to keep saturations above 90%. New leukocytosis and JOVANNI on labs, afebrile. CXR with mild pulmonary edema and bibasilar opacities left > right concerning for pneumonia vs atelectasis. Home GDMT: entresto 49-51 mg BID, metoprolol XL 50 mg daily, spironolactone 25 mg daily. Formal TTE demonstrated EF of 34%, previous EF 29% - Diuresis with IV lasix 40 mg - Continue antibiotics for CAP for 5 days (05/04 - 05/08) - Ceftriaxone 2 g daily + doxycyline 100 mg BID ER COVERER HELPER ER COVERER HELPER * Assessment & Plan Note - Marlyn Stevens MD - 05/06/2025 5:55 PM BOILER COVERER HELPER Associated Problem(s): c/f pneumonia Patient presented with increasingly worsening shortness of breath and cough after discharge 05/03. On arrival in the ED, denies fever/chills but reports some mild night sweats preceding night. New oxygen requirement of 2 L to keep saturations above 90%. New leukocytosis and JOVANNI on labs, afebrile. CXR with mild pulmonary edema and bibasilar opacities left > right concerning for pneumonia vs atelectasis. Home GDMT: entresto 49-51 mg BID, metoprolol XL 50 mg daily, spironolactone 25 mg daily. Formal TTE demonstrated EF of 34%, previous EF 29% - Diuresis with IV lasix 40 mg - Continue antibiotics for CAP for 5 days (05/04 - 05/08) - Ceftriaxone 2 g daily + doxycyline 100 mg BID ER COVERER HELPER ER COVERER HELPER * Assessment & Plan Note - Marlyn Stevens MD - 05/06/2025 5:55 PM BOILER COVERER HELPER Associated Problem(s): Afib (HCC) Underwent sotalol load and cardioversion on 05/03 after cardioversion 03/12 failed to maintain NSR. On Eliquis 5 mg BID, no missed doses last 4 weeks. Currently in NSR. - Sotalol 80 mg q12h (EKG 2 hours after every dose) - Eliquis 5 mg BID - Continuous telemetry - Continue home metoprolol XL 50 mg daily ER COVERER HELPER ER COVERER HELPER * Plan of Care - Kaylah Mayes - 05/06/2025 10:30 AM CST Goals: Clinical Goals for the Shift: Patient will remain hemodynamically stable. Summary: Patient alert and oriented x4. Denies pain. V paced on monitor. On RA and sating well. Up ad ralph independently. EKG completed this AM. Escorted with transport to [facility]. Safety precautions in place. Call light in reach. at bedside. Problem: Discharge Planning Goal: Understanding discharge needs will improve Outcome: Progressing Problem: Respiratory Goal: Achieves optimal ventilation and oxygenation Outcome: Progressing Problem: Cardiovascular Goal: Maintains optimal cardiac output and hemodynamic stability Outcome: Progressing Goal: Absence of cardiac dysrhythmias or at baseline Outcome: Progressing Goal: Cardiovascular status will improve Outcome: Progressing Problem: Skin/Tissue Integrity Goal: Skin integrity remains intact Outcome: Progressing Goal: Oral mucous membranes remain intact Description: Outcome: Progressing Problem: Gastrointestinal Goal: Minimal or absence of nausea and vomiting Outcome: Progressing Goal: Maintains or returns to baseline bowel function Outcome: Progressing Goal: Maintains adequate nutritional intake Outcome: Progressing Problem: Genitourinary Goal: Absence of urinary retention Outcome: Progressing Problem: Infection Goal: Absence of infection during hospitalization Outcome: Progressing Problem: Metabolic/Fluid and Electrolytes Goal: Electrolytes maintained within normal limits Outcome: Progressing Goal: Hemodynamic stability and optimal renal function maintained Outcome: Progressing Goal: Glucose maintained within prescribed range Outcome: Progressing Problem: Hematologic Goal: Maintains hematologic stability Outcome: Progressing ER COVERER HELPER * Assessment & Plan Note - Marlyn Stevens MD - 05/06/2025 6:26 AM BOILER COVERER HELPER Associated Problem(s): Gout - Hold home allopurinol 300 mg qHS in the setting of JOVANNI ER COVERER HELPER * Assessment & Plan Note - Marlyn Stevens MD - 05/06/2025 6:26 AM BOILER COVERER HELPER Associated Problem(s): Hyperlipidemia, unspecified - Continue home rosuvastatin 20 mg qHS ER COVERER HELPER * Assessment & Plan Note - Marlyn Stevens MD - 05/06/2025 6:26 AM BOILER COVERER HELPER Associated Problem(s): Hypothyroidism, unspecified - Continue home Synthroid 112 mcg qAM but 224 mcg each Saturday ER COVERER HELPER * Plan of Care - Sun De Souza RN - 05/05/2025 11:38 PM CST Goals: Clinical Goals for the Shift: Patient will remain hemodynamically stable. Summary: Problem: Discharge Planning Goal: Understanding discharge needs will improve Outcome: Ongoing Problem: Respiratory Goal: Achieves optimal ventilation and oxygenation Outcome: Ongoing Problem: Cardiovascular Goal: Maintains optimal cardiac output and hemodynamic stability Outcome: Ongoing Goal: Absence of cardiac dysrhythmias or at baseline Outcome: Ongoing Goal: Cardiovascular status will improve Outcome: Ongoing Problem: Skin/Tissue Integrity Goal: Skin integrity remains intact Outcome: Ongoing Goal: Oral mucous membranes remain intact Description: Outcome: Ongoing Problem: Gastrointestinal Goal: Minimal or absence of nausea and vomiting Outcome: Ongoing Goal: Maintains or returns to baseline bowel function Outcome: Ongoing Goal: Maintains adequate nutritional intake Outcome: Ongoing Problem: Genitourinary Goal: Absence of urinary retention Outcome: Ongoing Problem: Infection Goal: Absence of infection during hospitalization Outcome: Ongoing Problem: Metabolic/Fluid and Electrolytes Goal: Electrolytes maintained within normal limits Outcome: Ongoing Goal: Hemodynamic stability and optimal renal function maintained Outcome: Ongoing Goal: Glucose maintained within prescribed range Outcome: Ongoing Problem: Hematologic Goal: Maintains hematologic stability Outcome: Ongoing ER COVERER HELPER * Significant Event - Augustus Munoz MD - 05/05/2025 5:59 PM CST Brief EP Note: Called by primary team to review admission EKG for concern for prolonged QTC interval. Notably, patient was recently initiated on sotalol for management of atrial fibrillation. He recently completed a sotalol load and cardioversion on May 03. He was discharged on sotalol 120 mg q.12 hours. He is now admitted for worsening shortness of breath and cough since discharge. He has a new oxygen requirement, leukocytosis, and chest x-ray with the findings concerning for pneumonia. He is currently being treated with antibiotics including ceftriaxone, and azithromycin. Reviewed EKGs on this admission with QTc intervals of 542 and 547. His documented QTc interval on EKG on May 02 with QTC 502. Telemetry on this admission reviewed, no alarms for ventricular ectopy. Recommendations: - reduce dose of sotalol to 80mg BID starting tonight - please collect EKGs 2hrs after each dose of sotalol and hold next dose of sotalol if QTc prolongsfurther ( > 550). - would recommend stopping azithromycin due to QTc prolonging effects, considering alternative atypical pneumonia coverage such as doxycycline - maintain on continuous telemetry monitoring - to be formally staffed tomorrow ER COVERER HELPER * Assessment & Plan Note - Harlan Mcarthur MD - 05/05/2025 4:47 PM BOILER COVERER HELPER Associated Problem(s): Acute decompensated heart failure (HCC) Patient presented with increasingly worsening shortness of breath and cough after discharge 05/03. On arrival in the ED, denies fever/chills but reports some mild night sweats preceding night. New oxygen requirement of 2 L to keep saturations above 90%. New leukocytosis and JOVANNI on labs, afebrile. CXR with mild pulmonary edema and bibasilar opacities left > right concerning for pneumonia vs atelectasis. Home GDMT: entresto 49-51 mg BID, metoprolol XL 50 mg daily, spironolactone 25 mg daily. - Diuresis with IV lasix 40 mg BID - Continue antibiotics for CAP for 5 days (05/04 - ) - Ceftriaxone 2 g daily - Discontinue azithromycin due to qt-prolonging effects, transition to doxycycline 100 mg BID - Formal TTE demonstrated EF of 34%, previous EF 29% ER COVERER HELPER * Assessment & Plan Note - Harlan Mcarthur MD - 05/05/2025 4:47 PM BOILER COVERER HELPER Associated Problem(s): c/f pneumonia Patient presented with increasingly worsening shortness of breath and cough after discharge 05/03. On arrival in the ED, denies fever/chills but reports some mild night sweats preceding night. New oxygen requirement of 2 L to keep saturations above 90%. New leukocytosis and JOVANNI on labs, afebrile. CXR with mild pulmonary edema and bibasilar opacities left > right concerning for pneumonia vs atelectasis. Home GDMT: entresto 49-51 mg BID, metoprolol XL 50 mg daily, spironolactone 25 mg daily. - Diuresis with IV lasix 40 mg BID - Continue antibiotics for CAP for 5 days (05/04 - ) - Ceftriaxone 2 g daily - Discontinue azithromycin due to qt-prolonging effects, transition to doxycycline 100 mg BID - Formal TTE demonstrated EF of 34%, previous EF 29% ER COVERER HELPER * Assessment & Plan Note - Harlan Mcarthur MD - 05/05/2025 4:47 PM BOILER COVERER HELPER Associated Problem(s): Afib (HCC) Underwent sotalol load and cardioversion on 05/03 after cardioversion 03/12 failed to maintain NSR. On Eliquis 5 mg BID, no missed doses last 4 weeks. Currently in NSR. - Sotalol 120 mg q12h - Eliquis 5 mg BID - Continuous telemetry - Continue home metoprolol XL 50 mg daily ER COVERER HELPER * Assessment & Plan Note - Harlan Mcarthur MD - 05/05/2025 4:47 PM BOILER COVERER HELPER Associated Problem(s): Gout - Hold home allopurinol 300 mg qHS in the setting of JOVANNI ER COVERER HELPER * Assessment & Plan Note - Harlan Mcarthur MD - 05/05/2025 4:47 PM BOILER COVERER HELPER Associated Problem(s): Hyperlipidemia, unspecified - Continue home rosuvastatin 20 mg qHS ER COVERER HELPER * Assessment & Plan Note - Harlan Mcarthur MD - 05/05/2025 4:47 PM BOILER COVERER HELPER Associated Problem(s): Hypothyroidism, unspecified - Continue home Synthroid 112 mcg qAM but 224 mcg each Saturday ER COVERER HELPER * Initial Assessments - Doreen Barcenas RN - 05/05/2025 3:55 PM CST CM Initial Assessment Interview Note Information Obtained From: Patient (05/05/251551) Admission Source: ED Impression: Patient lives with his and is independent with ADLs at baseline. Patient uses a CPAP and denies HH prior to admission. Plan Includes: Patient plans to discharge home when medically ready. No needs identified at this time. Awaiting PTOT recommendations. Referrals will be sent as needed. CM will assist with discharge needs as necessary to ensure a safe discharge. Additional Information: Address, phone number, pharmacy, and PCP verified with face sheet. Role of CM explained. Primary Source of Transportation: Does the patient need discharge transport arranged?: No (05/05/25 1552) Health Insurance Coverage: [employer] Prescription Coverage: Yes Pharmacy: [facility] [address] [place] [address] - [address] [place] [address] [address] [facility] [id number] Primary Care Provider: Blake Ott MD Prior to Admission: Functional Status: Independent with ADLs Primary Caregiver: Self Support System: Spouse/Significant Other Home Care Services: No Durable Medical Equipment: CPAP/Bi-PAP Living Arrangements: Spouse/significant other Type of Residence: Private residence Medication management: Independent (05/05/251551) Anticipated Level of Care: Anticipated discharge level of care: Private residence Pt/Family agrees with Anticipated Level of Care: Yes (05/05/251551) Patient expects to be Discharged to: Private residence, (05/05/251551) Patient's Identified Problem/Goal Problem: Ensure acute medical needs are met and that patient has a safe discharge plan. Goal: Secure a discharge plan that patient/family are agreeable with and ensure patient has continuum of care. Case management will follow for discharge planning and send referrals as needed. Doreen Barcenas RN ER COVERER HELPER * ACP (Advance Care Planning) - Manju Prado LCSW - 05/05/2025 10:30 AM BOILER COVERER HELPER Advance Care Planning Advance Care Planning Conversation The patient and/or family consented to a voluntary Advance Care Planning conversation. Individuals present for the conversation: patient Advance Directive: No On file: No Summary of the conversation: Patient does not have AD/DPOA paperwork on file. Patient verbally nominate, Ashleigh Elder (spouse [phone]) as surrogate decision maker. Outcome of the conversation and documents completed (select all that apply): provided information about Advance Directives The services provided in this conversation and described in this note are non- billable and to be used for ongoing clinical care only. Manju Prado LCSW ER COVERER HELPER * Initial Assessments - Manju Prado LCSW - 05/05/2025 10:29 AM BOILER COVERER HELPER Social Work Assessment Clinical Dx: Shortness of breath Past Medical History: Date of last inpatient admission: Previous admit date: 04/30/2025 Number of inpatient admissions in past year: 2 Reason for Current Hospitalization (Pt/Caregiver Stated): Shortness of breath (05/05/25 1025) Patient Information: Information Obtained From: Patient Marital Status: Does Pt have Legal Guardian, Surrogate Decision Maker or Healthcare Agent? 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 Payor Source: Medicare advantage Race: White/ Ethnicity: Non- Sexual Orientation : Heterosexual Gender Identity: Male Service : None (05/05/25 1025) Current Situation: Current Situation Living Arrangements: Spouse/significant other Type of Residence: Private residence Income: None Financial assistance: Unknown Education Level : College Degree How do you Pay for Medication: Insurance Current Transportation: Public, Own vehicle What do you do with your Free Time: read, movies, spend time with family (05/05/25 1025) Legal History: Legal History Legal Information : No legal issues (05/05/25 1025) Support Systems and Spirituality: Support Systems and Spirituality Support System: Spouse Spouse Name/Contact Information: Ashleigh Elder (spouse [phone]) Do you have a Hindu Preference or Affiliation?: No Are there any Hindu Practices that are important to maintain while admitted?: No Do you have Cultural Factors that are important to you?: No History of physical abuse? : Unable to answer History of physically abusing others? : Unable to answer History of sexual abuse?: Unable to answer History of sexually abusing others? : Unable to answer History of Mental/Emotional Abuse? : Unable to answer (05/05/25 1025) Strengths, Assets, Liabilities and Stressors: Strengths, Assets, Liabilities, and Stressors Strengths (Must Choose Two): Assessment of patient optimism that change can occur, Motivation and readiness for change, Setting and pursuing goals, Exercising self-direction, Interpersonal relationships and supports,i.e., family, friends, peers, Vocational interests, i.e., hobbies, Attempting to yasmani lize one's potential, Managing surrounding demands and opportunities, Access to housing/residentialstability, Financial stability Patient Assets: Insured, Education, Home, MD, Supportive family, Use of Supports, Transportation Does Pt have access to Employee Assistance Program: No Patient Barriers : Poor physical health Current Stressors: Chronic illness (05/05/25 1025) SDOH Transportation Needs: No Transportation Needs (05/05/2025) PRAPARE - Transportation Lack of Transportation (Medical): No Lack of Transportation (Non-Medical): No Financial Resource Strain: Low Risk (05/05/2025) Overall Financial Resource Strain (CARDIA) Difficulty of Paying Living Expenses: Not hard at all Housing Stability: Low Risk (05/05/2025) Housing Stability Vital Sign Unable to Pay for Housing in the Last Year: No Number of Times Moved in the Last Year: 0 Homeless in the Last Year: No Utilities: Not At Risk (05/05/2025) [facility] Utilities Threatened with loss of utilities: No Social Connections: Moderately Isolated (05/05/2025) Social Connection and Isolation Panel Frequency of Communication with Friends and Family: More than three times a week Frequency of Social Gatherings with Friends and Family: More than three times a week Attends Hindu Services: Never Active Member of Clubs or Organizations: No Attends Club or Organization Meetings: Never Marital Status: Food Insecurity: No Food Insecurity (05/05/2025) Hunger Vital Sign Worried About Running Out of Food in the Last Year: Never true Ran Out of Food in the Last Year: Never true Tobacco Use: Low Risk (04/14/2025) Patient History Smoking Tobacco Use: Never Smokeless Tobacco Use: Never Passive Exposure: Not on file Alcohol Use: Not At Risk (05/03/2025) AUDIT-C Frequency of Alcohol Consumption: Never Average Number of Drinks: Patient does not drink Frequency of Binge Drinking: Never PHQ Screening Over the past 2 weeks, how often have you been bothered by any of the following problems? Little Interest or Pleasure in Doing Things: 0-Not at all Feeling Down, Depressed, or Hopeless: 0-Not at all PHQ-2 Total Score (If total score is 3 or more points, staff should administer the PHQ-9): 0 E-Cigarette/Vaping Questions Responses E-cigarette/Vaping Use Never User Substance Abuse, Mental Health, and Trauma History: Chemical Dependency, Mental Health & Trauma History Chemical Dependency: Patient denies concerns at the time Mental Health: Patient denies concerns at this time (05/05/25 1025) Risk to Self and Others: Risk to Self and Others Violence risk to self in past 6 months? : No Self Harm/Suicidal Ideation Plan: No Previous Self Harm/Suicidal Attempts: No Violence risk to others in past 6 months? : No Any lifetime risk of violence to others? : No Current Plans to Harm Another: No (05/05/25 1025) Impressions and Recommendations: Social Work consulted for high risk readmission (12%), 30 day readmission, and 2 inpatient admissions in the past year. Social Work met with patient at bedside. Social Work discussed SDOH (finances, food, transportation, housing, utilities, social supports, and mental health), and the patient does not have any concerns with SDOH resources at this time. The patient lives at [address] [place] [address] and has support from family. Patient does not have an advanced directive on file but verbally nominated Ashleigh Elder (spouse [phone]) as surrogate decision maker in the event that he became unable to make medical decisions for himself. There are no further social work needs identified at this time. Social Work to remain available should additional needs arise. Mine Equipment Design Engineer to follow for discharge planning needs. DAMARI Phillips LCSW ER COVERER HELPER * Plan of Care - Desire Singer RN - 05/05/2025 7:25 AM CST Goals: Clinical Goals for the Shift: patient will remain HDS, diurese Problem: Discharge Planning Goal: Understanding discharge needs will improve Outcome: Progressing Problem: Respiratory Goal: Achieves optimal ventilation and oxygenation Outcome: Progressing Problem: Cardiovascular Goal: Maintains optimal cardiac output and hemodynamic stability Outcome: Progressing Goal: Absence of cardiac dysrhythmias or at baseline Outcome: Progressing Goal: Cardiovascular status will improve Outcome: Progressing Problem: Skin/Tissue Integrity Goal: Skin integrity remains intact Outcome: Progressing Goal: Oral mucous membranes remain intact Description: Outcome: Progressing Problem: Gastrointestinal Goal: Minimal or absence of nausea and vomiting Outcome: Progressing Goal: Maintains or returns to baseline bowel function Outcome: Progressing Goal: Maintains adequate nutritional intake Outcome: Progressing Problem: Genitourinary Goal: Absence of urinary retention Outcome: Progressing Problem: Infection Goal: Absence of infection during hospitalization Outcome: Progressing Problem: Metabolic/Fluid and Electrolytes Goal: Electrolytes maintained within normal limits Outcome: Progressing Goal: Hemodynamic stability and optimal renal function maintained Outcome: Progressing Goal: Glucose maintained within prescribed range Outcome: Progressing Problem: Hematologic Goal: Maintains hematologic stability Outcome: Progressing ER COVERER HELPER * Plan of Care - Sun De Souza RN - 05/04/2025 10:38 PM CST Goals: Summary: Problem: Discharge Planning Goal: Understanding discharge needs will improve Outcome: Ongoing Problem: Respiratory Goal: Achieves optimal ventilation and oxygenation Outcome: Ongoing Problem: Cardiovascular Goal: Maintains optimal cardiac output and hemodynamic stability Outcome: Ongoing Goal: Absence of cardiac dysrhythmias or at baseline Outcome: Ongoing Goal: Cardiovascular status will improve Outcome: Ongoing Problem: Skin/Tissue Integrity Goal: Skin integrity remains intact Outcome: Ongoing Goal: Oral mucous membranes remain intact Description: Outcome: Ongoing Problem: Gastrointestinal Goal: Minimal or absence of nausea and vomiting Outcome: Ongoing Goal: Maintains or returns to baseline bowel function Outcome: Ongoing Goal: Maintains adequate nutritional intake Outcome: Ongoing Problem: Genitourinary Goal: Absence of urinary retention Outcome: Ongoing Problem: Infection Goal: Absence of infection during hospitalization Outcome: Ongoing Problem: Metabolic/Fluid and Electrolytes Goal: Electrolytes maintained within normal limits Outcome: Ongoing Goal: Hemodynamic stability and optimal renal function maintained Outcome: Ongoing Goal: Glucose maintained within prescribed range Outcome: Ongoing Problem: Hematologic Goal: Maintains hematologic stability Outcome: Ongoing ER COVERER HELPER * Assessment & Plan Note - Harlan Mcarthur MD - 05/04/2025 8:43 PM BOILER COVERER HELPER Associated Problem(s): Afib (HCC) Underwent sotalol load and cardioversion on 05/03 after cardioversion 03/12 failed to maintain NSR. On Eliquis 5 mg BID, no missed doses last 4 weeks. Currently in NSR. - Sotalol 120 mg q12h - Eliquis 5 mg BID - Continuous telemetry - Continue home metoprolol XL 50 mg daily ER COVERER HELPER * Assessment & Plan Note - Harlan Mcarthur MD - 05/04/2025 8:43 PM BOILER COVERER HELPER Associated Problem(s): Gout - Hold home allopurinol 300 mg qHS in the setting of JOVANNI ER COVERER HELPER * Assessment & Plan Note - Harlan Mcarthur MD - 05/04/2025 8:43 PM BOILER COVERER HELPER Associated Problem(s): Hyperlipidemia, unspecified - Continue home rosuvastatin 20 mg qHS ER COVERER HELPER * Assessment & Plan Note - Harlan Mcarthur MD - 05/04/2025 8:43 PM BOILER COVERER HELPER Associated Problem(s): Hypothyroidism, unspecified - Continue home Synthroid 112 mcg qAM but 224 mcg each Saturday ER COVERER HELPER * Assessment & Plan Note - Harlan Mcarthur MD - 05/04/2025 8:43 PM BOILER COVERER HELPER Associated Problem(s): Acute decompensated heart failure (HCC) Patient presented with increasingly worsening shortness of breath and cough after discharge 05/03. On arrival in the ED, denies fever/chills but reports some mild night sweats preceding night. New oxygen requirement of 2 L to keep saturations above 90%. New leukocytosis and JOVANNI on labs, afebrile. CXR with mild pulmonary edema and bibasilar opacities left > right concerning for pneumonia vs atelectasis. Home GDMT: entresto 49-51 mg BID, metoprolol XL 50 mg daily, spironolactone 25 mg daily. - Diuresis with IV lasix 40 mg BID - Continue azithromycin, ceftriaxone q12h - Formal TTE - RPP pending ER COVERER HELPER * Assessment & Plan Note - Harlan Mcarthur MD - 05/04/2025 8:43 PM BOILER COVERER HELPER Associated Problem(s): c/f pneumonia Patient presented with increasingly worsening shortness of breath and cough after discharge 05/03. On arrival in the ED, denies fever/chills but reports some mild night sweats preceding night. New oxygen requirement of 2 L to keep saturations above 90%. New leukocytosis and JOVANNI on labs, afebrile. CXR with mild pulmonary edema and bibasilar opacities left > right concerning for pneumonia vs atelectasis. Home GDMT: entresto 49-51 mg BID, metoprolol XL 50 mg daily, spironolactone 25 mg daily. - Diuresis with IV lasix 40 mg BID - Continue azithromycin, ceftriaxone q12h - Formal TTE - RPP pending ER COVERER HELPER * Significant Event - Ana Sparrow NP - 05/04/2025 1:43 PM CST ED Hospitalist Event Note In my role as the ED hospitalist, I have seen and examined this patient and reviewed the chart. I have discussed with the ED team and will assume care of this patient until an inpatient bed and team is assigned. Chikis Elder is a 69 y.o. patient with afib (on eliquis), HFrEF (LVEF 29% per TTE 2023), HLD, ICD, hypothyroidism presents with shortness of breath. Pt was admitted 04/30-05/03 for afib s/p sotalolloading and cardioversion. States he felt fine on discharge yesterday afternoon. Around 4-5 hours after returning home he became progressively short of breath, stating he eventually was unable to walk up the stairs in his home. His symptoms continued to worsen throughout the night so his brought him to the ED for evaluation. He also notes several weeks of wheezing and cough. In the ED, pt was hypoxic to 87% on RA and improved with 2L NC. Labs notable for Na 132, Cr 1.61 (baseline 1.2), pro-BNP 8199 (no prior), WBC 10.39. CXR with atelectasis vs PNA and mild pulm edema. He was given azithro, CTX, and IV lasix 40mg. He now awaits admission to Cardiology. Brief exam: Constitutional: NAD, well developed Lungs: Clear to auscultation in all lung perry, unlabored Cardiovascular: RRR, normal S1 and S2 GI: Soft, non-tender, non-distended, bowel sounds + Extremities: Trace BLE edema Neurologic: AOx4, non-focal Plan: - continue IV lasix 40 daily - formal TTE - continue abx for CAP given mildly elevated WBC and reports of cough - home medications, including GDMT ordered - strict I&O, daily weights, monitor lytes with diuresis - wean O2 as tolerated Ana Sparrow NP ER COVERER HELPER ER COVERER HELPER * Plan of Ney - Nallely Salmon RN - 05/04/2025 4:58 AM CST Images from the original note were not included. As part of the readmission prevention initiative, ED CM receives an automated alert on patient who was discharged from [facility] inpatient admission </=7 days (DC 05/03/25; ED treatment team aware). Pt presents to ED cc: c/o worsening sob throughout the night. Reports was just discharged from [facility] for a.fib and chf. Underwent DC cardioversion to AV paced rhythm procedure. ED workup/orders/tx plan pending. Chart review completed. Upcoming scheduled appts per [facility] EMR include: Identified high risk SDOH (social determinants of health) include: none noted No ED CM needs identified at this time, but please contact ED CM ([phone]) for questions and/or prior to admission order placed so that alternatives to admission (if any) can be discussed. ER COVERER HELPER * ED Procedure Note - Aleksander Schreiber MD - 05/04/2025 4:56 AM BOILER COVERER HELPER Associated Order(s): ECG 12 lead Procedure ECG 12 lead Date/Time: 05/04/2025 4:56 AM Performed by: Aleksander Schreiber MD Authorized by: Aleksander Schreiber MD Rate: ECG rate: 72 ECG rate assessment: normal Rhythm: Rhythm: paced Pacing: Capture: Complete Type of pacing: Atrial Ectopy: Ectopy: none QRS: QRS axis: Left QRS intervals: Wide Conduction: Conduction: normal ST segments: ST segments: Normal T waves: T waves: non-specific Previous ECG: Previous ECG: Compared to current Date of previous EC05/02/2025 Similarity: No change Interpretation: Interpretation: No significant change Recommended Follow-up: Recommended follow up: further workup in the ED Aleksander Schreiber MD 05/04/25 0457 ER COVERER HELPER * ED Pre-Arrival Note - Char Quintana RN - 05/04/2025 4:16 AM BOILER COVERER HELPER Pre-Arrival Note Pt recently dc'd this morning. Patient now with SOB. Char Quintana RN ER COVERER HELPER documented in this encounter Plan of Treatment Pending Results Name Type Priority Associated Diagnoses Date /Time ECG 12 lead ECG Routine 05/06/2025 1: 31 PM BOILER COVERER HELPER ECG 12 lead ECG STAT 05/06/2025 9: 08 AM BOILER COVERER HELPER ECG 12 lead ECG Routine 05/08/2025 10 :09 PM BOILER COVERER HELPER Scheduled Orders Name Type Priority Associated Diagnoses Orde r Schedule ECG 12 lead ECG Routine As needed unt il discontinued starting 05/09/2025, 1 completed documented as of this encounter Procedures Procedure Name Priority Date/Time Associated Diagnosis Comments CARDIOVERSION Routine 05/10/2025 9:42 AM BOILER COVERER HELPER Paroxysmal atrial fibrillation (HCC) ECG 12-LEAD Routine 05/10/2025 6:14 AM BOILER COVERER HELPER EGFR Routine 05/09/2025 8:39 PM BOILER COVERER HELPER DIFFERENTIAL AUTO Routine 05/09/2025 8:3 9 PM BOILER COVERER HELPER CBC WITH AUTO DIFFERENTIAL Routine 05/09/2025 8:39 PM BOILER COVERER HELPER MAGNESIUM Routine 05/09/2025 8:39 PM BOILER COVERER HELPER BASIC METABOLIC PANEL Routine 05/09/2025 8:39 PM BOILER COVERER HELPER POTASSIUM, WHOLE BLOOD STAT 05/09/2025 3:28 AM BOILER COVERER HELPER EGFR Routine 05/08/2025 10:15 PM BOILER COVERER HELPER DIFFERENTIAL AUTO Routine 05/08/2025 10: 15 PM BOILER COVERER HELPER CBC WITH AUTO DIFFERENTIAL Routine 05/08/2025 10:15 PM BOILER COVERER HELPER PHOSPHORUS Routine 05/08/2025 10:15 PM BOILER COVERER HELPER MAGNESIUM Routine 05/08/2025 10:15 PM BOILER COVERER HELPER BASIC METABOLIC PANEL Routine 05/08/2025 10:15 PM BOILER COVERER HELPER ECG 12-LEAD Routine 05/08/2025 10:09 PM BOILER COVERER HELPER EGFR Routine 05/07/2025 6:33 PM BOILER COVERER HELPER DIFFERENTIAL AUTO Routine 05/07/2025 6:3 3 PM BOILER COVERER HELPER CBC WITH AUTO DIFFERENTIAL Routine 05/07/2025 6:33 PM BOILER COVERER HELPER PHOSPHORUS Routine 05/07/2025 6:33 PM BOILER COVERER HELPER MAGNESIUM Routine 05/07/2025 6:33 PM BOILER COVERER HELPER BASIC METABOLIC PANEL Routine 05/07/2025 6:33 PM BOILER COVERER HELPER HOME O2 EVAL (DESATURATION SCREEN) Routine 05/07/2025 9:48 AM BOILER COVERER HELPER EGFR Routine 05/06/2025 9:37 PM BOILER COVERER HELPER DIFFERENTIAL AUTO Routine 05/06/2025 9:3 7 PM BOILER COVERER HELPER CBC WITH AUTO DIFFERENTIAL Routine 05/06/2025 9:37 PM BOILER COVERER HELPER PHOSPHORUS Routine 05/06/2025 9:37 PM BOILER COVERER HELPER MAGNESIUM Routine 05/06/2025 9:37 PM BOILER COVERER HELPER BASIC METABOLIC PANEL Routine 05/06/2025 9:37 PM BOILER COVERER HELPER ECG 12-LEAD Routine 05/06/2025 1:31 PM BOILER COVERER HELPER XR CHEST PA LATERAL 2 VIEWS IP Routine 05/06/2025 10:14 AM BOILER COVERER HELPER XR CHEST 1 VIEW Timed 05/06/2025 9:37 AM BOILER COVERER HELPER ECG 12-LEAD STAT 05/06/2025 9:08 AM BOILER COVERER HELPER EGFR Routine 05/05/2025 9:20 PM BOILER COVERER HELPER DIFFERENTIAL AUTO Routine 05/05/2025 9:2 0 PM BOILER COVERER HELPER CBC WITH AUTO DIFFERENTIAL Routine 05/05/2025 9:20 PM BOILER COVERER HELPER PHOSPHORUS Routine 05/05/2025 9:20 PM BOILER COVERER HELPER MAGNESIUM Routine 05/05/2025 9:20 PM BOILER COVERER HELPER BASIC METABOLIC PANEL Routine 05/05/2025 9:20 PM BOILER COVERER HELPER ECG 12-LEAD Routine 05/05/2025 4:06 PM BOILER COVERER HELPER INFECTION PREVENTION KATIE AURIS PCR, SURVEILLANCE Routine 05/05/2025 12:47 PM BOILER COVERER HELPER TRANSTHORACIC ECHO (TTE) COMPLETE W DOPPLER/CF W CONTRAST ED Urgent/IP Urgent 05/05/2025 12:43 PM BOILER COVERER HELPER EGFR Routine 05/04/2025 9:52 PM BOILER COVERER HELPER DIFFERENTIAL AUTO Routine 05/04/2025 9:5 2 PM BOILER COVERER HELPER CBC WITH AUTO DIFFERENTIAL Routine 05/04/2025 9:52 PM BOILER COVERER HELPER PHOSPHORUS Routine 05/04/2025 9:52 PM BOILER COVERER HELPER MAGNESIUM Routine 05/04/2025 9:52 PM BOILER COVERER HELPER BASIC METABOLIC PANEL Routine 05/04/2025 9:52 PM BOILER COVERER HELPER RESPIRATORY PATHOGEN PANEL Routine 05/04/2025 8:06 PM BOILER COVERER HELPER TROPONIN I HIGH-SENSITIVITY 6-HOUR Timed 05/04/2025 10:48 AM BOILER COVERER HELPER INFECTION PREVENTION KATIE AURIS PCR, SURVEILLANCE Routine 05/04/2025 8:57 AM BOILER COVERER HELPER TROPONIN I HIGH-SENSITIVITY 4-HOUR Timed 05/04/2025 8:57 AM BOILER COVERER HELPER XR CHEST PA LATERAL 2 VIEWS ED 05/04/2025 5:15 AM BOILER COVERER HELPER ECG 12-LEAD STAT 05/04/2025 4:56 AM BOILER COVERER HELPER TROPONIN I HIGH-SENSITIVITY SERIES (BASELINE, 2HR, 4HR, 6HR) STAT 05/04/2025 4:49 AM BOILER COVERER HELPER EGFR STAT 05/04/2025 4:49 AM BOILER COVERER HELPER DIFFERENTIAL AUTO STAT 05/04/2025 4:4 9 AM BOILER COVERER HELPER PRO B-TYPE NATRIURETIC PEPTIDE STAT 05/04/2025 4:49 AM BOILER COVERER HELPER CBC WITH AUTO DIFFERENTIAL STAT 05/04/2025 4:49 AM BOILER COVERER HELPER COMPREHENSIVE METABOLIC PANEL STAT 05/04/2025 4:49 AM BOILER COVERER HELPER documented in this encounter Results * CARDIOVERSION (05/10/2025 9:42 AM BOILER COVERER HELPER) Anatomical Region Laterality Modality X-Ray Angiograph y Impressions 05/10/2025 10:00 AM BOILER COVERER HELPER Successful DC cardioversion to sinus rhythm. The referring physician was notified. Sebas Coffman MD was present to personally supervise or perform the entire procedure. Narrative 05/10/2025 10:00 AM BOILER COVERER HELPER CARDIOVERSION [id number] PRE-OP DIAGNOSIS: Atrial fibrillation HOMEBIRTH MIDWIFE: Sebas Coffman MD. REFERRING MD: Dr. Blackman; Dr. Camargo HISTORY: 69yo M with atrial fib. Anticoagulation with Eliquis PROCEDURE: Biphasic, synchronized DC cardioversion. The nature of the procedure, risks and alternatives were discussed with the patient who gave informed consent. The patient was sedated with propofol per the anesthesia team. 200J DC-CV using R2 Pads placed AP position. Resulting rhythm was A-V paced. The patient was then monitored until fully alert. COMPLICATIONS: None. Amaris Camargo MD CV ELECTROPHYSIOLOGY PROCS Fin al Result * ECG 12 lead (05/10/2025 6:14 AM BOILER COVERER HELPER) Ventricular Rate EKG/Min 82 BPM [facility] Atrial Rate 72 BPM [facility] QRS-Interval (MSEC) 146 ms [facility] QT-Interval (MSEC) 436 ms [facility] QTc 509 ms [facility] R [place] -48 degrees [facility] T [place] 95 degrees [facility] Diagnosis Ventricular-pa jada rhythm Abnormal ECG When compared with ECG of 06-MAY-2025 22:48, (unconfirmed) Premature ventricular complexes are no longer seen Confirmed by YIMI HOUSTON M.D ([id number]) on 05/11/2025 12:20:17 AM [facility] 05/10/2025 6:14 AM BOILER COVERER HELPER 05/11/2025 12:20 AM BOILER COVERER HELPER Marlyn Stevens MD ECG ORDERABLES Final Result [facility] * (ABNORMAL) eGFR (05/09/2025 8:39 PM BOILER COVERER HELPER) eGFR 58(L) >=60 mL/min/1. 73 m2 Comment: Interpretive Data Reference Interval Normal >/= 90 mL/min/1.73m2 Mildly decreased* 60 - 89 mL/min/1.73m2 Mildly to moderately decreased 45 - 59 mL/min/1.73m2 Moderately to severely decreased 30 - 44 mL/min/1.73m2 Severely decreased 15 - 29 mL/min/1.73m2 Kidney Failure < 15 mL/min/1.73m2 *Relative to young adult level Estimated glomerular filtration rate is determined by the 2020 CKD-EPI equation recommended by the National Kidney Foundation (A Unifying Approach to GFR Estimation: Recommendations of the NKF-ASK Task Force on Reassessing the Inclusion of Race in Diagnosing Kidney Disease, JASN 2020). The CKD-EPI equation should not be used for patients with unstable renal function and has not been validated in children and those over 70. Current interpretive data was last reviewed 2021. Blood 05/09/2025 8:39 PM BOILER COVERER HELPER 05/09/2025 11:03 PM BOILER COVERER HELPER us Benito Hendrickson MD LAB BLOOD ORDERABLES Final Result [facility] [place] [address] * (ABNORMAL) Differential, auto (05/09/2025 8:39 PM BOILER COVERER HELPER) Neutrophil abs 4.28 1.50 - 6.50 K/cumm Imm gran abs 0.02 0.00 - 0.10 K/cumm [facility] Lymphocyte abs 2.46 0.80 - 3.30 K/cumm [facility] Monocyte abs 0.81(H) 0.20 - 0.80 K/cumm [facility] Eosinophil abs 0.14 0.00 - 0.50 K/cumm [facility] Basophil abs 0.06 0.00 - 0.10 K/cumm [facility] Neutrophil pct 55.0 % [facility] Comment: Interpretive Data Percent cell count reference ranges are not reported, since discordance with absolute values may lead to misinterpretation of CBC data. Current Interpretive Data was last revised on 2017. Imm gran pct 0.3 % [facility] Comment: Interpretive Data Percent cell count reference ranges are not reported, since discordance with absolute values may lead to misinterpretation of CBC data. Current Interpretive Data was last revised on 2017. Lymphocyte pct 31.7 % [facility] Comment: Interpretive Data Percent cell count reference ranges are not reported, since discordance with absolute values may lead to misinterpretation of CBC data. Current Interpretive Data was last revised on 2017. Monocyte pct 10.4 % [facility] Comment: Interpretive Data Percent cell count reference ranges are not reported, since discordance with absolute values may lead to misinterpretation of CBC data. Current Interpretive Data was last revised on 2017. Eosinophil pct 1.8 % [facility] Comment: Interpretive Data Percent cell count reference ranges are not reported, since discordance with absolute values may lead to misinterpretation of CBC data. Current Interpretive Data was last revised on 2017. Basophil pct 0.8 % [facility] Comment: Interpretive Data Percent cell count reference ranges are not reported, since discordance with absolute values may lead to misinterpretation of CBC data. Current Interpretive Data was last revised on 2017. Blood 05/09/2025 8:39 PM BOILER COVERER HELPER 05/09/2025 11:04 PM BOILER COVERER HELPER us Benito Hendrickson MD LAB BLOOD ORDERABLES Final Result [facility] [place] [address] * Magnesium (05/09/2025 8:39 PM BOILER COVERER HELPER) [facility] Magnesium 2.1 1.4 - 2.5 mg/dL Blood 05/09/2025 8:39 PM BOILER COVERER HELPER 05/09/2025 11:03 PM BOILER COVERER HELPER Benito Hendrickson MD LAB BLOOD ORDERABLES Final Result [facility] Department [place] [address] * (ABNORMAL) CBC with auto differential (05/09/2025 8:39 PM BOILER COVERER HELPER) [facility] WBC 7.77 3.80 - 9.90 K/cumm Hgb 16.3 13.0 - 17.5 g/dL [facility] Hct 47.4 38.9 - 50.3 % [facility] Plt 235 150 - 400 K/cumm [facility] MPV 11.9 9.1 - 12.3 fL [facility] RBC 4.83 4.30 - 5.80 M/cumm [facility] MCV 98.1(H) 81.3 - 96.4 fL [facility] MCH 33.7(H) 27.1 - 33.3 pg [facility] MCHC 34.4 32.3 - 35.7 g/dL [facility] RDW CV 15.9(H) 11.1 - 14.9 % [facility] RDW SD 57.3(H) 35.7 - 48.1 fL [facility] NRBC abs 0.00 0.00 - 0.01 K/cumm [facility] Blood 05/09/2025 8:39 PM BOILER COVERER HELPER 05/09/2025 11:04 PM BOILER COVERER HELPER Bneito Hendrickson MD LAB BLOOD ORDERABLES Final Result [facility] [place] [address] * (ABNORMAL) Basic metabolic panel (05/09/2025 8:39 PM BOILER COVERER HELPER) Sodium 136 135 - 145 mmol/L Potassium, pl 4.1 3.3 - 4.9 mmol/L [facility] Chloride 100 97 - 110 mmol/L [facility] CO2 25 22 - 32 mmol/L [facility] Anion gap 11 2 - 15 mmol/L [facility] BUN 17 6 - 25 mg/dL [facility] Creatinine 1.32(H) 0.80 - 1.30 mg/dL [facility] Glucose 127 70 - 199 mg/dL [facility] Comment: Interpretive Data Fasting glucose >/= 126 mg/dl is diagnostic for diabetes. Fasting is defined as no caloric intake for at least 8 hours. Fasting glucose between 100 mg/dl to 125 mg/dl is diagnostic of prediabetes. In a patient with classic symptoms of hyperglycemia or hyperglycemic crisis, a random glucose >/= 200 mg/dl is diagnostic for diabetes. In the absence of unequivocal hyperglycemia, results should be confirmed by repeat testing. The classification and Diagnosis of Diabetes Diabetes Care 2021; 46: S19-S40. Current interpretive data was last revised 2022. Calcium 8.6 8.5 - 10.3 mg/dL [facility] Blood 05/09/2025 8:39 PM BOILER COVERER HELPER 05/09/2025 11:03 PM BOILER COVERER HELPER us Benito Hendrickson MD LAB BLOOD ORDERABLES Final Result [facility] Department [place] [address] * Potassium, whole blood (05/09/2025 3:28 AM BOILER COVERER HELPER) Potassium, bld 4.1 3.3 - 4.9 mmol/L Blood 05/09/2025 3:28 AM BOILER COVERER HELPER 05/09/2025 3:36 AM BOILER COVERER HELPER us Amaris Camargo MD LAB BLOOD ORDERABLES Final Res ult Performing Organization Address City/[facility]/ZIP Co de Phone Number [facility] [place] [address] * (ABNORMAL) eGFR (05/08/2025 10:15 PM BOILER COVERER HELPER) Pathologist [facility] eGFR 55(L) >=60 mL/min/1. 73 m2 Comment: Interpretive Data Reference Interval Normal >/= 90 mL/min/1.73m2 Mildly decreased* 60 - 89 mL/min/1.73m2 Mildly to moderately decreased 45 - 59 mL/min/1.73m2 Moderately to severely decreased 30 - 44 mL/min/1.73m2 Severely decreased 15 - 29 mL/min/1.73m2 Kidney Failure < 15 mL/min/1.73m2 *Relative to young adult level Estimated glomerular filtration rate is determined by the 2020 CKD-EPI equation recommended by the National Kidney Foundation (A Unifying Approach to GFR Estimation: Recommendations of the NKF-ASK Task Force on Reassessing the Inclusion of Race in Diagnosing Kidney Disease, JASN 2020). The CKD-EPI equation should not be used for patients with unstable renal function and has not been validated in children and those over 70. Current interpretive data was last reviewed 2021. Blood 05/08/2025 10:1 5 PM BOILER COVERER HELPER 05/08/2025 10:59 PM BOILER COVERER HELPER us Benito Hendrickson MD LAB BLOOD ORDERABLES Final Result Performing Organization Address [facility] Co de Phone Number [facility] Department [place] [address] * (ABNORMAL) Differential, auto (05/08/2025 10:15 PM BOILER COVERER HELPER) Pathologist [facility] Neutrophil abs 5.40 1.50 - 6.50 K/cumm Imm gran abs 0.04 0.00 - 0.10 K/cumm [facility] Lymphocyte abs 2.31 0.80 - 3.30 K/cumm [facility] Monocyte abs 0.85(H) 0.20 - 0.80 K/cumm [facility] Eosinophil abs 0.16 0.00 - 0.50 K/cumm [facility] Basophil abs 0.07 0.00 - 0.10 K/cumm [facility] Neutrophil pct 61.1 % [facility] Comment: Interpretive Data Percent cell count reference ranges are not reported, since discordance with absolute values may lead to misinterpretation of CBC data. Current Interpretive Data was last revised on 2017. Imm gran pct 0.5 % [facility] Comment: Interpretive Data Percent cell count reference ranges are not reported, since discordance with absolute values may lead to misinterpretation of CBC data. Current Interpretive Data was last revised on 2017. Lymphocyte pct 26.2 % [facility] Comment: Interpretive Data Percent cell count reference ranges are not reported, since discordance with absolute values may lead to misinterpretation of CBC data. Current Interpretive Data was last revised on 2017. Monocyte pct 9.6 % [facility] Comment: Interpretive Data Percent cell count reference ranges are not reported, since discordance with absolute values may lead to misinterpretation of CBC data. Current Interpretive Data was last revised on 2017. Eosinophil pct 1.8 % [facility] Comment: Interpretive Data Percent cell count reference ranges are not reported, since discordance with absolute values may lead to misinterpretation of CBC data. Current Interpretive Data was last revised on 2017. Basophil pct 0.8 % [facility] Comment: Interpretive Data Percent cell count reference ranges are not reported, since discordance with absolute values may lead to misinterpretation of CBC data. Current Interpretive Data was last revised on 2017. Blood 05/08/2025 10:1 5 PM BOILER COVERER HELPER 05/08/2025 10:48 PM BOILER COVERER HELPER us Benito Hendrickson MD LAB BLOOD ORDERABLES Final Result [facility] Department [place] [address] * Phosphorus (05/08/2025 10:15 PM BOILER COVERER HELPER) Phosphorus, pl 3.0 2.3 - 4.5 mg/dL Blood 05/08/2025 10:1 5 PM BOILER COVERER HELPER 05/08/2025 10:59 PM BOILER COVERER HELPER Benito Hendrickson MD LAB BLOOD ORDERABLES Final Result Performing Organization Address City/[facility]/ZIP Co de Phone Number [facility] [place] [address] * Magnesium (05/08/2025 10:15 PM BOILER COVERER HELPER) [facility] Magnesium 2.0 1.4 - 2.5 mg/dL Blood 05/08/2025 10:1 5 PM BOILER COVERER HELPER 05/08/2025 10:59 PM BOILER COVERER HELPER Benito Hendrickson MD LAB BLOOD ORDERABLES Final Result Performing Organization Address [facility] de Phone Number [facility] [place] [address] * (ABNORMAL) CBC with auto differential (05/08/2025 10:15 PM BOILER COVERER HELPER) [facility] WBC 8.83 3.80 - 9.90 K/cumm Hgb 16.0 13.0 - 17.5 g/dL [facility] Hct 48.7 38.9 - 50.3 % [facility] Plt 243 150 - 400 K/cumm [facility] MPV 11.6 9.1 - 12.3 fL [facility] RBC 4.89 4.30 - 5.80 M/cumm [facility] MCV 99.6(H) 81.3 - 96.4 fL [facility] MCH 32.7 27.1 - 33.3 pg [facility] MCHC 32.9 32.3 - 35.7 g/dL [facility] RDW CV 15.8(H) 11.1 - 14.9 % [facility] RDW SD 56.9(H) 35.7 - 48.1 fL [facility] NRBC abs 0.00 0.00 - 0.01 K/cumm [facility] Blood 05/08/2025 10:1 5 PM BOILER COVERER HELPER 05/08/2025 10:48 PM BOILER COVERER HELPER us Benito Hendrickson MD LAB BLOOD ORDERABLES Final Result [facility] [place] [address] * (ABNORMAL) Basic metabolic panel (05/08/2025 10:15 PM BOILER COVERER HELPER) [facility] Sodium 137 135 - 145 mmol/L Potassium, pl 4.5 3.3 - 4.9 mmol/L [facility] Comment:Hemolyzed; Potassium value may be falsely elevated by as much as 0.6-1.0 mmol/L. Suggest redraw and reanalysis. Chloride 99 97 - 110 mmol/L [facility] CO2 26 22 - 32 mmol/L [facility] Anion gap 12 2 - 15 mmol/L [facility] BUN 17 6 - 25 mg/dL [facility] Creatinine 1.38(H) 0.80 - 1.30 mg/dL [facility] Glucose 138 70 - 199 mg/dL [facility] Comment: Interpretive Data Fasting glucose >/= 126 mg/dl is diagnostic for diabetes. Fasting is defined as no caloric intake for at least 8 hours. Fasting glucose between 100 mg/dl to 125 mg/dl is diagnostic of prediabetes. In a patient with classic symptoms of hyperglycemia or hyperglycemic crisis, a random glucose >/= 200 mg/dl is diagnostic for diabetes. In the absence of unequivocal hyperglycemia, results should be confirmed by repeat testing. The classification and Diagnosis of Diabetes Diabetes Care 202; 46: S19-S40. Current interpretive data was last revised 2022. Calcium 8.5 8.5 - 10.3 mg/dL [facility] Blood 05/08/2025 10:1 5 PM BOILER COVERER HELPER 05/08/2025 10:59 PM BOILER COVERER HELPER us Benito Hendrickson MD LAB BLOOD ORDERABLES Final Result [facility] [place] [address] * (ABNORMAL) eGFR (05/07/2025 6:33 PM BOILER COVERER HELPER) Pathologist [facility] eGFR 59(L) >=60 mL/min/1. 73 m2 Comment: Interpretive Data Reference Interval Normal >/= 90 mL/min/1.73m2 Mildly decreased* 60 - 89 mL/min/1.73m2 Mildly to moderately decreased 45 - 59 mL/min/1.73m2 Moderately to severely decreased 30 - 44 mL/min/1.73m2 Severely decreased 15 - 29 mL/min/1.73m2 Kidney Failure < 15 mL/min/1.73m2 *Relative to young adult level Estimated glomerular filtration rate is determined by the 2020 CKD-EPI equation recommended by the National Kidney Foundation (A Unifying Approach to GFR Estimation: Recommendations of the NKF-ASK Task Force on Reassessing the Inclusion of Race in Diagnosing Kidney Disease, JASN 2020). The CKD-EPI equation should not be used for patients with unstable renal function and has not been validated in children and those over 70. Current interpretive data was last reviewed 2021. Blood 05/07/2025 6:33 PM BOILER COVERER HELPER 05/07/2025 6:48 PM BOILER COVERER HELPER us Benito Hendrickson MD LAB BLOOD ORDERABLES Final Result [facility] [place] [address] * (ABNORMAL) Differential, auto (05/07/2025 6:33 PM BOILER COVERER HELPER) Pathologist [facility] Neutrophil abs 5.58 1.50 - 6.50 K/cumm Imm gran abs 0.03 0.00 - 0.10 K/cumm [facility] Lymphocyte abs 2.39 0.80 - 3.30 K/cumm [facility] Monocyte abs 0.92(H) 0.20 - 0.80 K/cumm [facility] Eosinophil abs 0.15 0.00 - 0.50 K/cumm [facility] Basophil abs 0.08 0.00 - 0.10 K/cumm [facility] Neutrophil pct 61.0 % [facility] Comment: Interpretive Data Percent cell count reference ranges are not reported, since discordance with absolute values may lead to misinterpretation of CBC data. Current Interpretive Data was last revised on 2017. Imm gran pct 0.3 % [facility] Comment: Interpretive Data Percent cell count reference ranges are not reported, since discordance with absolute values may lead to misinterpretation of CBC data. Current Interpretive Data was last revised on 2017. Lymphocyte pct 26.1 % [facility] Comment: Interpretive Data Percent cell count reference ranges are not reported, since discordance with absolute values may lead to misinterpretation of CBC data. Current Interpretive Data was last revised on 2017. Monocyte pct 10.1 % [facility] Comment: Interpretive Data Percent cell count reference ranges are not reported, since discordance with absolute values may lead to misinterpretation of CBC data. Current Interpretive Data was last revised on 2017. Eosinophil pct 1.6 % [facility] Comment: Interpretive Data Percent cell count reference ranges are not reported, since discordance with absolute values may lead to misinterpretation of CBC data. Current Interpretive Data was last revised on 2017. Basophil pct 0.9 % [facility] Comment: Interpretive Data Percent cell count reference ranges are not reported, since discordance with absolute values may lead to misinterpretation of CBC data. Current Interpretive Data was last revised on 2017. Blood 05/07/2025 6:33 PM BOILER COVERER HELPER 05/07/2025 6:47 PM BOILER COVERER HELPER us Benito Hendrickson MD LAB BLOOD ORDERABLES Final Result TATO SMITH [facility] Department [place] [address] * Phosphorus (05/07/2025 6:33 PM BOILER COVERER HELPER) Phosphorus, pl 2.5 2.3 - 4.5 mg/dL Blood 05/07/2025 6:33 PM BOILER COVERER HELPER 05/07/2025 6:48 PM BOILER COVERER HELPER Benito Hendrickson MD LAB BLOOD ORDERABLES Final Result Performing Organization Address City/[facility]/ZIP Co de Phone Number [facility] [place] [address] * Magnesium (05/07/2025 6:33 PM BOILER COVERER HELPER) [facility] Magnesium 2.1 1.4 - 2.5 mg/dL Blood 05/07/2025 6:33 PM BOILER COVERER HELPER 05/07/2025 6:48 PM BOILER COVERER HELPER Benito Hendrickson MD LAB BLOOD ORDERABLES Final Result Performing Organization Address [facility] de Phone Number [facility] [place] [address] * (ABNORMAL) CBC with auto differential (05/07/2025 6:33 PM BOILER COVERER HELPER) [facility] WBC 9.15 3.80 - 9.90 K/cumm Hgb 17.0 13.0 - 17.5 g/dL [facility] Hct 48.9 38.9 - 50.3 % [facility] Plt 268 150 - 400 K/cumm [facility] MPV 11.7 9.1 - 12.3 fL [facility] RBC 5.02 4.30 - 5.80 M/cumm [facility] MCV 97.4(H) 81.3 - 96.4 fL [facility] MCH 33.9(H) 27.1 - 33.3 pg [facility] MCHC 34.8 32.3 - 35.7 g/dL [facility] RDW CV 15.7(H) 11.1 - 14.9 % [facility] RDW SD 55.2(H) 35.7 - 48.1 fL [facility] NRBC abs 0.00 0.00 - 0.01 K/cumm [facility] Blood 05/07/2025 6:33 PM BOILER COVERER HELPER 05/07/2025 6:47 PM BOILER COVERER HELPER Benito Hendrickson MD LAB BLOOD ORDERABLES Final Result [facility] Department [place] [address] * (ABNORMAL) Basic metabolic panel (05/07/2025 6:33 PM BOILER COVERER HELPER) [facility] Sodium 136 135 - 145 mmol/L Potassium, pl 4.5 3.3 - 4.9 mmol/L [facility] Chloride 101 97 - 110 mmol/L [facility] CO2 22 22 - 32 mmol/L [facility] Anion gap 13 2 - 15 mmol/L [facility] BUN 17 6 - 25 mg/dL [facility] Creatinine 1.31(H) 0.80 - 1.30 mg/dL [facility] Glucose 124 70 - 199 mg/dL [facility] Comment: Interpretive Data Fasting glucose >/= 126 mg/dl is diagnostic for diabetes. Fasting is defined as no caloric intake for at least 8 hours. Fasting glucose between 100 mg/dl to 125 mg/dl is diagnostic of prediabetes. In a patient with classic symptoms of hyperglycemia or hyperglycemic crisis, a random glucose >/= 200 mg/dl is diagnostic for diabetes. In the absence of unequivocal hyperglycemia, results should be confirmed by repeat testing. The classification and Diagnosis of Diabetes Diabetes Care 2021; 46: S19-S40. Current interpretive data was last revised 2022. Calcium 8.2(L) 8.5 - 10.3 mg/dL [facility] Blood 05/07/2025 6:33 PM BOILER COVERER HELPER 05/07/2025 6:48 PM BOILER COVERER HELPER Benito Hendrickson MD LAB BLOOD ORDERABLES Final Result Performing Organization Address [facility]/ZIP Co de Phone Number [facility] Department [place] [address] * (ABNORMAL) eGFR (05/06/2025 9:37 PM BOILER COVERER HELPER) [facility] eGFR 57(L) >=60 mL/min/1. 73 m2 Comment: Interpretive Data Reference Interval Normal >/= 90 mL/min/1.73m2 Mildly decreased* 60 - 89 mL/min/1.73m2 Mildly to moderately decreased 45 - 59 mL/min/1.73m2 Moderately to severely decreased 30 - 44 mL/min/1.73m2 Severely decreased 15 - 29 mL/min/1.73m2 Kidney Failure < 15 mL/min/1.73m2 *Relative to young adult level Estimated glomerular filtration rate is determined by the 2020 CKD-EPI equation recommended by the National Kidney Foundation (A Unifying Approach to GFR Estimation: Recommendations of the NKF-ASK Task Force on Reassessing the Inclusion of Race in Diagnosing Kidney Disease, JASN 2020). The CKD-EPI equation should not be used for patients with unstable renal function and has not been validated in children and those over 70. Current interpretive data was last reviewed 2021. Blood 05/06/2025 9:37 PM BOILER COVERER HELPER 05/06/2025 10:31 PM BOILER COVERER HELPER us Benito Hendrickson MD LAB BLOOD ORDERABLES Final Result [facility] Department [place] [address] * (ABNORMAL) Differential, auto (05/06/2025 9:37 PM BOILER COVERER HELPER) [facility] Neutrophil abs 4.97 1.50 - 6.50 K/cumm Imm gran abs 0.02 0.00 - 0.10 K/cumm [facility] Lymphocyte abs 1.70 0.80 - 3.30 K/cumm [facility] Monocyte abs 0.82(H) 0.20 - 0.80 K/cumm [facility] Eosinophil abs 0.09 0.00 - 0.50 K/cumm [facility] Basophil abs 0.04 0.00 - 0.10 K/cumm [facility] Neutrophil pct 65.0 % [facility] Comment: Interpretive Data Percent cell count reference ranges are not reported, since discordance with absolute values may lead to misinterpretation of CBC data. Current Interpretive Data was last revised on 2017. Imm gran pct 0.3 % [facility] Comment: Interpretive Data Percent cell count reference ranges are not reported, since discordance with absolute values may lead to misinterpretation of CBC data. Current Interpretive Data was last revised on 2017. Lymphocyte pct 22.3 % [facility] Comment: Interpretive Data Percent cell count reference ranges are not reported, since discordance with absolute values may lead to misinterpretation of CBC data. Current Interpretive Data was last revised on 2017. Monocyte pct 10.7 % [facility] Comment: Interpretive Data Percent cell count reference ranges are not reported, since discordance with absolute values may lead to misinterpretation of CBC data. Current Interpretive Data was last revised on 2017. Eosinophil pct 1.2 % [facility] Comment: Interpretive Data Percent cell count reference ranges are not reported, since discordance with absolute values may lead to misinterpretation of CBC data. Current Interpretive Data was last revised on 2017. Basophil pct 0.5 % [facility] Comment: Interpretive Data Percent cell count reference ranges are not reported, since discordance with absolute values may lead to misinterpretation of CBC data. Current Interpretive Data was last revised on 2017. Blood 05/06/2025 9:37 PM BOILER COVERER HELPER 05/06/2025 10:31 PM BOILER COVERER HELPER Benito Hendrickson MD LAB BLOOD ORDERABLES Final Result Performing Organization Address City/[facility] Co de Phone Number [facility] [place] [address] * Phosphorus (05/06/2025 9:37 PM BOILER COVERER HELPER) Phosphorus, pl 2.5 2.3 - 4.5 mg/dL Blood 05/06/2025 9:37 PM BOILER COVERER HELPER 05/06/2025 10:31 PM BOILER COVERER HELPER Benito Hendrickson MD LAB BLOOD ORDERABLES Final Result Performing Organization Address City/[facility] de Phone Number [facility] [place] [address] * Magnesium (05/06/2025 9:37 PM BOILER COVERER HELPER) [facility] Magnesium 1.9 1.4 - 2.5 mg/dL Blood 05/06/2025 9:37 PM BOILER COVERER HELPER 05/06/2025 10:31 PM BOILER COVERER HELPER Benito Hendrickson MD LAB BLOOD ORDERABLES Final Result Performing Organization Address [facility] de Phone Number [facility] [place] [address] * (ABNORMAL) CBC with auto differential (05/06/2025 9:37 PM BOILER COVERER HELPER) [facility] WBC 7.64 3.80 - 9.90 K/cumm Hgb 16.5 13.0 - 17.5 g/dL [facility] Hct 47.3 38.9 - 50.3 % [facility] Plt 225 150 - 400 K/cumm [facility] MPV 11.6 9.1 - 12.3 fL [facility] RBC 4.82 4.30 - 5.80 M/cumm [facility] MCV 98.1(H) 81.3 - 96.4 fL [facility] MCH 34.2(H) 27.1 - 33.3 pg [facility] MCHC 34.9 32.3 - 35.7 g/dL [facility] RDW CV 15.7(H) 11.1 - 14.9 % [facility] RDW SD 55.0(H) 35.7 - 48.1 fL [facility] NRBC abs 0.00 0.00 - 0.01 K/cumm [facility] Blood 05/06/2025 9:37 PM BOILER COVERER HELPER 05/06/2025 10:31 PM BOILER COVERER HELPER Benito Hendrickson MD LAB BLOOD ORDERABLES Final Result Performing Organization Address [facility]/ZIP Co de Phone Number [facility] Department [place] [address] * (ABNORMAL) Basic metabolic panel (05/06/2025 9:37 PM BOILER COVERER HELPER) Sodium 137 135 - 145 mmol/L Potassium, pl 3.7 3.3 - 4.9 mmol/L [facility] Chloride 100 97 - 110 mmol/L [facility] CO2 25 22 - 32 mmol/L [facility] Anion gap 12 2 - 15 mmol/L [facility] BUN 17 6 - 25 mg/dL [facility] Creatinine 1.34(H) 0.80 - 1.30 mg/dL [facility] Glucose 122 70 - 199 mg/dL [facility] Comment: Interpretive Data Fasting glucose >/= 126 mg/dl is diagnostic for diabetes. Fasting is defined as no caloric intake for at least 8 hours. Fasting glucose between 100 mg/dl to 125 mg/dl is diagnostic of prediabetes. In a patient with classic symptoms of hyperglycemia or hyperglycemic crisis, a random glucose >/= 200 mg/dl is diagnostic for diabetes. In the absence of unequivocal hyperglycemia, results should be confirmed by repeat testing. The classification and Diagnosis of Diabetes Diabetes Care 2021; 46: S19-S40. Current interpretive data was last revised 2022. Calcium 8.3(L) 8.5 - 10.3 mg/dL [facility] Blood 05/06/2025 9:37 PM BOILER COVERER HELPER 05/06/2025 10:31 PM BOILER COVERER HELPER us Benito Hendrickson MD LAB BLOOD ORDERABLES Final Result Performing Organization Address [facility] Co de Phone Number [facility] [place] [address] * XR Chest PA Lateral 2 Views (05/06/2025 10:14 AM BOILER COVERER HELPER) Anatomical Region Laterality Modality Body, Chest N/A Computed Radiogr aphy 05/06/2025 11:3 1 AM BOILER COVERER HELPER Impressions 05/06/2025 12:07 PM BOILER COVERER HELPER The current study is compared with the prior radiograph dated 05/06/2025. Left chest wall pacemaker defibrillator with leads overlying the right atrium and right ventricle. Mild bibasilar atelectasis. No pleural effusion or pneumothorax. Stable cardiomediastinal silhouette. Dictated by: Jere Jang M.D. The radiology attending physician has personally reviewed this study, and had reviewed and/or edited this written report and agrees with it. Electronically signed by: Dave Vega M.D. Narrative 05/06/2025 12:07 PM BOILER COVERER HELPER EXAMINATION: 2 view chest radiograph Procedure Note Dave Vega MD - 05/06/2025 EXAMINATION: 2 view chest radiograph IMPRESSION: The current study is compared with the prior radiograph dated 05/06/2025. Left chest wall pacemaker defibrillator with leads overlying the right atrium and right ventricle. Mild bibasilar atelectasis. No pleural effusion or pneumothorax. Stable cardiomediastinal silhouette. Dictated by: Jere Jang M.D. The radiology attending physician has personally reviewed this study, and had reviewed and/or edited this written report and agrees with it. Electronically signed by: Dave Vega M.D. Amaris Camargo MD IMG XR PROCEDURES Final Result * XR Chest 1 View (05/06/2025 9:37 AM BOILER COVERER HELPER) Anatomical Region Laterality Modality Body, Chest N/A Digital Radiogra phy 05/06/2025 10:2 9 AM BOILER COVERER HELPER Impressions 05/07/2025 7:04 AM BOILER COVERER HELPER The current study is compared with the prior radiograph dated 05/04/2025. Left chest wall pacemaker defibrillator with leads overlying the right ventricle and right atrium. Mild bibasilar atelectasis with trace bilateral pleural effusions. Mild overlying pulmonary edema. No pneumothorax. Stable cardiomediastinal silhouette. Dictated by: Jere Jang M.D. The radiology attending physician has personally reviewed this study, and had reviewed and/or edited this written report and agrees with it. Electronically signed by: Wenceslao Kessler M.D. Narrative 05/07/2025 7:04 AM BOILER COVERER HELPER EXAMINATION: 1 view chest radiograph Procedure Note Wenceslao Kessler MD - 05/07/2025 EXAMINATION: 1 view chest radiograph IMPRESSION: The current study is compared with the prior radiograph dated 05/04/2025. Left chest wall pacemaker defibrillator with leads overlying the right ventricle and right atrium. Mild bibasilar atelectasis with trace bilateral pleural effusions. Mild overlying pulmonary edema. No pneumothorax. Stable cardiomediastinal silhouette. Dictated by: Jere Jang M.D. The radiology attending physician has personally reviewed this study, and had reviewed and/or edited this written report and agrees with it. Electronically signed by: Wenceslao Kessler M.D. Amaris Camargo MD IMG XR PROCEDURES Final Result * (ABNORMAL) eGFR (05/05/2025 9:20 PM BOILER COVERER HELPER) eGFR 55(L) >=60 mL/min/1. 73 m2 Comment: Interpretive Data Reference Interval Normal >/= 90 mL/min/1.73m2 Mildly decreased* 60 - 89 mL/min/1.73m2 Mildly to moderately decreased 45 - 59 mL/min/1.73m2 Moderately to severely decreased 30 - 44 mL/min/1.73m2 Severely decreased 15 - 29 mL/min/1.73m2 Kidney Failure < 15 mL/min/1.73m2 *Relative to young adult level Estimated glomerular filtration rate is determined by the 2020 CKD-EPI equation recommended by the National Kidney Foundation (A Unifying Approach to GFR Estimation: Recommendations of the NKF-ASK Task Force on Reassessing the Inclusion of Race in Diagnosing Kidney Disease, JASN 202). The CKD-EPI equation should not be used for patients with unstable renal function and has not been validated in children and those over 70. Current interpretive data was last reviewed 2021. Blood 05/05/2025 9:20 PM BOILER COVERER HELPER 05/05/2025 9:30 PM BOILER COVERER HELPER us Benito Hendrickson MD LAB BLOOD ORDERABLES Final Result [facility] [place] [address] * Differential, auto (05/05/2025 9:20 PM BOILER COVERER HELPER) Neutrophil abs 5.41 1.50 - 6.50 K/cumm Imm gran abs 0.03 0.00 - 0.10 K/cumm [facility] Lymphocyte abs 1.99 0.80 - 3.30 K/cumm [facility] Monocyte abs 0.60 0.20 - 0.80 K/cumm [facility] Eosinophil abs 0.10 0.00 - 0.50 K/cumm [facility] Basophil abs 0.06 0.00 - 0.10 K/cumm [facility] Neutrophil pct 66.1 % [facility] Comment: Interpretive Data Percent cell count reference ranges are not reported, since discordance with absolute values may lead to misinterpretation of CBC data. Current Interpretive Data was last revised on 2017. Imm gran pct 0.4 % [facility] Comment: Interpretive Data Percent cell count reference ranges are not reported, since discordance with absolute values may lead to misinterpretation of CBC data. Current Interpretive Data was last revised on 2017. Lymphocyte pct 24.3 % [facility] Comment: Interpretive Data Percent cell count reference ranges are not reported, since discordance with absolute values may lead to misinterpretation of CBC data. Current Interpretive Data was last revised on 2017. Monocyte pct 7.3 % [facility] Comment: Interpretive Data Percent cell count reference ranges are not reported, since discordance with absolute values may lead to misinterpretation of CBC data. Current Interpretive Data was last revised on 2017. Eosinophil pct 1.2 % [facility] Comment: Interpretive Data Percent cell count reference ranges are not reported, since discordance with absolute values may lead to misinterpretation of CBC data. Current Interpretive Data was last revised on 2017. Basophil pct 0.7 % [facility] Comment: Interpretive Data Percent cell count reference ranges are not reported, since discordance with absolute values may lead to misinterpretation of CBC data. Current Interpretive Data was last revised on 2017. Blood 05/05/2025 9:20 PM BOILER COVERER HELPER 05/05/2025 9:30 PM BOILER COVERER HELPER Result [facility] Benito Hendrickson MD LAB BLOOD ORDERABLES Final Result Performing Organization Address [facility] de Phone Number [facility] [place] [address] * (ABNORMAL) Phosphorus (05/05/2025 9:20 PM BOILER COVERER HELPER) Pathologist [facility] Phosphorus, pl 2.1(L) 2.3 - 4.5 mg/dL Blood 05/05/2025 9:20 PM BOILER COVERER HELPER 05/05/2025 9:30 PM BOILER COVERER HELPER Benito Hendrickson MD LAB BLOOD ORDERABLES Final Result Performing Organization Address [facility] de Phone Number [facility] [place] [employer] [place] [address] * Magnesium (05/05/2025 9:20 PM BOILER COVERER HELPER) [facility] Magnesium 2.0 1.4 - 2.5 mg/dL Blood 05/05/2025 9:20 PM BOILER COVERER HELPER 05/05/2025 9:30 PM BOILER COVERER HELPER Result [facility] Benito Hendrickson MD LAB BLOOD ORDERABLES Final Result Performing Organization Address [facility] [place] [address] * (ABNORMAL) CBC with auto differential (05/05/2025 9:20 PM BOILER COVERER HELPER) [facility] WBC 8.19 3.80 - 9.90 K/cumm Hgb 15.1 13.0 - 17.5 g/dL [facility] Hct 45.9 38.9 - 50.3 % [facility] Plt 226 150 - 400 K/cumm [facility] MPV 11.5 9.1 - 12.3 fL [facility] RBC 4.59 4.30 - 5.80 M/cumm [facility] MCV 100.0(H) 81.3 - 96.4 fL [facility] MCH 32.9 27.1 - 33.3 pg [facility] MCHC 32.9 32.3 - 35.7 g/dL [facility] RDW CV 15.2(H) 11.1 - 14.9 % [facility] RDW SD 54.3(H) 35.7 - 48.1 fL [facility] NRBC abs 0.00 0.00 - 0.01 K/cumm [facility] Blood 05/05/2025 9:20 PM BOILER COVERER HELPER 05/05/2025 9:30 PM BOILER COVERER HELPER Benito Hendrickson MD LAB BLOOD ORDERABLES Final Result [facility] Department [place] [address] * (ABNORMAL) Basic metabolic panel (05/05/2025 9:20 PM BOILER COVERER HELPER) Sodium 136 135 - 145 mmol/L Potassium, pl 4.6 3.3 - 4.9 mmol/L [facility] Chloride 106 97 - 110 mmol/L [facility] CO2 26 22 - 32 mmol/L [facility] Anion gap 4 2 - 15 mmol/L [facility] BUN 20 6 - 25 mg/dL [facility] Creatinine 1.39(H) 0.80 - 1.30 mg/dL [facility] Glucose 130 70 - 199 mg/dL [facility] Comment: Interpretive Data Fasting glucose >/= 126 mg/dl is diagnostic for diabetes. Fasting is defined as no caloric intake for at least 8 hours. Fasting glucose between 100 mg/dl to 125 mg/dl is diagnostic of prediabetes. In a patient with classic symptoms of hyperglycemia or hyperglycemic crisis, a random glucose >/= 200 mg/dl is diagnostic for diabetes. In the absence of unequivocal hyperglycemia, results should be confirmed by repeat testing. The classification and Diagnosis of Diabetes Diabetes Care 2021; 46: S19-S40. Current interpretive data was last revised 2022. Calcium 8.4(L) 8.5 - 10.3 mg/dL [facility] Blood 05/05/2025 9:20 PM BOILER COVERER HELPER 05/05/2025 9:30 PM BOILER COVERER HELPER Benito Hendrickson MD LAB BLOOD ORDERABLES Final Result [facility] [place] [address] * ECG 12 lead (05/05/2025 4:06 PM BOILER COVERER HELPER) Ventricular Rate EKG/Min 70 BPM [facility] Atrial Rate 70 BPM [facility] NC-Interval (MSEC) 188 ms [facility] QRS-Interval (MSEC) 168 ms [facility] QT-Interval (MSEC) 502 ms [facility] QTc 542 ms [facility] P [place] 64 degrees [facility] R [place] -55 degrees [facility] T [place] 94 degrees [facility] Diagnosis Atrial-sensed ventricular-p aced rhythm Biventricular pacemaker detected but RV pacing Abnormal ECG When compared with ECG of 02-MAY-2025 22:44, Vent. rate has decreased BY 16 BPM Confirmed by JOVANY HERRERA M.D ([id number]) on 05/06/2025 10:08:01 AM [facility] 05/05/2025 4:06 PM BOILER COVERER HELPER 05/06/2025 10:08 AM BOILER COVERER HELPER Benito Hendrickson MD ECG ORDERABLES Final Resul t Performing Organization Address City/[facility]/ZIP Co de Phone Number [facility] * Infection Prevention Katie auris PCR, surveillance Axilla/Groin (05/05/2025 12:47 PM BOILER COVERER HELPER) Pathologist [facility] Katie auris DNA Not Detected Not Detected [facility] Comment: Interpretive Data Testing performed by [facility] using the Angelika teresa [id number] Katie auris assay. This assay detects DNA from Katie auris using Real-Time PCR. This assay is laboratory developed and is not cleared by the [place] Food and Drug Administration. The performance characteristics have been verified by the [facility]. Axilla/Groin 05/05/2025 12:4 7 PM BOILER COVERER HELPER 05/05/2025 1:10 PM BOILER COVERER HELPER us Rik Rodriguez MD LAB MICROBIOLOGY - GENERAL ORDER KIMI Final Result [facility] [place] [address] [facility] * TRANSTHORACIC ECHO (TTE) COMPLETE W DOPPLER/CF W CONTRAST (05/05/2025 12:43 PM BOILER COVERER HELPER) EF Mod BP 34 % CONS SCIMAGE Anatomical Region Laterality Modality Ultrasound 05/05/2025 11:3 1 AM BOILER COVERER HELPER Narrative 05/05/2025 1:33 PM BOILER COVERER HELPER [facility] [place] [address] Transthoracic Echocardiographic Report Patient Name: CHIKIS ELDER M : 1955 (69y 10m) Sex: M Study Date: 05/05/2025 11:31:40 AM Ht(Inch): 71 Wt(Lb): 289.9 BSA: 2.47 Solid Waste Collection Worker: Fredi Mendoza RDCS Location: [id number] Order Provider: ANA SPARROW Heart Rate: 75 BMI: 40.43 BP: 109 / 69 Ref Provider: ANA SPARROW PROCEDURES: Echocardiographic Report: Transthoracic complete echo with strain imaging and contrast, 2D, spectral and tissue Doppler, color flow Doppler, M-mode. Contrast: Contrast Enhancement was Employed: After initial imaging due to sub- optimal quality related to co-morbidity defined by patient's body habitus. 2 ml Optison Administered, (1 ml wasted). INDICATIONS: Heart failure, shortness of breath. CONCLUSIONS: 1. Severely dilated left ventricle based on volume index. Eccentric LV hypertrophy. Moderately depressed left ventricular systolic function. The Ejection Fraction (Zheng's) is measured at 34 %. Grade III diastolic dysfunction (elevated LA pressure, restrictive physiology). The average global longitudinal strain is abnormal. 2. Resting Segmental Wall Motion Analysis: Total wall motion score is 2.00. There is global left ventricular hypokinesis. 3. Right ventricular dilatation. Normal right ventricular systolic function. Wire noted in the right heart. 4. Severely dilated left atrium. 5. Right atrial dilatation. 6. Moderate mitral valve regurgitation. 7. Moderate tricuspid regurgitation. 8. IVC not visualized due to poor acoustic windows. 9. Estimated pulmonary artery systolic pressure is consistent with mild pulmonary hypertension (35-50mmHg). ATTESTATION: I have personally reviewed and interpreted this study without fellow or resident. DISCLAIMER: The study images and the final report will be retained in the patient chart by the Echo Laboratory for the legally required time period. This chart constitutes the legal record of any testing performed. FINDINGS: Left Ventricle: Severely dilated left ventricle based on volume index. Eccentric LV hypertrophy. Moderately depressed left ventricular systolic function. The Ejection Fraction (Zheng's) is measured at 34 %. Grade III diastolic dysfunction (elevated LA pressure, restrictive physiology). The average global longitudinal strain is abnormal. The LV global strain is: -5.6 %. Resting Segmental Wall Motion Analysis: Total wall motion score is 2.00. There is global left ventricular hypokinesis. Right Ventricle: Right ventricular dilatation. Normal right ventricular systolic function. Wire noted in the right heart. Left Atrium: Severely dilated left atrium. Right Atrium: Right atrial dilatation. Mitral Valve: Moderate mitral valve regurgitation. The mean transmitral gradient is: 1 mmHg. Aortic Valve: Normal trileaflet aortic valve. Mildly thickened aortic valve leaflets. No aortic regurgitation. No aortic valve stenosis. The mean transaortic gradient is 2 mmHg. The aortic valve area by the continuity equation (using VTI) is 2.4 cm2. Aortic valve dimensionless index is 0.53. Tricuspid Valve: Normal tricuspid valve structure. Moderate tricuspid regurgitation. No tricuspid valve stenosis. Pulmonic Valve: Normal pulmonic valve structure. Mild pulmonic regurgitation. No pulmonic valve stenosis present. Pericardium: Normal pericardium without pericardial effusion. Aorta: Mild aortic root dilation at sinuses of Valsalva. The ascending aorta is normal in size when indexed. IVC: IVC not visualized due to poor acoustic windows. PASP: The Estimated PASP is : 45+RAP mmHg. Estimated pulmonary artery systolic pressure is consistent with mild pulmonary hypertension (35-50mmHg). Rhythm: Normal Sinus rhythm was seen during the study. MEASUREMENTS: 2D/MM Value Range Doppler Value Range LVIDd 2D 6.6 cm [ 4.2 - 5.8 ] AV Peak Brenton 1.0 m/s [ 1.0 - 1.7 ] LVIDs 2D 6.0 cm [ 2.5 - 4.0 ] AV Peak PG 4 mmHg IVSd 2D 1.3 cm [ 0.6 - 1.0 ] AV Mean PG 2 mmHg LVPWd 2D 1.2 cm [ 0.6 - 1.0 ] AV VTI 19 cm LV Thickness Ratio 1.1 LVOT Peak Brenton 0.6 m/s [ 0.7 - 1.1 ] LV FS 2D 9.36 % [ 25.00 - 43.00 ] LVOT Peak PG 1 mmHg LV Mass 2D 397.57 g LVOT Mean PG 1 mmHg LV Mass Index 2D 161.01 g/m2 LVOT VTI 10 cm RWT 0.36 LVOT Diam 2.4 cm EDV Mod BP 344 ml [ 62 - 150 ] MJ VTI 2.4 cm2 LV EDV Index 139 ml/m2 LVOT/AV VTI 0.53 - Dimensionless index (DVI) ESV Mod BP 229 ml [ 21 - 61 ] MV E Peak Brenton 1.28 m/s [ 0.60 - 1.30 ] EF Mod BP 34 % [ 52 - 72 ] MV A Peak Brenton 0.26 m/s [ 1.00 - 1.20 ] LV GLS -5.6 % [ -25.0 - -18.0 ] MV E/A 4.9 ratio [ 0.8 - 1.5 ] LA Length 4C 7.3 cm MV Peak Brenton 0.9 m/s LA Length 2C 6.9 cm MV Peak PG 3 mmHg LA Volume BP 129 ml MV Mean PG 1 mmHg LA Volume Index 52 ml/m2 [ 16 - 34 ] MV VTI 14 cm MV Annulus 2D 3.5 cm MV Decel Stonewall 1258 RV Base Dimen 2D 5.6 cm [ 2.5 - 4.2 ] MV Decel Time 102 msec [ 104 - 258 ] RV Mid Dimen 2D 2.9 cm Med E` Brenton 4.0 cm/sec [ 8.0 - 25.0 ] RV ED Area 25 cm2 [ 10 - 24 ] Lat E` Brenton 5.0 cm/sec [ 10.0 - 25.0 ] RV ES Area 21 cm2 [ 3 - 15 ] Average E/E` 28 RV FAC 16 % [ 35 - 63 ] MV Alias Brenton 0.307 m/s TAPSE 2.0 cm [ 1.7 - 5.0 ] MR Flow 94.5 ml/sec RA Volume 128 ml MR PISA 0.7 RA Volume Index 52 ml/m2 RV S` 9.4 cm/sec AoR Diam 2D 3.9 cm [ 3.1 - 3.7 ] TR Peak Brenton 3.4 m/s [ 1.0 - 2.8 ] Ao Root Index 1.6 cm/m2 [ 1.0 - 2.0 ] TR Peak PG 46 mmHg Asc Ao Diam 2D 3.4 cm Asc Ao Index 1.4 cm/m2 Electronically Signed By: Dave Barakat MD 05/05/2025 1:32:34 PM BOILER COVERER HELPER Procedure Note Dave Barakat MD - 05/05/2025 [facility] [place] [address] Transthoracic Echocardiographic Report Patient Name: CHIKIS ELDER M : 1955 (69y 10m) Sex: M Study Date: 05/05/2025 11:31:40 AM Ht(Inch): 71 Wt(Lb): 289.9 BSA: 2.47 Solid Waste Collection Worker: Fredi Mendoza RDCS Location: [id number] Order Provider:ANA SPARROW Heart Rate: 75 BMI: 40.43 BP: 109 / 69 Ref Provider: ANA SPARROW PROCEDURES: Echocardiographic Report: Transthoracic complete echo with strain imagingand contrast, 2D, spectral and tissue Doppler, color flow Doppler, M-mode. Contrast: Contrast Enhancement was Employed: After initial imaging due tosub- optimal quality related to co-morbidity defined by patient's body habitus. 2 mlOptison Administered, (1 ml wasted). INDICATIONS: Heart failure, shortness of breath. CONCLUSIONS: 1. Severely dilated left ventricle based on volume index. Eccentric LVhypertrophy. Moderately depressed left ventricular systolic function. The EjectionFraction (Zheng's) is measured at 34 %. Grade III diastolic dysfunction (elevatedLA pressure, restrictive physiology). The average global longitudinal strain isabnormal. 2. Resting Segmental Wall Motion Analysis: Total wall motion score is2.00. There is global left ventricular hypokinesis. 3. Right ventricular dilatation. Normal right ventricular systolicfunction. Wire noted in the right heart. 4. Severely dilated left atrium. 5. Right atrial dilatation. 6. Moderate mitral valve regurgitation. 7. Moderate tricuspid regurgitation. 8. IVC not visualized due to poor acoustic windows. 9. Estimated pulmonary artery systolic pressure is consistent with mildpulmonary hypertension (35-50mmHg). ATTESTATION: I have personally reviewed and interpreted this study without fellow orresident. DISCLAIMER: The study images and the final report will be retained in the patientchart by the Echo Laboratory for the legally required time period. This chart constitutesthe legal record of any testing performed. FINDINGS: Left Ventricle: Severely dilated left ventricle based on volume index.Eccentric LV hypertrophy. Moderately depressed left ventricular systolic function. TheEjection Fraction (Zheng's) is measured at 34 %. Grade III diastolic dysfunction(elevated LA pressure, restrictive physiology). The average global longitudinal strainis abnormal. The LV global strain is: -5.6 %. Resting Segmental Wall Motion Analysis: Total wall motion score is 2.00.There is global left ventricular hypokinesis. Right Ventricle: Right ventricular dilatation. Normal right ventricularsystolic function. Wire noted in the right heart. Left Atrium: Severely dilated left atrium. Right Atrium: Right atrial dilatation. Mitral Valve: Moderate mitral valve regurgitation. The mean transmitralgradient is: 1 mmHg. Aortic Valve: Normal trileaflet aortic valve. Mildly thickened aorticvalve leaflets. No aortic regurgitation. No aortic valve stenosis. The mean transaorticgradient is 2 mmHg. The aortic valve area by the continuity equation (using VTI) is 2.4 cm2.Aortic valve dimensionless index is 0.53. Tricuspid Valve: Normal tricuspid valve structure. Moderate tricuspidregurgitation. No tricuspid valve stenosis. Pulmonic Valve: Normal pulmonic valve structure. Mild pulmonicregurgitation. No pulmonic valve stenosis present. Pericardium: Normal pericardium without pericardial effusion. Aorta: Mild aortic root dilation at sinuses of Valsalva. The ascendingaorta is normal in size when indexed. IVC: IVC not visualized due to poor acoustic windows. PASP: The Estimated PASP is : 45+RAP mmHg. Estimated pulmonary arterysystolic pressure is consistent with mild pulmonary hypertension (35-50mmHg). Rhythm: Normal Sinus rhythm was seen during the study. MEASUREMENTS: 2D/MM Value Range DopplerValue Range LVIDd 2D 6.6 cm [ 4.2 - 5.8 ] AV Peak Vel1.0 m/s [ 1.0 - 1.7 ] LVIDs 2D 6.0 cm [ 2.5 - 4.0 ] AV Peak PG4 mmHg IVSd 2D 1.3 cm [ 0.6 - 1.0 ] AV Mean PG2 mmHg LVPWd 2D 1.2 cm [ 0.6 - 1.0 ] AV VTI19 cm LV Thickness Ratio 1.1 LVOT Peak Vel0.6 m/s [ 0.7 - 1.1 ] LV FS 2D 9.36 % [ 25.00 - 43.00 ] LVOT Peak PG1 mmHg LV Mass 2D 397.57 g LVOT Mean PG1 mmHg LV Mass Index 2D 161.01 g/m2 LVOT VTI10 cm RWT 0.36 LVOT Diam2.4 cm EDV Mod BP 344 ml [ 62 - 150 ] MJ VTI2.4 cm2 LV EDV Index 139 ml/m2 LVOT/AV VTI0.53 - Dimensionless index (DVI) ESV Mod BP 229 ml [ 21 - 61 ] MV E Peak Vel1.28 m/s [ 0.60 - 1.30 ] EF Mod BP 34 % [ 52 - 72 ] MV A Peak Vel0.26 m/s [ 1.00 - 1.20 ] LV GLS -5.6 % [ -25.0 - -18.0 ] MV E/A4.9 ratio [ 0.8 - 1.5 ] LA Length 4C 7.3 cm MV Peak Vel0.9 m/s LA Length 2C 6.9 cm MV Peak PG3 mmHg LA Volume BP 129 ml MV Mean PG1 mmHg LA Volume Index 52 ml/m2 [ 16 - 34 ] MV VTI14 cm MV Annulus 2D 3.5 cm MV Decel [id number] RV Base Dimen 2D 5.6 cm [ 2.5 - 4.2 ] MV Decel [id number] msec [ 104 - 258 ] RV Mid Dimen 2D 2.9 cm Med E` Vel4.0 cm/sec [ 8.0 - 25.0 ] RV ED Area 25 cm2 [ 10 - 24 ] Lat E` Vel5.0 cm/sec [ 10.0 - 25.0 ] RV ES Area 21 cm2 [ 3 - 15 ] Average E/E`28 RV FAC 16 % [ 35 - 63 ] MV Alias Vel0.307 m/s TAPSE 2.0 cm [ 1.7 - 5.0 ] MR Flow94.5 ml/sec RA Volume 128 ml MR PISA0.7 RA Volume Index 52 ml/m2 RV S`9.4 cm/sec AoR Diam 2D 3.9 cm [ 3.1 - 3.7 ] TR Peak Vel3.4 m/s [ 1.0 - 2.8 ] Ao Root Index 1.6 cm/m2 [ 1.0 - 2.0 ] TR Peak PG46 mmHg Asc Ao Diam 2D3.4 cm Asc Ao Index1.4 cm/m2 Electronically Signed By: Dave Barakat MD 05/05/2025 1:32:34 PM BOILER COVERER HELPER us Ana Sparrow NP CV ECHO PROCEDURES Final R esult * (ABNORMAL) eGFR (05/04/2025 9:52 PM BOILER COVERER HELPER) eGFR 51(L) >=60 mL/min/1. 73 m2 Comment: Interpretive Data Reference Interval Normal >/= 90 mL/min/1.73m2 Mildly decreased* 60 - 89 mL/min/1.73m2 Mildly to moderately decreased 45 - 59 mL/min/1.73m2 Moderately to severely decreased 30 - 44 mL/min/1.73m2 Severely decreased 15 - 29 mL/min/1.73m2 Kidney Failure < 15 mL/min/1.73m2 *Relative to young adult level Estimated glomerular filtration rate is determined by the 2020 CKD-EPI equation recommended by the National Kidney [employer] (A Unifying Approach to GFR Estimation: Recommendations of the NKF-ASK Task Force on Reassessing the Inclusion of Race in Diagnosing Kidney Disease, JASN 2020). The CKD-EPI equation should not be used for patients with unstable renal function and has not been validated in children and those over 70. Current interpretive data was last reviewed 2021. Blood 05/04/2025 9:52 PM BOILER COVERER HELPER 05/04/2025 10:08 PM BOILER COVERER HELPER us Benito Hendrickson MD LAB BLOOD ORDERABLES Final Result T[facility] Department [place] [address] * Differential, auto (05/04/2025 9:52 PM BOILER COVERER HELPER) Neutrophil abs 6.44 1.50 - 6.50 K/cumm Imm gran abs 0.04 0.00 - 0.10 K/cumm [facility] Lymphocyte abs 2.30 0.80 - 3.30 K/cumm [facility] Monocyte abs 0.73 0.20 - 0.80 K/cumm [facility] Eosinophil abs 0.07 0.00 - 0.50 K/cumm [facility] Basophil abs 0.06 0.00 - 0.10 K/cumm [facility] Neutrophil pct 66.8 % [facility] Comment: Interpretive Data Percent cell count reference ranges are not reported, since discordance with absolute values may lead to misinterpretation of CBC data. Current Interpretive Data was last revised on 2017. Imm gran pct 0.4 % [facility] Comment: Interpretive Data Percent cell count reference ranges are not reported, since discordance with absolute values may lead to misinterpretation of CBC data. Current Interpretive Data was last revised on 2017. Lymphocyte pct 23.9 % [facility] Comment: Interpretive Data Percent cell count reference ranges are not reported, since discordance with absolute values may lead to misinterpretation of CBC data. Current Interpretive Data was last revised on 2017. Monocyte pct 7.6 % [facility] Comment: Interpretive Data Percent cell count reference ranges are not reported, since discordance with absolute values may lead to misinterpretation of CBC data. Current Interpretive Data was last revised on 2017. Eosinophil pct 0.7 % [facility] Comment: Interpretive Data Percent cell count reference ranges are not reported, since discordance with absolute values may lead to misinterpretation of CBC data. Current Interpretive Data was last revised on 2017. Basophil pct 0.6 % [facility] Comment: Interpretive Data Percent cell count reference ranges are not reported, since discordance with absolute values may lead to misinterpretation of CBC data. Current Interpretive Data was last revised on 2017. Blood 05/04/2025 9:52 PM BOILER COVERER HELPER 05/04/2025 10:08 PM BOILER COVERER HELPER us Benito Hendrickson MD LAB BLOOD ORDERABLES Final Result [facility] [place] [address] * Phosphorus (05/04/2025 9:52 PM BOILER COVERER HELPER) [facility] Phosphorus, pl 3.2 2.3 - 4.5 mg/dL Blood 05/04/2025 9:52 PM BOILER COVERER HELPER 05/04/2025 10:08 PM BOILER COVERER HELPER Benito Hendrickson MD LAB BLOOD ORDERABLES Final Result Performing Organization Address [facility] Co de Phone Number [facility] [place] [address] * Magnesium (05/04/2025 9:52 PM BOILER COVERER HELPER) [facility] Magnesium 2.0 1.4 - 2.5 mg/dL Blood 05/04/2025 9:52 PM BOILER COVERER HELPER 05/04/2025 10:08 PM BOILER COVERER HELPER Benito Hendrickson MD LAB BLOOD ORDERABLES Final Result Performing Organization Address [facility] Co de Phone Number [facility] Department [place] [address] * (ABNORMAL) CBC with auto differential (05/04/2025 9:52 PM BOILER COVERER HELPER) [facility] WBC 9.64 3.80 - 9.90 K/cumm Hgb 15.8 13.0 - 17.5 g/dL [facility] Hct 46.8 38.9 - 50.3 % [facility] Plt 258 150 - 400 K/cumm [facility] MPV 11.6 9.1 - 12.3 fL [facility] RBC 4.77 4.30 - 5.80 M/cumm [facility] MCV 98.1(H) 81.3 - 96.4 fL [facility] MCH 33.1 27.1 - 33.3 pg [facility] MCHC 33.8 32.3 - 35.7 g/dL [facility] RDW CV 15.0(H) 11.1 - 14.9 % [facility] RDW SD 54.0(H) 35.7 - 48.1 fL [facility] NRBC abs 0.00 0.00 - 0.01 K/cumm [facility] Blood 05/04/2025 9:52 PM BOILER COVERER HELPER 05/04/2025 10:08 PM BOILER COVERER HELPER us Benito Hendrickson MD LAB BLOOD ORDERABLES Final Result [facility] [place] [address] * (ABNORMAL) Basic metabolic panel (05/04/2025 9:52 PM BOILER COVERER HELPER) Sodium 135 135 - 145 mmol/L Potassium, pl 4.4 3.3 - 4.9 mmol/L [facility] Comment:Hemolyzed; Potassium value may be falsely elevated by as much as 0.3-0.5 mmol/L. Suggest redraw and reanalysis. Chloride 100 97 - 110 mmol/L [facility] CO2 24 22 - 32 mmol/L [facility] Anion gap 11 2 - 15 mmol/L [facility] BUN 22 6 - 25 mg/dL [facility] Creatinine 1.48(H) 0.80 - 1.30 mg/dL [facility] Glucose 116 70 - 199 mg/dL [facility] Comment: Interpretive Data Fasting glucose >/= 126 mg/dl is diagnostic for diabetes. Fasting is defined as no caloric intake for at least 8 hours. Fasting glucose between 100 mg/dl to 125 mg/dl is diagnostic of prediabetes. In a patient with classic symptoms of hyperglycemia or hyperglycemic crisis, a random glucose >/= 200 mg/dl is diagnostic for diabetes. In the absence of unequivocal hyperglycemia, results should be confirmed by repeat testing. The classification and Diagnosis of Diabetes Diabetes Care 2021; 46: S19-S40. Current interpretive data was last revised 2022. Calcium 8.6 8.5 - 10.3 mg/dL [facility] Blood 05/04/2025 9:52 PM BOILER COVERER HELPER 05/04/2025 10:08 PM BOILER COVERER HELPER Benito Hendrickson MD LAB BLOOD ORDERABLES Final Result [facility] [place] [address] * Respiratory pathogen panel Nasopharyngeal (05/04/2025 8:06 PM BOILER COVERER HELPER) Pathologist [facility] Influenza A RNA Not Detected Not Detected Influenza B RNA Not Detected Not Detected [facility] RSV RNA Not Detected Not Detected [facility] COVID-19 RNA Not Detected Not Detected [facility] Coronavirus 229E RNA Not Detected Not Detected [facility] Coronavirus HKU1 RNA Not Detected Not Detected [facility] Coronavirus NL63 RNA Not Detected Not Detected [facility] Coronavirus OC43 RNA Not Detected Not Detected [facility] Adenovirus DNA Not Detected Not Detected [facility] Metapneumovirus RNA Not Detected Not Detected [facility] Rhinovirus/Enterov irus RNA Not Detected Not Detected [facility] Parainfluenza 1 RNA Not Detected Not Detected [facility] Parainfluenza 2 RNA Not Detected Not Detected [facility] Parainfluenza 3 RNA Not Detected Not Detected [facility] Parainfluenza 4 RNA Not Detected Not Detected [facility] B. pertussis DNA Not Detected Not Detected [facility] B. parapertussis DNA Not Detected Not Detected [facility] C. pneumoniae DNA Not Detected Not Detected [facility] M. pneumoniae DNA Not Detected Not Detected [facility] Nasopharyngeal 05/04/2025 8: 06 PM BOILER COVERER HELPER 05/04/2025 8:25 PM BOILER COVERER HELPER Narrative [facility] - 05/04/2025 9:38 PM BOILER COVERER HELPER Is the Patient experiencing symptoms consistent with COVID?->Yes Surveillance testing for transplant patient?->No Interpretive Data The [employer] FilmArray Respiratory Panel (RP2.1) assay is a multiplexed real-time PCR based nucleic acid test capable of simultaneous qualitative detection and identification of multiple respiratory viral and bacterial nucleic acids, including SARS Coronavirus 2 (the causative agent of COVID-19). The following bacteria, viruses and virus subtypes can be identified using the FilmArray RP2.1 assay: Bordetella pertussis, Bordetella parapertussis, Chlamydia pneumoniae, Mycoplasma pneumoniae, Adenovirus, SARS Coronavirus 2, seasonal coronaviruses (Coronavirus HKU1, Coronavirus NL63, Coronavirus 229E, and Coronavirus OC43), Influenza A, Influenza A subtype H1, Influenza A subtype H3, Influenza A subtype 2009 H1, Influenza B, Metapneumovirus, Parainfluenza 1, Parainfluenza 2, Parainfluenza 3, Parainfluenza 4, RSV, Rhinovirus/Enterovirus. Due to the genetic similarity between human Rhinovirus and Enterovirus, the FilmArray RP2.1 assay cannot reliably differentiate them. Coronavirus OC43 may cross-react with some isolates of Coronavirus HKU1. A dual positive result may be due to cross-reactivity or may indicate a co- infection. The detection and identification of specific viral and bacterial nucleic acids from individuals exhibiting signs and symptoms of a respiratory infection aids in the diagnosis of respiratory infection if used in conjunction with other clinical and epidemiological information. The results of this test should not be used as the sole basis for diagnosis, treatment, or other management decisions. Negative results in the setting of a respiratory illness may be due to infection with pathogens that are not detected by this test. Positive results do not rule out infection/co-infection with other organisms. The agent(s) detected by the FilmArray RP2.1 may not be the definite cause of disease. Additional testing (lab, imaging, etc.) may be necessary when evaluating a patient with possible respiratory tract infection. The FilmArray RP2.1 assay has FDA clearance for testing of ROPE CUTTER swabs. The performance of additional specimen types has been assessed by the performing laboratory. The performance characteristics of this assay have been determined by [facility] Molecular Infectious Disease Laboratory. Current interpretive data was last revised on 22. us Benito Hendrickson MD LAB MICROBIOLOGY - GENERAL ORDERABLES Final Result [facility] [place] [address] * Troponin I high-sensitivity 6-hour (05/04/2025 10:48 AM BOILER COVERER HELPER) Pathologist [facility] Trop I hs 16 <=35 ng/L Comment: Interpretive Data For further hscTnI resources including the diagnostic algorithm and an aid in interpretation, copy and paste this link: [email or web address].testcatalog.org/show/[email or web address] Current Interpretive Data last revised 2019. Trop I hs delta -1 ng/L [facility] Trop I hs interp Insignificant [facility] Blood 05/04/2025 10:4 8 AM BOILER COVERER HELPER 05/04/2025 11:13 AM BOILER COVERER HELPER Aleksander Schreiber MD LAB BLOOD ORDERABLES F inal Result Performing Organization Address [facility] de Phone Number [facility] Department [place] [address] * Infection Prevention Katie auris PCR, surveillance Axilla/Groin (05/04/2025 8:57 AM BOILER COVERER HELPER) [facility] Katie auris DNA Not Detected Not Detected [facility] Comment: Interpretive Data Testing performed by [facility] Molecular Infectious Disease Laboratory using the Angelika teresa 6800 Katie auris assay. This assay detects DNA from Katie auris using Real-Time PCR. This assay is laboratory developed and is not cleared by the [place] Food and Drug Administration. The performance characteristics have been verified by the [facility] Molecular Infectious Disease Laboratory. Axilla/Groin 05/04/2025 8:57 AM BOILER COVERER HELPER 05/04/2025 11:16 AM BOILER COVERER HELPER Rik Rodriguez MD LAB MICROBIOLOGY - GENERAL ORDER KIMI Final Result Performing Organization Address [facility] Co de Phone Number [facility] [place] [place] [address] [facility] * Troponin I high-sensitivity 4-hour (05/04/2025 8:57 AM BOILER COVERER HELPER) [facility] Trop I hs 14 <=35 ng/L Comment: Interpretive Data For further hscTnI resources including the diagnostic algorithm and an aid in interpretation, copy and paste this link: https://bjhlab.testcatalog.org/show/hsTrop-1 Current Interpretive Data last revised 2019. Trop I hs delta -3 ng/L [facility] Trop I hs interp Insignificant CERNER BJ Blood 05/04/2025 8:57 AM BOILER COVERER HELPER 05/04/2025 9:13 AM BOILER COVERER HELPER us Aleksander Schreiber MD LAB BLOOD ORDERABLES F inal Result [facility] [place] [address] * XR Chest PA Lateral 2 Views (If patient hemodynamically stable and ambulatory) (05/04/2025 5:15 AM BOILER COVERER HELPER) Anatomical Region Laterality Modality Body, Chest N/A Computed Radiogr aphy 05/04/2025 5:36 AM BOILER COVERER HELPER Impressions 05/04/2025 11:15 AM BOILER COVERER HELPER FINDINGS/IMPRESSION: Left subclavian approach pacemaker defibrillator with leads overlying the right atrium right ventricle and coronary vein. Patchy airspace opacities in the right greater the left lower lobe may reflect atelectasis versus pneumonia in the correct clinical setting. There is mild pulmonary edema. No pleural effusion or pneumothorax. Cardiomediastinal silhouette is enlarged, similar to prior exam. Dictated by: Jung Willingham MD The radiology attending physician has personally reviewed this study, and had reviewed and/or edited this written report and agrees with it. Electronically signed by: Amanda Hurd M.D. Narrative 05/04/2025 11:15 AM BOILER COVERER HELPER EXAMINATION: XR CHEST PA LATERAL 2 VIEWS HISTORY: Shortness of breath COMPARISON: Radiograph from 08/29/2023 Procedure Note Amanda Hurd MD - 05/04/2025 EXAMINATION: XR CHEST PA LATERAL 2 VIEWS HISTORY: Shortness of breath COMPARISON: Radiograph from 08/29/2023 IMPRESSION: FINDINGS/IMPRESSION: Left subclavian approach pacemaker defibrillator with leads overlying the right atrium right ventricle and coronary vein. Patchy airspace opacities in the right greater the left lower lobe may reflect atelectasis versus pneumonia in the correct clinical setting. There is mild pulmonary edema. No pleural effusion or pneumothorax. Cardiomediastinal silhouette is enlarged, similar to prior exam. Dictated by: Jung Willingham MD The radiology attending physician has personally reviewed this study, and had reviewed and/or edited this written report and agrees with it. Electronically signed by: Amanda Hurd M.D. Renuka Haider MD IMG XR PROCEDURES Final Result * ECG 12-LEAD (05/04/2025 4:56 AM BOILER COVERER HELPER) Narrative [facility] - 05/04/2025 4:56 AM BOILER COVERER HELPER Aleksander Schreiber MD 05/04/2025 4:57 AM ECG 12 lead Date/Time: 05/04/2025 4:56 AM Performed by: Aleksander Schreiber MD Authorized by: Aleksander Schreiber MD Rate: ECG rate: 72 ECG rate assessment: normal Rhythm: Rhythm: paced Pacing: Capture: Complete Type of pacing: Atrial Ectopy: Ectopy: none QRS: QRS axis: Left QRS intervals: Wide Conduction: Conduction: normal ST segments: ST segments: Normal T waves: T waves: non-specific Previous ECG: Previous ECG: Compared to current Date of previous EC05/02/2025 Similarity: No change Interpretation: Interpretation: No significant change Recommended Follow-up: Recommended follow up: further workup in the ED Renuka Haider MD ECG ORDERABLES Final Re sult [facility] * (ABNORMAL) eGFR (05/04/2025 4:49 AM BOILER COVERER HELPER) eGFR 46(L) >=60 mL/min/1. 73 m2 Comment: Interpretive Data Reference Interval Normal >/= 90 mL/min/1.73m2 Mildly decreased* 60 - 89 mL/min/1.73m2 Mildly to moderately decreased 45 - 59 mL/min/1.73m2 Moderately to severely decreased 30 - 44 mL/min/1.73m2 Severely decreased 15 - 29 mL/min/1.73m2 Kidney Failure < 15 mL/min/1.73m2 *Relative to young adult level Estimated glomerular filtration rate is determined by the 2020 CKD-EPI equation recommended by the National Kid[employer] (A Unifying Approach to GFR Estimation: Recommendations of the NKF-ASK Task Force on Reassessing the Inclusion of Race in Diagnosing Kidney Disease, JASN 202). The CKD-EPI equation should not be used for patients with unstable renal function and has not been validated in children and those over 70. Current interpretive data was last reviewed 2021. Blood 05/04/2025 4:49 AM BOILER COVERER HELPER 05/04/2025 5:09 AM BOILER COVERER HELPER us Renuka Haider MD LAB BLOOD ORDERABLES Fin al Result [facility] [place] [address] * (ABNORMAL) Differential, auto (05/04/2025 4:49 AM BOILER COVERER HELPER) Neutrophil abs 7.74(H) 1.50 - 6.50 K/cumm Imm gran abs 0.05 0.00 - 0.10 K/cumm [facility] Lymphocyte abs 1.89 0.80 - 3.30 K/cumm [facility] Monocyte abs 0.58 0.20 - 0.80 K/cumm [facility] Eosinophil abs 0.07 0.00 - 0.50 K/cumm [facility] Basophil abs 0.06 0.00 - 0.10 K/cumm [facility] Neutrophil pct 74.4 % [facility] Comment: Interpretive Data Percent cell count reference ranges are not reported, since discordance with absolute values may lead to misinterpretation of CBC data. Current Interpretive Data was last revised on 2017. Imm gran pct 0.5 % [facility] Comment: Interpretive Data Percent cell count reference ranges are not reported, since discordance with absolute values may lead to misinterpretation of CBC data. Current Interpretive Data was last revised on 2017. Lymphocyte pct 18.2 % [facility] Comment: Interpretive Data Percent cell count reference ranges are not reported, since discordance with absolute values may lead to misinterpretation of CBC data. Current Interpretive Data was last revised on 2017. Monocyte pct 5.6 % [facility] Comment: Interpretive Data Percent cell count reference ranges are not reported, since discordance with absolute values may lead to misinterpretation of CBC data. Current Interpretive Data was last revised on 2017. Eosinophil pct 0.7 % [facility] Comment: Interpretive Data Percent cell count reference ranges are not reported, since discordance with absolute values may lead to misinterpretation of CBC data. Current Interpretive Data was last revised on 2017. Basophil pct 0.6 % [facility] Comment: Interpretive Data Percent cell count reference ranges are not reported, since discordance with absolute values may lead to misinterpretation of CBC data. Current Interpretive Data was last revised on 2017. Blood 05/04/2025 4:49 AM BOILER COVERER HELPER 05/04/2025 5:09 AM BOILER COVERER HELPER us Renuka Haider MD LAB BLOOD ORDERABLES Fin al Result [facility] [place] [address] * (ABNORMAL) Pro B-type natriuretic peptide (05/04/2025 4:49 AM BOILER COVERER HELPER) NT-proBNP 8,199(H) <=300 pg/mL Comment: Interpretive Comments: A. Dyspnea in Acute Care Setting All Ages: < 300 pg/ml, acute heart failure unlikely. < 50 yrs: 300 - 450 pg/ml, further investigation warranted. > 450 pg/ml, acute heart failure likely. 50 - 74 yrs: 300 - 900 pg/ml, further investigation warranted. > 900 pg/ml, acute heart failure likely . > or = 75 yrs: 450 - 1800 pg/ml, further investigation warranted. > 1800 pg/ml, acute heart failure likely. B. Non-acute Setting < 75 yrs < 125 pg/ml, rules out heart failure. > or = 125 pg/ml, further investigation warranted. > or = 75 yrs < 450 pg/ml, rules out heart failure. > or = 450 pg/ml, further investigation warranted. - Knowledge of each individual patient's NT-proBNP range may be more useful than using similar cut-points for every patient. Please note that marked elevations in NT-proBNP levels may be observed in state other than Left Ventricular Congestive Failure, including: acute coronary syndromes, right heart strain/failure (including pulmonary embolism and cor pulmonale), critical illness, renal failure, as well as advanced age. - References: 1. Jitendra CARDONA et.al. Eur Heart J. 2006:27:330-337. 2. Leona RW, Francisca LOVE. J. AM Sim Cardiol: Cardiovasc Imag. 2009;2: 216- 225. Interpretive Data Last Revised Date: 2018. Blood 05/04/2025 4:49 AM BOILER COVERER HELPER 05/04/2025 5:09 AM BOILER COVERER HELPER Renuka Haider MD LAB BLOOD ORDERABLES Fin al Result Performing Organization Address [facility] Co de Phone Number [facility] [place] [address] * Troponin I high-sensitivity series (baseline, 2hr, 4hr, 6hr) (05/04/2025 4:49 AM BOILER COVERER HELPER) Trop I hs 17 <=35 ng/L Comment: Interpretive Data For further [facility] resources including the diagnostic algorithm and an aid in interpretation, copy and paste this link: [email or web address].testcatalog.org/show/[email or web address] Current Interpretive Data last revised 2019. Blood 05/04/2025 4:49 AM BOILER COVERER HELPER 05/04/2025 5:09 AM BOILER COVERER HELPER Renuka Haider MD LAB BLOOD ORDERABLES Fin al Result Performing Organization Address [facility] Co de Phone Number [facility] [place] [place] [address] * (ABNORMAL) CBC with auto differential (05/04/2025 4:49 AM BOILER COVERER HELPER) [facility] WBC 10.39(H) 3.80 - 9.90 K/cumm Hgb 15.9 13.0 - 17.5 g/dL [facility] Hct 47.6 38.9 - 50.3 % [facility] Plt 259 150 - 400 K/cumm [facility] MPV 11.4 9.1 - 12.3 fL [facility] RBC 4.84 4.30 - 5.80 M/cumm [facility] MCV 98.3(H) 81.3 - 96.4 fL [facility] MCH 32.9 27.1 - 33.3 pg [facility] MCHC 33.4 32.3 - 35.7 g/dL [facility] RDW CV 15.3(H) 11.1 - 14.9 % [facility] RDW SD 53.9(H) 35.7 - 48.1 fL [facility] NRBC abs 0.00 0.00 - 0.01 K/cumm [facility] Blood 05/04/2025 4:49 AM BOILER COVERER HELPER 05/04/2025 5:09 AM BOILER COVERER HELPER Renuka Haider MD LAB BLOOD ORDERABLES Fin al Result [facility] [place] [address] * (ABNORMAL) Comprehensive metabolic panel (05/04/2025 4:49 AM BOILER COVERER HELPER) [facility] Sodium 132(L) 135 - 145 mmol/L Potassium, pl 4.1 3.3 - 4.9 mmol/L [facility] Chloride 99 97 - 110 mmol/L [facility] CO2 22 22 - 32 mmol/L [facility] Anion gap 11 2 - 15 mmol/L [facility] BUN 24 6 - 25 mg/dL [facility] Creatinine 1.61(H) 0.80 - 1.30 mg/dL [facility] Glucose 142 70 - 199 mg/dL [facility] Comment: Interpretive Data Fasting glucose >/= 126 mg/dl is diagnostic for diabetes. Fasting is defined as no caloric intake for at least 8 hours. Fasting glucose between 100 mg/dl to 125 mg/dl is diagnostic of prediabetes. In a patient with classic symptoms of hyperglycemia or hyperglycemic crisis, a random glucose >/= 200 mg/dl is diagnostic for diabetes. In the absence of unequivocal hyperglycemia, results should be confirmed by repeat testing. The classification and Diagnosis of Diabetes Diabetes Care 2021; 46: S19-S40. Current interpretive data was last revised 2022. Calcium 8.6 8.5 - 10.3 mg/dL [facility] Bilirubin, total 1.0 0.1 - 1.2 mg/dL [facility] Protein, pl 7.1 6.5 - 8.5 g/dL [facility] Albumin 4.2 3.5 - 5.0 g/dL [facility] Alk phos 34(L) 40 - 130 Units/L [facility] ALT 43 7 - 55 Units/L [facility] AST 38 10 - 50 Units/L [facility] Blood 05/04/2025 4:49 AM BOILER COVERER HELPER 05/04/2025 5:09 AM BOILER COVERER HELPER Renuka Haider MD LAB BLOOD ORDERABLES [facility] Result [facility] [place] [address] documented in this encounter Visit Diagnoses Diagnosis Acute decompensated heart failure (HCC)- Primary Shortness of breath Paroxysmal atrial fibrillation (HCC) Atrial fibrillation Longstanding persistent atrial fibrillation (HCC) [I48.11] Pulmonary edema cardiac cause (HCC) Pulmonary congestion and hypostasis Afib (HCC) Atrial fibrillation Gout Gout, unspecified Hyperlipidemia, unspecified Hypothyroidism, unspecified c/f pneumonia Pneumonia, organism unspecified Paroxysmal atrial fibrillation (HCC) Atrial fibrillation Paroxysmal atrial fibrillation (HCC) Atrial fibrillation documented in this encounter Admitting Diagnoses Diagnosis Pulmonary edema cardiac cause (HCC) Pulmonary congestion and hypostasis Paroxysmal atrial fibrillation (HCC) Atrial fibrillation documented in this encounter Administered Medications Inactive Administered Medications - up to 3 most recent administrations Medication Order MAR Action Action Date Dose Rate Site albuterol 2.5 mg/0.5 mL nebulizer solution 2.5 mg 2.5 mg, nebulization, Every 6 hours PRN (language therapist), wheezing, Starting on Evelyn 05/06/25 at 1248 apixaban (ELIQUIS) tablet 5 mg 5 mg, oral, 2 times daily, First dose on Sat05/04/25 at 2100, Nurse to discontinue heparin infusion order and associated bolus at first administration of apixaban using o rder condition met order source, Indications: atrial fibrillationIndications:atrial fibrillation Given 05/10/2025 11:05 AM BOILER COVERER HELPER 5 mg Given 05/09/2025 8:07 PM BOILER COVERER HELPER 5 mg Given 05/09/2025 8:23 AM BOILER COVERER HELPER 5 mg azithromycin (ZITHROMAX) 500 mg/255 mL in sodium chloride 0.9% (premix) 500 mg 500 mg, intravenous, at 255 mL/hr, Administer over 60 Minutes, Once, On Sat05/04/25 at 0922, For 1 dose, Indications: pneumoniaIndications:pneumon ia Restarted (From Pump) 05/04/2025 11:52 AM BOILER COVERER HELPER 255 mL/hr New Bag 05/04/2025 10:56 AM BOILER COVERER HELPER 500 mg 255 mL/hr azithromycin (ZITHROMAX) 500 mg/255 mL in sodium chloride 0.9% (premix) 500 mg 500 mg, intravenous, at 255 mL/hr, Administer over 60 Minutes, Every 24 hours scheduled, First dose (after last reorder) on Sat05/05/25 at 0900, Indications: pneumonia, On hold since Sat05/05/2025 at 1623 until manually unheldIndications:pneumonia New Bag 05/05/2025 8:14 AM BOILER COVERER HELPER 500 mg 255 mL/hr benzonatate (TESSALON) capsule 100 mg 100 mg, oral, 3 times daily PRN, cough, Starting on Sat05/07/25 at 1320, Do not crush, chew, cut, dissolve, open or otherwise manipulate tablet/capsule., Indications: CoughIndications:Cough Given 05/07/2025 5:44 PM BOILER COVERER HELPER 100 mg Carrier Fluids for Secondary Infusion - 0.9% Sodium Chloride 0-999 mL, intravenous, As needed, For priming tubing and/or flushing, Starting on Sat05/04/25 at 1937, Infuse 20 mL at the same rate as the secondary infusion to ensure full drug delivery. Run as primary IV not intended for KVO. cefTRIAXone (ROCEPHIN) 2,000 mg/20 mL in sterile water (premix) 2,000 mg 2,000 mg, intravenous, at 240 mL/hr, Administer over 5 Minutes, Every 24 hours scheduled, First dose on Sat05/04/25 at 0922, Indications: pneumonia, On hold since Sat05/08/2025 at 1908 until manually unheldIndications:pneumonia Given 05/08/2025 8:31 AM BOILER COVERER HELPER 2,000 mg 240 mL/hr Given 05/07/2025 9:02 AM BOILER COVERER HELPER 2,000 mg 240 mL/hr Given 05/06/2025 9:10 AM BOILER COVERER HELPER 2,000 mg 240 mL/hr doxycycline (VIBRAMYCIN) tablet/capsule 100 mg 100 mg, oral, 2 times daily (for quinolones,etc), First dose on Sat05/05/25 at 1800, Give 2 hrs before or 2 hrs after MVI, antacids, or other products containing sucralfate, magnesium, aluminum, iron, or zinc. May be taken without regard to meals., Indications: Pneumonia, Community Acquired, On hold since Sat05/08/2025 at 1908 until manually unheldIndications:Pneumonia, Community Acquired Given 05/08/2025 5:21 PM BOILER COVERER HELPER 100 mg Given 05/08/2025 6:14 AM BOILER COVERER HELPER 100 mg Given 05/07/2025 5:44 PM BOILER COVERER HELPER 100 mg furosemide (LASIX) 10 mg/mL injection 40 mg 40 mg, intravenous, Once, On Sat05/04/25 at 0921, For 1 dose, For IV push: administer doses < 160 mg at a rate of 20 -40 mg/min. Doses >/= 160 mg should be administered no faster than 4 mg/min. Room temperature only Given 05/04/2025 10: 49 AM BOILER COVERER HELPER 40 mg furosemide (LASIX) 10 mg/mL injection 40 mg 40 mg, intravenous, Daily, First dose on Sat05/05/25 at 0900, For IV push: administer doses < 160 mg at a rate of 20 -40 mg/min. Doses >/= 160 mg should be administered no faster than 4 mg/min. Room temperature only Given 05/08/2025 8:0 5 AM BOILER COVERER HELPER 40 mg Given 05/07/2025 9:01 AM BOILER COVERER HELPER 40 mg Given 05/06/2025 9:19 AM BOILER COVERER HELPER 40 mg furosemide (LASIX) tablet 60 mg 60 mg, oral, Daily, First dose on Sat05/09/25 at 0900 Given 05/10/2025 11:04 AM BOILER COVERER HELPER 60 mg Given 05/09/2025 8:23 AM BOILER COVERER HELPER 60 mg ipratropium-albuteroL (DUO-NEB) 0.5-2.5 mg/3 mL nebulizer solution 3 mL 3 mL, nebulization, Once (language therapist), On Sat05/07/25 at 1400, For 1 dose Given 05/07/2025 1:51 PM BOILER COVERER HELPER 3 mL levothyroxine (SYNTHROID) tablet 112 mcg 112 mcg, oral, Daily (early AM), First dose on Sat05/05/25 at 0600, Administer on an empty stomach, preferably 30 minutes before breakfast. Take 4 hours apart from antacids, iron and calcium products. Separate from tube feeds, if applicable. Given 05/10/2025 5:37 AM BOILER COVERER HELPER 112 mcg Given 05/09/2025 5:40 AM BOILER COVERER HELPER 112 mcg Given 05/08/2025 6:14 AM BOILER COVERER HELPER 112 mcg magnesium sulfate 2 g/50 mL in water (premix) 2 g 2 g, intravenous, at 50 mL/hr, Administer over 60 Minutes, Once, On Sat05/07/25 at 0200, For 1 dose New Bag 05/07/2025 2:56 AM BOILER COVERER HELPER 2 g 50 mL/hr metoprolol XL (TOPROL-XL) extended release tablet 50 mg 50 mg, oral, Daily, First dose on Sat05/05/25 at 0900, Tablets that are scored may be split, but do not crush, chew, dissolve, open or otherwise manipulate tablet/capsule. Given 05/10/2025 11:04 AM BOILER COVERER HELPER 50 mg Given 05/09/2025 8:23 AM BOILER COVERER HELPER 50 mg Given 05/08/2025 8:05 AM BOILER COVERER HELPER 50 mg multivit nmytyoih-xyre-VG-calcium (THERA-M) tablet 1 tablet 1 tablet, oral, Daily, First dose on Sat05/04/25 at 2014 Given 05/10/2025 11:05 AM BOILER COVERER HELPER 1 tablet Given 05/09/2025 8:23 AM BOILER COVERER HELPER 1 tablet Given 05/08/2025 8:05 AM BOILER COVERER HELPER 1 tablet perflutren protein-a (OPTISON) injection 0.1-3 mL 0.1-3 mL, intravenous, Once in imaging, contrast, Starting on Sat05/05/25 at 1116, For 1 dose, Intra-Procedure (CV) Given by Other 05/05/2025 12:43 PM BOILER COVERER HELPER 2 mL potassium chloride ER (KLOR-CON) extended release tablet 40 mEq 40 mEq, oral, Once, On Sat05/07/25 at 0200, For 1 dose, Tablets should not be crushed, chewed, dissolved, or otherwise manipulated. Capsules may be opened and sprinkled on a spoonful of applesauce or pudding, but the contents of the capsule should not be crushed or chewed. Given 05/07/2025 2:57 AM BOILER COVERER HELPER 40 mEq rosuvastatin (CRESTOR) tablet 20 mg 20 mg, oral, Nightly, First dose on Sat05/04/25 at 2100 Given 05/09/2025 8:07 PM BOILER COVERER HELPER 20 mg Given 05/08/2025 8:00 PM BOILER COVERER HELPER 20 mg Given 05/07/2025 8:29 PM BOILER COVERER HELPER 20 mg sacubitriL-valsartan (ENTRESTO) 49-51 mg tablet 1 tablet 1 tablet, oral, 2 times daily, First dose on Sat05/04/25 at 2100 Given 05/10/2025 11:03 AM BOILER COVERER HELPER 1 tablet Given 05/09/2025 8:06 PM BOILER COVERER HELPER 1 tablet Given 05/09/2025 8:23 AM BOILER COVERER HELPER 1 tablet sodium chloride 0.9% flush 0.5-20 mL 0.5-20 mL, intra-catheter, Every 8 hours scheduled (alternate), First dose on Sat05/05/25 at 0000, Flush volume based on line type and size. Given 05/10/2025 11:05 AM BOILER COVERER HELPER 10 mL Given 05/10/2025 12:40 AM BOILER COVERER HELPER 10 mL Given 05/09/2025 8:25 AM BOILER COVERER HELPER 10 mL sodium chloride 0.9% flush 0.5-20 mL 0.5-20 mL, intra-catheter, As needed, line care, Starting on Sat05/04/25 at 1937, Flush volume based on line type and size. Flush before and after each use. sodium phosphate - potassium phosphate (K-PHOS NEUTRAL) tablet 250 mg 250 mg, oral, 3 times daily with meals, First dose on Sat05/06/25 at 0815, For 3 doses, Each tablet contains elemental phosphorus 250 mg (8 mmol), potassium 45 mg (1.1 mEq), and sodium 298 mg (13 mEq). Given 05/06/2025 5:04 PM BOILER COVERER HELPER 250 mg Given 05/06/2025 12:53 PM BOILER COVERER HELPER 250 mg Given 05/06/2025 8:43 AM BOILER COVERER HELPER 250 mg sotaloL (BETAPACE) tablet 120 mg 120 mg, oral, 2 times daily, First dose (after last modification) on Sat05/04/25 at 2000, Please administer as close to 8P and 8A as possible Given 05/05/2025 8:05 AM BOILER COVERER HELPER 120 mg Given 05/04/2025 10:03 PM BOILER COVERER HELPER 120 mg sotaloL (BETAPACE) tablet 80 mg 80 mg, oral, 2 times daily, First dose (after last modification) on Sat05/05/25 at 2000, Please administer as close to 8P and 8A as possible, On hold since Evelyn 05/06/2025 at 0714 until manually unheld Given 05/05/2025 8:04 PM BOILER COVERER HELPER 80 mg sotaloL (BETAPACE) tablet 80 mg 80 mg, oral, 2 times daily, First dose (after last modification) on Evelyn 05/06/25 at 1145, Please administer as close to 8P and 8A as possible, On hold since 05/08/2025 at 2215 until manually unheld Given 05/08/2025 8:00 PM BOILER COVERER HELPER 80 mg Given 05/08/2025 8:05 AM BOILER COVERER HELPER 80 mg Given 05/07/2025 8:29 PM BOILER COVERER HELPER 80 mg sotaloL (BETAPACE) tablet 80 mg 80 mg, oral, 2 times daily, First dose (after last modification) on Sat05/09/25 at 0915, Please administer as close to 8P and 8A as possible Given 05/10/2025 11:09 AM BOILER COVERER HELPER 80 mg Given 05/09/2025 8:06 PM BOILER COVERER HELPER 80 mg Given 05/09/2025 8:58 AM BOILER COVERER HELPER 80 mg spironolactone (ALDACTONE) tablet 25 mg 25 mg, oral, Daily, First dose on Sat05/05/25 at 0900 Given 05/10/2025 11:03 AM BOILER COVERER HELPER 25 mg Given 05/09/2025 8:23 AM BOILER COVERER HELPER 25 mg Given 05/08/2025 8:05 AM BOILER COVERER HELPER 25 mg documented in this encounter Discontinued Medications Medication Sig Discontinue Reason Start Date End Da te furosemide (LASIX) 40 mg tablet Take 1.5 tablets (60 mg total) by mouth daily Stop Taking at Discharge 05/10/2025 05/10/2025 furosemide (LASIX) 20 mg tablet Take 3 tablets (60 mg total) by mouth daily 05/11/2025 05/10/2025 furosemide (LASIX) 40 mg tabletIndications:Dilated cardiomyopathy (HCC) Take 1 tablet by mouth once daily Stop Taking at Discharge 08/31/2024 05/10/2025 sotaloL (BETAPACE) 120 mg tablet Take 1 tablet (120 mg total) by mouth 2 (two) times a day Stop Taking at Discharge 05/03/2025 05/10/2025 documented as of this encounter Active and Recently Administered Medications Times are shown in BOILER COVERER HELPER. Scheduled Medication Order 05/08/2025 05/09/2025 05/10/2025 allopurinoL (ZYLOPRIM) tablet 300 mg 300 mg, oral, Daily, First dose on Sat05/04/25 at 2014 0900 (Hold - Provider: Desire Singer RN - Reason: See Provider Order) 0900 (Hold - Provider: Desire Singer RN - Reason: See Provider Order) 0900 (Not Given - Provider: Jeffery Juarez RN - Reason: See Provider Order)1047 (Unheld by Provider - Provider: John Mejia MD)1104 (Not Given - Provider: Jeffery Juarez RN - Reason: Patient/family refused - Comment: patient takes at night.) apixaban (ELIQUIS) tablet 5 mg 5 mg, oral, 2 times daily, First dose on Sat05/04/25 at 2100, Nurse to discontinue heparin infusion order and associated bolus at first administration of apixaban using o rder condition met order source, Indications: atrial fibrillation 0805 (Given - Provider: Desire Singer RN)1999 (Given - Provider: Sun Manley, LENO) 0823 (Given - Provider: Desire Singer, RN)2006 (Given - Provider: Harlan Conley, LENO) 0643 (AUG Hold - Provider: Automatic Transfer Provider - Reason: Patient not available)0900 (Not Given - Provider: Jeffery Juarez RN - Reason: See Provider Order)1047 (MAR Unhold - Provider: Automatic Transfer Provider)1105 (Given - Provider: Jeffery Juarez, LENO) cefTRIAXone (ROCEPHIN) 2,000 mg/20 mL in sterile water (premix) 2,000 mg (CANCELED) 2,000 mg, intravenous, at 240 mL/hr, Administer over 5 Minutes, Every 24 hours scheduled, First dose on Sat05/04/25 at 0922, Indications: pneumonia, On hold since Sat05/08/2025 at 1908 until manually unheld 0831 (Given - Provider: Desire Singer, LENO)1908 (Held by Provider - Provider: Harlan Mcarthur MD - Reason: Pending Results) 0830 (Unheld by Provider - Provider: Marlyn Stevens MD) doxycycline (VIBRAMYCIN) tablet/capsule 100 mg (CANCELED) 100 mg, oral, 2 times daily (for quinolones,etc), First dose on Sat05/05/25 at 1800, Give 2 hrs before or 2 hrs after MVI, antacids, or other products containing sucralfate, magnesium, aluminum, iron, or zinc. May be taken without regard to meals., Indications: Pneumonia, Community Acquired, On hold since Sat05/08/2025 at 1908 until manually unheld 0614 (Given - Provider: Vasu Sarmiento, LENO)1721 (Given - Provider: Desire Singer, LENO)1908 (Held by Provider - Provider: Harlan Mcarthur MD - Reason: Pending Results) 0600 (Dose Auto Held - Provider: Harlan Mcarthur MD)0830 (Unheld by Provider - Provider: Marlyn Stevens MD) furosemide (LASIX) 10 mg/mL injection 40 mg (CANCELED) 40 mg, intravenous, Daily, First dose on Sat05/05/25 at 0900, For IV push: administer doses < 160 mg at a rate of 20 -40 mg/min. Doses >/= 160 mg should be administered no faster than 4 mg/min. Room temperature only 0805 (Given - Provider: Desire Singer RN) furosemide (LASIX) tablet 60 mg 60 mg, oral, Daily, First dose on Sat05/09/25 at 0900 0823 (Given - Provider: Desire Singer RN) 0643 (MAR Hold - Provider: Automatic Transfer Provider - Reason: Patient not available)0900 (Not Given - Provider: Jeffery Juarez RN - Reason: See Provider Order)1047 (MAR Unhold - Provider: Automatic Transfer Provider)1104 (Given - Provider: Jeffery Juarez, LENO) levothyroxine (SYNTHROID) tablet 112 mcg 112 mcg, oral, Daily (early AM), First dose on Sat05/05/25 at 0600, Administer on an empty stomach, preferably 30 minutes before breakfast. Take 4 hours apart from antacids, iron and calcium products. Separate from tube feeds, if applicable. 0614 (Given - Provider: Vasu Sarmiento RN) 0540 (Given - Provider: Sun Manley, LENO) 0537 (Given - Provider: Harlan Conley, LENO)0643 (MAR Hold - Provider: Automatic Transfer Provider - Reason: Patient not available)1047 (MAR Unhold - Provider: Automatic Transfer Provider) metoprolol XL (TOPROL-XL) extended release tablet 50 mg 50 mg, oral, Daily, First dose on Sat05/05/25 at 0900, Tablets that are scored may be split, but do not crush, chew, dissolve, open or otherwise manipulate tablet/capsule. 0805 (Given - Provider: Desire Singer, LENO) 0823 (Given - Provider: Desire Singer RN) 0643 (MAR Hold - Provider: Automatic Transfer Provider - Reason: Patient not available)0900 (Not Given - Provider: Jeffery Juarez RN - Reason: See Provider Order)1047 (MAR Unhold - Provider: Automatic Transfer Provider)1104 (Given - Provider: Jeffery Juarez, LENO) multivit aapxzjnx-oyfo-YA-calcium (THERA-M) tablet 1 tablet 1 tablet, oral, Daily, First dose on Sat05/04/25 at 2014 0805 (Given - Provider: Desire Singer, LENO) 0823 (Given - Provider: Desire Singer RN) 0643 (MAR Hold - Provider: Automatic Transfer Provider - Reason: Patient not available)0900 (Not Given - Provider: Jeffery Juarez, LENO - Reason: See Provider Order)1047 (MAR Unhold - Provider: Automatic Transfer Provider)1105 (Given - Provider: Jeffery Juarez, LENO) rosuvastatin (CRESTOR) tablet 20 mg 20 mg, oral, Nightly, First dose on Sat05/04/25 at 2099 1999 (Given - Provider: Sun Manley, LENO) 2006 (Given - Provider: Harlan Conley, LENO) 0643 (MAR Hold - Provider: Automatic Transfer Provider - Reason: Patient not available)1047 (MAR Unhold - Provider: Automatic Transfer Provider) sacubitriL-valsartan (ENTRESTO) 49-51 mg tablet 1 tablet 1 tablet, oral, 2 times daily, First dose on Sat05/04/25 at 2099 0805 (Given - Provider: Desire Singer RN)1999 (Given - Provider: Sun Manley, LENO) 08 (Given - Provider: Desire Singer, LENO)2005 (Given - Provider: Harlan Conley, LENO) 0643 (MAR Hold - Provider: Automatic Transfer Provider - Reason: Patient not available)0900 (Not Given - Provider: Jeffery Juarez RN - Reason: See Provider Order)1047 (MAR Unhold - Provider: Automatic Transfer Provider)1103 (Given - Provider: Jeffery Juarez, LENO) sodium chloride 0.9% flush 0.5-20 mL 0.5-20 mL, intra-catheter, Every 8 hours scheduled (alternate), First dose on Sat05/05/25 at 0000, Flush volume based on line type and size. 0026 (Given - Provider: Vasu Sarmiento RN)0805 (Given - Provider: Desire Singer RN)172 (Given - Provider: Desire Singer RN)2001 (Given - Provider: Sun Manley RN) 0000 (Not Given - Provider: Sun Manley RN - Reason: Other)0825 (Given - Provider: Desire Singer RN)1600 (Not Given - Provider: Desire Singer RN - Reason: Other) 0040 (Given - Provider: Harlan Conley, LENO)0643 (MAR Hold - Provider: Automatic Transfer Provider - Reason: Patient not available)0800 (Not Given - Provider: Jeffery Juarez RN - Reason: See Provider Order)1047 (MAR Unhold - Provider: Automatic Transfer Provider)1105 (Given - Provider: Jeffery Juarez RN)1600 (Due) sotaloL (BETAPACE) tablet 80 mg (CANCELED) 80 mg, oral, 2 times daily, First dose (after last modification) on Evelyn 05/06/25 at 1145, Please administer as close to 8P and 8A as possible, On hold since 05/08/2025 at 2215 until manually unheld 0805 (Given - Provider: Desire Singer RN)2000 (Given - Provider: Sun Manley RN)2215 (Held by Provider - Provider: Harlan Mcarthur MD - Reason: Change in Patient Status) 0800 (Dose Auto Held - Provider: Harlan Mcarthur MD)0836 (Unheld by Provider - Provider: Harlan Mcarthur MD) sotaloL (BETAPACE) tablet 80 mg 80 mg, oral, 2 times daily, First dose (after last modification) on 05/09/25 at 0915, Please administer as close to 8P and 8A as possible 0858 (Given - Provider: Desire Singer RN)2006 (Given - Provider: Harlan Conley, LENO) 0643 (MAR Hold - Provider: Automatic Transfer Provider - Reason: Patient not available)0800 (Not Given - Provider: Jeffery Juarez RN - Reason: See Provider Order)1047 (MAR Unhold - Provider: Automatic Transfer Provider)1109 (Given - Provider: Jeffery Juarez, LENO) spironolactone (ALDACTONE) tablet 25 mg 25 mg, oral, Daily, First dose on Sat05/05/25 at 0900 0805 (Given - Provider: Desire Singer, RN) 0823 (Given - Provider: Desire Singer, LENO) 0643 ([facility] Hold - Provider: Automatic Transfer Provider - Reason: Patient not available)0900 (Not Given - Provider: Jeffery Juarez RN - Reason: See Provider Order)1047 ([facility] Unhold - Provider: Automatic Transfer Provider)1103 (Given - Provider: Jeffery Juarez, LENO) PRN Medication Order 05/08/2025 05/09/2025 05/10/2025 albuterol 2.5 mg/0.5 mL nebulizer solution 2.5 mg 2.5 mg, nebulization, Every 6 hours PRN (language therapist), wheezing, Starting on Evelyn 05/06/25 at 1248 0643 ([facility] Hold - Pro vider: Automatic Transfer Provider - Reason: Patient not available)1047 ([facility] Unhold - Provider: Automatic Transfer Provider) benzonatate (TESSALON) capsule 100 mg 100 mg, oral, 3 times daily PRN, cough, Starting on Sat05/07/25 at 1320, Do not crush, chew, cut, dissolve, open or otherwise manipulate tablet/capsule., Indications: Cough 0643 ([facility] Hold - Pro vider: Automatic Transfer Provider - Reason: Patient not available)1047 ([facility] Unhold - Provider: Automatic Transfer Provider) Carrier Fluids for Secondary Infusion - 0.9% Sodium Chloride 0-999 mL, intravenous, As needed, For priming tubing and/or flushing, Starting on Sat05/04/25 at 1937, Infuse 20 mL at the same rate as the secondary infusion to ensure full drug delivery. Run as primary IV not intended for KVO. 0643 ([facility] Hold - Pro vider: Automatic Transfer Provider - Reason: Patient not available)1047 ([facility] Unhold - Provider: Automatic Transfer Provider) sodium chloride 0.9% flush 0.5-20 mL 0.5-20 mL, intra-catheter, As needed, line care, Starting on Sat05/04/25 at 1937, Flush volume based on line type and size. Flush before and after each use. 0643 ([facility] Hold - Pro vider: Automatic Transfer Provider - Reason: Patient not available)1047 (MAR Unhold - Provider: Automatic Transfer Provider) documented in this encounter Orders Medications Ordered That George ht Not Have Been Administered Count Last Ordered Date First Ordered Date albuterol 2.5 mg/0.5 mL nebu lizer solution 2.5 mg 1 05/06/2025 allopurinoL (ZYLOPRIM) tablet 300 mg 1 04/17 Carrier Fluids for Secondary Infusion - 0.9% Sodium Chloride 1 05/04/2025 furosemide (LASIX) tablet 40 mg 1 sodium chloride 0.9% flush 0.5-20 mL 1 04/17 sotaloL (BETAPACE) tablet 120 mg 1 05/04/20 Lab Orders Without Results Count Last Ordered D ate First Ordered Date POCT GLUCOSE DEVICE 1 05/04/2025 Imaging Orders Without Results Count Last Order ed Date First Ordered Date HOME O2 EVAL (DESATURATION SCREEN) 1 2024 EKG Orders Without Results Count Last Ordered D ate First Ordered Date ECG 12-LEAD 1 05/10/2025 Nursing Count Last Ordered Date First Orde red Date TELEMETRY MONITORING 1 05/08/2025 WEIGH PATIENT 1 05/04/2025 Consult Count Last Ordered Date First Orde red Date IP CONSULT TO ELECTROPHYSIOLOGY 1 IV Count Last Ordered Date First Orde red Date SALINE LOCK IV 1 05/04/2025 Admission Count Last Ordered Date First Orde red Date ADMIT TO INPATIENT 1 05/04/2025 Discharge Count Last Ordered Date First Orde red Date DISCHARGE PATIENT 1 05/10/2025 CORE MEASURES Count Last Ordered Date First Ord ered Date REASON FOR NO VTE PROPHYLAXIS AT ADMISSION 1 05/04/2025 Case Request Count Last Ordered Date First Orde red Date CASE REQUEST GOVERNOR ASSEMBLER HYDRAULIC 1 05/08/2025 documented in this encounter Additional Health Concerns Infection Onset Date Last Indicated Resolved Time Ring Surveillance: C. auris Comment:[id number] 05/01/2025 05/01/2025 05/05/2025 9:[address] COVID: Suspected 05/04/2025 05/04/2025 05/04/2025 9:39 PM BOILER COVERER HELPER documented as of this encounter Care Teams Hog Handler Relationship Specialty Start Date End Date Blake Ott MD [address] [facility] [address] [place] [address] PCP - General Family Medicine 07/20/24 Carolin Gandhi MD [address] [facility] [address] [place] [address] Family Medicine 04/10/23 documented as of this encounter
--- OUTSIDE RECORDS SUMMARY | 2025-05-10 09:27 | XMS_ITS | Encounter Summary ---
Author Organization [facility] Healthcare Address [address] [place] [address] Care Team Providers [place] Agricultural Agent Name Role Phone Carolin Gandhi MD Unavailable [phone] Blake Ott MD Primary Care Provider Reason for Visit * Auth/Cert Specialty Diagnoses / Procedures Referred By Contac t Referred To Contact Diagnoses Pulmonary edema cardiac cause (HCC) Procedures na Referral ID Status Reason Start Date Expiration Date Visits Re quested Visits Authorized [id number] 1 1 Encounter Details Date Type Department Care Team (Late st Contact Info) Description 05/10/2025 9:27 AM GOVERNMENT AFFAIRS MANAGER Anesthesia Event [facility] [address] [place] [address] Cici Gallegos MD [address] [place] [address] Anesthesia Record Procedure Summary Procedure Name Responsible Anesthesiologist Anesthesia Start Time Anesthesia Stop Time CARDIOVERSION [id number] Cici Gallegos MD 5 0905/10/25 0949 Events Date Time Event Comment 05/10/2025 0927 An Start 0927 An Start Data 0937 An Induction The patient was reevaluated immediately before moderate or deep sedation use and before anesthesia induction. 0937 Mask general 0937 Anesthesia Ready 0939 Cardioversion 200 J synchron ise 0945 an stop data 0947 Handoff to RN I completed my handoff to the receiving nurse during which we: 1. Patient identified 2. Responsible provider identified 3. Pertinent medical history reviewed 4. Procedure type and surgical course discussed 5. Intraoperative anesthetic management and any significant issues discussed 6. Expectations and concerns for postop period discussed 7. Questions solicited from receiving nurse 8. Patient disposition at the time of handoff: PACU 0949 An Stop Meds Name Total lidocaine (cardiac) syringe 2 % 60 mg propofol 90 mg * Agents Name O2 * Blood No blood administrations on file. Lines, Drains, and Airways Type Details Placement Removal Peripheral IV Placement Date: 04/17 02/08; Placement Time: 448; Catheter Size: 20 G; Orientation: Right; Location: Forearm; Removal Date: 05/10/25; Removal Time: 1538; Removal Reason: Therapy completed 05/04/25448 by Brenda Flynn RN 05/10/251538 by Jeffery Juarez RN documented in this encounter Social History Tobacco Use Types Packs/Day Years [...] 05/05/2025 How often do you attend chur or baptist services? Never 05/05/2025 Do you belong to any clubs o r organizations such as baptist groups, unions, fraternal or athletic groups, or [...] any time in the past 12 m [facility], were you homeless or living in a senior living (including now)? No 05/05/2025 [facility] Utilities Answer Date Recorded In the past [...] on file Legal Sex Male 7:32 PM GOVERNMENT AFFAIRS MANAGER Gender Identity Not on file Sexual Orientation Not on file documented as of this encounter Functional Status documented as of this encounter OR Notes * Anesthesia Postprocedure Evaluation - Mo Jensen CRNA - 05/10/2025 9:49 AM CST Patient: Kamron Patel Procedure Summary Date: 05/10/25 Room / Location: [facility] / [facility] Anesthesia Start: 926 Anesthesia Stop: 948 Procedure: CARDIOVERSION [id number] Diagnosis: Paroxysmal atrial fibrillation (HCC) (Paroxysmal atrial fibrillation (HCC) [I48.0]) Providers: Sebas Coffman MD Responsible Provider: Cici Gallegos MD Anesthesia Type: MAC ASA Status: 4 Anesthesia Type: MAC Last vitals Vitals Value Taken Time BP 105/71 05/10/25 09:48 Temp 05/10/25 09:49 Pulse 64 05/10/25 09:49 Resp 21 05/10/25 09:49 SpO2 95 % 05/10/25 09:49 Vitals shown include unfiled device data. Anesthesia Post Evaluation Patient location during evaluation: PACU Patient participation: complete - patient participated Level of consciousness: fully awake Pain score: 0 Pain management: adequate Airway patency: adequate Evidence of recall: no Cardiovascular status: acceptable Respiratory status: acceptable and nasal cannula Hydration status: acceptable Pt is: normothermic Nausea/Vomiting status: none Cosigned by Cici Gallegos MD at 05/10/2025 10:18 AM GOVERNMENT AFFAIRS MANAGER RNMENT AFFAIRS MANAGER RNMENT AFFAIRS MANAGER RNMENT AFFAIRS MANAGER * Anesthesia Preprocedure Evaluation - Cici Gallegos MD - 05/10/2025 8:06 AM CST Images from the original note were not included. Anesthesia Evaluation Kamron Patel is a 69 y.o. male CARDIOVERSION [id number] Pre-Op Diagnosis Codes: * Paroxysmal atrial fibrillation (HCC) [I48.0] Patient Active Problem List Diagnosis Date Noted Pulmonary edema cardiac cause (HCC) 05/04/2025 Afib (HCC) 05/04/2025 Gout 05/04/2025 Hypothyroidism, unspecified 05/04/2025 Acute decompensated heart failure (HCC) 05/04/2025 c/f pneumonia 05/04/2025 A-fib (HCC) 04/30/2025 Gout 04/30/2025 HFrEF (heart failure with reduced ejection fraction) 04/30/2025 Hyperlipidemia, unspecified 04/30/2025 Paroxysmal atrial fibrillation ([facility]) 06/03/2024 Body mass index 40.0-44.9, adult ([facility]/HCC) ([facility]) 01/07/2024 NICM (nonischemic cardiomyopathy) ([facility]) 08/19/2023 Biventricular implantable cardioverter-defibrillator in situ 07/22/2023 Morbid (severe) obesity due to excess calories ([facility]) 06/13/2023 Chronic systolic CHF (congestive heart failure) ([facility]) 06/13/2023 Hypothyroidism 06/13/2023 LBBB (left bundle branch block) 06/13/2023 PASCALE (obstructive sleep apnea) 06/13/2023 Lipid screening 04/10/2023 Dilated cardiomyopathy ([facility]) 04/10/2023 Hyperlipidemia associated with type 2 diabetes mellitus ([facility]) 04/10/2023 Hypertension associated with diabetes ([facility]) 04/10/2023 Past Medical History: Diagnosis Date Arthritis CHF (congestive heart failure) ([facility]) Diabetes mellitus Hypertension Hypothyroidism Nonischemic cardiomyopathy ([facility]) left bundle branch block Sleep apnea Thyroid disease Type 2 diabetes mellitus Past Surgical History: Procedure Laterality Date ABDOMINAL HERNIA REPAIR CARDIAC CATHETERIZATION CARDIAC ELECTROPHYSIOLOGY PROCEDURE N/A 03/12/2025 Procedure: CARDIOVERSION; Surgeon: Isai Shetty MD PhD; Location: [facility]; Service: Cardiovascular; Laterality: N/A; arrival 0600- needs a ride to and from the procedure CARDIAC ELECTROPHYSIOLOGY PROCEDURE N/A 05/03/2025 Procedure: CARDIOVERSION [id number]; Surgeon: Isai Shetty MD PhD; Location: [facility]; Service: Cardiovascular; Laterality: N/A; INGUINAL HERNIA REPAIR Left KNEE SURGERY Right meniscus repair - arthroscopic No Known Allergies Taking? Last Dose Start Date End Date Provider allopurinoL (ZYLOPRIM) 300 mg tablet -- -- -- Coco Schilling MD Eliquis 5 mg tablet -- 03/16/25 -- Fabio Jacob MD Take 1 tablet by mouth twice daily furosemide (LASIX) 40 mg tablet -- 08/31/24 -- Fabio Jacob MD Take 1 tablet by mouth once daily glucosamine-chondroitin 250-200 mg tablet -- -- -- Coco Schilling MD levothyroxine (SYNTHROID) 112 mcg tablet -- 09/02/22 -- Coco Schilling MD metoprolol XL (TOPROL-XL) 50 mg extended release tablet -- 08/27/24 -- Fabio Jacob MD Take 1 tablet by mouth once daily multivitamin tablet -- -- -- Coco Schilling MD omega-3 fatty acids-fish oil 300-1,000 mg capsule -- -- -- Coco Schilling MD rosuvastatin (CRESTOR) 20 mg tablet -- 09/07/23 -- Coco Schilling MD sacubitriL-valsartan (Entresto) 49-51 mg tablet -- 10/16/24 -- Fabio Jacob MD Take 1 tablet by mouth twice daily sotaloL (BETAPACE) 120 mg tablet -- 05/03/25 05/03/26 Marlyn Stevens MD Take 1 tablet (120 mg total) by mouth 2 (two) times a day spironolactone (ALDACTONE) 25 mg tablet -- 08/27/24 -- Fabio Jacob MD TAKE 1 TABLET BY MOUTH ONCE DAILY IN THE MORNING testosterone cypionate (DEPO-TESTOTERONE) 200 mg/mL injection -- 06/05/24 -- Coco Schilling MD turmeric root extract 500 mg capsule -- -- -- Coco Schilling MD Current Facility-Administered Medications: [Transfer Hold] albuterol 2.5 mg/0.5 mL nebulizer solution 2.5 mg, 2.5 mg, nebulization, Q6H PRN (RT) [Held by Provider] allopurinoL (ZYLOPRIM) tablet 300 mg, 300 mg, oral, Daily [Transfer Hold] apixaban (ELIQUIS) tablet 5 mg, 5 mg, oral, BID, 5 mg at 05/09/252006 [Transfer Hold] benzonatate (TESSALON) capsule 100 mg, 100 mg, oral, TID PRN, 100 mg at 05/07/25 1744 [Transfer Hold] Carrier Fluids for Secondary Infusion - 0.9% Sodium Chloride, 0- 999 mL, intravenous, PRN [Transfer Hold] furosemide (LASIX) tablet 60 mg, 60 mg, oral, Daily, 60 mg at 05/09/25 0823 [Transfer Hold] levothyroxine (SYNTHROID) tablet 112 mcg, 112 mcg, oral, Daily - 0600, 112 mcg at 05/10/25 0537 [Transfer Hold] metoprolol XL (TOPROL-XL) extended release tablet 50 mg, 50 mg, oral, Daily, 50 mg at 05/09/25 08 [Transfer Hold] multivit byahzodt-wgyb-OM-calcium (THERA-M) tablet 1 tablet, 1 tablet, oral, Daily,1 tablet at 05/09/25822 [Transfer Hold] rosuvastatin (CRESTOR) tablet 20 mg, 20 mg, oral, Nightly, 20 mg at 05/09/252006 [Transfer Hold] sacubitriL-valsartan (ENTRESTO) 49-51 mg tablet 1 tablet, 1 tablet, oral, BID, 1 tablet at 05/09/252005 [Transfer Hold] sodium chloride 0.9% flush 0.5-20 mL, 0.5-20 mL, intra-catheter, Q8H LUCÍA (ALT), 10 mL at 05/10/25 0040 [Transfer Hold] sodium chloride 0.9% flush 0.5-20 mL, 0.5-20 mL, intra-catheter, PRN [Transfer Hold] sotaloL (BETAPACE) tablet 80 mg, 80 mg, oral, BID, 80 mg at 05/09/252005 [Transfer Hold] spironolactone (ALDACTONE) tablet 25 mg, 25 mg, oral, Daily, 25 mg at 05/09/25822 Social History Tobacco Use Smoking Status Never Smokeless Tobacco Never Alcohol Use: Not At Risk (05/03/2025) AUDIT-C Frequency of Alcohol Consumption: Never Average Number of Drinks: Patient does not drink Frequency of Binge Drinking: Never Substance and Sexual Activity Drug Use Never Family History Problem Relation Age of Onset Stroke Mother Cancer Mother Cancer Father Vitals: 05/10/25 0400 05/10/25 0538 05/10/25 0721 BP: 103/70 116/83 Pulse: 104 96 Resp: Temp: 36.5 ??C (97.7 ??F) 36.5 ??C (97.7 ??F) SpO2: 95% 96% PT: No results found for requested labs within last 30 days. INR: No results found for requested labs within last 30 days. APTT: No results found for requested labs within last 30 days. Hgb A1C: No results found for requested labs within last 30 days. CBC RBC: 05/09/2025: 4.83 M/cumm RDW: No results found for requested labs within last 30 days. MCHC: 05/09/2025: 34.4 g/dL MCH: 05/09/2025: 33.7 pg (H) MCV: 05/09/2025: 98.1 fL (H) Hct: 05/09/2025: 47.4 % Hgb: 05/09/2025: 16.3 g/dL WBC: 05/09/2025: 7.77 K/cumm MPV: 05/09/2025: 11.9 fL Platelets: 05/09/2025: 235 K/cumm RDW CV: 05/09/2025: 15.9 % (H) RDW Sd: 05/09/2025: 57.3 fL (H) BMP Glucose: 05/09/2025: 127 mg/dL Calcium: 05/09/2025: 8.6 mg/dL Sodium: 05/09/2025: 136 mmol/L Potassium: 05/09/2025: 4.1 mmol/L CO2: 05/09/2025: 25 mmol/L Chloride: 05/09/2025: 100 mmol/L BUN: 05/09/2025: 17 mg/dL Creatinine: 05/09/2025: 1.32 mg/dL (H) DOS Physical Exam Date of Last Liquid: 05/10/25, Time of Last Liquid: 0530 Date of Last Solid: 05/09/25, Time of Last Solid: 1900 Medical history, medications, and allergies reviewed. Attestation: With today's edits, I endorse the the findings of the H&P dated: 05/06/2025. Airway Exam: Mallampati: II Cervical ROM: FROM TM distance: normal Cardiovascular Exam: Rhythm: irregular Pulmonary Exam: LCTA, bilat EENT Exam: trachea midline Dental Exam: Appears intact Current state: Patient's current state is cooperative and interactive. Anesthesia Plan ASA 4 My patient is approved for the Anesthesia Controlled Medication protocol when under care of a REEFER ENGINEER Planned anesthesia: MAC Induction: Induction: intravenous. Postoperative Plan: No plan for postoperative opioid use. Patient's planned disposition post procedure is Floor. Informed Consent: Discussed plan with REEFER ENGINEER and student anesthesia trainee. Anesthesia plan and risks discussed with patient. Consent and Attending signature: I and/or my designee have discussed the anesthesia plan, benefits, possible alternatives, parental presence at time of induction (if indicated), and clinically relevant risks that may include dental injury, unintentional awareness, and/or other complications. The patient and/or parent/legal guardian understand, and agree to proceed. All questions answered. RNMENT AFFAIRS MANAGER documented in this encounter Plan of Treatment Not on file documented as of this encounter Visit Diagnoses Not on filedocumented in this encounter Administered Medications Inactive Administered Medications - up to 3 most recent administrations Medication Order MAR Action Action Date Dose Rate Site lidocaine (cardiac) (XYLOCAINE) preservative free injection intravenous, As needed, Starting on Sat05/10/25 at 0937, Anesthesia Intra-op, Indications: Ventricular ArrhythmiasIndications:Ventricular Arrhythmias Given 05/10/2025 9:37 AM GOVERNMENT AFFAIRS MANAGER 60 mg propofoL (DIPRIVAN) 10 mg/mL IV intravenous, As needed, Starting on Sat05/10/25 at 0937, Anesthesia Intra-op Given 05/10/2025 9:37 AM GOVERNMENT AFFAIRS MANAGER 90 mg documented in this encounter Care Teams [place] Agricultural Agent Relationship Specialty Start Date End Date Blake Ott MD [address] [place] [address] PCP - General Family Medicine 07/20/24 Carolin Gandhi MD [address] [place] [address] Family Medicine 04/10/23 documented as of this encounter
--- OUTSIDE RECORDS SUMMARY | 2025-05-10 09:54 | XMS_ITS | Encounter Summary ---
Author Organization [facility] Healthcare Address [address] [place] [address] Care Team Providers Care Dredge Pipe Operator Name Role Phone Carolin Gandhi MD Unavailable [phone] Blake Ott MD Primary Care Provider Reason for Visit * Reason Comments Shortness of Breath * Auth/Cert Specialty Diagnoses / Procedures Referred By Contac t Referred To Contact Diagnoses Pulmonary edema cardiac cause (HCC) Procedures na Referral ID Status Reason Start Date Expiration Date Visits Re quested Visits Authorized [id number] 1 1 Encounter Details Date Type Department Care Team (Late st Contact Info) Description 05/10/2025 9:54 AM WELDER EXPLOSION - 05/10/2025 10:22 AM WELDER EXPLOSION Surgery [facility] [address] [place] [address] Sebas Coffman MD [address] [facility] [address] [place] [address] CARDIOVERSION [id number] Social History Tobacco Use Types Packs/Day Years [...] often do you attend chur ch or amish services? Never 05/05/2025 Do you belong to any clubs o r organizations such as uatsdin groups, unions, fraternal or athletic groups, or [...] any time in the past 12 m [facility], were you homeless or living in a half-way (including now)? No 05/05/2025 [facility] Utilities Answer Date Recorded In the past 12 months has [employer] electric, gas, oil, or water company threatened [...] on file Legal Sex Male 7:32 PM WELDER EXPLOSION Gender Identity Not on file Sexual Orientation Not on file documented as of this encounter Last Filed Vital Signs Vital Sign Reading Time Taken Comments Blood Pressure 117/80 05/10/2025 10:20 AM WELDER EXPLOSION Pulse 75 05/10/2025 10:20 AM WELDER EXPLOSION Temperature 36.5 C (97.7 F) 05/10/2025 7:21 AM WELDER EXPLOSION Respiratory Rate 25 05/10/2025 10:20 AM WELDER EXPLOSION Oxygen Saturation 94% 05/10/2025 10:20 AM WELDER EXPLOSION Inhaled Oxygen Concentration - - Weight 129.7 kg (286 lb) 05/10/2025 5:56 AM WELDER EXPLOSION Height 180.3 cm (5' 11) 05/04/2025 7:30 PM WELDER EXPLOSION Body Mass Index 39.89 05/04/2025 7:30 PM WELDER EXPLOSION documented in this encounter Functional Status * Question Answer Date of Assessment Author MAP (mmHg) 93 05/10/2025 10:20 AM WELDER EXPLOSION Luca vergara, Katiuska Peterson RN * C.A.G.E. Question Answer Date of Assessment Author Have you ever felt the need to Cut down on your drinking? 0 05/04/2025 10:27 PM WELDER EXPLOSION Sun De Souza RN Have people ever Annoyed yo u by criticizing your drinking? 0 05/04/2025 10:27 PM WELDER EXPLOSION Sun De Souza RN Have you ever felt bad or Guilty about your drinking? 0 05/04/2025 10:27 PM Sun Goss RN Have you ever had a drink fi rst thing in the morning to steady your nerves or get rid of a hangover? Eye career development specialist? 0 05/04/2025 10:27 PM WELDER EXPLOSION Lucie De Souza RN CAGE SCORE: 2 or Greater = Positive 0 05/04/2025 10:27 PM WELDER EXPLOSION Camron De Souza RN * Difference in Last Two Eloy Scores Answer Date of Assessment Author 2 05/09/2025 8:00 PM Harlan Ndiaye RN * Question Answer Date of Assessment Author BP Method Automatic 05/10/2025 5:38 AM Harlan Pal RN * Lange Fall Risk Question Answer Date of Assessment Author History of Falling 0 05/09/2025 8:00 PM Harlan Ndiaye RN Secondary Diagnosis 15 05/09/2025 8:00 PM Harlan Dietrich RN Ambulatory Aids 0 05/09/2025 8:00 PM Harlan Roman RN Intravenous Therapy/Heparin/Saline Lock 20 05/09/2025 8:00 PM Harlan Ndiaye RN Gait/Transferring 0 05/09/2025 8:00 PM Harlan Ndiaye RN Mental Status 0 05/09/2025 8:00 PM Harlan Chris RN Lange Fall Risk Score (Score >= 45 places fall precaution order) 35 05/09/2025 8:00 PM Michelle Ndiaye RN Prior Fall Event (Autopopulated from EMR) None found 05/09/2025 8:00 PM Hanna Ndiaye RN * Eloy Scale Question Answer Date of Assessment Author Sensory Perceptions 4 05/09/2025 8:00 PM Harlan Dietrich RN Moisture 4 05/09/2025 8:00 PM Harlan Pal RN Activity 3 05/09/2025 8:00 PM Harlan Pal RN Mobility 4 05/09/2025 8:00 PM Harlan Pal RN Nutrition 3 05/09/2025 8:00 PM Harlan Pal RN Friction and Shear 3 05/09/2025 8:00 PM Harlan Ndiaye RN Eloy Scale Score 21 05/09/2025 8:00 PM Harlan Ndiaye RN * Question Answer Date of Assessment Author BP Location Right arm 05/09/2025 7:29 PM WELDER EXPLOSION Andrade Casillas * Fall Risk Interventions Question Answer Date of Assessment Author All Low Fall Interventions Applied Yes 05/09/2025 8:00 PM Harlan Ndiaye RN All Moderate Fall Interventions Applied No 05/09/2025 8:00 PM Harlan Ndiaye RN All Moderate Fall Risk Interventions EXCEPT: Gait belt at bedside;Fall risk sign with education 05/09/2025 8:00 PM Harlan Ndiaye RN All High Fall Risk Interventions Applied No 05/09/2025 8:00 PM Harlan Ndiaye RN All High Risk Interventions EXCEPT: Bed alarm;Chair alarm 05/09/2025 8:00 PM Harlan Ndiaye RN Additional Interventions Applied Over-bed table on non-exit side;Exit bed on strong/preferred side 05/09/2025 8:00 PM Harlan Ndiaye RN Reason For Exception(s) green 05/09/20 8:00 PM Harlan Ndiaye RN Reason For Exception(s) green 05/09/20 8:00 PM Harlan Ndiaye RN * B.M.A.T. - Bedside Mobility Assessment Tool for Nurses Question Answer Date of Assessment Author Is patient able to participate in the BMAT? Yes 05/09/2025 8:00 PM Hanna Ndiaye RN BMAT Level Level 4 - Green 05/09/2025 8:00 PM Harlan Roman RN * Question Answer Date of Assessment [...] Huang Jensen 05/10/2025 7:00 A M Jeffery Hernández, LENO * Pressure Injury Prevention Question Answer Date of Assessment Author Pressure Ulcer Prevention Interventions Keep skin clean and dry (Sensory Perception/Moisture);Bobby ce on pressure redistribution surface (Sensory Perception/Activity/Mobi lity) 05/09/2025 8:00 PM Harlan Ndiaye, LENO Special Mattress Low air loss 05/08/2025 8:00 PM Sun Calixto RN * Transdermal Patch Assessment on Admission [...] RN Altered elimination 0 05/04/2025 4:34 AM Brenda Rodriguez RN Fall risk score: (1-2 low risk), (3-4 moderate risk), (5 or more high risk) 0 05/04/2025 4:34 AM WELDER EXPLOSION Brenda Flynn RN * Integumentary Question Answer Date of Assessment Author Integumentary (WDL) WDL 05/09/2025 8:00 PM Harlan Dietrich RN * Question Answer Date of Assessment Author BP Method Automatic 05/10/2025 5:38 AM Harlan Pal RN * Question Answer Date of Assessment Author RLE Edema No pitting 05/09/2025 8:00 PM Harlan Pal RN LLE Edema No pitting 05/09/2025 8:00 PM Harlan Pal RN Edema Right lower extremit y;Left lower extremity 05/09/2025 8:00 PM Harlan Ndiaye RN * Question Answer Date of Assessment Author Percent Meal Eaten (%) 100 05/09/2025 8:55 AM WELDER EXPLOSION Desire Singer RN Feeding Level of Assistance Able to feed self 05/07/2025 2:50 PM WELDER EXPLOSION Jeffery Juarez RN Appetite Good 05/07/2025 2:50 PM WELDER EXPLOSION Jeffery Dennis RN * Question Answer Date of Assessment Author BP Location Right arm 05/09/2025 7:29 PM WELDER EXPLOSION Andrade Casillas * Fall Risk Interventions Question Answer Date of Assessment Author All Low Fall Interventions Applied Yes 05/09/2025 8:00 PM Harlan Ndiaye RN All Moderate Fall Interventions Applied No 05/09/2025 8:00 PM Harlan Ndiaye RN All Moderate Fall Risk Interventions EXCEPT: Gait belt at bedside;Fall risk sign with education 05/09/2025 8:00 PM Harlan Ndiaye, LENO All High Fall Risk Interventions Applied No 05/09/2025 8:00 PM Harlan Ndiaye, LENO All High Risk Interventions EXCEPT: Bed alarm;Chair alarm 05/09/2025 8:00 PM Harlan Ndiaye, LENO Additional Interventions Applied Over-bed table on non-exit side;Exit bed on strong/preferred side 05/09/2025 8:00 PM Harlan Ndiaye, LENO Reason For Exception(s) 05/09/20 8:00 PM Harlan Ndiaye RN Reason For Exception(s) 05/09/20 8:00 PM Harlan Ndiaye RN * ADL Screening Question Answer Date [...] Walks in Home Independent 05/04/2025 10:27 PM WELDER EXPLOSION Sun Leonard RN Weakness of Legs None 05/04/2025 10:27 [...] 2 05/04/2025 10:27 PM Sun Cohen RN INTERVENTIONAL PHYSICIAN Evaluation Needed 2 05/04/2025 10:27 PM Sun [...] is sticking No 05/04/2025 10:27 PM Sun Cohen RN In the past two weeks has the patient had changes in speaking or ability to comprehend conversation No 05/04/2025 10:27 PM Sun Cohen RN Currently, does patient require thickened liquids or dysphagia diet No 05/04/2025 10:27 PM Sun Cohen RN Patient is in need of INTERVENTIONAL PHYSICIAN Order: No INTERVENTIONAL PHYSICIAN order needed from this assessment 05/04/2025 10:27 PM Sun Cohen RN * Question Answer Date of Assessment Author Bed In Lowest Position Yes 05/10/2025 5:35 AM Harlan Ndiaye, LENO Bed Wheels Locked Yes 05/10/2025 5:35 AM Harlan Ndiaye RN * Hygiene Question Answer Date of Assessment Author Hygiene Skin cleanser 05/07/2025 9:00 AM WELDER EXPLOSION Marlys Kenney Hygiene Level of Assistance Independent 05/09/2025 1:13 PM WELDER EXPLOSION Daya Henderson Toileting: Assistance with Up to bathroom toilet 05/07/2025 8:00 PM Vasu Garcia RN Toileting: Level of assistance Independent 05/07/2025 8:00 PM Vasu Garcia RN Reason not bathed/showered Bath already completed at home or other setting 05/04/2025 10:00 PM WELDER EXPLOSION Sun De Souza RN Linens Complete linen change 05/06/2025 10:49 AM WELDER EXPLOSION [place] Bath Bathed/showered with chlorhexidine (CHG) 05/09/2025 1:13 PM Daya Garza documented as of this encounter Mental Status * Question Answer Entry Date Author Level of Consciousness Alert;Awake 05/09/2025 8:00 P M Harlan Ndiaye RN * Question Answer Entry Date Author Neuro (WDL) WDL 05/09/2025 8:23 AM Desire Myers RN Other Neuro Symptoms Fatigue 05/07/2025 8:00 PM Vasu Sewell RN documented in this encounter Discharge Summaries * John Mejia MD - 05/10/2025 2:39 PM CST Inpatient Discharge Summary BRIEF OVERVIEW Admitting Provider: Renuka Haider MD Discharge Provider: Олег Guevara MD Primary Care Physician at Discharge: Blake Ott MD [phone] Admission Date: 05/04/2025 Discharge Date: 05/10/2025 Admission Location: [facility] Problems/Diagnoses: Principal Problem: Acute decompensated heart failure [...] Discharge: NA Operative Procedures Performed: Procedure(s): CARDIOVERSION 49634 Other Procedures: Pertinent Test Results: EKG 05/10/2025 QTc <550 Discharge Details Physical Exam at Discharge: Discharge Condition: stable Pulse: 74 Resp: 17 BP: 113/88 Temp: 36.3 ??C (97.4 ??F) Weight: 129.7 kg (286 lb) Pertinent Exam Findings at Discharge: Discharge Disposition: Patient will be discharged to:home Code Status at Discharge: Full code Discharge Instructions: Dear Mr. Chikis Elder, You were admitted to [facility] from 05/04/2025 to 05/10/2025 for acute decompensated heart failure and possible pneumonia. During your admission you were treated with diuretics (fluid removal medications) and antibiotics. Additionally, we changed your home dose of sotalol to 80mg twicea day. It will be important to follow up with your lamp shade joiner at your appointment on 05/10. We also [...] Center 05/10/2025 8:15 AM Fabio Jacob MD [facility] CAR MRVL Specialty 07/07/2025 11:15 AM CARD DEVICE CHECK-CAM 8B CAR CAM 8B Cardiology 07/07/2025 11:45 AM Manoj Blackman MD CAR CAM 8B Cardiology 08/05/2025 8:30 AM Fabio Jacob MD [facility] 130 MG Decent Your primary care provider is Blake Ott MD and can be reached at [phone] We wish you the very best, [facility] [phone] Discharge Medications: Current Medications TAKE these medications [...] Center 05/11/2025 2:15 PM Fabio Jacob MD [facility] CAR 130 MG Decent 07/07/2025 11:15 AM CARD DEVICE CHECK-CAM 8B CAR CAM 8B Cardiology 07/07/2025 11:45 AM Manoj Blackman MD CAR CAM 8B Cardiology 08/05/2025 8:30 AM Fabio Jacob MD [facility] CAR 130 MG Decent Cosigned by Олег Guevara MD at 05/10/2025 3:55 PM WELDER EXPLOSION ER EXPLOSION ER EXPLOSION documented in this encounter Discharge Instructions * Discharge Instructions* Marlyn Stevens MD - 05/07/2025 4:24 PM WELDER EXPLOSION Dear Mr. Chikis Elder, You were admitted to [facility] from 05/04/2025 to 05/10/2025 for acute decompensated heart failure and possible pneumonia. During your admission you were treated with diuretics (fluid removal medications) and antibiotics. Additionally, we changed your home dose of sotalol to 80mg twicea day. It will be important to follow up with your lamp shade joiner at your appointment on 05/10. We also [...] Center 05/10/2025 8:15 AM Fabio Jacob MD [facility] CAR MRVL Specialty 07/07/2025 11:15 AM CARD DEVICE CHECK-CAM 8B CAR CAM 8B Cardiology 07/07/2025 11:45 AM Manoj Blackman MD CAR CAM 8B Cardiology 08/05/2025 8:30 AM Fabio Jacob MD [facility] CAR 130 MG Decent Your primary care provider is Blake Ott MD and can be reached at [phone] We wish you the very best, [facility] [phone] ER EXPLOSION ER EXPLOSION ER EXPLOSION ER EXPLOSION ER EXPLOSION * Attachments The following attachments cannot be sent through Care Everywhere. * Cardioversion (AfterCare(R) Instructions(ER/ED)) ([place]) documented in this encounter Medications at Time [...] (two) times a day 60 tablet 11 05/10/2025 6 furosemide (LASIX) 20 mg tablet [...] 69 y.o. male Admit Date: 05/04/2025 Bed: [id number] LOS: 6 days Subjective Interval History Chikis [...] Олег Guevara MD at 05/10/2025 3:55 PM WELDER EXPLOSION ER EXPLOSION ER EXPLOSION ER EXPLOSION Associated attestation - Олег Guevara MD - 05/10/2025 3:55 PM WELDER EXPLOSION I have seen and examined the patient on 05/10/25. I agree with the findings and plan of care as discussed with the resident/fellow.. * Harlan Mcarthur MD - 05/09/2025 1:06 PM CST Daily Progress Note Firm Service Name: Chikis Elder : 1955 Today's Date: May 09, 2025 Age: 69 y.o. male Admit Date: 05/04/2025 Bed: [id number] LOS: 5 days Subjective Interval History Chikis [...] mcg qA but 224 mcg each Saturday Obesity, class 2. Would likely benefit from outpatient weight loss. Code status : Full Code Diet : Adult Diet Restricted; Low Fat, Low Cholesterol, Low Sodium FirmBundle: DVT ppx : eliquis PT/OT recs : Harlan Mcarthur MD Cosigned by Amaris Camargo MD at 05/09/2025 1:48 PM WELDER EXPLOSION ER EXPLOSION ER EXPLOSION Associated attestation - Amaris Camargo MD - 05/09/2025 1:48 PM WELDER EXPLOSION Attending Documentation I have seen and examined [...] by checking BMP. Amaris Camargo MD MSc Operations Staff Specialist Securityclassified advertising clerk, [facility] in [facility] * Harlan Mcarthur MD - 05/08/2025 11:00 AM CST Daily Progress Note Firm Service Name: Chikis Elder : 1955 Today's Date: May 08, 2025 Age: 69 y.o. male Admit Date: 05/04/2025 Bed: [id number] LOS: 4 days Subjective Interval History Chikis [...] Amaris Camargo MD at 05/09/2025 1:47 PM WELDER EXPLOSION ER EXPLOSION ER EXPLOSION Associated attestation - Amaris Camargo MD - 05/09/2025 1:47 PM WELDER EXPLOSION Attending Documentation I have seen and examined [...] by checking BMP. Amaris Camargo MD MSc Operations Staff Specialist Securityclassified advertising clerk, [facility] * Harlan Mcarthur MD - 05/07/2025 1:36 PM CST Daily Progress Note Firm Service Name: Chikis Elder : 1955 Today's Date: May 07, 2025 Age: 69 y.o. male Admit Date: 05/04/2025 Bed: [id number] LOS: 3 days Subjective Interval History Chikis [...] Amaris Camargo MD at 05/07/2025 3:00 PM WELDER EXPLOSION ER EXPLOSION ER EXPLOSION Associated attestation - Amaris Camargo MD - 05/07/2025 3:00 PM WELDER EXPLOSION Attending Documentation I have seen and examined [...] by checking BMP. Amaris Camargo MD MSc Operations Staff Specialist Securityclassified advertising clerk, [facility] in [facility] * Natacha Aleman RRT - 05/07/2025 1:29 PM CST 05/07/25 1324 [...] at rest 0 LNC with exertion ER EXPLOSION * Marlyn Stevens MD - 05/06/2025 6:26 AM CST Daily Progress Note Firm Service Name: Chikis Elder : 1955 Today's Date: May 06, 2025 Age: 69 y.o. male Admit Date: 05/04/2025 Bed: [id number] LOS: 2 days Subjective Interval History Chikis [...] % Intake/Output Summary (Last 24 hours) at 05/06/2025625 Last data filed at 05/06/2025 0615 Gross per 24 hour Intake 675.1 ml Output 1800 ml Net -1124.9 ml Net IO Since Admission: -869.84 mL [05/06/25625] Last Weight: 131.6 kg (290 lb 1.6 [...] Amaris Camargo MD at 05/07/2025 2:59 PM WELDER EXPLOSION ER EXPLOSION ER EXPLOSION Associated attestation - Amaris Camargo MD - 05/07/2025 2:59 PM WELDER EXPLOSION Attending Documentation I have seen and examined [...] by checking BMP. Amaris Camargo MD MSc Operations Staff Specialist Securityclassified advertising clerk, [facility] in [facility] * Jamie Grier RRT - 05/06/2025 5:39 [...] and continue to monitor the patient. ER EXPLOSION * Harlan Mcarthur MD - 05/05/2025 4:32 PM CST Daily Progress Note Firm Service Name: Chikis Elder : 1955 Today's Date: May 05, 2025 Age: 69 y.o. male Admit Date: 05/04/2025 Bed: [id number] LOS: 1 days Subjective Interval History Chikis [...] Amaris Camargo MD at 05/07/2025 2:59 PM WELDER EXPLOSION ER EXPLOSION ER EXPLOSION Associated attestation - Amaris Camargo MD - 05/07/2025 2:59 PM WELDER EXPLOSION Attending Documentation I have seen and examined the patient on 05/05/25. I agree with the findings and plan of care as documented in the resident's/fellow's note. Assessment & Plan: Mr. Elder is a 69 yo M with HFrEF (EF 30-35%, s/p ICD), paroxysmal AF (recently admitted for sotalol load and DCCV to [facility]), who re-presents with shortness of breath due [...] pending and gil-check SGLT2i (and update outpatient lamp shade joiner). Supplementary Attestation Today, I am treating the [...] by checking BMP. Amaris Camargo MD MSc Operations Staff Specialist Securityclassified advertising clerk, [facility] in [facility] documented in this encounter H&P Notes * Sebas Coffman MD - 05/10/2025 9:18 AM CST I have reviewed the H&P, examined the patient, and endorse the findings as written. Plan of Care : Based on the above findings, I consider Chikis Elder to be an acceptable risk for : Procedure(s): CARDIOVERSION 74848 ER EXPLOSION Source Note - Augustus Munoz MD - 05/06/2025 6:24 PM WELDER EXPLOSION Cardiology Consult Note - Electrophysiology Patient Name: Chikis Elder : 1955 Date of Service: 05/06/25 Requesting Attending: Amaris Camargo MD Reason for Consult: Chief Complaint: SOB HPI Chikis Elder is a 69 y.o. male with a history of BMI 40 Hypertension Dyslipidemia (LDL 115 08/20/24) HFrEF (30-35% 01/10/24) Intraventricular conduction delay s/p Salguero HAT IRONER-D with coronary sinus lead 08/28/23 Persistent atrial [...] 250 254 Recent Labs Lab Units 05/05/25211905/04/[id number]/04/[id number]/02/[id number]/01/25200904/30/25 1947 SODIUM mmol/L 136 135 < > 135 [...] (30-35% 01/10/24), Intraventricular conduction delay s/p Salguero HAT IRONER-D with coronary sinus lead 08/28/23, Persistent atrial [...] known to prolong QT. He has a HAT IRONER-D device and ventricular pacing is widening QRS [...] 5PM or on weekends, please page the administrative assistant manager electronic with any questions or concerns. Augustus Munoz MD Crystal Attacher 6:24 PM 05/06/25 Cosigned by Manoj Blackman MD at 05/08/2025 1:39 PM WELDER EXPLOSION ER EXPLOSION ER EXPLOSION * Harlan Mcarthur MD - 05/04/2025 8:05 PM CST History and Physical Firm Service Name: Chikis Elder : 1955 Today's Date: May 04, 2025 Age: 69 y.o. male Admit Date: 05/04/2025 Bed: [id number] LOS: 0 days Subjective HPI Chikis Elder [...] CARDIOVERSION; Surgeon: Isai Shetty MD PhD; Location: [facility] CARDIAC OXIDE FURNACE TENDER; Service: Cardiovascular; Laterality: N/A; arrival 0600- needs a ride to and from the procedure CARDIAC ELECTROPHYSIOLOGY PROCEDURE N/A 05/03/2025 Procedure: CARDIOVERSION 90301; Surgeon: Isai Shetty MD PhD; Location: [facility] CARDIAC OXIDE FURNACE TENDER; Service: Cardiovascular; Laterality: N/A; INGUINAL HERNIA REPAIR [...] Amaris Camargo MD at 05/05/2025 1:37 PM WELDER EXPLOSION ER EXPLOSION ER EXPLOSION Associated attestation - Amaris Camargo MD - 05/05/2025 1:37 PM WELDER EXPLOSION Attending Documentation I have seen and examined the patient on 05/05/25. I agree with the findings and plan of care as documented in the resident's/fellow's note. Assessment & Plan: Mr. Elder is a 69 yo M with HFrEF (EF 30-35%, s/p ICD), paroxysmal AF (recently admitted for sotalol load and DCCV to [facility]), who re-presents with shortness of breath due [...] pending and gil-check SGLT2i (and update outpatient lamp shade joiner). Supplementary Attestation Today, I am treating the [...] by checking BMP. Amaris Camargo MD MSc Operations Staff Specialist Securityclassified advertising clerk, [facility] in [facility] documented in this encounter Consult Notes * Augustus Munoz MD - 05/06/2025 6:24 PM CSTAssociated Order(s): IP CONSULT TO ELECTROPHYSIOLOGY Cardiology Consult Note - Electrophysiology Patient Name: Chikis Elder : 1955 Date of Service: 05/06/25 Requesting Attending: Aamris Camargo MD Reason for Consult: Chief Complaint: SOB HPI Chikis Elder is a 69 y.o. male with a history of BMI 40 Hypertension Dyslipidemia (LDL 115 08/20/24) HFrEF (30-35% 01/10/24) Intraventricular conduction delay s/p Salguero HAT IRONER-D with coronary sinus lead 08/28/23 Persistent atrial [...] at 05/06/20251823 Last data filed at 05/06/2025 180 Gross per 24 hour Intake 300 ml [...] 259 250 254 Recent Labs Lab Units 05/05/25211905/04/25215105/04/[id number]/02/25225205/01/25200904/30/257 SODIUM mmol/L 136 135 < > 135 [...] (30-35% 01/10/24), Intraventricular conduction delay s/p Salguero HAT IRONER-D with coronary sinus lead 08/28/23, Persistent atrial [...] known to prolong QT. He has a HAT IRONER-D device and ventricular pacing is widening QRS [...] 5PM or on weekends, please page the administrative assistant manager electronic with any questions or concerns. Augustus Munoz MD Crystal Attacher 6:24 PM 05/06/25 Cosigned by Manoj Blackman MD at 05/08/2025 1:39 PM WELDER EXPLOSION ER EXPLOSION ER EXPLOSION Associated attestation - Manoj Blackman MD - 05/08/2025 1:39 PM WELDER EXPLOSION The resident/fellow saw and examined the patient, [...] no cough). [facility] (and with his outpatient lamp shade joiner). documented in this encounter ED Notes * Angela Saravia, RN - 05/04/2025 12:39 PM CST Bed: T-04 Expected date: Expected time: Means of arrival: Comments: 08-09 Angela Saravia RN 05/04/25 1239 ER EXPLOSION * Stephania Chaudhari MD - 05/04/2025 8:49 [...] (Reviewed) By: Stephania Chaudhari MD Time: 05/04 0914 Comment: Attending note: 69 yo M AF on eliquis, HFrEF last EF 29% in 2023, ICD in place, HLD, hypothroidism p/w SOB. Recent hospitalization for AF, d/c 1 day ago after cardioversion. Was loaded on sotalol. Never converted back to normal sinus, but was cardioverted yesterday. [place] fine in hospital. Last night, started feeling [...] Chaudhari MD Final diagnoses: Shortness of breath Stephania Chaudhari MD Resident 05/04/25 1231 Cosigned by Renuka Haider MD at 05/04/2025 7:38 PM WELDER EXPLOSION ER EXPLOSION ER EXPLOSION Associated attestation - Renuka Haider MD - 05/04/2025 7:38 PM WELDER EXPLOSION I have seen and examined the patient. I agree with the findings and plan of care as documented by the resident except as noted. * Genie Rg RN - 05/04/2025 8:48 AM CST Bed: ED2-23 Expected date: Expected time: Means of arrival: Car Comments: Genie Rg RN 05/04/25 0848 ER EXPLOSION * Brenda Flynn RN - 05/04/2025 4:35 AM CST Pt c/o worsening sob throughout the night. Reports was just discharged from here yesterday for a.fib and chf. Resp labored. 87% on RA. 94% on 2L NC. Denies chest pain. A&ox4. ER EXPLOSION documented in this encounter Miscellaneous Notes * Plan of Care - Jeffery Juarez RN - 05/10/2025 11:40 AM CST Problem: Discharge Planning Goal: Understanding discharge needs will improve Outcome: Progressing Flowsheets (Taken 05/10/2025 113) Understanding of discharge needs will improve: Discuss information regarding discharge instructions Collaborate with case management interdisciplinary team Identify discharge barriers Problem: Respiratory Goal: Achieves optimal ventilation and oxygenation Outcome: Progressing Flowsheets (Taken 05/10/2025 113) Achieves optimal ventilation and oxygenation: Assess for changes in respiratory status Encourage broncho-pulmonary hygiene including cough, deep breathing, incentive spirometry Problem: Cardiovascular Goal: Maintains optimal cardiac output and hemodynamic stability Outcome: Progressing Flowsheets (Taken 05/10/2025 113) Maintain optimal cardiac output and hemodynamic Stability: [...] for the Shift: Stable vs, Discharge planning Tank Setter Helper Patient Centered Goal for Treatment: Possible d/c home today Summary: A&O x4, Stable VS, Cardioversion complete. V-paced at this time. Possible discharge later today. ER EXPLOSION * Perioperative Nursing Note - Katiuska Sy RN - 05/10/2025 10:37 AM CST Pt s/p Cardioversion Pt is A&Ox4, VS stable. Pt is returning to [id number], report called to LENO Jensen. IVFs infusing as ordered. Pt transported via Strectcher with transporter. ER EXPLOSION * Assessment & Plan Note - John Mejia MD - 05/10/2025 9:13 AM WELDER EXPLOSION Associated Problem(s): Acute decompensated heart failure (HCC) [...] daily + doxycyline 100 mg BID ER EXPLOSION * Assessment & Plan Note - John Mejia MD - 05/10/2025 9:13 AM WELDER EXPLOSION Associated Problem(s): c/f pneumonia Patient presented with [...] daily + doxycyline 100 mg BID ER EXPLOSION * Assessment & Plan Note - John Mejia MD - 05/10/2025 9:13 AM WELDER EXPLOSION Associated Problem(s): Afib (HCC) Underwent sotalol load [...] home metoprolol XL 50 mg daily ER EXPLOSION * Assessment & Plan Note - John Mejia MD - 05/10/2025 9:13 AM WELDER EXPLOSION Associated Problem(s): Gout - Hold home allopurinol 300 mg qHS in the setting of JOVANNI ER EXPLOSION * Assessment & Plan Note - John Mejia MD - 05/10/2025 9:13 AM WELDER EXPLOSION Associated Problem(s): Hyperlipidemia, unspecified - Continue home rosuvastatin 20 mg qHS ER EXPLOSION * Assessment & Plan Note - John Mejia MD - 05/10/2025 9:13 AM WELDER EXPLOSION Associated Problem(s): Hypothyroidism, unspecified - Continue home Synthroid 112 mcg qAM but 224 mcg each Saturday ER EXPLOSION * Plan of Care - Harlan Conley RN - 05/10/2025 5:44 AM WELDER EXPLOSION Problem: Discharge Planning Goal: Understanding discharge needs [...] well, no pain, remains in AF ER EXPLOSION * Hospital Course - John Mejia MD - 05/09/2025 6:03 PM WELDER EXPLOSION While admitted, he was treated for volume [...] qAM but 224 mcg each Saturday ER EXPLOSION ER EXPLOSION ER EXPLOSION * Assessment & Plan Note - Harlan Mcarthur MD - 05/09/2025 1:10 PM WELDER EXPLOSION Associated Problem(s): Acute decompensated heart failure (HCC) [...] daily + doxycyline 100 mg BID ER EXPLOSION * Assessment & Plan Note - Harlan Mcarthur MD - 05/09/2025 1:10 PM WELDER EXPLOSION Associated Problem(s): c/f pneumonia Patient presented with [...] daily + doxycyline 100 mg BID ER EXPLOSION * Assessment & Plan Note - Harlan Mcarthur MD - 05/09/2025 1:10 PM WELDER EXPLOSION Associated Problem(s): Afib (HCC) Underwent sotalol load and cardioversion on 05/03 after cardioversion 03/12 failed to maintain NSR. On Eliquis 5 mg BID, no missed doses last 4 weeks. Currently in NSR. - Sotalol 80 mg q12h (EKG 2 hours after every dose) - Eliquis 5 mg BID - Continuous telemetry - Continue home metoprolol XL 50 mg daily ER EXPLOSION * Assessment & Plan Note - Harlan Mcarthur MD - 05/09/2025 1:10 PM WELDER EXPLOSION Associated Problem(s): Gout - Hold home allopurinol 300 mg qHS in the setting of JOVANNI ER EXPLOSION * Assessment & Plan Note - Harlan Mcarthur MD - 05/09/2025 1:10 PM WELDER EXPLOSION Associated Problem(s): Hyperlipidemia, unspecified - Continue home rosuvastatin 20 mg qHS ER EXPLOSION * Assessment & Plan Note - Harlan Mcarthur MD - 05/09/2025 1:10 PM WELDER EXPLOSION Associated Problem(s): Hypothyroidism, unspecified - Continue home Synthroid 112 mcg qAM but 224 mcg each Saturday ER EXPLOSION * Plan of Care - Desire Singer RN - 05/09/2025 7:39 AM CST Goals: Clinical Goals for the Shift: patient will remain HDS, monitor HR. Shelter Patient Centered Goal for Treatment: D/C [...] to Diabetes will improve Outcome: Progressing ER EXPLOSION * Plan of Care - Berna Wills [...] and continue to monitor the patient. ER EXPLOSION * Plan of Care - Sun Manley RN - 05/08/2025 11:40 PM CST Goals: Clinical Goals for the Shift: Patient will remain HDS overnight. Shelter Patient Centered Goal for Treatment: D/C [...] to Diabetes will improve Outcome: Progressing ER EXPLOSION * Assessment & Plan Note - Harlan Mcarthur MD - 05/08/2025 2:26 PM WELDER EXPLOSION Associated Problem(s): Acute decompensated heart failure (HCC) [...] daily + doxycyline 100 mg BID ER EXPLOSION * Assessment & Plan Note - Harlan Mcarthur MD - 05/08/2025 2:26 PM WELDER EXPLOSION Associated Problem(s): c/f pneumonia Patient presented with [...] daily + doxycyline 100 mg BID ER EXPLOSION * Assessment & Plan Note - Harlan Mcarthur MD - 05/08/2025 2:26 PM WELDER EXPLOSION Associated Problem(s): Afib (HCC) Underwent sotalol load and cardioversion on 05/03 after cardioversion 03/12 failed to maintain NSR. On Eliquis 5 mg BID, no missed doses last 4 weeks. Currently in NSR. - Sotalol 80 mg q12h (EKG 2 hours after every dose) - Eliquis 5 mg BID - Continuous telemetry - Continue home metoprolol XL 50 mg daily ER EXPLOSION * Assessment & Plan Note - Harlan Mcarthur MD - 05/08/2025 2:26 PM WELDER EXPLOSION Associated Problem(s): Gout - Hold home allopurinol 300 mg qHS in the setting of JOVANNI ER EXPLOSION * Assessment & Plan Note - Harlan Mcarthur MD - 05/08/2025 2:26 PM WELDER EXPLOSION Associated Problem(s): Hyperlipidemia, unspecified - Continue home rosuvastatin 20 mg qHS ER EXPLOSION * Assessment & Plan Note - Harlan Mcarthur MD - 05/08/2025 2:26 PM WELDER EXPLOSION Associated Problem(s): Hypothyroidism, unspecified - Continue home Synthroid 112 mcg qAM but 224 mcg each Saturday ER EXPLOSION * Plan of Care - Desire Singer RN - 05/08/2025 7:58 AM CST Goals: Clinical Goals for the Shift: patient will remain HDS Tank Setter Helper Patient Centered Goal for Treatment: D/C Home [...] to Diabetes will improve Outcome: Progressing ER EXPLOSION * Plan of Care - Ann Marie [...] and continue to monitor the patient. ER EXPLOSION * Plan of Care - Vasu Sarmiento [...] Stable VS, Assess breathing, Diuretics, Wean O2 Shelter Patient Centered Goal for Treatment: D/C Home Summary: Patient resting with stable vital signs. TELE, LABS, I&O monitored. PT participates with the care plan. ER EXPLOSION * Provider Query - Harlan Mcarthur MD [...] Thank you, Tatyana Winters RN, BSN Clinical Driving School Instructor P: [phone] ER EXPLOSION * Provider Query - Harlan Mcarthur MD [...] clinical impression in detail Respiratory Failure References [email or web address] The Physician Advisor's Corner: Documenting Acute and Chronic Respiratory Failure [facility] Clarifying criteria for acute respiratory failure ACP Hospitalist Arterial Blood Gas - [employer] - [facility] Bookshelf From the ICD-10-CM Coding Guidelines, use [...] Thank you, Tatyana Winters RN, BSN Clinical Driving School Instructor P: [phone] ER EXPLOSION * Provider Query - Harlan Mcarthur MD [...] Thank you, Tatyana Winters RN, BSN Clinical Driving School Instructor P: [phone] ER EXPLOSION * Significant Event - Augustus Munoz MD [...] Manoj Blackman MD at 05/09/2025 9:00 PM WELDER EXPLOSION ER EXPLOSION ER EXPLOSION * Plan of Care - Antonio Lehman, FLORENCIA - 05/07/2025 1:53 PM CST Respiratory Medication [...] continue to monitor the patient's progress. ER EXPLOSION * Assessment & Plan Note - Harlan Mcarthur MD - 05/07/2025 1:46 PM WELDER EXPLOSION Associated Problem(s): Acute decompensated heart failure (HCC) [...] daily + doxycyline 100 mg BID ER EXPLOSION * Assessment & Plan Note - Harlan Mcarthur MD - 05/07/2025 1:46 PM WELDER EXPLOSION Associated Problem(s): c/f pneumonia Patient presented with [...] daily + doxycyline 100 mg BID ER EXPLOSION * Assessment & Plan Note - Harlan Mcarthur MD - 05/07/2025 1:46 PM WELDER EXPLOSION Associated Problem(s): Afib (HCC) Underwent sotalol load and cardioversion on 05/03 after cardioversion 03/12 failed to maintain NSR. On Eliquis 5 mg BID, no missed doses last 4 weeks. Currently in NSR. - Sotalol 80 mg q12h (EKG 2 hours after every dose) - Eliquis 5 mg BID - Continuous telemetry - Continue home metoprolol XL 50 mg daily ER EXPLOSION * Assessment & Plan Note - Harlan Mcarthur MD - 05/07/2025 1:46 PM WELDER EXPLOSION Associated Problem(s): Gout - Hold home allopurinol 300 mg qHS in the setting of JOVANNI ER EXPLOSION * Assessment & Plan Note - Harlan Mcarthur MD - 05/07/2025 1:46 PM WELDER EXPLOSION Associated Problem(s): Hyperlipidemia, unspecified - Continue home rosuvastatin 20 mg qHS ER EXPLOSION * Assessment & Plan Note - Harlan Mcarthur MD - 05/07/2025 1:46 PM WELDER EXPLOSION Associated Problem(s): Hypothyroidism, unspecified - Continue home Synthroid 112 mcg qAM but 224 mcg each Saturday ER EXPLOSION * Plan of Care - Ndihi España RN - 05/07/2025 1:23 PM CST [...] be uploaded into the patient???s chart. ER EXPLOSION * Provider Query - Marlyn Stevens MD - 05/07/2025 1:00 PM WELDER EXPLOSION 69 y.o. male admitted 05/04/25 with a [...] Penicillin Streptomycin (high-level) Tetracycline Trimeth/Sulfa Vancomycin References [facility] Antibiogram 2021 [facility] Antibiogram 2021 [facility] Antibiogram 2021 From the ICD-10-CM Coding Guidelines, [...] Thank you, Tatyana Winters RN, BSN Clinical Driving School Instructor P: [phone] ER EXPLOSION * Plan of Care - Nidhi España [...] requirement, Abx , diuresis. Referrals: none Transportation: ashleigh elder (Spouse) [phone] F/U Appointments: No answer at PCP. Left message to call back for appointment. Patient's Identified Problem/Goal Problem:?Ensure acute medical needs are met and that patient has a safe discharge plan. Goal:?Secure a discharge plan that patient/family are agreeable with?and ensure patient has continuum of care. Patient and/or family are agreeable with plan. client relationship manager will continue to follow and assist with discharge planning as needed. If any further discharge needs arise, please contact the covering manager of case management. ER EXPLOSION * Plan of Care - Jeffery Juarez [...] Stable VS, Assess breathing, Diuretics, Wean O2 Tank Setter Helper Patient Centered Goal for Treatment: D/C Home Summary: A&O x4, Stable VSS, 2L/NC, V paced ER EXPLOSION * Plan of Care - Sun De [...] Goal: Maintains hematologic stability Outcome: Ongoing ER EXPLOSION * Plan of Care - Hazel Landers RRT - 05/07/2025 4:26 AM CST NPPV - PATIENT WORE Situation: The patient was ordered on NPPV for nocturnal use due to a history of Obstructive Sleep Apnea (PASCALE). Patient was placed on their home NPPV machine. Tolerance: The patient tolerated the NPPV without issue. Plan: Proceed as ordered and continue to monitor the patient. ER EXPLOSION * Assessment & Plan Note - Marlyn Stevens MD - 05/06/2025 5:55 PM WELDER EXPLOSION Associated Problem(s): Acute decompensated heart failure (HCC) [...] daily + doxycyline 100 mg BID ER EXPLOSION ER EXPLOSION * Assessment & Plan Note - Marlyn Stevens MD - 05/06/2025 5:55 PM WELDER EXPLOSION Associated Problem(s): c/f pneumonia Patient presented with [...] daily + doxycyline 100 mg BID ER EXPLOSION ER EXPLOSION * Assessment & Plan Note - Marlyn Stevens MD - 05/06/2025 5:55 PM WELDER EXPLOSION Associated Problem(s): Afib (HCC) Underwent sotalol load and cardioversion on 05/03 after cardioversion 03/12 failed to maintain NSR. On Eliquis 5 mg BID, no missed doses last 4 weeks. Currently in NSR. - Sotalol 80 mg q12h (EKG 2 hours after every dose) - Eliquis 5 mg BID - Continuous telemetry - Continue home metoprolol XL 50 mg daily ER EXPLOSION ER EXPLOSION * Plan of Care - Kaylah Mayes - 05/06/2025 10:30 AM CST Goals: Clinical Goals for the Shift: Patient will remain hemodynamically stable. Summary: Patient alert and oriented x4. Denies pain. V paced on monitor. On RA and sating well. Up ad ralph independently. EKG completed this AM. Escorted with transport to [facility]. Safety precautions in place. Call [...] Goal: Maintains hematologic stability Outcome: Progressing ER EXPLOSION * Assessment & Plan Note - Marlyn Stevens MD - 05/06/2025 6:26 AM WELDER EXPLOSION Associated Problem(s): Gout - Hold home allopurinol 300 mg qHS in the setting of JOVANNI ER EXPLOSION * Assessment & Plan Note - Marlyn Stevens MD - 05/06/2025 6:26 AM WELDER EXPLOSION Associated Problem(s): Hyperlipidemia, unspecified - Continue home rosuvastatin 20 mg qHS ER EXPLOSION * Assessment & Plan Note - Marlyn Stevens MD - 05/06/2025 6:26 AM WELDER EXPLOSION Associated Problem(s): Hypothyroidism, unspecified - Continue home Synthroid 112 mcg qAM but 224 mcg each Saturday ER EXPLOSION * Plan of Care - Sun De [...] Goal: Maintains hematologic stability Outcome: Ongoing ER EXPLOSION * Significant Event - Augustus Munoz MD [...] - to be formally staffed tomorrow ER EXPLOSION * Assessment & Plan Note - Harlan Mcarthur MD - 05/05/2025 4:47 PM WELDER EXPLOSION Associated Problem(s): Acute decompensated heart failure (HCC) [...] EF of 34%, previous EF 29% ER EXPLOSION * Assessment & Plan Note - Harlan Mcarthur MD - 05/05/2025 4:47 PM WELDER EXPLOSION Associated Problem(s): c/f pneumonia Patient presented with [...] EF of 34%, previous EF 29% ER EXPLOSION * Assessment & Plan Note - Harlan Mcarthur MD - 05/05/2025 4:47 PM WELDER EXPLOSION Associated Problem(s): Afib (HCC) Underwent sotalol load and cardioversion on 05/03 after cardioversion 03/12 failed to maintain NSR. On Eliquis 5 mg BID, no missed doses last 4 weeks. Currently in NSR. - Sotalol 120 mg q12h - Eliquis 5 mg BID - Continuous telemetry - Continue home metoprolol XL 50 mg daily ER EXPLOSION * Assessment & Plan Note - Harlan Mcarthur MD - 05/05/2025 4:47 PM WELDER EXPLOSION Associated Problem(s): Gout - Hold home allopurinol 300 mg qHS in the setting of JOVANNI ER EXPLOSION * Assessment & Plan Note - Harlan Mcarthur MD - 05/05/2025 4:47 PM WELDER EXPLOSION Associated Problem(s): Hyperlipidemia, unspecified - Continue home rosuvastatin 20 mg qHS ER EXPLOSION * Assessment & Plan Note - Harlan Mcarthur MD - 05/05/2025 4:47 PM WELDER EXPLOSION Associated Problem(s): Hypothyroidism, unspecified - Continue home Synthroid 112 mcg qAM but 224 mcg each Saturday ER EXPLOSION * Initial Assessments - Doreen Barcenas RN - 05/05/2025 3:55 PM CST CM Initial Assessment Interview Note Information Obtained From: Patient (05/05/25 1552) Admission Source: ED Impression: Patient lives with [...] Coverage: [employer] Prescription Coverage: Yes Pharmacy: [facility] [address] [place] [address] - [address] [place] [id number] Primary Care Provider: Blake Ott MD Prior [...] referrals as needed. Doreen Barcenas RN ER EXPLOSION * ACP (Advance Care Planning) - Manju Prado LCSW - 05/05/2025 10:30 AM WELDER EXPLOSION Advance Care Planning Advance Care Planning Conversation The patient and/or family consented to a voluntary Advance Care Planning conversation. Individuals present for the conversation: patient Advance Directive: No On file: No Summary of the conversation: Patient does not have AD/DPOA paperwork on file. Patient verbally nominate, Ashleigh Elder (spouse [phone]) as surrogate decision maker. Outcome of the conversation and documents completed (select all that apply): provided information about Advance Directives The services provided in this conversation and described in this note are non- billable and to be used for ongoing clinical care only. 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 Source: Medicare advantage [...] Spouse Spouse Name/Contact Information: Ashleigh Elder (spouse [phone]) Do you have a Adventism Preference or Affiliation?: No Are there any Adventism Practices that are important to maintain while [...] Year: No Utilities: Not At Risk (05/05/2025) [facility] Utilities Threatened with loss of utilities: No Social Connections: Moderately Isolated (05/05/2025) Social Connection and Isolation Panel Frequency of Communication with Friends and Family: More than three times a week Frequency of Social Gatherings with Friends and Family: More than three times a week Attends Adventism Services: Never Active Member of Clubs or [...] at this time. The patient lives at [address] [place] [address] and has support from family. Patient does not have an advanced directive on file but verbally nominated Ashleigh Elder (spouse [phone]) as surrogate decision maker in the event that he became unable to make medical decisions for himself. There are no further social work needs identified at this time. Social Work to remain available should additional needs arise. Rn Cardiac Rehab to follow for discharge planning needs. DAMARI Phillips LCSW ER EXPLOSION * Plan of Care - Desire Singer [...] Goal: Maintains hematologic stability Outcome: Progressing ER EXPLOSION * Plan of Care - Sun De [...] Goal: Maintains hematologic stability Outcome: Ongoing ER EXPLOSION * Assessment & Plan Note - Harlan Mcarthur MD - 05/04/2025 8:43 PM WELDER EXPLOSION Associated Problem(s): Afib (HCC) Underwent sotalol load and cardioversion on 05/03 after cardioversion 03/12 failed to maintain NSR. On Eliquis 5 mg BID, no missed doses last 4 weeks. Currently in NSR. - Sotalol 120 mg q12h - Eliquis 5 mg BID - Continuous telemetry - Continue home metoprolol XL 50 mg daily ER EXPLOSION * Assessment & Plan Note - Harlan Mcarthur MD - 05/04/2025 8:43 PM WELDER EXPLOSION Associated Problem(s): Gout - Hold home allopurinol 300 mg qHS in the setting of JOVANNI ER EXPLOSION * Assessment & Plan Note - Harlan Mcarthur MD - 05/04/2025 8:43 PM WELDER EXPLOSION Associated Problem(s): Hyperlipidemia, unspecified - Continue home rosuvastatin 20 mg qHS ER EXPLOSION * Assessment & Plan Note - Harlan Mcarthur MD - 05/04/2025 8:43 PM WELDER EXPLOSION Associated Problem(s): Hypothyroidism, unspecified - Continue home Synthroid 112 mcg qAM but 224 mcg each Saturday ER EXPLOSION * Assessment & Plan Note - Harlan Mcarthur MD - 05/04/2025 8:43 PM WELDER EXPLOSION Associated Problem(s): Acute decompensated heart failure (HCC) [...] - Formal TTE - RPP pending ER EXPLOSION * Assessment & Plan Note - Harlan Mcarthur MD - 05/04/2025 8:43 PM WELDER EXPLOSION Associated Problem(s): c/f pneumonia Patient presented with [...] - Formal TTE - RPP pending ER EXPLOSION * Significant Event - Ana Sparrow NP [...] O2 as tolerated Ana Sparrow NP ER EXPLOSION ER EXPLOSION * Plan of Care - Nallely Salmon RN - 05/04/2025 4:58 AM CST Images from the original note were not included. As part of the readmission prevention initiative, ED CM receives an automated alert on patient who was discharged from [facility] inpatient admission </=7 days (DC 05/03/25; ED treatment team aware). Pt presents to ED cc: c/o worsening sob throughout the night. Reports was just discharged from [facility] for a.fib and chf. Underwent DC cardioversion to AV paced rhythm procedure. ED workup/orders/tx plan pending. Chart review completed. Upcoming scheduled appts per [employer] EMR include: Identified high risk SDOH (social determinants of health) include: none noted No ED CM needs identified at this time, but please contact ED CM ([phone]) for questions and/or prior to admission order placed so that alternatives to admission (if any) can be discussed. ER EXPLOSION * ED Procedure Note - Aleksander Schreiber MD - 05/04/2025 4:56 AM WELDER EXPLOSION Associated Order(s): ECG 12 lead Procedure ECG [...] ED Aleksander Schreiber MD 05/04/25 0457 ER EXPLOSION * ED Pre-Arrival Note - Char Quintana RN - 05/04/2025 4:16 AM WELDER EXPLOSION Pre-Arrival Note Pt recently dc'd this morning. Patient now with SOB. Char Quintana RN ER EXPLOSION documented in this encounter Plan of Treatment Pending Results Name Type Priority Associated Diagnoses Date /Time ECG 12 lead ECG Routine 05/06/2025 1: 31 PM WELDER EXPLOSION ECG 12 lead ECG STAT 05/06/2025 9: 08 AM WELDER EXPLOSION ECG 12 lead ECG Routine 05/08/2025 10 :09 PM WELDER EXPLOSION Scheduled Orders Name Type Priority Associated Diagnoses Orde r Schedule ECG 12 lead ECG Routine As needed unt il discontinued starting 05/09/2025, 1 completed documented as of this encounter Procedures Procedure Name Priority Date/Time Associated Diagnosis Comments CARDIOVERSION Routine 05/10/2025 9:42 AM WELDER EXPLOSION Paroxysmal atrial fibrillation (HCC) ECG 12-LEAD Routine 05/10/2025 6:14 AM WELDER EXPLOSION EGFR Routine 05/09/2025 8:39 PM WELDER EXPLOSION DIFFERENTIAL AUTO Routine 05/09/2025 8:3 9 PM WELDER EXPLOSION CBC WITH AUTO DIFFERENTIAL Routine 05/09/2025 8:39 PM WELDER EXPLOSION MAGNESIUM Routine 05/09/2025 8:39 PM WELDER EXPLOSION BASIC METABOLIC PANEL Routine 05/09/2025 8:39 PM WELDER EXPLOSION POTASSIUM, WHOLE BLOOD STAT 05/09/2025 3:28 AM WELDER EXPLOSION EGFR Routine 05/08/2025 10:15 PM WELDER EXPLOSION DIFFERENTIAL AUTO Routine 05/08/2025 10: 15 PM WELDER EXPLOSION CBC WITH AUTO DIFFERENTIAL Routine 05/08/2025 10:15 PM WELDER EXPLOSION PHOSPHORUS Routine 05/08/2025 10:15 PM WELDER EXPLOSION MAGNESIUM Routine 05/08/2025 10:15 PM WELDER EXPLOSION BASIC METABOLIC PANEL Routine 05/08/2025 10:15 PM WELDER EXPLOSION ECG 12-LEAD Routine 05/08/2025 10:09 PM WELDER EXPLOSION EGFR Routine 05/07/2025 6:33 PM WELDER EXPLOSION DIFFERENTIAL AUTO Routine 05/07/2025 6:3 3 PM WELDER EXPLOSION CBC WITH AUTO DIFFERENTIAL Routine 05/07/2025 6:33 PM WELDER EXPLOSION PHOSPHORUS Routine 05/07/2025 6:33 PM WELDER EXPLOSION MAGNESIUM Routine 05/07/2025 6:33 PM WELDER EXPLOSION BASIC METABOLIC PANEL Routine 05/07/2025 6:33 PM WELDER EXPLOSION HOME O2 EVAL (DESATURATION SCREEN) Routine 05/07/2025 9:48 AM WELDER EXPLOSION EGFR Routine 05/06/2025 9:37 PM WELDER EXPLOSION DIFFERENTIAL AUTO Routine 05/06/2025 9:3 7 PM WELDER EXPLOSION CBC WITH AUTO DIFFERENTIAL Routine 05/06/2025 9:37 PM WELDER EXPLOSION PHOSPHORUS Routine 05/06/2025 9:37 PM WELDER EXPLOSION MAGNESIUM Routine 05/06/2025 9:37 PM WELDER EXPLOSION BASIC METABOLIC PANEL Routine 05/06/2025 9:37 PM WELDER EXPLOSION ECG 12-LEAD Routine 05/06/2025 1:31 PM WELDER EXPLOSION XR CHEST PA LATERAL 2 VIEWS IP Routine 05/06/2025 10:14 AM WELDER EXPLOSION XR CHEST 1 VIEW Timed 05/06/2025 9:37 AM WELDER EXPLOSION ECG 12-LEAD STAT 05/06/2025 9:08 AM WELDER EXPLOSION EGFR Routine 05/05/2025 9:20 PM WELDER EXPLOSION DIFFERENTIAL AUTO Routine 05/05/2025 9:2 0 PM WELDER EXPLOSION CBC WITH AUTO DIFFERENTIAL Routine 05/05/2025 9:20 PM WELDER EXPLOSION PHOSPHORUS Routine 05/05/2025 9:20 PM WELDER EXPLOSION MAGNESIUM Routine 05/05/2025 9:20 PM WELDER EXPLOSION BASIC METABOLIC PANEL Routine 05/05/2025 9:20 PM WELDER EXPLOSION ECG 12-LEAD Routine 05/05/2025 4:06 PM WELDER EXPLOSION INFECTION PREVENTION KATIE AURIS PCR, SURVEILLANCE Routine 05/05/2025 12:47 PM WELDER EXPLOSION TRANSTHORACIC ECHO (TTE) COMPLETE W DOPPLER/CF W CONTRAST ED Urgent/IP Urgent 05/05/2025 12:43 PM WELDER EXPLOSION EGFR Routine 05/04/2025 9:52 PM WELDER EXPLOSION DIFFERENTIAL AUTO Routine 05/04/2025 9:5 2 PM WELDER EXPLOSION CBC WITH AUTO DIFFERENTIAL Routine 05/04/2025 9:52 PM WELDER EXPLOSION PHOSPHORUS Routine 05/04/2025 9:52 PM WELDER EXPLOSION MAGNESIUM Routine 05/04/2025 9:52 PM WELDER EXPLOSION BASIC METABOLIC PANEL Routine 05/04/2025 9:52 PM WELDER EXPLOSION RESPIRATORY PATHOGEN PANEL Routine 05/04/2025 8:06 PM WELDER EXPLOSION TROPONIN I HIGH-SENSITIVITY 6-HOUR Timed 05/04/2025 10:48 AM WELDER EXPLOSION INFECTION PREVENTION KATIE AURIS PCR, SURVEILLANCE Routine 05/04/2025 8:57 AM WELDER EXPLOSION TROPONIN I HIGH-SENSITIVITY 4-HOUR Timed 05/04/2025 8:57 AM WELDER EXPLOSION XR CHEST PA LATERAL 2 VIEWS ED 05/04/2025 5:15 AM WELDER EXPLOSION ECG 12-LEAD STAT 05/04/2025 4:56 AM WELDER EXPLOSION TROPONIN I HIGH-SENSITIVITY SERIES (BASELINE, 2HR, 4HR, 6HR) STAT 05/04/2025 4:49 AM WELDER EXPLOSION EGFR STAT 05/04/2025 4:49 AM WELDER EXPLOSION DIFFERENTIAL AUTO STAT 05/04/2025 4:4 9 AM WELDER EXPLOSION PRO B-TYPE NATRIURETIC PEPTIDE STAT 05/04/2025 4:49 AM WELDER EXPLOSION CBC WITH AUTO DIFFERENTIAL STAT 05/04/2025 4:49 AM WELDER EXPLOSION COMPREHENSIVE METABOLIC PANEL STAT 05/04/2025 4:49 AM WELDER EXPLOSION documented in this encounter Results * CARDIOVERSION (05/10/2025 9:42 AM WELDER EXPLOSION) Anatomical Region Laterality Modality X-Ray Angiograph y Impressions 05/10/2025 10:00 AM WELDER EXPLOSION Successful DC cardioversion to sinus rhythm. The referring physician was notified. Sebas Coffman MD was present to personally supervise or perform the entire procedure. Narrative 05/10/2025 10:00 AM WELDER EXPLOSION CARDIOVERSION [id number] PRE-OP DIAGNOSIS: Atrial fibrillation [employer]AMP [employer]NAN[employer] SUPERVISOR: Sebas Coffman MD. REFERRING MD: Dr. Blackman; [...] then monitored until fully alert. COMPLICATIONS: None. us Amaris Camargo MD CV ELECTROPHYSIOLOGY PROCS Fin al Result * ECG 12 lead (05/10/2025 6:14 AM WELDER EXPLOSION) Ventricular Rate EKG/Min 82 BPM [facility] Atrial Rate 72 BPM [facility] QRS-Interval (MSEC) 146 ms [facility] QT-Interval (MSEC) 436 ms [facility] QTc 509 ms [facility] R Rhodell -48 degrees [facility] T Rhodell 95 degrees [facility] Diagnosis Ventricular-pa jada rhythm Abnormal ECG When compared with ECG of 06-MAY-2025 22:48, (unconfirmed) Premature ventricular complexes are no longer seen Confirmed by YIMI HOUSTON M.D ([id number]) on 05/11/2025 12:20:17 AM [facility] 05/10/2025 6:14 AM WELDER EXPLOSION 05/11/2025 12:20 AM WELDER EXPLOSION us Marlyn Stevens MD ECG ORDERABLES Final Result [facility] * (ABNORMAL) eGFR (05/09/2025 8:39 PM WELDER EXPLOSION) Pathologist [facility] eGFR 58(L) >=60 mL/min/1. 73 m2 Comment: [...] last reviewed 2021. Blood 05/09/2025 8:39 PM WELDER EXPLOSION 05/09/2025 11:03 PM WELDER EXPLOSION us Benito Hendrickson MD LAB BLOOD ORDERABLES Final Result [facility] [address] [facility] [address] Department [place] [address] * (ABNORMAL) Differential, auto (05/09/2025 8:39 PM WELDER EXPLOSION) Pathologist [facility] Neutrophil abs 4.28 1.50 - 6.50 K/cumm Imm gran abs 0.02 0.00 - 0.10 K/cumm [facility] Lymphocyte abs 2.46 0.80 - 3.30 K/cumm [facility] Monocyte abs 0.81(H) 0.20 - 0.80 K/cumm [facility] Eosinophil abs 0.14 0.00 - 0.50 K/cumm [facility] Basophil abs 0.06 0.00 - 0.10 K/cumm [facility] Neutrophil pct 55.0 % [facility] Comment: Interpretive Data Percent cell count reference ranges are not reported, since discordance with absolute values may lead to misinterpretation of CBC data. Current Interpretive Data was last revised on 2017. Imm gran pct 0.3 % [facility] Comment: Interpretive Data Percent cell count reference ranges are not reported, since discordance with absolute values may lead to misinterpretation of CBC data. Current Interpretive Data was last revised on 2017. Lymphocyte pct 31.7 % [facility] Comment: Interpretive Data Percent cell count reference ranges are not reported, since discordance with absolute values may lead to misinterpretation of CBC data. Current Interpretive Data was last revised on 2017. Monocyte pct 10.4 % [facility] Comment: Interpretive Data Percent cell count reference ranges are not reported, since discordance with absolute values may lead to misinterpretation of CBC data. Current Interpretive Data was last revised on 2017. Eosinophil pct 1.8 % [facility] Comment: Interpretive Data Percent cell count reference ranges are not reported, since discordance with absolute values may lead to misinterpretation of CBC data. Current Interpretive Data was last revised on 2017. Basophil pct 0.8 % [facility] Comment: Interpretive Data Percent cell count reference ranges are not reported, since discordance with absolute values may lead to misinterpretation of CBC data. Current Interpretive Data was last revised on 2017. Blood 05/09/2025 8:39 PM WELDER EXPLOSION 05/09/2025 11:04 PM WELDER EXPLOSION us Benito Hendrickson MD LAB BLOOD ORDERABLES Final Result [facility] [address] [facility] [address] [place] [address] * Magnesium (05/09/2025 8:39 PM WELDER EXPLOSION) Magnesium 2.1 1.4 - 2.5 mg/dL Blood 05/09/2025 8:39 PM WELDER EXPLOSION 05/09/2025 11:03 PM WELDER EXPLOSION us Benito Hendrickson MD LAB BLOOD ORDERABLES Final Result [facility] [place] [address] * (ABNORMAL) CBC with auto differential (05/09/2025 8:39 PM WELDER EXPLOSION) [facility] WBC 7.77 3.80 - 9.90 K/cumm Hgb 16.3 13.0 - 17.5 g/dL [facility] Hct 47.4 38.9 - 50.3 % [facility] Plt 235 150 - 400 K/cumm [facility] MPV 11.9 9.1 - 12.3 fL [facility] RBC 4.83 4.30 - 5.80 M/cumm [facility] MCV 98.1(H) 81.3 - 96.4 fL [facility] MCH 33.7(H) 27.1 - 33.3 pg [facility] MCHC 34.4 32.3 - 35.7 g/dL [facility] RDW CV 15.9(H) 11.1 - 14.9 % [facility] RDW SD 57.3(H) 35.7 - 48.1 fL [facility] NRBC abs 0.00 0.00 - 0.01 K/cumm [facility] Blood 05/09/2025 8:39 PM WELDER EXPLOSION 05/09/2025 11:04 PM WELDER EXPLOSION us Benito Hendrickson MD LAB BLOOD ORDERABLES Final Result [facility] [place] [address] * (ABNORMAL) Basic metabolic panel (05/09/2025 8:39 PM WELDER EXPLOSION) [facility] Sodium 136 135 - 145 mmol/L Potassium, pl 4.1 3.3 - 4.9 mmol/L [facility] Chloride 100 97 - 110 mmol/L [facility] CO2 25 22 - 32 mmol/L [facility] Anion gap 11 2 - 15 mmol/L [facility] BUN 17 6 - 25 mg/dL [facility] Creatinine 1.32(H) 0.80 - 1.30 mg/dL [facility] Glucose 127 70 - 199 mg/dL [facility] Comment: Interpretive Data Fasting glucose >/= 126 [...] 2022. Calcium 8.6 8.5 - 10.3 mg/dL [facility] Blood 05/09/2025 8:39 PM WELDER EXPLOSION 05/09/2025 11:03 PM WELDER EXPLOSION us Benito Hendrickson MD LAB BLOOD ORDERABLES Final Result Performing Organization Address City/[facility]/ZIP Co de Phone Number [facility] [place] [address] * Potassium, whole blood (05/09/2025 3:28 AM WELDER EXPLOSION) Pathologist [facility] Potassium, bld 4.1 3.3 - 4.9 mmol/L Blood 05/09/2025 3:28 AM WELDER EXPLOSION 05/09/2025 3:36 AM WELDER EXPLOSION us Amaris Camargo MD LAB BLOOD ORDERABLES Final Res ult [facility] [place] [address] * (ABNORMAL) eGFR (05/08/2025 10:15 PM WELDER EXPLOSION) eGFR 55(L) >=60 mL/min/1. 73 m2 Comment: [...] reviewed 2021. Blood 05/08/2025 10:1 5 PM WELDER EXPLOSION 05/08/2025 10:59 PM WELDER EXPLOSION us Benito Hendrickson MD LAB BLOOD ORDERABLES Final Result [facility] [address] [facility] [address] [place] [address] * (ABNORMAL) Differential, auto (05/08/2025 10:15 PM WELDER EXPLOSION) [facility] Neutrophil abs 5.40 1.50 - 6.50 K/cumm Imm gran abs 0.04 0.00 - 0.10 K/cumm [facility] Lymphocyte abs 2.31 0.80 - 3.30 K/cumm [facility] Monocyte abs 0.85(H) 0.20 - 0.80 K/cumm [facility] Eosinophil abs 0.16 0.00 - 0.50 K/cumm [facility] Basophil abs 0.07 0.00 - 0.10 K/cumm [facility] Neutrophil pct 61.1 % [facility] Comment: Interpretive Data Percent cell count reference ranges are not reported, since discordance with absolute values may lead to misinterpretation of CBC data. Current Interpretive Data was last revised on 2017. Imm gran pct 0.5 % [facility] Comment: Interpretive Data Percent cell count reference ranges are not reported, since discordance with absolute values may lead to misinterpretation of CBC data. Current Interpretive Data was last revised on 2017. Lymphocyte pct 26.2 % [facility] Comment: Interpretive Data Percent cell count reference ranges are not reported, since discordance with absolute values may lead to misinterpretation of CBC data. Current Interpretive Data was last revised on 2017. Monocyte pct 9.6 % [facility] Comment: Interpretive Data Percent cell count reference ranges are not reported, since discordance with absolute values may lead to misinterpretation of CBC data. Current Interpretive Data was last revised on 2017. Eosinophil pct 1.8 % [facility] Comment: Interpretive Data Percent cell count reference ranges are not reported, since discordance with absolute values may lead to misinterpretation of CBC data. Current Interpretive Data was last revised on 2017. Basophil pct 0.8 % [facility] Comment: Interpretive Data Percent cell count reference ranges are not reported, since discordance with absolute values may lead to misinterpretation of CBC data. Current Interpretive Data was last revised on 2017. Blood 05/08/2025 10:1 5 PM WELDER EXPLOSION 05/08/2025 10:48 PM WELDER EXPLOSION Benito Hendrickson MD LAB BLOOD ORDERABLES Final Result Performing Organization Address City/[facility] Co de Phone Number [facility] [address] [facility] [address] [place] [address] * Phosphorus (05/08/2025 10:15 PM WELDER EXPLOSION) Phosphorus, pl 3.0 2.3 - 4.5 mg/dL Blood 05/08/2025 10:1 5 PM WELDER EXPLOSION 05/08/2025 10:59 PM WELDER EXPLOSION Benito Hendrickson MD LAB BLOOD ORDERABLES Final Result Performing Organization Address City/[facility] Co de Phone Number [facility] [place] [address] * Magnesium (05/08/2025 10:15 PM WELDER EXPLOSION) [facility] Magnesium 2.0 1.4 - 2.5 mg/dL Blood 05/08/2025 10:1 5 PM WELDER EXPLOSION 05/08/2025 10:59 PM WELDER EXPLOSION us Benito Hendrickson MD LAB BLOOD ORDERABLES Final Result Performing Organization Address [facility] de Phone Number [facility] [place] [address] * (ABNORMAL) CBC with auto differential (05/08/2025 10:15 PM WELDER EXPLOSION) [facility] WBC 8.83 3.80 - 9.90 K/cumm Hgb 16.0 13.0 - 17.5 g/dL [facility] Hct 48.7 38.9 - 50.3 % [facility] Plt 243 150 - 400 K/cumm [facility] MPV 11.6 9.1 - 12.3 fL [facility] RBC 4.89 4.30 - 5.80 M/cumm [facility] MCV 99.6(H) 81.3 - 96.4 fL [facility] MCH 32.7 27.1 - 33.3 pg [facility] MCHC 32.9 32.3 - 35.7 g/dL [facility] RDW CV 15.8(H) 11.1 - 14.9 % [facility] RDW SD 56.9(H) 35.7 - 48.1 fL [facility] NRBC abs 0.00 0.00 - 0.01 K/cumm [facility] Blood 05/08/2025 10:1 5 PM WELDER EXPLOSION 05/08/2025 10:48 PM WELDER EXPLOSION Benito Hendrickson MD LAB BLOOD ORDERABLES Final Result Performing Organization Address City/[facility]/ZIP Co de Phone Number [facility] [address] [place] [address] * (ABNORMAL) Basic metabolic panel (05/08/2025 10:15 PM WELDER EXPLOSION) Pathologist [facility] Sodium 137 135 - 145 mmol/L Potassium, pl 4.5 3.3 - 4.9 mmol/L [facility] Comment:Hemolyzed; Potassium value may be falsely elevated by as much as 0.6-1.0 mmol/L. Suggest redraw and reanalysis. Chloride 99 97 - 110 mmol/L [facility] CO2 26 22 - 32 mmol/L [facility] Anion gap 12 2 - 15 mmol/L [facility] BUN 17 6 - 25 mg/dL [facility] Creatinine 1.38(H) 0.80 - 1.30 mg/dL [facility] Glucose 138 70 - 199 mg/dL [facility] Comment: Interpretive Data Fasting glucose >/= 126 [...] 2022. Calcium 8.5 8.5 - 10.3 mg/dL [facility] Blood 05/08/2025 10:1 5 PM WELDER EXPLOSION 05/08/2025 10:59 PM WELDER EXPLOSION us Benito Hendrickson MD LAB BLOOD ORDERABLES Final Result Performing Organization Address [facility]/ZIP Co de Phone Number [facility] [address] [facility] [address] [place] [address] * (ABNORMAL) eGFR (05/07/2025 6:33 PM WELDER EXPLOSION) [facility] eGFR 59(L) >=60 mL/min/1. 73 m2 Comment: [...] last reviewed 2021. Blood 05/07/2025 6:33 PM WELDER EXPLOSION 05/07/2025 6:48 PM WELDER EXPLOSION us Benito Hendrickson MD LAB BLOOD ORDERABLES Final Result [facility] [address] [facility] [address] [place] [address] * (ABNORMAL) Differential, auto (05/07/2025 6:33 PM WELDER EXPLOSION) Neutrophil abs 5.58 1.50 - 6.50 K/cumm Imm gran abs 0.03 0.00 - 0.10 K/cumm [facility] Lymphocyte abs 2.39 0.80 - 3.30 K/cumm [facility] Monocyte abs 0.92(H) 0.20 - 0.80 K/cumm [facility] Eosinophil abs 0.15 0.00 - 0.50 K/cumm [facility] Basophil abs 0.08 0.00 - 0.10 K/cumm [facility] Neutrophil pct 61.0 % [facility] Comment: Interpretive Data Percent cell count reference ranges are not reported, since discordance with absolute values may lead to misinterpretation of CBC data. Current Interpretive Data was last revised on 2017. Imm gran pct 0.3 % [facility] Comment: Interpretive Data Percent cell count reference ranges are not reported, since discordance with absolute values may lead to misinterpretation of CBC data. Current Interpretive Data was last revised on 2017. Lymphocyte pct 26.1 % [facility] Comment: Interpretive Data Percent cell count reference ranges are not reported, since discordance with absolute values may lead to misinterpretation of CBC data. Current Interpretive Data was last revised on 2017. Monocyte pct 10.1 % [facility] Comment: Interpretive Data Percent cell count reference ranges are not reported, since discordance with absolute values may lead to misinterpretation of CBC data. Current Interpretive Data was last revised on 2017. Eosinophil pct 1.6 % [facility] Comment: Interpretive Data Percent cell count reference ranges are not reported, since discordance with absolute values may lead to misinterpretation of CBC data. Current Interpretive Data was last revised on 2017. Basophil pct 0.9 % [facility] Comment: Interpretive Data Percent cell count reference ranges are not reported, since discordance with absolute values may lead to misinterpretation of CBC data. Current Interpretive Data was last revised on 2017. Blood 05/07/2025 6:33 PM WELDER EXPLOSION 05/07/2025 6:47 PM WELDER EXPLOSION Benito Hendrickson MD LAB BLOOD ORDERABLES Final Result Performing Organization Address [facility] Co de Phone Number [facility] Department [place] [address] * Phosphorus (05/07/2025 6:33 PM WELDER EXPLOSION) Phosphorus, pl 2.5 2.3 - 4.5 mg/dL Blood 05/07/2025 6:33 PM WELDER EXPLOSION 05/07/2025 6:48 PM WELDER EXPLOSION Benito Hendrickson MD LAB BLOOD ORDERABLES Final Result Performing Organization Address [facility] Co de Phone Number [facility] [place] [address] * Magnesium (05/07/2025 6:33 PM WELDER EXPLOSION) [facility] Magnesium 2.1 1.4 - 2.5 mg/dL Blood 05/07/2025 6:33 PM WELDER EXPLOSION 05/07/2025 6:48 PM WELDER EXPLOSION Benito Hendrickson MD LAB BLOOD ORDERABLES Final Result [facility] [place] [address] * (ABNORMAL) CBC with auto differential (05/07/2025 6:33 PM WELDER EXPLOSION) [facility] WBC 9.15 3.80 - 9.90 K/cumm Hgb 17.0 13.0 - 17.5 g/dL [facility] Hct 48.9 38.9 - 50.3 % [facility] Plt 268 150 - 400 K/cumm [facility] MPV 11.7 9.1 - 12.3 fL [facility] RBC 5.02 4.30 - 5.80 M/cumm [facility] MCV 97.4(H) 81.3 - 96.4 fL [facility] MCH 33.9(H) 27.1 - 33.3 pg [facility] MCHC 34.8 32.3 - 35.7 g/dL [facility] RDW CV 15.7(H) 11.1 - 14.9 % [facility] RDW SD 55.2(H) 35.7 - 48.1 fL [facility] NRBC abs 0.00 0.00 - 0.01 K/cumm [facility] Blood 05/07/2025 6:33 PM WELDER EXPLOSION 05/07/2025 6:47 PM WELDER EXPLOSION Benito Hendrickson MD LAB BLOOD ORDERABLES Final Result [facility] [place] [address] * (ABNORMAL) Basic metabolic panel (05/07/2025 6:33 PM WELDER EXPLOSION) [facility] Sodium 136 135 - 145 mmol/L Potassium, pl 4.5 3.3 - 4.9 mmol/L [facility] Chloride 101 97 - 110 mmol/L [facility] CO2 22 22 - 32 mmol/L [facility] Anion gap 13 2 - 15 mmol/L [facility] BUN 17 6 - 25 mg/dL [facility] Creatinine 1.31(H) 0.80 - 1.30 mg/dL [facility] Glucose 124 70 - 199 mg/dL [facility] Comment: Interpretive Data Fasting glucose >/= 126 [...] 2022. Calcium 8.2(L) 8.5 - 10.3 mg/dL [facility] Blood 05/07/2025 6:33 PM WELDER EXPLOSION 05/07/2025 6:48 PM WELDER EXPLOSION Benito Hendrickson MD LAB BLOOD ORDERABLES Final Result [facility] [address] [facility] [address] [place] [address] * (ABNORMAL) eGFR (05/06/2025 9:37 PM WELDER EXPLOSION) [facility] eGFR 57(L) >=60 mL/min/1. 73 m2 [...] last reviewed 2021. Blood 05/06/2025 9:37 PM WELDER EXPLOSION 05/06/2025 10:31 PM WELDER EXPLOSION us Benito Hendrickson MD LAB BLOOD ORDERABLES Final Result [facility] [address] [facility] [address] [place] [address] * (ABNORMAL) Differential, auto (05/06/2025 9:37 PM WELDER EXPLOSION) Neutrophil abs 4.97 1.50 - 6.50 K/cumm Imm gran abs 0.02 0.00 - 0.10 K/cumm [facility] Lymphocyte abs 1.70 0.80 - 3.30 K/cumm [facility] Monocyte abs 0.82(H) 0.20 - 0.80 K/cumm [facility] Eosinophil abs 0.09 0.00 - 0.50 K/cumm [facility] Basophil abs 0.04 0.00 - 0.10 K/cumm [facility] Neutrophil pct 65.0 % [facility] Comment: Interpretive Data Percent cell count reference ranges are not reported, since discordance with absolute values may lead to misinterpretation of CBC data. Current Interpretive Data was last revised on 2017. Imm gran pct 0.3 % [facility] Comment: Interpretive Data Percent cell count reference ranges are not reported, since discordance with absolute values may lead to misinterpretation of CBC data. Current Interpretive Data was last revised on 2017. Lymphocyte pct 22.3 % [facility] Comment: Interpretive Data Percent cell count reference ranges are not reported, since discordance with absolute values may lead to misinterpretation of CBC data. Current Interpretive Data was last revised on 2017. Monocyte pct 10.7 % [facility] Comment: Interpretive Data Percent cell count reference ranges are not reported, since discordance with absolute values may lead to misinterpretation of CBC data. Current Interpretive Data was last revised on 2017. Eosinophil pct 1.2 % [facility] Comment: Interpretive Data Percent cell count reference ranges are not reported, since discordance with absolute values may lead to misinterpretation of CBC data. Current Interpretive Data was last revised on 2017. Basophil pct 0.5 % [facility] Comment: Interpretive Data Percent cell count reference ranges are not reported, since discordance with absolute values may lead to misinterpretation of CBC data. Current Interpretive Data was last revised on 2017. Blood 05/06/2025 9:37 PM WELDER EXPLOSION 05/06/2025 10:31 PM WELDER EXPLOSION Benito Hendrickson MD LAB BLOOD ORDERABLES Final Result Performing Organization Address City/[facility]/ZIP Co de Phone Number [facility] [place] [address] * Phosphorus (05/06/2025 9:37 PM WELDER EXPLOSION) Pathologist [facility] Phosphorus, pl 2.5 2.3 - 4.5 mg/dL Blood 05/06/2025 9:37 PM WELDER EXPLOSION 05/06/2025 10:31 PM WELDER EXPLOSION Benito Hendrickson MD LAB BLOOD ORDERABLES Final Result Performing Organization Address [facility] Co de Phone Number [facility] [place] [address] * Magnesium (05/06/2025 9:37 PM WELDER EXPLOSION) Pathologist [facility] Magnesium 1.9 1.4 - 2.5 mg/dL Blood 05/06/2025 9:37 PM WELDER EXPLOSION 05/06/2025 10:31 PM WELDER EXPLOSION Benito Hendrickson MD LAB BLOOD ORDERABLES Final Result Performing Organization Address [facility] de Phone Number [facility] Department [place] [address] * (ABNORMAL) CBC with auto differential (05/06/2025 9:37 PM WELDER EXPLOSION) [facility] WBC 7.64 3.80 - 9.90 K/cumm Hgb 16.5 13.0 - 17.5 g/dL [facility] Hct 47.3 38.9 - 50.3 % [facility] Plt 225 150 - 400 K/cumm [facility] MPV 11.6 9.1 - 12.3 fL [facility] RBC 4.82 4.30 - 5.80 M/cumm [facility] MCV 98.1(H) 81.3 - 96.4 fL [facility] MCH 34.2(H) 27.1 - 33.3 pg [facility] MCHC 34.9 32.3 - 35.7 g/dL [facility] RDW CV 15.7(H) 11.1 - 14.9 % [facility] RDW SD 55.0(H) 35.7 - 48.1 fL [facility] NRBC abs 0.00 0.00 - 0.01 K/cumm [facility] Blood 05/06/2025 9:37 PM WELDER EXPLOSION 05/06/2025 10:31 PM WELDER EXPLOSION Benito Hendrickson MD LAB BLOOD ORDERABLES Final Result Performing Organization Address [facility] Co de Phone Number [facility] Department [place] [address] * (ABNORMAL) Basic metabolic panel (05/06/2025 9:37 PM WELDER EXPLOSION) Sodium 137 135 - 145 mmol/L Potassium, pl 3.7 3.3 - 4.9 mmol/L [facility] Chloride 100 97 - 110 mmol/L [facility] CO2 25 22 - 32 mmol/L [facility] Anion gap 12 2 - 15 mmol/L [facility] BUN 17 6 - 25 mg/dL [facility] Creatinine 1.34(H) 0.80 - 1.30 mg/dL [facility] Glucose 122 70 - 199 mg/dL [facility] Comment: Interpretive Data Fasting glucose >/= 126 [...] 2022. Calcium 8.3(L) 8.5 - 10.3 mg/dL [facility] Blood 05/06/2025 9:37 PM WELDER EXPLOSION 05/06/2025 10:31 PM WELDER EXPLOSION us Benito Hendrickson MD LAB BLOOD ORDERABLES Final Result [facility] [address] [facility] Department [place] [address] * XR Chest PA Lateral 2 Views (05/06/2025 10:14 AM WELDER EXPLOSION) Anatomical Region Laterality Modality Body, Chest N/A Computed Radiogr aphy 05/06/2025 11:3 1 AM WELDER EXPLOSION Impressions 05/06/2025 12:07 PM WELDER EXPLOSION The current study is compared with the [...] Dave Vega M.D. Narrative 05/06/2025 12:07 PM WELDER EXPLOSION EXAMINATION: 2 view chest radiograph Procedure Note [...] XR Chest 1 View (05/06/2025 9:37 AM WELDER EXPLOSION) Anatomical Region Laterality Modality Body, Chest N/A Digital Radiogra phy 05/06/2025 10:2 9 AM WELDER EXPLOSION Impressions 05/07/2025 7:04 AM WELDER EXPLOSION The current study is compared with the [...] Wenceslao Kessler M.D. Narrative 05/07/2025 7:04 AM WELDER EXPLOSION EXAMINATION: 1 view chest radiograph Procedure Note [...] it. Electronically signed by: Wenceslao Kessler M.D. us Amaris Camargo MD IMG XR PROCEDURES Final Result * (ABNORMAL) eGFR (05/05/2025 9:20 PM WELDER EXPLOSION) eGFR 55(L) >=60 mL/min/1. 73 m2 Comment: [...] last reviewed 2021. Blood 05/05/2025 9:20 PM WELDER EXPLOSION 05/05/2025 9:30 PM WELDER EXPLOSION us Benito Hendrickson MD LAB BLOOD ORDERABLES Final Result [facility] [address] [facility] [place] [address] * Differential, auto (05/05/2025 9:20 PM WELDER EXPLOSION) Neutrophil abs 5.41 1.50 - 6.50 K/cumm Imm gran abs 0.03 0.00 - 0.10 K/cumm [facility] Lymphocyte abs 1.99 0.80 - 3.30 K/cumm [facility] Monocyte abs 0.60 0.20 - 0.80 K/cumm [facility] Eosinophil abs 0.10 0.00 - 0.50 K/cumm [facility] Basophil abs 0.06 0.00 - 0.10 K/cumm [facility] Neutrophil pct 66.1 % [facility] Comment: Interpretive Data Percent cell count reference ranges are not reported, since discordance with absolute values may lead to misinterpretation of CBC data. Current Interpretive Data was last revised on 2017. Imm gran pct 0.4 % [facility] Comment: Interpretive Data Percent cell count reference ranges are not reported, since discordance with absolute values may lead to misinterpretation of CBC data. Current Interpretive Data was last revised on 2017. Lymphocyte pct 24.3 % [facility] Comment: Interpretive Data Percent cell count reference ranges are not reported, since discordance with absolute values may lead to misinterpretation of CBC data. Current Interpretive Data was last revised on 2017. Monocyte pct 7.3 % [facility] Comment: Interpretive Data Percent cell count reference ranges are not reported, since discordance with absolute values may lead to misinterpretation of CBC data. Current Interpretive Data was last revised on 2017. Eosinophil pct 1.2 % [facility] Comment: Interpretive Data Percent cell count reference ranges are not reported, since discordance with absolute values may lead to misinterpretation of CBC data. Current Interpretive Data was last revised on 2017. Basophil pct 0.7 % [facility] Comment: Interpretive Data Percent cell count reference ranges are not reported, since discordance with absolute values may lead to misinterpretation of CBC data. Current Interpretive Data was last revised on 2017. Blood 05/05/2025 9:20 PM WELDER EXPLOSION 05/05/2025 9:30 PM WELDER EXPLOSION Benito Hendrickson MD LAB BLOOD ORDERABLES Final Result Performing Organization Address [facility] Co de Phone Number [facility] [place] [address] * (ABNORMAL) Phosphorus (05/05/2025 9:20 PM WELDER EXPLOSION) [facility] Phosphorus, pl 2.1(L) 2.3 - 4.5 mg/dL Blood 05/05/2025 9:20 PM WELDER EXPLOSION 05/05/2025 9:30 PM WELDER EXPLOSION Benito Hendrickson MD LAB BLOOD ORDERABLES Final Result Performing Organization Address [facility] Co de Phone Number [facility] [place] [address] * Magnesium (05/05/2025 9:20 PM WELDER EXPLOSION) [facility] Magnesium 2.0 1.4 - 2.5 mg/dL Blood 05/05/2025 9:20 PM WELDER EXPLOSION 05/05/2025 9:30 PM WELDER EXPLOSION Benito Hendrickson MD LAB BLOOD ORDERABLES Final Result Performing Organization Address [facility] de Phone Number [facility] [place] [address] * (ABNORMAL) CBC with auto differential (05/05/2025 9:20 PM WELDER EXPLOSION) [facility] WBC 8.19 3.80 - 9.90 K/cumm Hgb 15.1 13.0 - 17.5 g/dL [facility] Hct 45.9 38.9 - 50.3 % [facility] Plt 226 150 - 400 K/cumm [facility] MPV 11.5 9.1 - 12.3 fL [facility] RBC 4.59 4.30 - 5.80 M/cumm [facility] MCV 100.0(H) 81.3 - 96.4 fL [facility] MCH 32.9 27.1 - 33.3 pg [facility] MCHC 32.9 32.3 - 35.7 g/dL [facility] RDW CV 15.2(H) 11.1 - 14.9 % [facility] RDW SD 54.3(H) 35.7 - 48.1 fL [facility] NRBC abs 0.00 0.00 - 0.01 K/cumm [facility] Blood 05/05/2025 9:20 PM WELDER EXPLOSION 05/05/2025 9:30 PM WELDER EXPLOSION us Benito Hendrickson MD LAB BLOOD ORDERABLES Final Result [facility] [address] [facility] [place] [address] * (ABNORMAL) Basic metabolic panel (05/05/2025 9:20 PM WELDER EXPLOSION) Sodium 136 135 - 145 mmol/L Potassium, pl 4.6 3.3 - 4.9 mmol/L [facility] Chloride 106 97 - 110 mmol/L [facility] CO2 26 22 - 32 mmol/L [facility] Anion gap 4 2 - 15 mmol/L [facility] BUN 20 6 - 25 mg/dL [facility] Creatinine 1.39(H) 0.80 - 1.30 mg/dL [facility] Glucose 130 70 - 199 mg/dL [facility] Comment: Interpretive Data Fasting glucose >/= 126 [...] 2022. Calcium 8.4(L) 8.5 - 10.3 mg/dL [facility] Blood 05/05/2025 9:20 PM WELDER EXPLOSION 05/05/2025 9:30 PM WELDER EXPLOSION Benito Hendrickson MD LAB BLOOD ORDERABLES Final Result Performing Organization Address [facility]/ZIP Co de Phone Number [facility] [address] [facility] [address] [place] [address] * ECG 12 lead (05/05/2025 4:06 PM WELDER EXPLOSION) Ventricular Rate EKG/Min 70 BPM [facility] Atrial Rate 70 BPM [facility] CO-Interval (MSEC) 188 ms [facility] QRS-Interval (MSEC) 168 ms [facility] QT-Interval (MSEC) 502 ms [facility] QTc 542 ms [facility] P Rhodell 64 degrees [facility] R Rhodell -55 degrees [facility] T Rhodell 94 degrees [facility] Diagnosis Atrial-sensed ventricular-p aced rhythm Biventricular pacemaker detected but RV pacing Abnormal ECG When compared with ECG of 02-MAY-2025 22:44, Vent. rate has decreased BY 16 BPM Confirmed by JOVANY HERRERA M.D ([id number]) on 05/06/2025 10:08:01 AM [facility] 05/05/2025 4:06 PM WELDER EXPLOSION 05/06/2025 10:08 AM WELDER EXPLOSION Benito Hendrickson MD ECG ORDERABLES Final Resul t Performing Organization Address [facility]/ZIP Co de Phone Number [facility] * Infection Prevention Katie auris PCR, surveillance Axilla/Groin (05/05/2025 12:47 PM WELDER EXPLOSION) Katie auris DNA Not Detected Not Detected [facility] Comment: Interpretive Data Testing performed by [facility] using the Angelika teresa 6800 Katie auris assay. This assay detects DNA from Katie auris using Real-Time PCR. This assay is laboratory developed and is not cleared by the [place] Food and Drug Administration. The performance characteristics have been verified by the [facility]. Axilla/Groin 05/05/2025 12:4 7 PM WELDER EXPLOSION 05/05/2025 1:10 PM WELDER EXPLOSION us Rik Rodriguez MD LAB MICROBIOLOGY - GENERAL ORDER KIMI Final Result [facility] [address] [facility] [address] [place] [address] [facility] * TRANSTHORACIC ECHO (TTE) COMPLETE W DOPPLER/CF W CONTRAST (05/05/2025 12:43 PM WELDER EXPLOSION) EF Mod BP 34 % CONS SCIMAGE Anatomical Region Laterality Modality Ultrasound 05/05/2025 11:3 1 AM WELDER EXPLOSION Narrative 05/05/2025 1:33 PM WELDER EXPLOSION [facility] [place] [address] Transthoracic Echocardiographic Report Patient Name: CHIKIS ELDER M : 1955 (69y 10m) Sex: M Study Date: 05/05/2025 11:31:40 AM Ht(Inch): 71 Wt(Lb): 289.9 BSA: 2.47 [employer] Supervisor: Fredi Mendoza RDCS Location: [id number] Order Provider: ANA SPARROW Heart Rate: 75 [...] MV Annulus 2D 3.5 cm MV Decel [place] 1258 RV Base Dimen 2D 5.6 cm [...] By: Dave Barakat MD 05/05/2025 1:32:34 PM WELDER EXPLOSION Procedure Note Dave Barakat MD - 05/05/2025 [facility] [place] [place] [address] Transthoracic Echocardiographic Report Patient Name: CHIKIS ELDER M : 1955 (69y 10m) Sex: M Study Date: 05/05/2025 11:31:40 AM Ht(Inch): 71 Wt(Lb): 289.9 BSA: 2.47 [employer] Supervisor: Fredi Mendoza RDCS Location: [id number] Order Provider:ANA SPARROW Heart Rate: 75 BMI: [...] MV Annulus 2D 3.5 cm MV Decel [id number] RV Base Dimen 2D 5.6 cm [ 2.5 - 4.2 ] MV Decel [id number] msec [ 104 - 258 ] RV [...] By: Dave Barakat MD 05/05/2025 1:32:34 PM WELDER EXPLOSION Ana Sparrow NP CV ECHO PROCEDURES Final R esult * (ABNORMAL) eGFR (05/04/2025 9:52 PM WELDER EXPLOSION) Pathologist [facility] eGFR 51(L) >=60 mL/min/1. 73 m2 Comment: [...] last reviewed 2021. Blood 05/04/2025 9:52 PM WELDER EXPLOSION 05/04/2025 10:08 PM WELDER EXPLOSION us Benito Hendrickson MD LAB BLOOD ORDERABLES Final Result [facility] [address] [facility] [address] Department [place] [address] * Differential, auto (05/04/2025 9:52 PM WELDER EXPLOSION) Pathologist [facility] Neutrophil abs 6.44 1.50 - 6.50 K/cumm Imm gran abs 0.04 0.00 - 0.10 K/cumm [facility] Lymphocyte abs 2.30 0.80 - 3.30 K/cumm [facility] Monocyte abs 0.73 0.20 - 0.80 K/cumm [facility] Eosinophil abs 0.07 0.00 - 0.50 K/cumm [facility] Basophil abs 0.06 0.00 - 0.10 K/cumm [facility] Neutrophil pct 66.8 % [facility] Comment: Interpretive Data Percent cell count reference ranges are not reported, since discordance with absolute values may lead to misinterpretation of CBC data. Current Interpretive Data was last revised on 2017. Imm gran pct 0.4 % [facility] Comment: Interpretive Data Percent cell count reference ranges are not reported, since discordance with absolute values may lead to misinterpretation of CBC data. Current Interpretive Data was last revised on 2017. Lymphocyte pct 23.9 % [facility] Comment: Interpretive Data Percent cell count reference ranges are not reported, since discordance with absolute values may lead to misinterpretation of CBC data. Current Interpretive Data was last revised on 2017. Monocyte pct 7.6 % [facility] Comment: Interpretive Data Percent cell count reference ranges are not reported, since discordance with absolute values may lead to misinterpretation of CBC data. Current Interpretive Data was last revised on 2017. Eosinophil pct 0.7 % [facility] Comment: Interpretive Data Percent cell count reference ranges are not reported, since discordance with absolute values may lead to misinterpretation of CBC data. Current Interpretive Data was last revised on 2017. Basophil pct 0.6 % [facility] Comment: Interpretive Data Percent cell count reference ranges are not reported, since discordance with absolute values may lead to misinterpretation of CBC data. Current Interpretive Data was last revised on 2017. Blood 05/04/2025 9:52 PM WELDER EXPLOSION 05/04/2025 10:08 PM WELDER EXPLOSION us Benito Hendrickson MD LAB BLOOD ORDERABLES Final Result [facility] [address] [facility] [address] [place] [address] * Phosphorus (05/04/2025 9:52 PM WELDER EXPLOSION) Phosphorus, pl 3.2 2.3 - 4.5 mg/dL Blood 05/04/2025 9:52 PM WELDER EXPLOSION 05/04/2025 10:08 PM WELDER EXPLOSION Benito Hendrickson MD LAB BLOOD ORDERABLES Final Result Performing Organization Address [facility] Co de Phone Number [facility] [place] [address] * Magnesium (05/04/2025 9:52 PM WELDER EXPLOSION) Pathologist [facility] Magnesium 2.0 1.4 - 2.5 mg/dL Blood 05/04/2025 9:52 PM WELDER EXPLOSION 05/04/2025 10:08 PM WELDER EXPLOSION Benito Hendrickson MD LAB BLOOD ORDERABLES Final Result Performing Organization Address [facility] de Phone Number [facility] [place] [address] * (ABNORMAL) CBC with auto differential (05/04/2025 9:52 PM WELDER EXPLOSION) [facility] WBC 9.64 3.80 - 9.90 K/cumm Hgb 15.8 13.0 - 17.5 g/dL [facility] Hct 46.8 38.9 - 50.3 % [facility] Plt 258 150 - 400 K/cumm [facility] MPV 11.6 9.1 - 12.3 fL [facility] RBC 4.77 4.30 - 5.80 M/cumm [facility] MCV 98.1(H) 81.3 - 96.4 fL [facility] MCH 33.1 27.1 - 33.3 pg [facility] MCHC 33.8 32.3 - 35.7 g/dL [facility] RDW CV 15.0(H) 11.1 - 14.9 % [facility] RDW SD 54.0(H) 35.7 - 48.1 fL [facility] NRBC abs 0.00 0.00 - 0.01 K/cumm [facility] Blood 05/04/2025 9:52 PM WELDER EXPLOSION 05/04/2025 10:08 PM WELDER EXPLOSION Benito Hendrickson MD LAB BLOOD ORDERABLES Final Result [facility] [address] [facility] [place] [address] * (ABNORMAL) Basic metabolic panel (05/04/2025 9:52 PM WELDER EXPLOSION) [facility] Sodium 135 135 - 145 mmol/L Potassium, pl 4.4 3.3 - 4.9 mmol/L [facility] Comment:Hemolyzed; Potassium value may be falsely elevated by as much as 0.3-0.5 mmol/L. Suggest redraw and reanalysis. Chloride 100 97 - 110 mmol/L [facility] CO2 24 22 - 32 mmol/L [facility] Anion gap 11 2 - 15 mmol/L [facility] BUN 22 6 - 25 mg/dL [facility] Creatinine 1.48(H) 0.80 - 1.30 mg/dL [facility] Glucose 116 70 - 199 mg/dL [facility] Comment: Interpretive Data Fasting glucose >/= 126 [...] 2022. Calcium 8.6 8.5 - 10.3 mg/dL [facility] Blood 05/04/2025 9:52 PM WELDER EXPLOSION 05/04/2025 10:08 PM WELDER EXPLOSION Benito Hendrickson MD LAB BLOOD ORDERABLES Final Result [facility] [address] [facility] [address] [place] [address] * Respiratory pathogen panel Nasopharyngeal (05/04/2025 8:06 PM WELDER EXPLOSION) [facility] Influenza A RNA Not Detected Not Detected Influenza B RNA Not Detected Not Detected [facility] RSV RNA Not Detected Not Detected [facility] COVID-19 RNA Not Detected Not Detected [facility] Coronavirus 229E RNA Not Detected Not Detected [facility] Coronavirus HKU1 RNA Not Detected Not Detected [facility] Coronavirus NL63 RNA Not Detected Not Detected [facility] Coronavirus OC43 RNA Not Detected Not Detected [facility] Adenovirus DNA Not Detected Not Detected [facility] Metapneumovirus RNA Not Detected Not Detected [facility] Rhinovirus/Enterov irus RNA Not Detected Not Detected [facility] Parainfluenza 1 RNA Not Detected Not Detected [facility] Parainfluenza 2 RNA Not Detected Not Detected [facility] Parainfluenza 3 RNA Not Detected Not Detected [facility] Parainfluenza 4 RNA Not Detected Not Detected [facility] B. pertussis DNA Not Detected Not Detected [facility] B. parapertussis DNA Not Detected Not Detected [facility] C. pneumoniae DNA Not Detected Not Detected [facility] M. pneumoniae DNA Not Detected Not Detected [facility] Nasopharyngeal 05/04/2025 8: 06 PM WELDER EXPLOSION 05/04/2025 8:25 PM WELDER EXPLOSION Narrative [facility] - 05/04/2025 9:38 PM WELDER EXPLOSION Is the Patient experiencing symptoms consistent with COVID?->Yes Surveillance testing for transplant patient?->No Interpretive Data The [employer] FilmArray Respiratory Panel (RP2.1) assay is a [...] assay has FDA clearance for testing of EQUIPMENT SALES SPECIALIST swabs. The performance of additional specimen types has been assessed by the performing laboratory. The performance characteristics of this assay have been determined by [facility]. Current interpretive data was last revised on 22. us Benito Hendrickson MD LAB MICROBIOLOGY - GENERAL ORDERABLES Final Result [facility] [address] [facility] [address] [place] [address] * Troponin I high-sensitivity 6-hour (05/04/2025 10:48 AM WELDER EXPLOSION) Trop I hs 16 <=35 ng/L Comment: Interpretive Data For further hscTnI resources including the diagnostic algorithm and an aid in interpretation, copy and paste this link: https://bjhlab.testcatalog.org/show/hsTrop-1 Current Interpretive Data last revised 2019. Trop I hs delta -1 ng/L [facility] Trop I hs interp Insignificant [facility] Blood 05/04/2025 10:4 8 AM WELDER EXPLOSION 05/04/2025 11:13 AM WELDER EXPLOSION Aleksander Schreiber MD LAB BLOOD ORDERABLES F inal Result Performing Organization Address [facility] Co de Phone Number [facility] [place] [address] * Infection Prevention Katie auris PCR, surveillance Axilla/Groin (05/04/2025 8:57 AM WELDER EXPLOSION) Pathologist [facility] Katie auris DNA Not Detected Not Detected [facility] Comment: Interpretive Data Testing performed by [facility] using the Angelika teresa 6800 Katie auris assay. This assay detects DNA from Katie auris using Real-Time PCR. This assay is laboratory developed and is not cleared by the [facility] Food and Drug Administration. The performance characteristics have been verified by the [facility]. Axilla/Groin 05/04/2025 8:57 AM WELDER EXPLOSION 05/04/2025 11:16 AM WELDER EXPLOSION Rik Rodriguez MD LAB MICROBIOLOGY - GENERAL ORDER KIMI Final Result Performing Organization Address [facility] de Phone Number [facility] [place] [address] [facility] * Troponin I high-sensitivity 4-hour (05/04/2025 8:57 AM WELDER EXPLOSION) Pathologist [facility] Trop I hs 14 <=35 ng/L Comment: Interpretive Data For further hscTnI resources including the diagnostic algorithm and an aid in interpretation, copy and paste this link: https://bjhlab.testcatzipcodemailer.com.org/show/hsTrop-1 Current Interpretive Data last revised 2019. Trop I hs delta -3 ng/L [facility] Trop I hs interp Insignificant [facility] Blood 05/04/2025 8:57 AM WELDER EXPLOSION 05/04/2025 9:13 AM WELDER EXPLOSION Aleksander Schreiber MD LAB BLOOD ORDERABLES F inal Result [facility] [address] [facility] [place] [address] * XR Chest PA Lateral 2 Views (If patient hemodynamically stable and ambulatory) (05/04/2025 5:15 AM WELDER EXPLOSION) Anatomical Region Laterality Modality Body, Chest N/A Computed Radiogr aphy 05/04/2025 5:36 AM WELDER EXPLOSION Impressions 05/04/2025 11:15 AM WELDER EXPLOSION FINDINGS/IMPRESSION: Left subclavian approach pacemaker defibrillator with [...] Amanda Hurd M.D. Narrative 05/04/2025 11:15 AM WELDER EXPLOSION EXAMINATION: XR CHEST PA LATERAL 2 VIEWS [...] Result * ECG 12-LEAD (05/04/2025 4:56 AM WELDER EXPLOSION) Narrative [facility] - 05/04/2025 4:56 AM WELDER EXPLOSION Aleksander Schreiber MD 05/04/2025 4:57 AM ECG [...] follow up: further workup in the ED us Renuka Haider MD ECG ORDERABLES Final Re sult [facility] * (ABNORMAL) eGFR (05/04/2025 4:49 AM WELDER EXPLOSION) eGFR 46(L) >=60 mL/min/1. 73 m2 Comment: [...] last reviewed 2021. Blood 05/04/2025 4:49 AM WELDER EXPLOSION 05/04/2025 5:09 AM WELDER EXPLOSION us Renuka Haider MD LAB BLOOD ORDERABLES Fin al Result [facility] [address] [facility] [place] [address] * (ABNORMAL) Differential, auto (05/04/2025 4:49 AM WELDER EXPLOSION) Neutrophil abs 7.74(H) 1.50 - 6.50 K/cumm Imm gran abs 0.05 0.00 - 0.10 K/cumm [facility] Lymphocyte abs 1.89 0.80 - 3.30 K/cumm [facility] Monocyte abs 0.58 0.20 - 0.80 K/cumm [facility] Eosinophil abs 0.07 0.00 - 0.50 K/cumm [facility] Basophil abs 0.06 0.00 - 0.10 K/cumm [facility] Neutrophil pct 74.4 % [facility] Comment: Interpretive Data Percent cell count reference ranges are not reported, since discordance with absolute values may lead to misinterpretation of CBC data. Current Interpretive Data was last revised on 2017. Imm gran pct 0.5 % [facility] Comment: Interpretive Data Percent cell count reference ranges are not reported, since discordance with absolute values may lead to misinterpretation of CBC data. Current Interpretive Data was last revised on 2017. Lymphocyte pct 18.2 % [facility] Comment: Interpretive Data Percent cell count reference ranges are not reported, since discordance with absolute values may lead to misinterpretation of CBC data. Current Interpretive Data was last revised on 2017. Monocyte pct 5.6 % [facility] Comment: Interpretive Data Percent cell count reference ranges are not reported, since discordance with absolute values may lead to misinterpretation of CBC data. Current Interpretive Data was last revised on 2017. Eosinophil pct 0.7 % [facility] Comment: Interpretive Data Percent cell count reference ranges are not reported, since discordance with absolute values may lead to misinterpretation of CBC data. Current Interpretive Data was last revised on 2017. Basophil pct 0.6 % [facility] Comment: Interpretive Data Percent cell count reference ranges are not reported, since discordance with absolute values may lead to misinterpretation of CBC data. Current Interpretive Data was last revised on 2017. Blood 05/04/2025 4:49 AM WELDER EXPLOSION 05/04/2025 5:09 AM WELDER EXPLOSION us Renuka Haider MD LAB BLOOD ORDERABLES Fin al Result [facility] [address] [facility] [place] [address] * (ABNORMAL) Pro B-type natriuretic peptide (05/04/2025 4:49 AM WELDER EXPLOSION) NT-proBNP 8,199(H) <=300 pg/mL Comment: Interpretive Comments: [...] et.al. Eur Heart J. 2006:27:330-337. 2. Leona CHUNG, Francisca LOVE. J. AM Ism Cardiol: Cardiovasc Imag. 2009;2: 216- 225. Interpretive Data Last Revised Date: 2018. Blood 05/04/2025 4:49 AM WELDER EXPLOSION 05/04/2025 5:09 AM WELDER EXPLOSION Result [facility] Renuka Haider MD LAB BLOOD ORDERABLES Fin al Result Performing Organization Address [facility] de Phone Number [facility] [place] [address] * Troponin I high-sensitivity series (baseline, 2hr, 4hr, 6hr) (05/04/2025 4:49 AM WELDER EXPLOSION) Pathologist [facility] Trop I hs 17 <=35 ng/L Comment: Interpretive Data For further hscTnI resources including the diagnostic algorithm and an aid in interpretation, copy and paste this link: [email or web address] Current Interpretive Data last revised 2019. Blood 05/04/2025 4:49 AM WELDER EXPLOSION 05/04/2025 5:09 AM WELDER EXPLOSION Renuka Haider MD LAB BLOOD ORDERABLES Fin al Result Performing Organization Address [facility] Co de Phone Number [facility] [place] [employer] [place] [address] * (ABNORMAL) CBC with auto differential (05/04/2025 4:49 AM WELDER EXPLOSION) Pathologist [facility] WBC 10.39(H) 3.80 - 9.90 K/cumm Hgb 15.9 13.0 - 17.5 g/dL [facility] Hct 47.6 38.9 - 50.3 % [facility] Plt 259 150 - 400 K/cumm [facility] MPV 11.4 9.1 - 12.3 fL [facility] RBC 4.84 4.30 - 5.80 M/cumm [facility] MCV 98.3(H) 81.3 - 96.4 fL [facility] MCH 32.9 27.1 - 33.3 pg [facility] MCHC 33.4 32.3 - 35.7 g/dL [facility] RDW CV 15.3(H) 11.1 - 14.9 % [facility] RDW SD 53.9(H) 35.7 - 48.1 fL [facility] NRBC abs 0.00 0.00 - 0.01 K/cumm [facility] Blood 05/04/2025 4:49 AM WELDER EXPLOSION 05/04/2025 5:09 AM WELDER EXPLOSION Renuka Haider MD LAB BLOOD ORDERABLES [facility] al Result [facility] [address] [facility] [place] [address] * (ABNORMAL) Comprehensive metabolic panel (05/04/2025 4:49 AM WELDER EXPLOSION) Sodium 132(L) 135 - 145 mmol/L Potassium, pl 4.1 3.3 - 4.9 mmol/L [facility] Chloride 99 97 - 110 mmol/L [facility] CO2 22 22 - 32 mmol/L [facility] Anion gap 11 2 - 15 mmol/L [facility] BUN 24 6 - 25 mg/dL [facility] Creatinine 1.61(H) 0.80 - 1.30 mg/dL [facility] Glucose 142 70 - 199 mg/dL [facility] Comment: Interpretive Data Fasting glucose >/= 126 [...] 2022. Calcium 8.6 8.5 - 10.3 mg/dL [facility] Bilirubin, total 1.0 0.1 - 1.2 mg/dL [facility] Protein, pl 7.1 6.5 - 8.5 g/dL [facility] Albumin 4.2 3.5 - 5.0 g/dL [facility] Alk phos 34(L) 40 - 130 Units/L [facility] ALT 43 7 - 55 Units/L [facility] AST 38 10 - 50 Units/L [facility] Blood 05/04/2025 4:49 AM WELDER EXPLOSION 05/04/2025 5:09 AM WELDER EXPLOSION Renuka Haider MD LAB BLOOD ORDERABLES [facility] al Result [facility] [address] [facility] [place] [address] documented in this encounter Visit Diagnoses Diagnosis [...] 2.5 mg, nebulization, Every 6 hours PRN (respiratory clinician), wheezing, Starting on Evelyn 05/06/25 at 1248 apixaban (ELIQUIS) tablet 5 mg 5 mg, oral, 2 times daily, First dose on Sat05/04/25 at 2100, Nurse to discontinue heparin infusion order and associated bolus at first administration of apixaban using o rder condition met order source, Indications: atrial fibrillationIndications:atrial fibrillation Given 05/10/2025 11:05 AM WELDER EXPLOSION 5 mg Given 05/09/2025 8:07 PM WELDER EXPLOSION 5 mg Given 05/09/2025 8:23 AM WELDER EXPLOSION 5 mg benzonatate (TESSALON) capsule 100 mg 100 mg, oral, 3 times daily PRN, cough, Starting on Sat05/07/25 at 1320, Do not crush, chew, cut, dissolve, open or otherwise manipulate tablet/capsule., Indications: CoughIndications:Cough Given 05/07/2025 5:44 PM WELDER EXPLOSION 100 mg Carrier Fluids for Secondary Infusion - 0.9% Sodium Chloride 0-999 mL, intravenous, As needed, For priming tubing and/or flushing, Starting on Sat05/04/25 at 1937, Infuse 20 mL at the same rate as the secondary infusion to ensure full drug delivery. Run as primary IV not intended for KVO. furosemide (LASIX) tablet 60 mg 60 mg, oral, Daily, First dose on Sat05/09/25 at 0900 Given 05/10/2025 11:04 AM WELDER EXPLOSION 60 mg Given 05/09/2025 8:23 AM WELDER EXPLOSION 60 mg levothyroxine (SYNTHROID) tablet 112 mcg 112 mcg, oral, Daily (early AM), First dose on Sat05/05/25 at 0600, Administer on an empty stomach, preferably 30 minutes before breakfast. Take 4 hours apart from antacids, iron and calcium products. Separate from tube feeds, if applicable. Given 05/10/2025 5:37 AM WELDER EXPLOSION 112 mcg Given 05/09/2025 5:40 AM WELDER EXPLOSION 112 mcg Given 05/08/2025 6:14 AM WELDER EXPLOSION 112 mcg metoprolol XL (TOPROL-XL) extended release tablet 50 mg 50 mg, oral, Daily, First dose on Sat05/05/25 at 0900, Tablets that are scored may be split, but do not crush, chew, dissolve, open or otherwise manipulate tablet/capsule. Given 05/10/2025 11:04 AM WELDER EXPLOSION 50 mg Given 05/09/2025 8:23 AM WELDER EXPLOSION 50 mg Given 05/08/2025 8:05 AM WELDER EXPLOSION 50 mg multivit acurnztz-jscv-RH-calcium (THERA-M) tablet 1 tablet 1 tablet, oral, Daily, First dose on Sat05/04/25 at 2015 Given 05/10/2025 11:05 AM WELDER EXPLOSION 1 tablet Given 05/09/2025 8:23 AM WELDER EXPLOSION 1 tablet Given 05/08/2025 8:05 AM WELDER EXPLOSION 1 tablet rosuvastatin (CRESTOR) tablet 20 mg 20 mg, oral, Nightly, First dose on Sat05/04/25 at 2100 Given 05/09/2025 8:07 PM WELDER EXPLOSION 20 mg Given 05/08/2025 8:00 PM WELDER EXPLOSION 20 mg Given 05/07/2025 8:29 PM WELDER EXPLOSION 20 mg sacubitriL-valsartan (ENTRESTO) 49-51 mg tablet 1 tablet 1 tablet, oral, 2 times daily, First dose on Sat05/04/25 at 2100 Given 05/10/2025 11:03 AM WELDER EXPLOSION 1 tablet Given 05/09/2025 8:06 PM WELDER EXPLOSION 1 tablet Given 05/09/2025 8:23 AM WELDER EXPLOSION 1 tablet sodium chloride 0.9% flush 0.5-20 mL 0.5-20 mL, intra-catheter, Every 8 hours scheduled (alternate), First dose on Sat05/05/25 at 0000, Flush volume based on line type and size. Given 05/10/2025 11:05 AM WELDER EXPLOSION 10 mL Given 05/10/2025 12:40 AM WELDER EXPLOSION 10 mL Given 05/09/2025 8:25 AM WELDER EXPLOSION 10 mL sodium chloride 0.9% flush 0.5-20 mL 0.5-20 mL, intra-catheter, As needed, line care, Starting on Sat05/04/25 at 1937, Flush volume based on line type and size. Flush before and after each use. sotaloL (BETAPACE) tablet 80 mg 80 mg, oral, 2 times daily, First dose (after last modification) on Sat05/09/25 at 0915, Please administer as close to 8P and 8A as possible Given 05/10/2025 11:09 AM WELDER EXPLOSION 80 mg Given 05/09/2025 8:06 PM WELDER EXPLOSION 80 mg Given 05/09/2025 8:58 AM WELDER EXPLOSION 80 mg spironolactone (ALDACTONE) tablet 25 mg 25 mg, oral, Daily, First dose on Sat05/05/25 at 0900 Given 05/10/2025 11:03 AM WELDER EXPLOSION 25 mg Given 05/09/2025 8:23 AM WELDER EXPLOSION 25 mg Given 05/08/2025 8:05 AM WELDER EXPLOSION 25 mg documented in this encounter Discontinued [...] Recently Administered Medications Times are shown in WELDER EXPLOSION. Scheduled Medication Order 05/08/2025 05/09/2025 05/10/2025 allopurinoL (ZYLOPRIM) tablet 300 mg 300 mg, oral, Daily, First dose on Sat05/04/25 at 2014 0900 (Hold - Provider: Desire Singer RN - Reason: See Provider Order) 0900 (Hold - Provider: Desire Singer RN - Reason: See Provider Order) 0900 (Not Given - Provider: Jfefery Juarez RN - Reason: See Provider Order)1047 [...] atrial fibrillation 0805 (Given - Provider: Desire Singer, LENO)1999 (Given - Provider: Sun Manley, LENO) 0823 (Given - Provider: Desire Singer, LENO)2006 (Given - Provider: Harlan Conley, RN) 0643 (MAR Hold - Provider: Automatic Transfer Provider - Reason: Patient not available)0900 (Not Given - Provider: Jeffery Juarez, RN - Reason: See Provider Order)1047 (MAR Unhold - Provider: Automatic Transfer Provider)1105 (Given - Provider: Jeffery Juarez RN) cefTRIAXone (ROCEPHIN) 2,000 mg/20 mL in sterile water (premix) 2,000 mg (CANCELED) 2,000 mg, intravenous, at 240 mL/hr, Administer over 5 Minutes, Every 24 hours scheduled, First dose on Sat05/04/25 at 0922, Indications: pneumonia, On hold since 05/08/2025 at 1908 until manually unheld 0831 (Given - Provider: Desire Singer RN)190 (Held by Provider - Provider: Harlan Mcarthur [...] Indications: Pneumonia, Community Acquired, On hold since 05/08/2025 at 1908 until manually unheld 0614 (Given - Provider: Vasu Sarmiento RN)1721 (Given - Provider: Desire Singer RN)1908 (Held by Provider - Provider: Harlan Mcarthur [...] Automatic Transfer Provider)1104 (Given - Provider: Jeffery Juarez RN) levothyroxine (SYNTHROID) tablet 112 mcg 112 mcg, oral, Daily (early AM), First dose on Sat05/05/25 at 0600, Administer on an empty stomach, preferably 30 minutes before breakfast. Take 4 hours apart from antacids, iron and calcium products. Separate from tube feeds, if applicable. 0614 (Given - Provider: Vasu Sarmiento RN) 0540 (Given - Provider: Sun Manley, LENO) 0537 (Given - Provider: Harlan Conley RN)0643 (MAR Hold - Provider: Automatic Transfer Provider - Reason: Patient not available)1047 (MAR Unhold - Provider: Automatic Transfer Provider) metoprolol XL (TOPROL-XL) extended release tablet 50 mg 50 mg, oral, Daily, First dose on Sat05/05/25 at 0900, Tablets that are scored may be split, but do not crush, chew, dissolve, open or otherwise manipulate tablet/capsule. 0805 (Given - Provider: Desire Singer RN) 0823 (Given - Provider: Desire Singer RN) 0643 (MAR Hold - Provider: Automatic Transfer Provider - Reason: Patient not available)0900 (Not Given - Provider: Jeffery Juarez RN - Reason: See Provider Order)1047 (MAR Unhold - Provider: Automatic Transfer Provider)1104 (Given - Provider: Jeffery Juarez RN) multivit ruiocqwl-souy-ZD-calcium (THERA-M) tablet 1 tablet 1 tablet, oral, Daily, First dose on Sat05/04/25 at 2014 0805 (Given - Provider: Desire Singer RN) 0823 (Given - Provider: Desire Singer RN) 0643 (MAR Hold - Provider: Automatic Transfer Provider - Reason: Patient not available)0900 (Not Given - Provider: Jeffery Juarez RN - Reason: See Provider Order)1047 (MAR Unhold - Provider: Automatic Transfer Provider)1105 (Given - Provider: Jeffery Juarez, LENO) rosuvastatin (CRESTOR) tablet 20 mg 20 mg, oral, Nightly, First dose on Sat05/04/25 at 2099 2000 (Given - Provider: Sun Manley, LENO) 2006 [...] LENO) 0823 (Given - Provider: Desire Singer, LENO)2005 (Given [...] Sarmiento RN)0805 (Given - Provider: Desire Singer RN)1721 (Given - Provider: Desire Singer RN)2002 (Given - Provider: Sun Manley, LENO) 0000 (Not Given - Provider: Sun Manley RN - Reason: Other)0825 (Given - Provider: Desire Singer RN)1600 (Not Given - Provider: Desire Singer RN - Reason: Other) 0040 (Given - Provider: Harlan Conley RN)0643 (MAR Hold - Provider: Automatic Transfer Provider [...] Automatic Transfer Provider)1109 (Given - Provider: Jeffery Abdullahi Stolze, RN) spironolactone (ALDACTONE) tablet 25 mg 25 mg, oral, Daily, First dose on Sat05/05/25 at 0900 0805 (Given - Provider: Desire Singer RN) 0823 (Given - Provider: Desire Singer RN) 0643 ([facility] Hold - Provider: Automatic Transfer Provider - Reason: Patient not available)0900 (Not Given - Provider: Jeffery Juarez RN - Reason: See Provider Order)1047 ([facility] Unhold - Provider: Automatic Transfer Provider)1103 (Given - Provider: Jeffery Juarez, LENO) PRN Medication Order 05/08/2025 05/09/2025 05/10/2025 albuterol 2.5 mg/0.5 mL nebulizer solution 2.5 mg 2.5 mg, nebulization, Every 6 hours PRN (respiratory clinician), wheezing, Starting on Evelyn 05/06/25 at 1248 0643 ([facility] Hold - Pro vider: Automatic Transfer Provider - Reason: Patient not available)1047 ([facility] Unhold - Provider: Automatic Transfer Provider) benzonatate (TESSALON) capsule 100 mg 100 mg, oral, 3 times daily PRN, cough, Starting on Sat05/07/25 at 1320, Do not crush, chew, cut, dissolve, open or otherwise manipulate tablet/capsule., Indications: Cough 0643 ([facility] Hold - Pro vider: Automatic Transfer Provider - Reason: Patient not available)1047 ([facility] Unhold - Provider: Automatic Transfer Provider) Carrier Fluids for Secondary Infusion - 0.9% Sodium Chloride 0-999 mL, intravenous, As needed, For priming tubing and/or flushing, Starting on Sat05/04/25 at 1937, Infuse 20 mL at the same rate as the secondary infusion to ensure full drug delivery. Run as primary IV not intended for KVO. 0643 ([facility] Hold - Pro vider: Automatic Transfer Provider - Reason: Patient not available)1047 ([facility] Unhold - Provider: Automatic Transfer Provider) sodium chloride 0.9% flush 0.5-20 mL 0.5-20 mL, intra-catheter, As needed, line care, Starting on Sat05/04/25 at 1937, Flush volume based on line type and size. Flush before and after each use. 0643 ([facility] Hold - Pro vider: Automatic Transfer Provider - Reason: Patient not available)1047 ([facility] Unhold - Provider: Automatic Transfer Provider) documented in this encounter Orders Medications Ordered That George ht Not Have Been Administered Count Last Ordered Date First Ordered Date sotaloL (BETAPACE) tablet 80 mg 3 5 05/05/2025 furosemide (LASIX) tablet 60 mg 1 5 benzonatate (TESSALON) capsule 100 mg 1 ipratropium-albuteroL (DUO-N EB) 0.5-2.5 mg/3 mL nebulizer solution 3 mL 1 05/07/2025 magnesium sulfate 2 g/50 mL in water (premix) 2 g 1 05/07/2025 potassium chloride ER (KLOR- CON) extended release tablet 40 mEq 1 05/07/2025 albuterol 2.5 mg/0.5 mL nebu lizer solution 2.5 mg 1 05/06/2025 sodium phosphate - potassium phosphate (K-PHOS NEUTRAL) tablet 250 mg 1 05/06/2025 doxycycline (VIBRAMYCIN) tab let/capsule 100 mg 1 05/05/2025 perflutren protein-a (OPTISO N) injection 0.1-3 mL 1 05/05/2025 allopurinoL (ZYLOPRIM) tablet 300 mg 1 04/17 apixaban (ELIQUIS) tablet 5 mg 1 05/04/2025 azithromycin (ZITHROMAX) 500 mg/255 mL in sodium chloride 0.9% (premix) 500 mg 2 05/04/2025 Carrier Fluids for Secondary Infusion - 0.9% Sodium Chloride 1 05/04/2025 cefTRIAXone (ROCEPHIN) 2,000 mg/20 mL in sterile water (premix) 2,000 mg 1 05/04/2025 furosemide (LASIX) 10 mg/mL injection 40 mg 2 05/04/2025 furosemide (LASIX) tablet 40 mg 1 levothyroxine (SYNTHROID) tablet 112 mcg 1 05/04/2025 metoprolol XL (TOPROL-XL) ex tended release tablet 50 mg 1 05/04/2025 multivit fplrgrcp-cruh-SB-ca lcium (THERA-M) tablet 1 tablet 1 05/04/2025 rosuvastatin (CRESTOR) tablet 20 mg 1 05/04 sacubitriL-valsartan (ENTRES TO) 49-51 mg tablet 1 tablet 1 05/04/2025 sodium chloride 0.9% flush 0.5-20 mL 2 04/17 sotaloL (BETAPACE) tablet 120 mg 2 05/04/20 spironolactone (ALDACTONE) tablet 25 mg 1 1 07/04/2024 Lab Orders Without Results Count Last Ordered [...] Date First Orde red Date CASE REQUEST OXIDE FURNACE TENDER 1 05/08/2025 documented in this encounter Additional Health Concerns Infection Onset Date Last Indicated Resolved Time Ring Surveillance: C. auris Comment:[id number] 05/01/2025 05/01/2025 05/05/2025 9:[address] COVID: Suspected 05/04/2025 05/04/2025 05/04/2025 9:39 PM WELDER EXPLOSION documented as of this encounter Care Teams [employer] P[employer] Operator Relationship Specialty Start Date End Date Blake Ott MD [address] [place] [address] PCP - General Family Medicine 07/20/24 Carolin Gandhi MD [address] [facility] [address] [place] [address] Family Medicine 04/10/23 documented as of this encounter
[2025-05-11] VITALS (9 sets, daily range): BP systolic 109–139; BP diastolic 71–85; PULSE 68–75; RESP 13–26; TEMP 37; O2SAT 92–100
--- NOTE | ~2025-05-11 | XR_ITS ---
Examination: XR chest 1V portable Clinical History: ESTELA Comparison: 04/20/2025 Technique: Portable AP Findings: Left ICD. Cardiomegaly. Diffusely increased interstitial markings. Probable effusions. No acute bony abnormality. IMPRESSION: 1. Interstitial pulmonary edema with probable effusions. Reviewed, dictated and finalized at location R. E GAMES MANAGER
--- NOTE | ~2025-05-11 | CT_ITS ---
EXAMINATION: CTA chest PE protocol DATE: 05/11/2025 03:29 INDICATION: Difficulty breathing. TECHNIQUE: Computed tomography angiography (CTA) of the chest was performed with 100 mL Omnipaque-350 intravenous contrast timed to evaluate the pulmonary arteries. Coronal maximum intensity projection 3D-reconstructions were created by the technologist. Automated exposure control and iterative reconstruction technique were employed. The dose-length product was 1177.35 mGy-cm. COMPARISON: Chest CT 03/21/2023 FINDINGS: The lungs demonstrate smooth septal thickening and groundglass opacities, consistent with pulmonary edema. There are small pleural effusions. Cardiomegaly is noted. No pericardial effusion. There is no pulmonary embolus. There is a left chest wall pacer with leads in the right atrium and right ventricle. There is mild bilateral hilar lymphadenopathy. There is severe cervical and thoracic spondylosis. There are Schmorl's nodes at multiple levels. IMPRESSION: 1. No pulmonary embolus. 2. Moderate pulmonary edema. 3. Small pleural effusions. 4. Mild bilateral hilar lymphadenopathy, likely reactive. Reviewed, dictated and finalized at location E. IALIST FIELD ENGINEER
--- OUTSIDE RECORDS SUMMARY | 2025-05-11 02:15 | XMS_ITS | Encounter Summary ---
Author Organization [facility] Address [address] [place] [address] Phone Care Team Providers Care Trimmer Machine Name Role Phone Carolin Gandhi MD Unavailable [phone] Blake Ott MD Primary Care Provider Encounter Details Date Type Department Care Team (Late st Contact Info) Description 05/04/2025 Telephone [facility] Medicine Cardiology [address] [facility] Advanced Medicine 8th [place] [address] [place] [address] Manoj Blackman MD [address] [facility] [address] [place] [address] Social History Tobacco Use Types Packs/Day Years [...] often do you attend chur ch or zoroastrianism services? Never 05/05/2025 Do you belong to any clubs o r organizations such as rastafarian groups, unions, fraternal or athletic groups, or [...] any time in the past 12 m [facility], were you homeless or living in a skilled nursing (including now)? No 05/05/2025 [facility] Utilities Answer Date Recorded In [...] on file Legal Sex Male 7:32 PM SNOW TECHNICIAN Gender Identity Not on file Sexual Orientation Not on file documented as of this encounter Functional Status * C.A.G.E. Question Answer Date of Assessment Author Have you ever felt the need to Cut down on your drinking? 0 05/04/2025 10:27 PM SNOW TECHNICIAN Sun De Souza RN Have people ever Annoyed yo u by criticizing your drinking? 0 05/04/2025 10:27 PM SNOW TECHNICIAN Sun De Souza RN Have you ever felt bad or Guilty about your drinking? 0 05/04/2025 10:27 PM Sun Goss RN Have you ever had a drink fi rst thing in the morning to steady your nerves or get rid of a hangover? Eye carbon paste mixer operator? 0 05/04/2025 10:27 PM SNOW TECHNICIAN Lucie De Souza RN CAGE SCORE: 2 or Greater = Positive 0 05/04/2025 10:27 PM SNOW TECHNICIAN Camron De Souza RN * Difference in Last Two Eloy Scores Answer Date of Assessment Author 0 05/07/2025 8:00 PM Vasu Garcia RN * Question Answer Date of Assessment Author BP Location Right arm 05/07/2025 11:55 PM Vasu Meléndez RN BP Method Automatic 05/07/2025 11:55 PM Vasu Meléndez RN MAP (mmHg) 78 05/07/2025 11:55 PM Vasu Meléndez RN * Lange Fall Risk Question Answer Date of Assessment Author History of Falling 0 05/07/2025 8:00 PM Vasu Garcia RN Secondary Diagnosis 15 05/07/2025 8:00 PM CS Vasu Hernandez RN Ambulatory Aids 0 05/07/2025 8:00 PM Vasu Rubin RN Intravenous Therapy/Heparin/Saline Lock 20 05/07/2025 8:00 PM Vasu Garcia RN Gait/Transferring 0 05/07/2025 8:00 PM Vasu Garcia RN Mental Status 0 05/07/2025 8:00 PM Vasu Meléndez RN Lange Fall Risk Score (Score >= 45 places fall precaution order) 35 05/07/2025 8:00 PM Vasu Garcia RN Prior Fall Event (Autopopulated from EMR) None found 05/07/2025 8:00 PM Carlos Garcia RN * Eloy Scale Question Answer Date of Assessment Author Sensory Perceptions 4 05/07/2025 8:00 PM CS Vasu Hernandez RN Moisture 4 05/07/2025 8:00 PM Vasu Izquierdo RN Activity 3 05/07/2025 8:00 PM Vasu Izquierdo RN Mobility 4 05/07/2025 8:00 PM Vasu Izquierdo RN Nutrition 4 05/07/2025 8:00 PM Vasu Izquierdo RN Friction and Shear 3 05/07/2025 8:00 PM Vasu Garcia RN Eloy Scale Score 22 05/07/2025 8:00 PM Vasu Garcia RN * Fall Risk Interventions Question Answer Date of Assessment Author All Low Fall Interventions Applied Yes 05/07/2025 8:00 PM Vasu Garcia RN All Moderate Fall Interventions Applied No 05/07/2025 8:00 PM Vasu Garcia RN All Moderate Fall Risk Interventions EXCEPT: Gait belt at bedside;Remain with patient while toileting 05/07/2025 8:00 PM Vasu Garcia RN All High Fall Risk Interventions Applied No 05/07/2025 9:00 AM Jeffery Hernández RN All High Risk Interventions EXCEPT: Bed alarm;Chair alarm 05/07/2025 9:00 AM Jeffery Hernández RN Additional Interventions Applied Over-bed table on non-exit side;Exit bed on strong/preferred side 05/07/2025 8:00 PM Vasu Garcia RN Reason For Exception(s) PT demonstrates safe and stable ambulation 05/07/2025 8:00 PM Vasu Garcia RN Reason For Exception(s) uses call shen 05/07/20 9:00 AM Jeffery Hernández, LENO * B.M.A.T. - Bedside Mobility Assessment Tool for Nurses Question Answer Date of Assessment Author Is patient able to participate in the BMAT? Yes 05/07/2025 8:00 PM Carlos Garcia RN BMAT Level Level 4 - Green 05/07/2025 8:00 PM Vasu Rubin RN * Question Answer Date of Assessment [...] of Assessment Author 2 Nurse Skin Assessment Carlos Jensen 05/07/2025 7:00 P M Jeffery Hernández, LENO * Pressure Injury Prevention Question Answer Date of Assessment Author Pressure Ulcer Prevention Interventions Keep skin clean and dry (Sensory Perception/Moisture );Use draw sheet when pulling patient up in bed (Friction & Shear) 05/07/2025 8:00 PM Vasu Garcai RN Special Mattress Low air loss 05/07/2025 9:00 AM Jeffery Talavera RN * Transdermal Patch Assessment on Admission [...] Date of Assessment Author Integumentary (WDL) WDL 05/07/2025 8:00 PM CS T Vasu Sarmiento RN * Question Answer Date of Assessment Author BP Location Right arm 05/07/2025 11:55 PM Vasu Meléndez RN BP Method Automatic 05/07/2025 11:55 PM Vasu Meléndez RN * Question Answer Date of Assessment Author RLE Edema No pitting 05/07/2025 9:00 AM Jeffery Trinidad RN LLE Edema No pitting 05/07/2025 9:00 AM Jeffery Trinidad RN Edema Right lower extremit y;Left lower extremity 05/07/2025 8:00 PM Vasu Garcia RN * Question Answer Date of Assessment Author Percent Meal Eaten (%) 75 05/07/2025 2:50 PM Jeffery Hernández RN Feeding Level of Assistance Able to feed self 05/07/2025 2:50 PM Jeffery Hernández RN Appetite Good 05/07/2025 2:50 PM Jeffery Trinidad RN * Fall Risk Interventions Question Answer Date of Assessment Author All Low Fall Interventions Applied Yes 05/07/2025 8:00 PM Vasu Garcia RN All Moderate Fall Interventions Applied No 05/07/2025 8:00 PM Vasu Garcia RN All Moderate Fall Risk Interventions EXCEPT: Gait belt at bedside;Remain with patient while toileting 05/07/2025 8:00 PM Vasu Garcia RN All High Fall Risk Interventions Applied No 05/07/2025 9:00 AM Jeffery Hernández RN All High Risk Interventions EXCEPT: Bed alarm;Chair alarm 05/07/2025 9:00 AM Jeffery Hernández RN Additional Interventions Applied Over-bed table on non-exit side;Exit bed on strong/preferred side 05/07/2025 8:00 PM Vasu Garcia RN Reason For Exception(s) PT demonstrates safe and stable ambulation 05/07/2025 8:00 PM SNOW TECHNICIAN Vasu Sarmiento RN Reason For Exception(s) uses call shen 05/07/20 9:00 AM SNOW TECHNICIAN Jeffery Juarez RN * ADL Screening Question Answer Date of Assessment Author Patient's Vision Adequate to Safely Complete Daily Activities Yes 05/04/2025 10:27 PM SNOW TECHNICIAN Camron De Souza RN Patient's Judgement Adequate to Safely Complete Daily Activities Yes 05/04/2025 10:27 PM SNOW TECHNICIAN Camron De Souza RN Patient's Memory Adequate to Safely Complete Daily Activities Yes 05/04/2025 10:27 PM SNOW TECHNICIAN Camron De Souza RN Patient Able to Express Needs/Desires Yes 05/04/2025 10:27 PM Camron Cohen RN Dressing Independent 05/04/2025 10:27 PM SNOW TECHNICIAN Sun Paredes RN Grooming Independent 05/04/2025 10:27 PM Sun Dior RN Feeding Independent 05/04/2025 10:27 PM SNOW TECHNICIAN Sun Paredes RN Bathing Independent 05/04/2025 10:27 PM Sun [...] Right Ear Functional 05/04/2025 10:27 PM C Sun Bear RN Hearing - Left Ear Functional 05/04/2025 10:27 PM CS T Sun De Souza RN Dominant hand? Right 05/04/2025 10:27 PM SNOW TECHNICIAN Sun Richards RN Decline in ADLs in last 2 weeks? No 05/04/2025 10:27 PM Camron Cohen RN * Therapy Consults Question Answer Date of Assessment Author PT Evaluation Needed 2 05/04/2025 10:27 PM Sun Cohen RN OT Evaluation Needed 2 05/04/2025 10:27 PM Sun Cohen RN JAVA SUPPORT ENGINEER Evaluation Needed 2 05/04/2025 10:27 PM Sun [...] Cohen RN Patient is in need of JAVA SUPPORT ENGINEER Order: No JAVA SUPPORT ENGINEER order needed from this assessment 05/04/2025 10:27 PM Sun Cohen RN * Question Answer Date of Assessment Author Bed In Lowest Position Yes 05/07/2025 11:00 P M Vasu Garcia RN Bed Wheels Locked Yes 05/07/2025 11:00 PM Vasu Garcia RN * Hygiene Question Answer Date of Assessment Author Hygiene Skin cleanser 05/07/2025 9:00 AM Marlys Sharif Hygiene Level of Assistance Independent 05/07/2025 8:00 PM Vasu Garcia RN Toileting: Assistance with Up to bathroom toilet 05/07/2025 8:00 PM Vasu Garcia RN Toileting: Level of assistance Independent 05/07/2025 8:00 PM SNOW TECHNICIAN Vasu Sarmiento RN Reason not bathed/showered Bath already completed at home or other setting 05/04/2025 10:00 PM SNOW TECHNICIAN Sun De Souza RN Linens Complete linen change 05/06/2025 10:49 AM SNOW TECHNICIAN [place] Bath Bathed/showered with chlorhexidine (CHG) 05/07/2025 9:00 AM SNOW TECHNICIAN Marlys Kenney documented as of this encounter Mental Status * Question Answer Entry Date Author Level of Consciousness Awake;Alert 05/07/2025 8:00 PM Vasu Garcia RN Neuro (WDL) WDL 05/07/2025 8:00 PM Vasu Izquierdo RN Other Neuro Symptoms Fatigue 05/07/2025 8:00 PM Vasu Sewell RN documented in this encounter Miscellaneous Notes * Telephone Encounter - Nallely Tejada - 05/04/2025 8:08 AM CST Yehuda Pts spouse calling and states patient had Cardioversion last week. Patient is currently in ED for SOB and she would like to discuss with a nurse. TECHNICIAN documented in this encounter Plan of Treatment Not on file documented as of this encounter Visit Diagnoses Not on filedocumented in this encounter Additional Health Concerns Infection Onset Date Last Indicated Resolved Time Ring Surveillance: C. auris Comment:[id number] 05/01/2025 05/01/2025 05/05/2025 9:46 AM Kesha POLANCO COVID: Suspected 05/04/2025 05/04/2025 05/04/2025 9:39 PM SNOW TECHNICIAN documented as of this encounter Care Teams Trimmer Machine Relationship Specialty Start Date End Date Blake Ott MD [address] [place] [id number] PCP - General Family Medicine 07/20/24 Carolin Gandhi MD [address] [place] [address] Family Medicine 04/10/23 documented as of this encounter
--- OUTSIDE RECORDS SUMMARY | 2025-05-11 02:16 | XMS_ITS | Clinical Summary ---
Author Organization [facility] Address [address] [facility] [place] [address] Care Team Providers Care Machine Tool Rebuilder Name Role Phone Unavailable Primary Care Provider Unavailabl e Source Comments [facility],non-owned Affiliates and Associated Physician Practices is amultiple site organization consisting of ambulatory clinics and hospital sitesin [place], [place], [place] and [place]. This disclosure is being madepursuant to the Care Everywhere program and may not contain all informatio navailable regarding this patient. Last updated 18.[facility] Active Problems Problem Noted Date Diagnosed Date Pain in left knee 08/23/2015 Social History Tobacco Use Types Packs/Day Years Used Date Smoking Tobacco: Never Alcohol Use Standard Drinks/Week Comments Not Asked 0 (1 standard drink = 0.6 oz pur e alcohol) Sex and Gender Information Value Date Recorded Sex Assigned at Not on file Legal Sex Male 5:57 PM WEED SPRAYER Gender Identity Not on file Sexual Orientation [...] DEPRESSION SCREENING 06/17/2024 COVID-19 VACCINE (1 - 2024-2 6 season) 2025 INFLUENZA VACCINE (#1) 2025 Respiratory [...]
--- OUTSIDE RECORDS SUMMARY | 2025-05-11 02:16 | XMS_ITS | Clinical Summary ---
Author Organization [facility] Address [address] [place] [address] Phone Care Team Providers Care Beef Tagger Name Role Phone Carolin Gandhi MD Primary Care Provider [phone] Sidney Webb MD Unavailable Allergies No known [...] age to complete this [place] [address] MEDICARE C AETNA MEDICARE C AETNA Care Teams Beef Tagger Relationship Specialty Start Date End Date Carolin Gandhi MD [address] [facility] [address] [place] [address] PCP - General Family Medicine 11/01/22 Sidney Webb MD [address] [place] [address] Consulting Physician Pulmonary Disease 11/01/22
--- OUTSIDE RECORDS SUMMARY | 2025-05-11 02:16 | XMS_ITS | Encounter Summary ---
Author Organization [facility] Address [address] [place] [address] Phone Care Team Providers Care Wood Drilling Machine Operator Name Role Phone Carolin Gandhi MD Unavailable [phone] Blake Ott MD Primary Care Provider Encounter Details Date Type Department Care Team (Late st Contact Info) Description 05/04/2025 Telephone [facility] Medicine Cardiology [address] [facility] Advanced Medicine 8th [place] [address] [place] [address] Manoj Blackman MD [address] [facility] [address] [place] [address] Social History Tobacco Use Types [...] any clubs o r organizations such as pentecostal groups, unions, fraternal or athletic groups, or [...] in the past 12 m [facility], were you homeless or living in a detention (including now)? No 05/05/2025 [facility] Utilities Answer Date Recorded In [...] on file Legal Sex Male 7:32 PM CABLE TELEVISION PROGRAM DIRECTOR Gender Identity Not on file Sexual Orientation Not on file documented as of this encounter Functional Status * C.A.G.E. Question Answer Date of Assessment Author Have you ever felt the need to Cut down on your drinking? 0 05/04/2025 10:27 PM CABLE TELEVISION PROGRAM DIRECTOR Sun De Souza RN Have people ever Annoyed yo u by criticizing your drinking? 0 05/04/2025 10:27 PM CABLE TELEVISION PROGRAM DIRECTOR Sun De Souza RN Have you ever felt bad or Guilty about your drinking? 0 05/04/2025 10:27 PM Sun Goss RN Have you ever had a drink fi rst thing in the morning to steady your nerves or get rid of a hangover? Eye piano regulator inspector? 0 05/04/2025 10:27 PM CABLE TELEVISION PROGRAM DIRECTOR Lucie De Souza RN CAGE SCORE: 2 or Greater = Positive 0 05/04/2025 10:27 PM CABLE TELEVISION PROGRAM DIRECTOR Camron De Souza RN * Difference in [...] Secondary Diagnosis 15 05/07/2025 8:00 PM CS Vaus Hernandez RN Ambulatory Aids 0 05/07/2025 8:00 [...] (Friction & Shear) 05/07/2025 8:00 PM Vasu Garcia RN Special Mattress Low air loss 05/07/2025 [...] safe and stable ambulation 05/07/2025 8:00 PM CABLE TELEVISION PROGRAM DIRECTOR Vasu Sarmiento RN Reason For Exception(s) uses call shen 05/07/20 9:00 AM CABLE TELEVISION PROGRAM DIRECTOR Jeffery Juarez RN * ADL Screening Question Answer Date of Assessment Author Patient's Vision Adequate to Safely Complete Daily Activities Yes 05/04/2025 10:27 PM CABLE TELEVISION PROGRAM DIRECTOR Camron De Souza RN Patient's Judgement Adequate to Safely Complete Daily Activities Yes 05/04/2025 10:27 PM CABLE TELEVISION PROGRAM DIRECTOR Camron De Souza RN Patient's Memory Adequate to Safely Complete Daily Activities Yes 05/04/2025 10:27 PM CABLE TELEVISION PROGRAM DIRECTOR Camron De Souza RN Patient Able to Express Needs/Desires Yes 05/04/2025 10:27 PM Camron Cohen RN Dressing Independent 05/04/2025 10:27 PM CABLE TELEVISION PROGRAM DIRECTOR Sun Paredes RN Grooming Independent 05/04/2025 10:27 PM Sun Dior RN Feeding Independent 05/04/2025 10:27 PM CABLE TELEVISION PROGRAM DIRECTOR Sun Paredes RN Bathing Independent 05/04/2025 10:27 [...] RN Dominant hand? Right 05/04/2025 10:27 PM CABLE TELEVISION PROGRAM DIRECTOR Sun Richards RN Decline in ADLs in last 2 weeks? No 05/04/2025 10:27 PM Camron Cohen RN * Therapy Consults Question Answer Date of Assessment Author PT Evaluation Needed 2 05/04/2025 10:27 PM Sun Cohen RN OT Evaluation Needed 2 05/04/2025 10:27 PM Sun Cohen RN ORTHO/PROSTHETIC AIDE Evaluation Needed 2 05/04/2025 10:27 PM Sun [...] Cohen RN Patient is in need of ORTHO/PROSTHETIC AIDE Order: No ORTHO/PROSTHETIC AIDE order needed from this assessment 05/04/2025 10:27 [...] Level of Assistance Independent 05/07/2025 8:00 PM CABLE TELEVISION PROGRAM DIRECTOR Layasan, Leomilo Naragas, RN Toileting: Assistance with Up to bathroom toilet 05/07/2025 8:00 PM CABLE TELEVISION PROGRAM DIRECTOR Vasu Sarmiento RN Toileting: Level of assistance Independent 05/07/2025 8:00 PM CABLE TELEVISION PROGRAM DIRECTOR Vasu Sarmiento RN Reason not bathed/showered Bath already completed at home or other setting 05/04/2025 10:00 PM CABLE TELEVISION PROGRAM DIRECTOR Sun De Souza RN Linens Complete linen change 05/06/2025 10:49 AM CABLE TELEVISION PROGRAM DIRECTOR [place] Bath Bathed/showered with chlorhexidine (CHG) 05/07/2025 9:00 AM CABLE TELEVISION PROGRAM DIRECTOR Marlys Kenney documented as of this encounter Mental Status * Question Answer Entry Date Author Level of Consciousness Awake;Alert 05/07/2025 8:00 PM Vasu Garcia RN Neuro (WDL) WDL 05/07/2025 8:00 PM Vasu Izquierdo RN Other Neuro Symptoms Fatigue 05/07/2025 8:00 PM Vasu Sewell RN documented in this encounter Miscellaneous Notes * Telephone Encounter - Zina Gonzales RN - 05/04/2025 9:01 AM CST Called - patient is in the ER bnp >[id number]. I explained that he is in the best place to get hisheart failure under control and that I will let Dr Blackman know- just released yesterday after thesotalol load E TELEVISION PROGRAM DIRECTOR * Telephone Encounter - Hannah Wright - 05/04/2025 8:46 AM CST Yehuda Pt's req cb due to pt having shortness of breath. Pt currently in ed, req to speak to RN. E TELEVISION PROGRAM DIRECTOR documented in this encounter Plan of Treatment Not on file documented as of this encounter Visit Diagnoses Not on filedocumented in this encounter Additional Health Concerns Infection Onset Date Last Indicated Resolved Time Ring Surveillance: C. auris Comment:[id number] 05/01/2025 05/01/2025 05/05/2025 9:[address] COVID: Suspected 05/04/2025 05/04/2025 05/04/2025 9:39 PM CABLE TELEVISION PROGRAM DIRECTOR documented as of this encounter Care Teams Wood Drilling Machine Operator Relationship Specialty Start Date End Date Blake Ott MD [address] [place] [address] PCP - General Family Medicine 07/20/24 Carolin Gandhi MD [address] [place] [address] Family Medicine 04/10/23 documented as of this encounter
--- OUTSIDE RECORDS SUMMARY | 2025-05-11 02:16 | XMS_ITS | Encounter Summary ---
Author Organization [facility] Healthcare Address [address] [place] [address] Care Team Providers Care Machine Deburrer Name Role Phone Carolin Gandhi MD Unavailable Blake Ott MD Primary Care Provider Encounter Details Date Type Department Care Team (Late st Contact Info) Description 05/10/2025 Telephone [facility] Medical Group Cardiology [address] [facility] [address] [place] [address] Fabio Jacob MD [address] [facility] [address] [facility] [address] [place] [address] Social History Tobacco Use Types Packs/Day Years [...] How often do you attend chur or muslim services? Never 05/05/2025 Do you belong to any clubs o r organizations such as restoration groups, unions, fraternal or athletic groups, or [...] time in the past 12 m [facility], were you homeless or living in a senior care (including now)? No 05/05/2025 [facility] Utilities Answer Date Recorded In the [...] on file Legal Sex Male 7:32 PM FEED MIXER Gender Identity Not on file Sexual Orientation Not on file documented as of this encounter Functional Status * Difference in Last Two Eloy Scores [...] Eloy Scale Score 22 05/10/2025 11:00 AM CS T Jeffery Juarez RN * Question Answer Date of Assessment [...] 11:0 0 AM Jeffery Hernández RN * Integumentary Question Answer Date of Assessment Author Integumentary (WDL) WDL 05/10/2025 11:00 AM C Jeffery Rock RN * Question Answer Date of Assessment [...] Hygiene Question Answer Date of Assessment Author Bath Bathed/showered non- chg (CHG not indicated OR not required here) 05/10/2025 11:00 AM Jeffery Hernández RN documented as of this encounter Mental Status * Question Answer Entry Date Author Level of Consciousness Alert;Awake 05/10/2025 11:00 A M Jeffery Hernández RN Neuro (WDL) WDL 05/10/2025 11:00 AM Jeffery Adams RN documented in this encounter Miscellaneous Notes * Telephone Encounter - Dolly Seymour MA - 05/10/2025 5:06 PM CST Spoke to the patient and his and they will keep appointment tomorrow in [place] with Dr. Jacob. MIXER * Telephone Encounter - Allie Biswas - 05/10/2025 1:[address] Mejia called to schedule a f/u appt after pts CV today. He requested pt be seen soon since he just had CV. First available appt is tomorrow at 215 with NAOMI in [place]. We went ahead and scheduled appt. Stated if NAOMI didn't want to see him that soon then we can call to reschedule. There was nothing else available before end of year with NAOMI in [place] or [place]. MIXER documented in this encounter Plan of Treatment Not on file documented as of this encounter Visit Diagnoses Not on filedocumented in this encounter Care Teams Machine Deburrer Relationship Specialty Start Date End Date Blake Ott MD [address] [facility] [address] [place] [address] PCP - General Family Medicine 07/20/24 Carolin Gandhi MD [address] [facility] [address] [place] [address] Family Medicine 04/10/23 documented as of this encounter
--- OUTSIDE RECORDS SUMMARY | 2025-05-11 02:16 | XMS_ITS | Encounter Summary ---
Author Organization [facility] Address [address] [place] [address] Phone Care Team Providers Care Floor Press Operator Name Role Phone Carolin Gandhi MD Unavailable [phone] Blake Ott MD Primary Care Provider Encounter Details Date Type Department Care Team (Late st Contact Info) Description 04/26/2025 Telephone [facility] Medicine Cardiology [facility] Advanced Medicine 8th [place] [address] [place] [address] Sarah Bunn Social History Tobacco Use Types Packs/Day Years [...] making you feel afraid or unsafe? Denies 04/30/2025 Sex and Gender Information Value Date Recorded Sex Assigned at Not on file Legal Sex Male 7:32 PM OIL DERRICK OPERATOR Gender Identity Not on file Sexual Orientation Not on file documented as of this encounter Miscellaneous Notes * Telephone Encounter - Sarah Bunn - 04/29/2025 9:31 AM CST SHANA PT'S CALLING IN REGARDS TO ARRIVAL TIME FOR PT'S 04/30 ADMISSION DERRICK OPERATOR * Telephone Encounter - Sarah Bunn - 04/26/2025 8:33 AM CST SHANA PT'S CALLING IN REGARDS TO PT'S ADMISSION DERRICK OPERATOR documented in this encounter Plan of Treatment Not on file documented as of this encounter Visit Diagnoses Not on filedocumented in this encounter Additional Health Concerns Infection Onset Date Last Indicated Resolved Time Ring Surveillance: Chapin reddy Comment:[id number] 05/01/2025 05/01/2025 05/05/2025 9:[address] COVID: Suspected 05/04/2025 05/04/2025 05/04/2025 9:39 PM OIL DERRICK OPERATOR documented as of this encounter Care Teams Floor Press Operator Relationship Specialty Start Date End Date Blake Ott MD [address] [place] [address] PCP - General Family Medicine 07/20/24 Carolin Gandhi MD [address] [place] [address] Family Medicine 04/10/23 documented as of this encounter
--- OUTSIDE RECORDS SUMMARY | 2025-05-11 02:16 | XMS_ITS | Encounter Summary ---
Author Organization [facility] Healthcare Address [address] [place] [address] Care Team Providers Care Cloth Designer Name Role Phone Carolin Gandhi MD Unavailable [phone] Blake Ott MD Primary Care Provider Reason for Visit * Reason Onset Date Comments Admit Notification 04/30/2025 Encounter Details Date Type Department Care Team (Late st Contact Info) Description 04/30/2025 Telephone [facility] Bed Planning [address] [place] [address] Rod Marmolejo, brusher machine Notification Social History Tobacco Use Types Packs/Day Years [...] more drinks on one occasion? Never 05/03/2025 Personal Safety Answer Date Recorded Have you ever been in or are you currently in a harmful physical or emotional relationship or is someone making you feel afraid or unsafe? Denies 05/04/2025 Sex and Gender Information Value Date Recorded Sex Assigned at Not on file Legal Sex Male 7:32 PM CAUSE ANALYST Gender Identity Not on file Sexual Orientation Not on file documented as of this encounter Functional Status * C.A.G.E. Question Answer Date of Assessment Author Have you ever felt the need to Cut down on your drinking? 0 05/03/2025 8:37 AM Kristine Murdock Have people ever Annoyed yo u by criticizing your drinking? 0 05/03/2025 8:37 AM Kesha Murdock Have you ever felt bad or G uilty about your drinking? 0 05/03/2025 8:37 AM Rosemarie Murdock Have you ever had a drink fi rst thing in the morning to steady your nerves or get rid of a hangover? Eye exceptional needs teacher? 0 05/03/2025 8:37 AM Rosemarie Murdock CAGE SCORE: 2 or Greater = Positive 0 05/03 8:37 AM Rosemarie Murdock * Difference in Last Two Eloy Scores Answer Date of Assessment Author 1 05/03/2025 8:34 AM Kesha Murdock * Anisa Fall Risk Question Answer Date of Assessment Author History of Falling 0 05/03/2025 8:31 AM Rosemarie Murdock Secondary Diagnosis 15 05/03/2025 8:31 AM CS T Rosemarie Lundberg Ambulatory Aids 0 05/03/2025 8:31 AM CAUSE ANALYST Rosemarie Coleman Intravenous Therapy/Heparin/ Saline Lock 20 05/03/2025 8:31 AM Rosemarie Murdock Gait/Transferring 0 05/03/2025 8:31 AM Rosemarie Murdock Mental Status 0 05/03/2025 8:31 AM CAUSE ANALYST Rosemarie Sandoval Lange Fall Risk Score (Score >= 45 places fall precaution order) 35 05/03/2025 8:31 AM Rosemarie Murdock Prior Fall Event (Autopopula kamron from EMR) None found 05/03/2025 8:31 AM Rosmearie Murdock * Eloy Scale Question Answer Date of Assessment Author Sensory Perceptions 4 05/03/2025 8:34 AM C Rosemarie Luque Moisture 4 05/03/2025 8:34 AM CAUSE ANALYST Hugh regalado Rosemarie Activity 4 05/03/2025 8:34 AM CAUSE ANALYST Hugh regalado Rosemarie Mobility 4 05/03/2025 8:34 AM CAUSE ANALYST Hugh regalado Rosemarie Nutrition 3 05/03/2025 8:34 AM Rosemarie Adams Friction and Shear 2 05/03/2025 8:34 AM Rosemarie Murdock Eloy Scale Score 21 05/03/2025 8:34 AM Rosemarie Murdock * Question Answer Date of Assessment Author BP Location Right arm 05/03/2025 11:00 AM Natacha Dong BP Method Automatic 05/03/2025 11:00 AM Natacha Dong MAP (mmHg) 78 05/03/2025 11:00 AM Natacha Dong * Fall Risk Interventions Question Answer Date of Assessment Author All Low Fall Interventions Applied Yes 05/03/2025 8:31 AM Rosemarie Murdock All Moderate Fall Interventions Applied No 05/03/2025 8:31 AM Rosemarie Murdock All Moderate Fall Risk Interventions EXCEPT: OT eval requested or obtained;PT eval requested or obtained;Fall risk sign with education;Gait belt at bedside 05/03/2025 8:31 AM Rosemarie Murdock All High Fall Risk Interventions Applied No 05/03/2025 8:31 AM Rosemarie Murdock All High Risk Interventions EXCEPT: Bed alarm;Chair alarm;Fall risk sign with education 05/03/2025 8:31 AM Rosemarie Murdock Additional Interventions Applied Over-bed table on non-exit side;Exit bed on strong/preferred side 05/03/2025 8:09 AM Veena Patel Reason For Exception(s) not utlilized in [facility] 8:31 AM Rosemarie Murdock Reason For Exception(s) not utlilized in [facility] 8:31 AM Rosemarie Murdock * B.M.A.T. - Bedside Mobility Assessment Tool for Nurses Question Answer Date of Assessment Author Is patient able to participate in the BMAT? Yes 05/03/2025 8:09 AM Veena Patel BMAT Level Level 4 - Green 05/03/2025 8:09 AM Veena Velasquez * Question Answer Date of Assessment Author 1. Has the patient self-reported, presented with clinical signs of, or have a documented history of any of the following within the past 30 days? No 04/30/2025 4:00 PM Edwin Durbin RN * Question Answer Date of Assessment Author Is the patient being treated today because it is known or suspected that they prepared, started, or tried to end their life? No 04/30/2025 4:00 PM Edwin Durbin RN * Question Answer Date of Assessment Author 1. In the past month, have you wished you were or that you could go to sleep and not wake up? No 04/30/2025 4:00 PM Edwin Durbin RN 2. In the past month, have you actually had any thoughts of killing yourself? No 04/30/2025 4:00 PM Edwin Durbin Ph, RN 6. Have you ever done anything, started to do anything, or prepared to do anything to end your life? No 04/30/2025 4:00 PM Rahel Durbin RN * Suicide Risk Level Answer Date of Assessment Author No risk level 04/30/2025 4:00 PM Inge Durbin RN * Self-Injurious Risk Level Answer Date of Assessment Author No risk level 04/30/2025 4:00 PM Inge Durbin RN * Pressure Injury Prevention Question Answer Date of Assessment Author Pressure Ulcer Prevention Interventions Keep skin clean and dry (Sensory Perception/Moistur e) 05/03/2025 8:09 AM Veena Patel Special Mattress Low air loss 05/03/2025 8:09 AM Veena Acuna * Transdermal Patch Admission Assessment Question Answer Date of Assessment Author Transdermal Patch Assessment on Admission Not Present 04/30/2025 5:06 PM Edwin Durbin RN * AUDIT-C Score Answer Date of Assessment Author 0 05/03/2025 8:37 AM Kesha Murdock * Alcohol Use Question Answer Date of Assessment Author Q1: How often do you have a drink containing alcohol? Never 05/03/2025 8:37 AM Rosemarie Murdock Q2: How many drinks containing alcohol do you have on a typical day when you are drinking? Patient does not drink 05/03/2025 8:37 AM CAUSE ANALYST Tamika, Rosemarie Q3: How often do you have six or more drinks on one occasion? Never 05/03/2025 8:37 AM CAUSE ANALYST Rosemarie Lundberg * Integumentary Question Answer Date of Assessment Author Skin Color Appropriate for ethnicity 05/03/2025 8:09 AM Veena Patel Skin Condition/Temp Warm;Dry 05/03/2025 8:09 AM Veena Helms Skin Integrity Intact 05/03/2025 8:09 AM CAUSE ANALYST Kaylah hingVeena yang Skin Turgor Non-tenting 05/03/2025 8:09 AM CAUSE ANALYST Veena Mendoza Integumentary (WDL) WDL 05/03/2025 8:09 AM Veena Helms * Question Answer Date of Assessment Author RLE Edema +1 05/03/2025 8:09 AM Veena Win LLE Edema +1 05/03/2025 8:09 AM CAUSE ANALYST Veena Mendoza Edema Right lower extremit y;Left lower extremity 05/03/2025 8:09 AM Veena Patel * Question Answer Date of Assessment Author Affect Calm 05/03/2025 8:09 AM Veena Win Mood Content 05/03/2025 8:09 AM Veena Win * Question Answer Date of Assessment Author Feeding Level of Assistance Able to feed self 05/02/2025 1:50 PM Jessica Patel Appetite Good 05/02/2025 1:50 PM Veena Win Percent Snack Eaten (%) 100 05/02/2025 1:50 P M Veena Patel * Question Answer Date of Assessment Author BP Location Right arm 05/03/2025 11:00 AM CAUSE ANALYST Natacha Schuler BP Method Automatic 05/03/2025 11:00 AM CAUSE ANALYST Natacha Schuler * Fall Risk Interventions Question Answer Date of Assessment Author All Low Fall Interventions Applied Yes 05/03/2025 8:31 AM Rosemarie Murdock All Moderate Fall Interventions Applied No 05/03/2025 8:31 AM Rosemarie Murdock All Moderate Fall Risk Interventions EXCEPT: OT eval requested or obtained;PT eval requested or obtained;Fall risk sign with education;Gait belt at bedside 05/03/2025 8:31 AM Rosemarie Murdock All High Fall Risk Interventions Applied No 05/03/2025 8:31 AM Rosemarie Murdock All High Risk Interventions EXCEPT: Bed alarm;Chair alarm;Fall risk sign with education 05/03/2025 8:31 AM Rosemarie Murdock Additional Interventions Applied Over-bed table on non-exit side;Exit bed on strong/preferred side 05/03/2025 8:09 AM Veena Patel Reason For Exception(s) not utlilized in [facility] 8:31 AM Rosemarie Murdock Reason For Exception(s) not utlilized in [facility] 8:31 AM Rosemarie Murdock * ADL Screening Question Answer Date of Assessment Author Patient's Vision Adequate to Safely Complete Daily Activities Yes 04/30/2025 4:00 PM Edwin Durbin RN Patient's Judgement Adequate to Safely Complete Daily Activities Yes 04/30/2025 4:00 PM Edwin Durbin RN Patient's Memory Adequate to Safely Complete Daily Activities Yes 04/30/2025 4:00 PM Edwin Durbin RN Patient Able to Express Needs/Desires Yes 04/30/2025 4:00 PM Edwin Durbin RN Dressing Independent 04/30/2025 4:00 PM Edwin Mane RN Grooming Independent 04/30/2025 4:00 PM Edwin Mane RN Feeding Independent 04/30/2025 4:00 PM Edwin Mane RN Bathing Independent 04/30/2025 4:00 PM Edwin Mane RN Toileting Independent 04/30/2025 4:00 PM Edwin Mane, LENO In/Out Bed Independent 04/30/2025 4:00 PM Edwin Mane RN Walks in Home Independent 04/30/2025 4:00 PM Edwin Harley, LENO Weakness of Legs None 04/30/2025 4:00 PM Edwin Slater RN Weakness of Arms/Hands None 04/30/2025 4:00 PM Edwin Durbin, LENO Hearing - Right Ear Functional 04/30/2025 4:00 PM CS T Edwin Kaur RN Hearing - Left Ear Functional 04/30/2025 4:00 PM Edwin Durbin RN Dominant hand? Right 04/30/2025 4:00 PM Edwin Wynne RN Decline in ADLs in last 2 weeks? No 04/30/2025 4:00 PM Edwin Durbin RN * Therapy Consults Question Answer Date of Assessment Author PT Evaluation Needed 1 04/30/2025 4:00 PM Edwin Narayan RN OT Evaluation Needed 1 04/30/2025 4:00 PM Edwin Narayan RN COMMERCIAL ACCOUNTANT Evaluation Needed 2 04/30/2025 4:00 PM Edwin Durbin RN * Assistive Devices Question Answer Date of Assessment Author Assistive Devices/DME None 04/30/2025 4:00 PM Edwin Durbin RN * Question Answer Date of Assessment Author Bed In Lowest Position Yes 05/02/2025 8:23 PM Karon Domínguez Bed Wheels Locked Yes 05/02/2025 8:23 PM Karon Domínguez * Hygiene Question Answer Date of Assessment Author Hygiene Level of Assistance Independent 05/02/2025 8:23 PM Karon Domínguez Toileting: Assistance with Up to bathroom toilet 04/30/2025 6:00 PM Edwin Durbin, LENO Toileting: Level of assistance Independent 05/02/2025 8:23 PM Karon Domínguez Bath Bathed/showered with chlorhexidine (CHG) 05/03/2025 10:14 AM Veena Patel documented as of this encounter Mental Status * Question Answer Entry Date Author Neuro (WDL) WDL 05/03/2025 8:34 AM CAUSE ANALYST Rosemarie Law * Question Answer Entry Date Author Level of Consciousness Alert;Awake 8:09 AM CAUSE ANALYST Veena Cooper Orientation Oriented X4 (person, place, time, situation) 05/03/2025 8:09 AM CAUSE ANALYST Veena Cooper documented in this encounter Plan of Treatment Not on file documented as of this encounter Visit Diagnoses Not on filedocumented in this encounter Additional Health Concerns Infection Onset Date Last Indicated Resolved Time Ring Surveillance: C. auris Comment:[id number] 05/01/2025 05/01/2025 05/05/2025 9:[address] COVID: Suspected 05/04/2025 05/04/2025 05/04/2025 9:39 PM CAUSE ANALYST documented as of this encounter Care Teams Cloth Designer Relationship Specialty Start Date End Date Blake Ott MD [address] [place] [address] PCP - General Family Medicine 07/20/24 Carolin Gandhi MD [address] [place] [address] Family Medicine 04/10/23 documented as of this encounter
--- OUTSIDE RECORDS SUMMARY | 2025-05-11 02:17 | XMS_ITS | Encounter Summary ---
Author Organization [facility] Address [address] [place] [address] Phone Care Team Providers Care Health Services Director Name Role Phone Carolin Gandhi MD Unavailable [phone] Blake Ott MD Primary Care Provider Encounter Details Date Type Department Care Team (Late st Contact Info) Description 05/10/2025 Telephone [facility] Medicine Cardiology [address] [facility] [address] [facility] Advanced Medicine [address]th [place] [address] [place] [address] Marleny Yung Social History Tobacco Use Types Packs/Day Years [...] often do you attend chur ch or druze services? Never 05/05/2025 Do you belong to any clubs o r organizations such as mormon groups, unions, fraternal or athletic groups, or [...] any time in the past 12 m [facility], were you homeless or living in a penitentiary (including now)? No 05/05/2025 [facility] Utilities Answer Date Recorded In the [...] on file Legal Sex Male 7:32 PM LUMBER SCALER Gender Identity Not on file Sexual Orientation [...] of Assessment Author 2 Nurse Skin Assessment MikeyHuang 05/10/2025 7:00 A M Jeffery Hernández RN * Pressure Injury Prevention Question Answer Date of Assessment Author Pressure Ulcer Prevention Interventions Keep skin clean and dry (Sensory Perception/Moistur e) 05/10/2025 11:00 AM Jeffery Hernández RN Special Mattress Low air loss 05/10/2025 11:0 0 AM Jeffery Hernández RN * Integumentary Question Answer Date of Assessment Author Integumentary (WDL) WDL 05/10/2025 11:[address] Jeffery Juarez RN * Question Answer Date [...] Jeffery Adams RN documented in this encounter Plan of Treatment Not on file documented as of this encounter Visit Diagnoses Not on filedocumented in this encounter Care Teams Health Services Director Relationship Specialty Start Date End Date Blake Ott MD [address] [place] [address] PCP - General Family Medicine 07/20/24 Carolin Gandhi MD [address] [place] [address] Family Medicine 04/10/23 documented as of this encounter
--- NOTE | 2025-05-11 02:25 | ECG_ITS ---
Test Date: 2025-05-11 02:32:42 Measurements Intervals Holmen Rate: 69 P: 40 NV: 194 QRS: -42 QRSD: 166 T: 82 QT: 459 QTc: 493 Interpretive Statements ELECTRONIC VENTRICULAR PACEMAKER No previous ECG available for comparison Electronically Signed On 05-11-2025 05:57:02 TRANSIT BUS DRIVER by Jesse Walls D.O
[2025-05-11 02:49] LABS: Hematocrit 53.1 % (42.0-52.0); Hemoglobin 17.5 g/dL (14.0-18.0); Immature Granulocyte Percent A 0.3 % (0-0.5); Lymphocytes Absolute Auto 1.47 K/mm3 (0.9-3.2); Mean Corpuscular HGB Conc 33.0 g/dl (32-36); Mean Corpuscular Hemoglobin 33.1 pg (26-34); Mean Corpuscular Volume 100.4 fl (80-100); Nucleated Red Blood Cells Absolute Auto 0.000 K/mm3 (0.0-0.012); Nucleated Red Blood Cells Perc 0.0 % (0.0-0.2); Platelet Count Result 253 k/mm3 (150-375); Red Blood Count 5.29 M/mm3 (4.6-6.20); White Blood Count 11.5 K/mm3 (4.5-10.0)
--- NOTE | 2025-05-11 02:49 | ED.SOB ---
HPI - SOB/Dyspnea General Chief Complaint: Shortness of Breath/Dyspnea Stated Complaint: short of breath Time Seen by Provider: 05/11/25 02:17 History of Present Illness HPI Narrative: 69-year-old male with a history of have for after 15-20% status post biventricular AICD, nonischemic cardiomyopathy, paroxysmal AFib on Eliquis and a mg sotalol b.i.d.. Patient has had 3 cardioversions in the last month most recently this morning. Patient gets his care at [facility] and was discharged from [facility] this morning 9:00 a.m. after a cardioversion. Patient went home and was feeling short of breath and dyspneic. No chest pain, nausea, vomiting. He has also been dealing with a chronic cough despite antibiotics. No longer taking any antibiotics. Was admitted to [facility] hospital 3 times in the last 2 weeks for same events of shortness of breath, AFib paroxysmally requiring cardioversion and subsequent discharge with outpatient follow-up. Patient denies any traumatic injuries or falls. Came to this ER as it was closer. No leg swelling, no productive cough, no CP. Compliant with his medications including sotalol and Eliquis. Scheduled to see Dr. Jacob from Cardiology here today for follow up, but came to the ER with symptoms tonight. Related Data Home Medications ?Medication ?Instructions ?Recorded ?Confirmed ?Last Taken ?Type multivitamin 1 tablet PO DAILY 12/09/20 04/27/25 03/15/22 History omega 0-ckv-eus-fish oil 60 mg-90 1 cap PO DAILY 10/29/22 04/27/25 Unknown History mg-500 mg capsule (Fish Oil) apixaban 5 mg tablet (Eliquis) 5 mg PO BID 04/20/25 04/27/25 Unknown History Allergies Allergy/AdvReac Type Severity Reaction Status Date / Time No Known Allergies Allergy Mild Verified 05/11/25 02:34 Review of Systems Review of Systems: As reviewed above in HPI All systems reviewed & are unremarkable except as noted in HPI and below PMFSH Past Medical History Medical History DM renal manif type II CKD (chronic kidney disease), stage III Hypertensive heart and kidney disease with HF and with CKD stage I-IV Gunner-Polanco respiration Sleep apnea Chronic anemia Transaminitis Edema leg JOVANNI (acute kidney injury) Elevated troponin Hyponatremia Vocal cord dysfunction Pulmonary asbestosis Chronic cough Vocal cord nodules Dysphonia Cough Screening PSA (prostate specific antigen) Mixed hyperlipidemia Wheezing Weight gain Ringworm Prediabetes Perianal irritation Patella, chondromalacia Pain in left knee Other obesity due to excess calories Obesity hypoventilation syndrome Lichen planus follicularis Essential hypertension Elevated fasting blood sugar Dyslipidemia Dietary counseling and surveillance (04/07/19) Colon cancer screening Cellulitis of perianal area Body mass index [BMI] 37.0-37.9, adult (01/11/17) Arthritis of knee Acute non-recurrent maxillary sinusitis Acute bronchitis Diabetes Left inguinal hernia New onset type 2 diabetes mellitus BMI 40.0-44.9, adult New onset type 2 diabetes mellitus Hyperglycemia Gout Hypothyroidism (acquired) Severe obesity (BMI >= 40) Obesity (BMI 30-39.9) Mixed hyperlipidemia Benign reactive hypertension Screening PSA (prostate specific antigen) Surgical History Surgical History History of inguinal hernia repair 03/19/2022 - robotic assisted left inguinal hernia repair with mesh, lysis of adhesions H/O umbilical hernia repair 01/09/21 H/O knee surgery Family History Family History Father Family history of primary malignant neoplasm of liver Family history of lung cancer Patient's father is Family history of malignant neoplasm of breast in first degree relative Mother Patient's mother is in good health Family history of malignant neoplasm of breast in first degree relative Cerebrovascular accident Sibling Patient's brother is in good health Patient's sister is in good health Social History Social History Social History: Smoking status: Never smoker Second hand tobacco smoke exposure: Yes (as a child) Alcohol intake: never Substance use: never Substance use type: does not use Do You Feel Safe in your Home?: Yes Lack of Transportation: No Lack of Food: Never True Current Housing: I Have Housing Concerned About Future Housing: No Difficulty Paying Gas/Electric Bills: No Difficulty Paying for Meds: No Currently Unemployed: No Education: Bachelor's Degree Difficulty w/ Childcare or Family Care: No Living arrangements: with family Additional living arrangements comments: Occupation/Education: retired Gender identity (if verbalized by the patient): Male Sexual Orientation (if Verbalized by the Patient): Straight or Heterosexual Spiritual care concerns: No Exam Narrative: GENERAL: Mildly tachypneic but not any distress. HEAD: [Normocephalic, atraumatic.] EYES: [PERRLA and EOMI.] ENT: Nares clear, no rhinorrhea or epistaxis. Mucous membranes moist. NECK: Supple. CHEST: Clear to auscultation, no respiratory distress. Mildly tachypneic. Clear to auscultation bilaterally. No wheezing, no decreased air entry. HEART: [Regular rate and rhythm]. No murmur heard. [Normal peripheral pulses.] ABDOMEN: [Soft, nondistended], [nontender], [No rigidity or guarding] EXTREMITIES: Normal range of motion. [No edema.] SKIN: Warm, dry, no rash. NEURO: [No focal deficits]. Alert and oriented [x3.] PSYCH: [Normal mood and affect.] Course Vital Signs Vital signs: Vital Signs Temperature 37.0 C 05/11/25 02:28 Pulse Rate 73 05/11/25 02:28 Respiratory Rate 26 H 05/11/25 02:28 Blood Pressure 117/71 05/11/25 02:28 Pulse Oximetry 92 05/11/25 02:28 Oxygen Delivery Room Air 05/11/25 02:28 Temperature 37.0 C 05/11/25 02:28 Pulse Rate 75 05/11/25 06:22 Respiratory Rate 19 05/11/25 06:22 Blood Pressure 139/85 05/11/25 06:22 Pulse Oximetry 97 05/11/25 06:22 Oxygen Delivery Nasal Cannula 05/11/25 04:37 Oxygen Flow Rate 2 05/11/25 04:37 MDM - SOB/Dyspnea MDM Narrative Medical decision making narrative: 69-year-old male with a history of have for after 15-20% status post biventricular AICD, nonischemic cardiomyopathy, paroxysmal AFib on Eliquis and a mg sotalol b.i.d.. Patient has had 3 cardioversions in the last month most recently this morning. Patient gets his care at [facility] and was discharged from [facility] this morning 9:00 a.m. after a cardioversion. Patient went home and was feeling short of breath and dyspneic. No chest pain, nausea, vomiting. He has also been dealing with a chronic cough despite antibiotics. No longer taking any antibiotics. Was admitted to [facility] 3 times in the last 2 weeks for same events of shortness of breath, AFib paroxysmally requiring cardioversion and subsequent discharge with outpatient follow-up. Patient denies any traumatic injuries or falls. Came to this ER as it was closer. No leg swelling, no productive cough, no CP. Compliant with his medications including sotalol and Eliquis. Scheduled to see Dr. Jacob from Cardiology here today for follow up, but came to the ER with symptoms tonight. Patient's dyspnea resolved without any intervention currently breathing 15-16 times per minute without intervention. 92-95% saturation on room air. History of PASCALE on CPAP at night. Blood pressure 117/71. No fever. Clear breath sounds throughout. No signs of fluid overload. Multiple hospital admissions and his cardiac history does raise suspicion for potential pulmonary embolism versus viral syndrome, less likely ACS or heart failure exacerbation. Does not appear decompensated. Laboratory studies obtained. CT angiography ordered of the chest, EKG and chest x-ray ordered. EKG shows paced rhythm, no ST segment derangements or ectopy. No AFib. CT angiography independently reviewed shows no pulmonary embolism. Some interseptal thickening and pleural effusions consistent with pulmonary edema. Patient is saturating 95% on room air. Given comfort oxygen while he was getting CT scan but did not require oxygenation. Given a dose of 40 mg IV Lasix with good effect. His laboratory studies showed no significant leukocytosis and appears to be just some hemoconcentration from diuresis. Hemoglobin of 17.5 from 15.4. Electrolytes showed normal potassium and otherwise unremarkable. Normal kidney function. Baseline GFR. Normal glucose and LFTs. BNP is elevated at almost 9000 consistent with mild CHF exacerbation likely the source of patient's symptoms. His viral panel swabs are negative. No signs of obvious infectious source. He is afebrile. We discussed treatment options going forward including admission to the hospital for diuresis, transfer to [facility] for continued care as he was there over the last few weeks, or discharge with his cardiology follow-up this afternoon. Patient is on room air oxygen, not in any respiratory distress and has a close follow-up with his animal impersonator to discuss his cardiovascular status this afternoon at 2:00 p.m. so they elected to go home at this time which I thought was appropriate. We discussed strict return precautions in the meantime and to make sure he takes his morning dose of Lasix and medications otherwise. Safely discharged home with return precautions and close follow-up. Medical Records Attestation: I reviewed the patient's medical records. Lab Data Attestation: I reviewed the patient's lab results. 05/11/25 02:40 05/11/25 02:40 Labs: Lab Results 05/11/25 Range/Units 02:40 WBC 11.5 H (4.5-10.0) K/mm3 RBC 5.29 (4.6-6.20) M/mm3 Hgb 17.5 (14.0-18.0) g/dL Hct 53.1 H (42.0-52.0) % MCV 100.4 H (80-100) fl MCH 33.1 (26-34) pg MCHC 33.0 (32-36) g/dl RDW 15.9 H (11.5-14.5) % Plt Count 253 (150-375) k/mm3 MPV 11.1 H (7.4-10.4) fl Immature Gran % (Auto) 0.3 (0-0.5) % Neut % (Auto) 80.0 H (45.5-73.1) % Lymph % (Auto) 12.8 L (18.3-44.2) % [place] % (Auto) 6.2 (2.6-8.5) % Eos % (Auto) 0.4 (0-4.4) % Baso % (Auto) 0.3 (0.2-1.2) % Lymph # (Auto) 1.47 (0.9-3.2) K/mm3 [place] # (Auto) 0.7 H (0.1-0.6) K/mm3 Eos # (Auto) 0.1 (0-0.3) K/mm3 Baso # (Auto) 0.0 (0.0-0.1) K/mm3 Abs Immat Gran (auto) 0.04 H (0.00-0.031) K/mm3 Absolute Neuts (auto) 9.2 H (1.3-6.7) K/mm3 Absolute Nucleated RBC 0.000 (0.0-0.012) K/mm3 Nucleated RBC % 0.0 (0.0-0.2) % Sodium 133 L (137-145) mmol/L Potassium 4.3 (3.4-5.0) mmol/L Chloride 98 (98-107) mmol/L Carbon Dioxide 24 (22-30) mmol/L Anion Gap 11 (4-12) mmol/L BUN 21 H (9-20) mg/dL Creatinine 1.26 (0.7-1.3) mg/dL Estim Creat Clear Calc 70 ml/min Estimated GFR 57 L (59 - ) Glucose 130 H (65-110) mg/dL Calcium 9.5 (8.4-10.2) mg/dL Magnesium 2.1 (1.6-2.3) mg/dL Total Bilirubin 1.2 (0.2-1.3) mg/dL AST 38 (17-59) U/L ALT 34 (6-50) U/L Alkaline Phosphatase 42 (38-126) U/L NT-Pro-B Natriuret Pep 8990 H (19.9-100) pg/mL Total Protein 8.0 (6.3-8.2) g/dL Albumin 4.6 (3.5-5.1) g/dL Influenza A (RT-PCR) Negative (Negative) Influenza B (RT-PCR) Negative (Negative) SARS-CoV-2 RNA (RT-PCR) Negative (Negative) Imaging Data Attestation: I personally reviewed and interpreted this imaging study as follows: My impression: CHF Discharge Plan Discharge Clinical Impression: CHF exacerbation Patient Disposition: Home Condition: Stable Instructions: Antibiotic Form, Heart Failure (ED), Pulmonary Edema (ED) Additional Instructions: CT scan shows no blood clot but you do have some small pleural effusions and fluid on your lungs likely causing your symptoms. No oxygen requirements and no respiratory distress. Adjustments to your Lasix dose or other medications will likely be needed to ensure adequate diuresis to get the fluid off of your lungs to help your subjective shortness of breath. Follow-up with your animal impersonator Dr. Kong today at 2:00 p.m.. Return with any worsening symptoms such as difficulty breathing, crushing chest pain, losing consciousness, fevers, productive cough or any other issues/emergencies in the meantime. Patient Language: [place] Prescriptions: No Action multivitamin Tablet 1 tablet PO DAILY Patient Comments: HS omega 3-twx-yhk-fish oil [Fish Oil] 60-90-500 mg capsule 1 cap PO DAILY Eliquis 5 mg tablet 5 mg PO BID furosemide 40 mg Tablet 40 mg PO DAILY Qty: 90 0RF metoprolol succinate 50 mg Tablet Extended Release 24 Hr 50 mg PO QAM Qty: 90 0RF spironolactone 25 mg Tablet 25 mg PO QAM Qty: 90 0RF testosterone cypionate [Depo-Testosterone] 200 mg/mL oil 200 mg IM WEEKLY 30 Days Qty: 5 2RF Rx Instructions: as a single dose rosuvastatin 20 mg tablet See Rx Instructions .ROUTE .COMPLEX Qty: 90 3RF Dose Instruction: Take 1 tablet by mouth once daily Rx Instructions: Take 1 tablet by mouth once daily allopurinol 300 mg tablet See Rx Instructions .ROUTE .COMPLEX Qty: 100 2RF Dose Instruction: Take 1 tablet by mouth once daily Rx Instructions: Take 1 tablet by mouth once daily metformin 500 mg tablet See Rx Instructions .ROUTE .COMPLEX Qty: 200 2RF Dose Instruction: Take 1 tablet by mouth twice daily Rx Instructions: Take 1 tablet by mouth twice daily levothyroxine 112 mcg tablet See Rx Instructions .ROUTE .COMPLEX Qty: 112 1RF Dose Instruction: TAKE TWO TABLETS BY MOUTH ON SUNDAYS AND ONE TABLET ALL OTHER DAYS OF THE WEEK Rx Instructions: TAKE TWO TABLETS BY MOUTH ON SUNDAYS AND ONE TABLET ALL OTHER DAYS OF THE WEEK Follow-up/Referrals: Blake Ott MD [Primary Care Provider, Family Practice] Time of Disposition: 06:08
[2025-05-11 03:04] LABS: Magnesium 2.1 mg/dL (1.6-2.3)
[2025-05-11 03:05] LABS: Alanine Aminotransferase 34 U/L (6-50); Albumin Level 4.6 g/dL (3.5-5.1); Alkaline Phosphatase 42 U/L (38-126); Anion Gap 11 mmol/L (4-12); Aspartate Amino Transferase 38 U/L (17-59); Bilirubin,Total 1.2 mg/dL (0.2-1.3); Blood Urea Nitrogen 21 mg/dL (9-20); Calcium 9.5 mg/dL (8.4-10.2); Carbon Dioxide 24 mmol/L (22-30); Chloride 98 mmol/L (98-107); Estimated CRCL calculation 70 ml/min; Estimated Glomerular Filt Rate 57; Glucose 130 mg/dL (65-110); Potassium 4.3 mmol/L (3.4-5.0); Sodium 133 mmol/L (137-145); Total Protein 8.0 g/dL (6.3-8.2)
[2025-05-11 03:13] LABS: NT Pro B Type Natriuretic Pept 8990 pg/mL (19.9-100)
[2025-05-11 03:25] LABS: Influenza A QL RT-PCR Negative (Negative); Influenza B QL RT-PCR Negative (Negative); SARS-CoV-2 RNA PCR Negative (Negative)
[2025-05-11] MEDS: FUROSEMIDE INJ 40 MG/4 ML VIAL IV PUSH (05:02)
== END 2025-05-11 06:24 | disposition home or self-care (01) ==
PROVIDERS: Emergency Provider Student in an Organized Health Care Education/Training Program; PCP Family Medicine
DX: I13.0 Hypertensive heart and chronic kidney disease with heart failure and stage 1 through stage 4 chronic kidney disease, or unspecified chronic kidney disease (principal); E11.22 Type 2 diabetes mellitus with diabetic chronic kidney disease; N18.30 Chronic kidney disease, stage 3 unspecified; I50.9 Heart failure, unspecified; E03.9 Hypothyroidism, unspecified; E78.5 Hyperlipidemia, unspecified
CPT/HCPCS: 36415; 71045; 71275; 80053; 83735; 83880; 85025; 87636; 93005; 96374; 99284; J1938; Q9967